=== PATIENT | female | born 1960 | race Caucasian/White ===

== ENCOUNTER 2016-05-21 08:27 | Inpatient (IN) | payer OTHER, MEDICARE ==
[2016-05-21] VITALS (24 sets, daily range): BP systolic 59–144; BP diastolic 37–105; PULSE 75–110; RESP 18–26; TEMP 97–98.8; O2SAT 92–100
[~2016-05-21] VITALS: Ht 165.1 cm; Wt 98.8 kg
[~2016-05-21 08:27] MED LIST: DULO20 PO; LISI40TA PO; LORA-474 PO; MOBI7.5T PO; MORP15TA3 PO; MORP20SO PO; PERC10TA27 PO; PROM25SU8 PO
[2016-05-21] MEDS ORDERED: SODIUM CHLOR 0.9% 1000 ML INJ 1,000 ML IV ONE ×3 (08:33→13:30)
[2016-05-21] MEDS ORDERED: SODIUM CHLOR 0.9% 1000 ML INJ 1,000 ML IV SCH ×3 (08:45→09:00)
[2016-05-21] MEDS ORDERED: SODIUM CHLORIDE 0.9% FLUSH 10 ML FLUSH IVF PRN (08:45)
--- NOTE | 2016-05-21 08:45 | PD ---
HPI Chief Complaint: Altered Mental Status Time Seen by Provider: 08:33 Travel History International Travel<30 days: No Contact w/Intl Traveler<30days: No History of Present Illness HPI 56 year-old woman is brought to the emergency department via EMS for altered mental status. EMS reports from that patient was recently restarted on oxycodone, Wellbutrin within the past several days. Patient has been getting more confused and lethargic since yesterday. EMS reports that on scene pill bottles were open and pills were scattered and many pills unaccounted for. They also relate the report the patient's mother more stress recently. Pills on scene include bupropion XL 150 mg, oxycodone 10/325 mg, alprazolam 1 mg. History Past Medical History Narrative Medical From medical records: Hypertension Menopausal: Yes Social History Alcohol Use: Yes (SOCIALLY) Tobacco Use: Yes (1/2PPD) Allergies-Medications (Allergen,Severity, Reaction): Coded Allergies: No Known Allergies (Unverified , 05/21/16) Reported Meds & Prescriptions Reported Meds & Active Scripts Active Phenergan (Promethazine HCl) 25 Mg Tab 25 Mg PO Q6H PRN FOR NAUSEA/VOMITING Reported Ativan (Lorazepam) 1 Mg Tab 1 Mg PO ONCE Morphine Sulfate Cr (Morphine Sulfate) 15 Mg Tab 15 Mg PO TID Morphine Sulfate 20 Mg/5 Ml Ameena 15 Mg PO Cymbalta (Duloxetine HCl) 20 Mg Cap 20 Mg PO DAILY Prinivil 40 mg (Lisinopril) 40 Mg Tab 1 Tab PO DAILY Mobic (Meloxicam) 7.5 Mg Tab 7.5 Mg PO HS Percocet 10/325 (Oxycodone/Acetaminophen) Oxycodone 10/325 Acetaminophen Tab 1 Tab PO BID Review of Systems ROS Limitations: Clinical Condition Physical Exam Narrative GENERAL: 56 year-old woman, depressed mental status, confused. SKIN: Decreased skin turgor. Appears dehydrated. HEAD: Atraumatic. Normocephalic. EYES: Pupils equal and round. No scleral icterus. No injection or drainage. ENT: No nasal bleeding or discharge. Dry mucous membranes. NECK: Trachea midline. No JVD. CARDIOVASCULAR: Regular rate and rhythm. No murmur appreciated. RESPIRATORY: No accessory muscle use. Clear to auscultation. Breath sounds equal bilaterally. GASTROINTESTINAL: Abdomen is flat and soft. She does grimace a little bit with deep palpation. MUSCULOSKELETAL: No obvious deformities. No edema. No obvious injuries. NEUROLOGICAL: Awake, eyes open but not really responsive. We will look at you if you scream loudly. Did answer her name once. Mostly just has incomprehensible moans with eyes were moving around the room. She is unusual muscle jerking and twitching periodically mostly in the upper extremities. She will move all 4 extremities but does seem to favor the upper ones. She doesn't move the lower ones as much. She doesn't appear to have any areas without sensation although she responds minimally at times even noxious stimuli. PSYCHIATRIC: Unable to assess. Data Data Last Documented VS Vital Signs Date Time Temp Pulse Resp B/P Pulse Ox O2 Delivery O2 Flow Rate FiO2 05/21/16 10:07 98 Nasal Cannula 2 05/21/16 10:07 102 Orders Electrocardiogram (05/21/16 08:33) Complete Blood Count With Diff (05/21/16 08:33) Comprehensive Metabolic Panel (05/21/16 08:33) Urinalysis - C+S If Indicated (05/21/16 08:33) Chest, Single Ap (05/21/16 08:33) Ct Brain W/O Iv Contrast(Rout) (05/21/16 08:33) Arterial Blood Gas (Abg) (05/21/16 08:33) Blood Glucose (05/21/16 08:33) Iv Access Insert/Monitor (05/21/16 08:33) Ecg Monitoring (05/21/16 08:33) Oximetry (05/21/16 08:33) Urinary Catheter Insert/Apply (05/21/16 08:33) Sodium Chloride 0.9% Flush (Ns Flush) (05/21/16 08:45) Sodium Chlor 0.9% 1000 Ml Inj (Ns 1000 M (05/21/16 08:33) Call Poison Control (05/21/16 08:33) Drug Screen, Random Urine (05/21/16 08:33) Alcohol (Ethanol) (05/21/16 08:33) Salicylates (Aspirin) (05/21/16 08:33) Tylenol (Acetaminophen) (05/21/16 08:33) Sodium Chlor 0.9% 1000 Ml Inj (Ns 1000 M (05/21/16 08:45) Creatine Kinase (Cpk) (05/21/16 08:33) Lactic Acid (05/21/16 08:50) Sodium Chlor 0.9% 1000 Ml Inj (Ns 1000 M (05/21/16 09:00) Sodium Chlor 0.9% 1000 Ml Inj (Ns 1000 M (05/21/16 09:00) Dextrose 5% In W[place]... W/Sodium Bicarbon (05/21/16 09:15) Beta Hydroxybutyrate (Acetone) (05/21/16 09:08) Osmolality,Serum (05/21/16 09:08) Blood Culture (05/21/16 09:08) Calcium Gluconate Inj (Calcium Gluconate (05/21/16 09:45) Albuterol Neb (Albuterol Neb) (05/21/16 09:45) Sodium Bicarbonate 8.4% Inj (Sodium Bica (05/21/16 09:45) Dextrose 50% In [place]ey[place] (Vial) Inj (D50w (Vi (05/21/16 09:45) Insulin Human Regular Inj (Novolin R Inj (05/21/16 09:45) Urine Culture (05/21/16 09:40) CKMB (05/21/16 09:00) CKMB% (05/21/16 09:00) Norepinephrine-Dextrose Drip (Levophed-D (05/21/16 10:30) Terbutaline Inj (Brethine Inj) (05/21/16 10:30) Comprehensive Metabolic Panel (05/21/16 11:00) Serum Total Iron (Fe) (05/21/16 10:31) Admit Order (Ed Use Only) (05/21/16 ) Labs Laboratory Tests Test 05/21/16 05/21/16 05/21/16 08:43 09:00 09:40 Blood Gas Puncture Site RT BRACHIAL Blood Gas Patient Temperature 98.6 Blood Gas HCO3 10 mmol/L Blood Gas Base Excess -18.1 mmol/L Blood Gas Oxygen Saturation 93 % Arterial Blood pH 7.04 Arterial Blood Partial 40 mmHG Pressure CO2 Arterial Blood Partial 106 mmHG Pressure O2 Arterial Blood Oxygen Content 15.7 Vol % Arterial Blood 1.3 % Carboxyhemoglobin Arterial Blood Methemoglobin 1.8 % Blood Gas Hemoglobin 11.9 G/DL Oxygen Delivery Device NASAL CANNULA Blood Gas Liter Flow 2 L/M Blood Gas Inspired Oxygen 28 % White Blood Count 10.5 TH/MM3 Red Blood Count 4.28 MIL/MM3 Hemoglobin 12.1 GM/DL Hematocrit 36.0 % Mean Corpuscular Volume 84.0 FL Mean Corpuscular Hemoglobin 28.3 PG Mean Corpuscular Hemoglobin 33.8 % Concent Red Cell Distribution Width 15.4 % Platelet Count 258 TH/MM3 Mean Platelet Volume 8.5 FL Neutrophils (%) (Auto) 89.8 % Lymphocytes (%) (Auto) 3.2 % Monocytes (%) (Auto) 3.5 % Eosinophils (%) (Auto) 0.0 % Basophils (%) (Auto) 3.5 % Neutrophils # (Auto) 9.4 TH/MM3 Lymphocytes # (Auto) 0.3 TH/MM3 Monocytes # (Auto) 0.4 TH/MM3 Eosinophils # (Auto) 0.0 TH/MM3 Basophils # (Auto) 0.4 TH/MM3 CBC Comment DIFF FINAL Differential Comment Sodium Level 135 MEQ/L Potassium Level 7.6 MEQ/L Chloride Level 94 MEQ/L Carbon Dioxide Level 13.7 MEQ/L Anion Gap 27 MEQ/L Blood Urea Nitrogen 184 MG/DL Creatinine 13.00 MG/DL Estimat Glomerular Filtration 3 ML/MIN Rate Random Glucose 111 MG/DL Serum Osmolality 353 MOSM/KG Lactic Acid Level 1.1 mmol/L Calcium Level 7.3 MG/DL Protein Corrected Calcium 7.9 MG/DL Total Bilirubin 0.9 MG/DL Aspartate Amino Transf 68 U/L (AST/SGOT) Alanine Aminotransferase 60 U/L (ALT/SGPT) Alkaline Phosphatase 124 U/L Total Creatine Kinase 1699 U/L Creatine Kinase MB 144.5 NG/ML Creatine Kinase MB % 8.5 % Total Protein 6.0 GM/DL Albumin 2.7 GM/DL Salicylates Level 3.9 MG/DL Acetaminophen Level 4.4 MCG/ML Ethyl Alcohol Level LESS THAN 3 MG/DL B-Hydroxybutyrate 1.06 MMOL/L Urine Collection Type CLEAN CATCH Urine Color YELLOW Urine Turbidity SLIGHT Urine pH 5.0 Urine Specific [place] 1.024 Urine Protein TRACE mg/dL Urine Glucose (UA) NEG mg/dL Urine Ketones TRACE mg/dL Urine Occult Blood SMALL Urine Nitrite NEG Urine Bilirubin NEG Urine Leukocyte Esterase NEG Urine RBC 15-19 /hpf Urine WBC 3-5 /hpf Urine Squamous Epithelial 0-5 /hpf Cells Urine Amorphous Sediment MOD Urine Bacteria MOD /hpf Microscopic Urinalysis Comment CULTURE INDICATED Urine Collection Time 09:40 Urine Opiates Screen POS Urine Barbiturates Screen NEG Urine Amphetamines Screen POS Urine Benzodiazepines Screen POS Urine Cocaine Screen POS Urine Cannabinoids Screen NEG MDM Medical Decision Making Medical Screen Exam Complete: Yes Emergency Medical Condition: Yes Interpretation(s) My review of EKG: Sinus rhythm at a rate of 80, occasional PACs, normal axis, inferolateral ST depressions could be ischemic, T waves are little bit peaked and anterior precordium, QRS duration is 100. CT head: No acute disease. Chest x-ray: No acute disease. LABS: ABG 7.04/40/106/10, base excess -18 CBC generally unremarkable. CMP with renal failure, creatinine 13, acidosis with a bicarbonate of 13.7, anion gap of 27, calcium is 7.3 Lactate 1.1 CPK Alcohol negative Salicylates pending Acetaminophen pending Beta hydroxybutyrate pending Differential Diagnosis Overdose, stroke, dehydration, infection/encephalitis, poisoning, other Narrative Course Medical decision making INITIAL: 56-year-old with altered mental status and suspected polydrug overdose. We'll discuss with poison control. We'll check CT head, labs, and reassess. Blood pressure is a low. She appears dehydrated. We will bolus 2 L IV fluid. Close monitoring, likely admission to the ICU. FINAL: Labs of marked abnormalities including renal failure, marked acidosis. Patient worsening mental status. Initial response to 4 L of IV fluid. Patient had marked dehydration. Patient was also found to be in hyperkalemia with her renal failure. Was treated with bicarbonate, insulin and D50, albuterol. Bicarbonate drip was also started. Given the marked metabolic derangement, potential need for dialysis, and worsening mental status, decision was made to intubate the patient. Following intubation a central line and arterial line were also place. Nor epi drip was started. Propofol was started. I spoke with Dr. Jasen ponce, with nephrology. I also spoke with Dr. Sexton, critical care medicine. Patient was transferred emergently to the ICU and [facility]. Critical Care Narrative Aggregate critical care time was 45 minutes. Time to perform other separately billable procedures was not included in the critical care time. My time did not include minutes spent treating any other patients simultaneously or on activities that did not directly contribute to the patient's treatment. The services I provided to this patient were to treat and/or prevent clinically significant deterioration that could result in: , renal failure, worsening shock, unrecognized toxidrome, increased morbidity. I provided critical care services requiring my management, as noted below: Chart data review, documentation time, medication orders and management, vital sign assessments/reviewing monitor data, ordering and reviewing lab tests, ordering and interpreting/reviewing x-rays and diagnostic studies, care of the patient and discussion of the patient with the admitting physicians. Procedures Procedure Narrative After the risks and benefits were discussed the following procedure was performed: INTUBATION: The patient was put in optimal position for the procedure. Rapid sequence intubation was initiated by me using 20 milligrams of etomidate IV and 80 milligrams of Rocuronium IV. The patient was intubated with a 8.0 cuffed endotracheal tube. Tube placement was confirmed by visualization of the tube and balloon passing through the cords, capnometry and subsequent chest x-ray. Breath sounds were equal and well aerated bilaterally postintubation. No breath sounds over stomach. Patient tolerated procedure well. CENTRAL VENOUS LINE: The site was prepped with Betadine and sterilely draped. It was infiltrated with 1% lidocaine plain. The deep vein was cannulated using normal Seldinger technique. A triple lumen central line was placed in the right IJ site and secured with simple interrupted suture. Ultrasound was utilized in real time. The site was sterilely dressed. The patient tolerated the procedure well. ARTERIAL LINE: Right wrist was prepped with chlorhexidine. Ultrasound was utilized in real time. 20-gauge Angiocath was placed without difficulty. Patient tolerated well. Good waveform. Diagnosis Primary Impression: Altered mental status Additional Impression: Renal failure Admitting Information Admitting Physician Requests: Admit Evan Aragon MD May 21, 2016 08:45
[2016-05-21 08:52] LABS: BLOOD GAS BASE EXCESS -18.1 mmol/L (-2-2); BLOOD GAS CARBOXYHEMOGLOBIN 1.3 % (0-4); BLOOD GAS HCO3 10 mmol/L (22-26); BLOOD GAS METHEMOGLOBIN 1.8 % (0-2); BLOOD GAS O2 HGB SATURATION 93 % (90-100); BLOOD GAS OXYGEN CONTENT 15.7 Vol % (12.0-20.0); BLOOD GAS PCO2 40 mmHG (38-42); BLOOD GAS PO2 106 mmHG (61-120); BLOOD GAS TOTAL HGB 11.9 G/DL (12.0-16.0); TEMP CORR TO 98.6
[2016-05-21 08:53] LABS: CRITICAL VALUE YES; DRAW SITE RT BRACHIAL; FIO2 28 %; LITER FLOW 2 L/M; NUMBER OF ARTERIAL PUNCTURES 2; OXYGEN DEVICE NASAL CANNULA; STAT YES; ULNAR PULSE PRESENT
[2016-05-21 09:07] LABS: AUTOMATED NEUTROPHIL # 9.4 TH/MM3 (1.8-7.7); BASOPHIL # 0.4 TH/MM3 (0-0.2); BASOPHIL % 3.5 % (0.0-2.0); LYMPH % 3.2 % (9.0-44.0); LYMPHOCYTE # 0.3 TH/MM3 (1.0-4.8); MEAN CORPUSCULAR HEMOGLOBIN 28.3 PG (27.0-34.0); MEAN CORPUSCULAR HGB CONC 33.8 % (32.0-36.0); MONO % 3.5 % (0.0-8.0); NEUT % 89.8 % (16.0-70.0); PLATELET COUNT 258 TH/MM3 (150-450); RED BLOOD COUNT 4.28 MIL/MM3 (4.00-5.30); RED CELL DISTRIBUTION WIDTH 15.4 % (11.6-17.2); WHITE BLOOD COUNT 10.5 TH/MM3 (4.0-11.0)
[2016-05-21 09:08] LABS: HEMO FLAGS DIFF FINAL
[2016-05-21] MEDS ORDERED: SODIUM BICARBONATE 8.4% INJ 100 MEQ in DEXTROSE 5% IN WATE 1000ML INJ 1,000 ML IV SCH ×2 (09:15)
[2016-05-21 09:18] LABS: ALT (GPT) 60 U/L (10-53); ANION GAP 27 MEQ/L (5-15); AST (GOT) 68 U/L (15-37); BICARBONATE 13.7 MEQ/L (21.0-32.0); CHLORIDE 94 MEQ/L (98-107); SODIUM (NA) 135 MEQ/L (136-145)
[2016-05-21 09:25] LABS: ALKALINE PHOSPHATASE 124 U/L (45-117); TOTAL BILIRUBIN ADULT 0.9 MG/DL (0.2-1.0)
--- NOTE | 2016-05-21 09:25 | RADHPO ---
EXAM DATE/TIME: 05/21/2016 09:02 [facility] COMPARISON: No previous studies available for comparison. INDICATIONS : Altered mental status. RADIATION DOSE: 54.25 CTDIvol (mGy) MEDICAL HISTORY : Hypertension. SURGICAL HISTORY : Cholecystectomy. Tubal ligation.Laminectomy. ENCOUNTER: Initial ACUITY: 1 day PAIN SCALE: 0/10 LOCATION: cranial TECHNIQUE: Multiple contiguous axial images were obtained of the head. Using automated exposure control and adj ustment of the mA and/or kV according to patient size, radiation dose was kept as low as reasonably a chievable to obtain optimal diagnostic quality images. FINDINGS: CEREBRUM: The ventricles are normal for age. No evidence of midline shift, mass lesion, hemorrhage or acute in farction. No extra-axial fluid collections are seen. POSTERIOR FOSSA: The cerebellum and brainstem are intact. The 4th ventricle is midline. The cerebellopontine angle i s unremarkable. EXTRACRANIAL: The visualized portion of the orbits is intact. SKULL: The calvaria is intact. No evidence of skull fracture. CONCLUSION: No acute disease. Torsten Verma MD on May 21, 2016 at 9:23 Board Certified Radiologist. This report was verified electronically.
[2016-05-21 09:26] LABS: CALCIUM-PROTEIN CORRECTED 7.9 MG/DL (8.5-10.1)
[2016-05-21 09:30] LABS: GLOMERULAR FILTRATION RATE 3 ML/MIN (>89); POTASSIUM 7.6 MEQ/L (3.5-5.1)
--- NOTE | 2016-05-21 09:38 | RADHPO ---
EXAM DATE/TIME: 05/21/2016 08:51 [facility] COMPARISON: No previous studies available for comparison. INDICATIONS : Short of breath. MEDICAL HISTORY : Syncope. SURGICAL HISTORY : None. ENCOUNTER: Initial ACUITY: 1 day PAIN SCORE: Non-responsive. LOCATION: Bilateral chest FINDINGS: A single view of the chest demonstrates the lungs to be symmetrically aerated without evidence of mas s, infiltrate or effusion. The cardiomediastinal contours are unremarkable. Osseous structures are intact. CONCLUSION: No acute disease. Evert Bledsoe MD on May 21, 2016 at 9:34 Board Certified Radiologist. This report was verified electronically.
[2016-05-21] MEDS ORDERED: INSULIN HUMAN REGULAR 1,000 UNITS/10 ML VIAL IV PUSH ONE (09:45)
[2016-05-21] MEDS ORDERED: SODIUM BICARBONATE 8.4% INJ 50 MEQ/50 ML SYR IV PUSH ONE ×2 (09:45→15:45)
[2016-05-21] MEDS ORDERED: DEXTROSE 50% IN WATER 50 ML VIAL(D50) IV PUSH ONE (09:45)
[2016-05-21] MEDS ORDERED: CALCIUM GLUCONATE INJ 2 GM in DEXTROSE 5% IN WATER 100ML INJ 100 ML IV ONE ×2 (09:45)
[2016-05-21] MEDS ORDERED: RESP: ALBUTEROL 2.5 MG/3 ML NEB (SCH) NEB ONE (09:45)
[2016-05-21 09:53] LABS: BLOOD, URINE SMALL (NEG); GLUCOSE,URINE NEG (NEG); KETONE, URINE TRACE mg/dL (NEG); NITRITE,URINE NEG (NEG)
[2016-05-21 09:58] LABS: METHOD OF COLLECTION CLEAN CATCH; RBC, URINE 15-19 /hpf (0-3); URINE COLOR YELLOW (YELLW/STRAW)
[2016-05-21 09:59] LABS: BACTERIA, URINE MOD /hpf; COMMENT (UR) CULTURE INDICATED; CULTURE IF INDICATED CULTURE INDICATED; SQUAMOUS EPITHELIAL CELL URINE 0-5 /hpf (0-5)
[2016-05-21 10:10] LABS: AMPHETAMINE, URINE POS (NEG); BARBITURATES, URINE NEG (NEG); COCAINE, URINE POS (NEG)
[2016-05-21 10:19] LABS: BLOOD UREA NITROGEN 184 MG/DL (7-18); CREATINE KINASE 1699 U/L (26-192)
[2016-05-21] MEDS ORDERED: TERBUTALINE INJ 1 MG/ML AMP SQ PRN (10:30)
[2016-05-21 10:43] LABS: ACETAMINOPHEN 4.4 MCG/ML (10.0-30.0)
[2016-05-21 10:52] LABS: CKMB 144.5 NG/ML (0.5-3.6)
[2016-05-21] MEDS ORDERED: SUCCINYLCHOLINE CHLORIDE 200 MG/10 ML VIAL ONE (10:58)
[2016-05-21] MEDS ORDERED: ROCURONIUM INJ 100 MG/10 ML VIAL IV ONE (11:00)
[2016-05-21] MEDS ORDERED: ETOMIDATE 20 MG/10 ML VIAL IVP ONE (11:00)
[2016-05-21] MEDS ORDERED: ROCURONIUM INJ 50 MG/5 ML VIAL ONE (11:00)
[2016-05-21 11:37] LABS: POTASSIUM 5.8 MEQ/L (3.5-5.1)
--- NOTE | 2016-05-21 11:41 | EKG ---
Date Performed: 05/21/2016 Time Performed: 09:20:20 PTAGE: 56 years EKG: Sinus rhythm with PAC(s). Possible septal infarct - age undetermined Inferior/lateral ST changes are nonspecific Abnormal ECG PREVIOUS TRACING : 04/12/2015 17.12 DOCTOR: Evan Pandya Interpretating Date/Time 05/21/2016 11:40:44
--- NOTE | 2016-05-21 11:42 | RADHPO ---
EXAM DATE/TIME: 05/21/2016 10:59 [facility] COMPARISON: CHEST SINGLE AP, May 21, 2016, 8:51. INDICATIONS : Post intubation and central line placement. MEDICAL HISTORY : None. SURGICAL HISTORY : None. ENCOUNTER: Subsequent ACUITY: 1 day PAIN SCORE: Non-responsive. LOCATION: Bilateral chest FINDINGS: A single view of the chest demonstrates a interval placement of a right IJ central venous catheter an d endotracheal tube. The latter is approximately 1.7 cm above the angel. Heart size is borderline. T here is some interstitial prominence suggesting vascular congestion or volume overload. Anterior fixa tion of lower cervical spine. Osseous structures are otherwise intact. CONCLUSION: 1. Interval placement of right IJ central venous catheter with the tip projecting over the central ve nous system. No pneumothorax. 2. Interval placement of an endotracheal tube with the tip approximately 1.7 cm above the angel. 3. Heart size is upper limits of normal to borderline enlarged with some interstitial prominence taylor acteristic of some degree of interstitial edema or volume overload. Ky German MD on May 21, 2016 at 11:38 Board Certified Radiologist. This report was verified electronically.
[2016-05-21 11:54] LABS: BICARBONATE 15.7 MEQ/L (21.0-32.0); CALCIUM-PROTEIN CORRECTED 7.5 MG/DL (8.5-10.1); TOTAL BILIRUBIN ADULT 0.8 MG/DL (0.2-1.0)
[2016-05-21] MEDS ORDERED: MISCELLANEOUS NURSING INFORMATION XX SCH (12:30)
[2016-05-21] MEDS ORDERED: CHLORHEXIDINE GLUCONATE 2 % 1 PACK (2 CLOTHS) TOP PRN (12:30)
--- NOTE | 2016-05-21 13:36 | HHI.HP ---
[facility] Service Critical Care Medicine Primary Care Physician Duong Barahona MD Admission Diagnosis REnal Failure, AMS Diagnosis: (1) Acute respiratory failure Diagnosis: Principal (2) Acute encephalopathy Diagnosis: Principal (3) Acute drug overdose Diagnosis: Principal (4) Acute renal failure Diagnosis: Principal (5) Hyperkalemia Diagnosis: Principal (6) Shock Diagnosis: Principal (7) Metabolic acidosis Diagnosis: Principal (8) Rhabdomyolysis Diagnosis: Principal (9) Elevated liver enzymes Diagnosis: Principal (10) Hypocalcemia Diagnosis: Principal (11) Dehydration Diagnosis: Principal Chief Complaint: Altered mental status, lethargy Travel History International Travel<30 Days: No Contact w/Intl Traveler <30 Da: No Traveled to Known Affected Are: No Sepsis Criteria SIRS Criteria (2 or more): Heart rate over 90, RR > 20 or PaCO2 < 32 Severe Sepsis (+one): Organ Dysfunction, Hypotension, Acute Oliguria/Renal Failure Septic Shock Criteria: Unresponsive to 30ml/kg fluid bolus Multiple Organ Dysfunction Syn: Evidence -2 organs failing Criteria Outcome: Meets multiple organ dys. criteria History of Present Illness Patient is a 56-year-old female with past medical history significant for hypertension and chronic pain who was brought to the [place] emergency department by EMS for altered mental status. Per EMS stated that she was recently started on oxycodone, Wellbutrin within the past 2 weeks. According to him patient was getting more confused and lethargic since yesterday. On EMS arrival and there were multiple open bottles on the scene including Wellbutrin oxycodone and alprazolam. Unable to determine what meds and how much she consumed. Patient was hypotensive and received total of 4 L normal saline boluses in [facility] ED. ER workup showed a CT of the head was negative but patient remained unresponsive with jerking movements of bilateral upper and lower extremities. Lab work showed acute renal failure with BUN 184 creatinine of 13, potassium was 7.6. Along with fluid boluses patient received bicarbonate, insulin and D50, albuterol for treatment of hyperkalemia and Bicarbonate drip was also started. Patient's pH was 7.04 which was combined metabolic and respiratory acidemia. Due to worsening mental status severe acidosis patient was endotracheally intubated and placed on mechanical ventilation, also a right IJ central line was placed. Nephrology had been consulted Patient was transferred to the [facility] hospital and I evaluated her in the ICU. On propofol patient continues to have intermittent jerking movements of the extremities. She remains on 6 mcg/m of Levophed. After treatment of hyperkalemia potassium has improved now 5.8. Creatinine has improved to 12 patient had a total output of 500 mL in urine. We will continue bicarbonate infusion. Nephrology consult is pending at this time. UDS positive for opiates , benzo, amphetamine and cocaine. Review of Systems ROS Limitations: Intubated, Altered Mental Status Past Family Social History Allergies: Coded Allergies: No Known Allergies (Unverified , 05/21/16) Past Medical History Hypertension Chronic pain Past Surgical History Unable to obtain Reported Medications Ativan (Lorazepam) 1 Mg Tab 1 Mg PO ONCE Morphine Sulfate Cr (Morphine Sulfate) 15 Mg Tab 15 Mg PO TID Morphine Sulfate 20 Mg/5 Ml Ameena 15 Mg PO Cymbalta (Duloxetine HCl) 20 Mg Cap 20 Mg PO DAILY Prinivil 40 mg (Lisinopril) 40 Mg Tab 1 Tab PO DAILY Mobic (Meloxicam) 7.5 Mg Tab 7.5 Mg PO HS Percocet 10/325 (Oxycodone/Acetaminophen) Oxycodone 10/325 Acetaminophen Tab 1 Tab PO BID Active Ordered Medications Reviewed Family History Unable to obtain Social History Positive for alcohol and smoking. UDS positive for cocaine, amphetamine, opiates and benzodiazepines Physical Exam Vital Signs Vital Signs Date Time Temp Pulse Resp B/P Pulse Ox O2 Delivery O2 Flow Rate FiO2 05/21/16 11:35 95 20 123/59 100 Ventilator 05/21/16 11:20 101 20 93/46 100 Ventilator 05/21/16 11:15 108 20 119/58 100 Ventilator 05/21/16 11:12 99 40 05/21/16 10:55 107 101/47 05/21/16 10:35 106 85/38 98 3 05/21/16 10:30 107 79/41 92 Nasal Cannula 3 05/21/16 10:25 106 59/37 100 3 05/21/16 10:15 105 82/50 99 Nasal Cannula 3 05/21/16 10:10 102 24 76/50 99 Nasal Cannula 3 05/21/16 10:07 98 Nasal Cannula 2 05/21/16 10:07 102 100 Nasal Cannula 3 05/21/16 09:40 86 26 92/64 98 3 05/21/16 09:20 83 24 138/105 98 Nasal Cannula 3 05/21/16 08:30 98.8 75 22 84/53 99 Nasal Cannula 3 Physical Exam GENERAL: 56 year-old woman, intubated sedated with propofol, intermittent jerking of limbs noted SKIN: Decreased skin turgor. Severe dehydration. HEAD: Atraumatic. Normocephalic. EYES: Pupils equal and round. No scleral icterus. No injection or drainage. ENT: No nasal bleeding or discharge. Dry mucous membranes. Orotracheally intubated NECK: Trachea midline. No JVD. CARDIOVASCULAR: Regular rate and rhythm. No murmur appreciated. On 5 mcg/min of Levophed RESPIRATORY: Clear to auscultation. Breath sounds equal bilaterally. GASTROINTESTINAL: Abdomen is flat and soft. No organomegaly MUSCULOSKELETAL: No obvious deformities. No edema. No obvious injuries. NEUROLOGICAL: Eyes are open blank stare. Periodic intermittent jerking movements of bilateral upper and lower extremities. No withdrawal to painful Laboratory Laboratory Tests Test 05/21/16 05/21/16 05/21/16 05/21/16 08:43 09:00 09:40 11:25 Blood Gas Puncture Site RT BRACHIAL Blood Gas Patient Temperature 98.6 Blood Gas HCO3 10 Blood Gas Base Excess -18.1 Blood Gas Oxygen Saturation 93 Arterial Blood pH 7.04 Arterial Blood Partial 40 Pressure CO2 Arterial Blood Partial 106 Pressure O2 Arterial Blood Oxygen Content 15.7 Arterial Blood 1.3 Carboxyhemoglobin Arterial Blood Methemoglobin 1.8 Blood Gas Hemoglobin 11.9 Oxygen Delivery Device NASAL CANNULA Blood Gas Liter Flow 2 Blood Gas Inspired Oxygen 28 White Blood Count 10.5 Red Blood Count 4.28 Hemoglobin 12.1 Hematocrit 36.0 Mean Corpuscular Volume 84.0 Mean Corpuscular Hemoglobin 28.3 Mean Corpuscular Hemoglobin 33.8 Concent Red Cell Distribution Width 15.4 Platelet Count 258 Mean Platelet Volume 8.5 Neutrophils (%) (Auto) 89.8 Lymphocytes (%) (Auto) 3.2 Monocytes (%) (Auto) 3.5 Eosinophils (%) (Auto) 0.0 Basophils (%) (Auto) 3.5 Neutrophils # (Auto) 9.4 Lymphocytes # (Auto) 0.3 Monocytes # (Auto) 0.4 Eosinophils # (Auto) 0.0 Basophils # (Auto) 0.4 CBC Comment DIFF FINAL Differential Comment Sodium Level 135 137 Potassium Level 7.6 5.8 Chloride Level 94 100 Carbon Dioxide Level 13.7 15.7 Anion Gap 27 21 Blood Urea Nitrogen 184 164 Creatinine 13.00 12.00 Estimat Glomerular Filtration 3 3 Rate Random Glucose 111 157 Serum Osmolality 353 Lactic Acid Level 1.1 Calcium Level 7.3 6.6 Protein Corrected Calcium 7.9 7.5 Total Bilirubin 0.9 0.8 Aspartate Amino Transf 68 74 (AST/SGOT) Alanine Aminotransferase 60 56 (ALT/SGPT) Alkaline Phosphatase 124 118 Total Creatine Kinase 1699 Creatine Kinase MB 144.5 Creatine Kinase MB % 8.5 Total Protein 6.0 5.3 Albumin 2.7 2.3 Salicylates Level 3.9 Acetaminophen Level 4.4 Ethyl Alcohol Level LESS THAN 3 B-Hydroxybutyrate 1.06 Urine Collection Type CLEAN CATCH Urine Color YELLOW Urine Turbidity SLIGHT Urine pH 5.0 Urine Specific Hughson 1.024 Urine Protein TRACE Urine Glucose (UA) NEG Urine Ketones TRACE Urine Occult Blood SMALL Urine Nitrite NEG Urine Bilirubin NEG Urine Leukocyte Esterase NEG Urine RBC 15-19 Urine WBC 3-5 Urine Squamous Epithelial 0-5 Cells Urine Amorphous Sediment MOD Urine Bacteria MOD Microscopic Urinalysis Comment CULTURE INDICATED Urine Collection Time 09:40 Urine Opiates Screen POS Urine Barbiturates Screen NEG Urine Amphetamines Screen POS Urine Benzodiazepines Screen POS Urine Cocaine Screen POS Urine Cannabinoids Screen NEG Iron Level 78 Date/Time Procedure Status Source Growth 05/21/16 09:46 Aerobic Blood Culture Received Blood Peripheral Pending 05/21/16 09:46 Anaerobic Blood Culture Received Blood Peripheral Pending 05/21/16 09:40 Urine Culture Received Urine Clean Catch Pending Result Diagram: 05/21/16 0900 05/21/[address] scan head negative for acute findings Chest x-ray mild interstitial edema Assessment and Plan Assessment and Plan NEURO: Acute encephalopathy Polydrug overdose Probable myoclonus Chronic pain -Urine drug screen positive for cocaine, amphetamine, benzodiazepines and opiates -Apparently patient was recently prescribed Wellbutrin and oxycodone -Sedation with propofol and Versed -EEG due to involuntary jerking of the limbs -Watch for alcohol and drug withdrawal RESP: Acute respiratory failure Severe metabolic and respiratory acidosis -Assist control mechanical ventilation. Ventilator bundle -DuoNeb every 6 hours and when necessary -Spontaneous breathing trials until mental status improves -Send sputum culture, empiric Zosyn CV: Shock -Most likely hypovolemic shock -Normal saline total 6L bolus followed by bicarb infusion and 150 ml per hour -Levophed to keep map above 65 -Cycle cardiac enzymes GI: Transaminitis -Elevated liver enzymes from shock liver -Keep nothing by mouth, IV Protonix /Endo: Acute kidney failure Severe dehydration Hyperkalemia Hypocalcemia -Monitor renal function closely. Robert catheter. -Acute renal failure workup per nephrology. Check renal ultrasound -Hypokalemia treated with D50 followed by insulin, calcium, bicarbonate and albuterol breathing treatments -Give Kayexalate 30 g 1 -Patient is making urine at this time, potassium has improved to 5.8 from 7.6. I do not think she needs dialysis at this time -D/W Dr. Prado ID: Probable sepsis -Empirically placed on Zosyn to cover for possible sepsis and aspiration -Single dose of vancomycin -Follow up on blood urine and sputum culture. HEME: -Monitor CBC, CMP, coags PROPH: -Bilateral lower extremity SCDs. Heparin 5000 U sq q12. IV Protonix for GI prophylaxis LINES: -Right IJ central line placed in the ER by Dr. greenberg. CC time 90 min Code Status Full Discussed Condition With Dr. Prado Problem Qualifiers (1) Acute respiratory failure: Qualified Code: J96.00 - Acute respiratory failure, unspecified whether with hypoxia or hypercapnia (2) Acute drug overdose: (3) Acute renal failure: Qualified Code: N17.9 - Acute renal failure, unspecified acute renal failure type (4) Rhabdomyolysis: Qualified Code: M62.82 - Non-traumatic rhabdomyolysis Winston Loyd MD May 21, 2016 13:36
[2016-05-21] MEDS: NOREPINEPHRINE-DEXTROSE DRIP 250 ML IV SCH ×2 (13:40→13:43)
[2016-05-21] MEDS: PROPOFOL 1000 MG/100 ML INJ 100 ML IV SCH ×3 (13:40→17:15)
[2016-05-21] MEDS ORDERED: MIDAZOLAM 100 MG/ML INJ 100 ML IV SCH (13:45)
[2016-05-21] MEDS: RESP: ALBUTEROL 2.5 MG/IPRATROPIUM 0.5 MG NEB (SCH) NEB ×2 (14:14→21:37)
[2016-05-21 14:30] LABS: BLOOD GAS BASE EXCESS -15.9 mmol/L (-2-2); BLOOD GAS CARBOXYHEMOGLOBIN 0.6 % (0-4); BLOOD GAS HCO3 11 mmol/L (22-26); BLOOD GAS METHEMOGLOBIN 1.8 % (0-2); BLOOD GAS O2 HGB SATURATION 96 % (90-100); BLOOD GAS OXYGEN CONTENT 16.8 Vol % (12.0-20.0); BLOOD GAS PCO2 30 mmHg (38-42); BLOOD GAS PO2 157 mmHg (61-120); BLOOD GAS TOTAL HGB 12.3 G/DL (12.0-16.0); TEMP CORR TO 98.6
[2016-05-21] MEDS ORDERED: CALCIUM CHLORIDE INJ 2 GM in DEXTROSE 5% IN WATER 100ML INJ 100 ML IV ONE ×2 (14:30)
[2016-05-21 14:31] LABS: CRITICAL VALUE YES; DRAW SITE ART LINE; FIO2 50 %; OXYGEN DEVICE VENTILATOR; STAT YES; ULNAR PULSE PRESENT; VENT SETTINGS 550/16/7PEEP
[2016-05-21] MEDS ORDERED: SODIUM POLYSTYRENE SULFONATE SUSP 15 GM/60 ML CUP PO ONE (15:00)
[2016-05-21] MEDS ORDERED: VANCOMYCIN INJ 1,000 MG in SODIUM CHLOR 0.9% 250 ML INJ 250 ML IV ONE (15:00)
[2016-05-21] MEDS ORDERED: TIZA4CAP3 PO (15:07)
[2016-05-21 15:37] LABS: CALCIUM-PROTEIN CORRECTED 7.7 MG/DL (8.5-10.1)
[2016-05-21 15:38] LABS: BICARBONATE 13.6 MEQ/L (21.0-32.0); TOTAL BILIRUBIN ADULT 0.9 MG/DL (0.2-1.0)
[2016-05-21] MEDS: PIPERACIL-TAZO 2.25 GM PREMIX 50 ML IV SCH (16:18)
[2016-05-21] MEDS: SODIUM BICARBONATE 8.4% INJ 150 MEQ in WATER STERILE FOR INJ 850 ML IV SCH (16:29)
--- NOTE | 2016-05-21 17:11 | RADRPT ---
EXAM DATE/TIME: 05/21/2016 15:32 [facility] COMPARISON: No previous studies available for comparison. INDICATIONS : Renal failure. MEDICAL HISTORY : Hypertension. . . SURGICAL HISTORY : Cholecystectomy. Tubal ligation. Laminectomy. ENCOUNTER: Subsequent ACUITY: 1 day PAIN SCORE: Nonresponsive. LOCATION: Bilateral flank MEASUREMENTS: RIGHT KIDNEY: 11.5 x 5.5 x 5.2 cm LEFT KIDNEY: 10.3 x 5.2 x 6.1 cm FINDINGS: RIGHT KIDNEY: Increased cortical echogenicity. Renal size is preserved. No hydronephrosis or nephrolithiasis LEFT KIDNEY: Increased cortical echogenicity. Renal size is preserved. No hydronephrosis or nephrolithiasis BLADDER: Decompressed with a Robert catheter. CONCLUSION: 1. Kidney sizes are preserved with increased cortical echogenicity characteristic of acute medical re nal disease. 2. Otherwise negative. No hydronephrosis or nephrolithiasis. Ky German MD on May 21, 2016 at 17:08 Board Certified Radiologist. This report was verified electronically.
[2016-05-21] MEDS: HEPARIN SODIUM - SQ 10,000 UNITS/ML VIAL SQ SCH (17:24)
[2016-05-21] MEDS: PANTOPRAZOLE SODIUM 40 MG VIAL IV SCH (17:24)
--- NOTE | 2016-05-21 18:32 | MG ---
cc: MIKAELA CHAUDHARI MD Lab No: Date: 05/21/2016 Age: Sex: F Race: EEG NUMBER [id number] DATE OF 1960 A 56-year-old female, intubated, on Diprivan, history of confusion, possible overdose. DESCRIPTION Generalized delta activity 1-3 Hz with superimposed theta activity, 20-50 microvolts occurring with occasional frontal sharp transients. Myogenic artifact occurring during body twitch, foot twitching with moderate resultant artifact occurring at that time. Single lead EKG showing sinus tachycardia. No significant driving with photic stimulation. INTERPRETATION Moderate encephalopathy. Frequent episodes of limb twitching, associated with myogenic potential. Tiny myogenic potentials cannot be excluded. Clinical correlation. Mikaela Chaudhari MD MG/KK /5:39 PM /6:21 PM MTDD
--- NOTE | 2016-05-21 19:21 | RADRPT ---
EXAM DATE/TIME: 05/21/2016 18:34 [facility] COMPARISON: No previous studies available for comparison. INDICATIONS : Abdomen distension. ORAL CONTRAST: No oral contrast ingested. RADIATION DOSE: 9.96 CTDIvol (mGy) MEDICAL HISTORY : Cardiovascular disease. Hypertension. SURGICAL HISTORY : Tubal ligation. Cholecystectomy.laminecktomy ENCOUNTER: Initial ACUITY: 1 day PAIN SCALE: Non-responsive LOCATION: Abdomen TECHNIQUE: Volumetric scanning of the abdomen and pelvis was performed. Using automated exposure control and ad justment of the mA and/or kV according to patient size, radiation dose was kept as low as reasonably achievable to obtain optimal diagnostic quality images. FINDINGS: CT Abdomen: The liver, spleen, pancreas, kidneys, adrenals are unremarkable. There is no evidence for any appreciable pathological adenopathy. There is airspace consolidation in both lung bases worse on the left. There is slight ascites throughout the abdomen and pelvis and there is thickening of multi ple loops of small bowel diffusely throughout the abdomen and pelvis. The ascending colonic wall is s lightly thickened as well. No definite focal bowel obstruction is identified, however some of the loo ps of small bowel are slightly dilated. There is haziness of the mesentery as well may be due to pass anika congestion, however it is nonspecific may be inflammatory. There are old healed rib fractures in the left chest. CT pelvis: There is no evidence for mass, abscess formation, or any significant adenopathy within the pelvis. There is moderate amount of stool throughout the colon. CONCLUSION: 1. There is slight ascites with haziness of the mesentery nonspecific may be passive congestion or in flammatory in nature with very abnormal looking loops of small bowel which demonstrate thickening of the bowel wall and the exact etiology is not certain. 2. Bibasilar consolidation worse on the left. Caren Andrade MD on May 21, 2016 at 19:14 Board Certified Radiologist. This report was verified electronically.
[2016-05-21] MEDS: CHLORHEXIDINE 0.12% (ORAL KIT) 15 ML CUP MT SCH ×2 (20:00)
--- NOTE | 2016-05-21 20:20 | MB ---
cc: DULCE MARIA PANIAGUA MD DATE OF CONSULTATION: 05/21/2016 REASON FOR CONSULTATION: Elevated BUN and creatinine, hyperkalemia. HISTORY OF PRESENT ILLNESS: This is a 56 year-old female with a past medical history of drug abuse, hypertension, chronic pain syndrome, came to [facility], [place] because of altered mental status. I was called from there and then the patient was moved here to [facility]. Most of the history was taken from the patient's chart since the is not available here. According to the chart, the patient was started on oxycodone, Wellbutrin in the last two weeks and she was getting more and more confused. He was not sure how many of these she has taken. In the ER the patient was found to be hypotensive. Her blood pressure recorded was 76/50, and there was one that was 59/37. The patient was given fluid resuscitation. She was also found to have very high BUN and creatinine along with hyperkalemia and metabolic acidosis. The patient's toxicology was positive for amphetamine, benzodiazepine, cocaine, acetaminophen level was 4.4, salicylates was 3.9. Urine opiate screen was positive. PAST MEDICAL HISTORY: 1. Hypertension. 2. Chronic pain syndrome. 3. History of drug abuse. PAST SURGICAL HISTORY: Not available. REVIEW OF SYSTEMS: Cannot be taken since the patient is intubated. SOCIAL HISTORY The patient is . She has a history of smoking and alcoholism. Also using drugs including cocaine and amphetamines. FAMILY HISTORY: Not available. ALLERGIES: NO KNOWN DRUG ALLERGIES. MEDICATIONS: Currently she is on: 1. IV fluids, sodium bicarb at 150 an hour. 2. Protonix 40 mg IV daily. 3. DuoNeb as needed. 4. Heparin 5000 subcu q. 12-hour. 5. Propofol. 6. Zosyn 2.25 grams IV q. 8-hour. 7. DuoNeb as needed. 8. Fentanyl as needed. PHYSICAL EXAMINATION: The patient is intubated and on sedation. She is moving her arms a little bit but not responding, only to verbal commands. Her last blood pressure is 136/66, temperature 98.8. HEENT: Pupils equal and reactive to light. Nonicteric sclera, conjunctiva pale. Neck: Supple. JVD is not elevated. Lungs: The patient has bilateral decreased air entry with occasional wheezing. Heart: S1-S2 regular. Abdomen is distended, soft lax, no tenderness. Bowel sounds positive. Extremities: She has mild edema. INVESTIGATIONS: WBC count is 10.5, hemoglobin 12.1, platelet count 258, neutrophils 89.8, sodium 135, potassium 5.0, chloride 97, bicarb 13.6, BUN 160, creatinine 9.7, calcium corrected is 7.7, AST is 79, ALT 61. Troponin-I 0.48, total protein is 5.8, albumin is 2.6. Urinalysis showing trace protein, toxicology screen was positive for opiate, amphetamines, benzodiazepines, cocaine, alcohol level was less than 3, acetaminophen was 4.4. Barbiturates was negative. Salicylates 3.9. Cultures all pending. IMAGING STUDIES: The patient had a chest x-ray done which shows heart size in the upper limits with some interstitial prominence. CT scan of the brain was done which shows no acute disease. Ultrasound of the kidneys was done which shows both kidneys are normal size. No hydronephrosis or nephrolithiasis. ASSESSMENT AND PLAN: 1. Acute kidney injury. 2. Hyperkalemia. 3. Metabolic acidosis. 4. Respiratory failure. 5. History of drug abuse. 6. Hypotension and shock status. 7. Rhabdomyolysis. 8. Rule-out sepsis. The patient has been passing more urine since she was given resuscitation of the fluid. The BUN and creatinine is slowly coming down and the potassium is now normalized although the acidosis is still there. Her lactic acid level was not very high. At present, there is no acute urgent need for dialysis. I agree with continuing the IV fluids with sodium bicarbonate. Her urine is showing minimal protein which goes with more tubular damage because of the hypotension and ATN. Thank you for the consultation. I will follow the patient while she is in the hospital. MD GIBRAN Simmons/JUDE /6:20 PM /7:56 PM
[2016-05-22] VITALS (19 sets, daily range): BP systolic 93–134; BP diastolic 52–74; PULSE 78–128; RESP 18; TEMP 97.3–98.9; O2SAT 94–98
[2016-05-22] MEDS: PROPOFOL 1000 MG/100 ML INJ 100 ML IV SCH ×5 (00:32→23:17)
[2016-05-22] MEDS: RESP: ALBUTEROL 2.5 MG/IPRATROPIUM 0.5 MG NEB (SCH) NEB ×4 (03:21→21:28)
[2016-05-22] MEDS: CHLORHEXIDINE GLUCONATE 2 % 1 PACK (2 CLOTHS) TOP SCH (04:00)
[2016-05-22] MEDS: NOREPINEPHRINE-DEXTROSE DRIP 250 ML IV SCH ×3 (04:30→16:16)
[2016-05-22] MEDS: PIPERACIL-TAZO 2.25 GM PREMIX 50 ML IV SCH ×2 (04:57→06:29)
[2016-05-22] MEDS: SODIUM BICARBONATE 8.4% INJ 150 MEQ in WATER STERILE FOR INJ 850 ML IV SCH ×2 (04:57→06:30)
[2016-05-22] MEDS: HEPARIN SODIUM - SQ 10,000 UNITS/ML VIAL SQ SCH ×2 (04:59→12:56)
[2016-05-22 07:51] LABS: EOSINOPHIL % 0.1 % (0.0-4.0); HEMATOCRIT 37.7 % (35.0-46.0); LYMPH % 7.8 % (9.0-44.0); LYMPHOCYTE # 0.6 TH/MM3 (1.0-4.8); MEAN CELL VOLUME 80.2 FL (80.0-100.0); MEAN CORPUSCULAR HGB CONC 34.9 % (32.0-36.0); MONO % 7.7 % (0.0-8.0); NEUT % 84.4 % (16.0-70.0); PLATELET COUNT 218 TH/MM3 (150-450); RED BLOOD COUNT 4.69 MIL/MM3 (4.00-5.30); RED CELL DISTRIBUTION WIDTH 15.6 % (11.6-17.2); WHITE BLOOD COUNT 7.1 TH/MM3 (4.0-11.0)
[2016-05-22 07:54] LABS: HEMO FLAGS AUTO DIFF
[2016-05-22] MEDS: CHLORHEXIDINE 0.12% (ORAL KIT) 15 ML CUP MT SCH ×3 (08:00→21:54)
--- NOTE | 2016-05-22 08:12 | HHI.CCPN ---
Subjective Remarks/Hospital Course Patient is a 56-year-old female with past medical history significant for hypertension and chronic pain who was brought to the [facility] emergency department by EMS for altered mental status. Per EMS stated that she was recently started on oxycodone, Wellbutrin within the past 2 weeks. According to him patient was getting more confused and lethargic since yesterday. On EMS arrival and there were multiple open bottles on the scene including Wellbutrin oxycodone and alprazolam. Unable to determine what meds and how much she consumed. Patient was hypotensive and received total of 4 L normal saline boluses in [facility]. ER workup showed a CT of the head was negative but patient remained unresponsive with jerking movements of bilateral upper and lower extremities. Lab work showed acute renal failure with BUN 184 creatinine of 13, potassium was 7.6. Along with fluid boluses patient received bicarbonate, insulin and D50, albuterol for treatment of hyperkalemia and Bicarbonate drip was also started. Patient's pH was 7.04 which was combined metabolic and respiratory acidemia. Due to worsening mental status severe acidosis patient was endotracheally intubated and placed on mechanical ventilation, also a right IJ central line was placed. Nephrology had been consulted. Patient was transferred to the main hospital and I evaluated her in the ICU. On propofol patient continues to have intermittent jerking movements of the extremities. She remains on 6 mcg/m of Levophed. After treatment of hyperkalemia potassium has improved now 5.8. Creatinine has improved to 12 patient had a total output of 500 mL in urine. We will continue bicarbonate infusion. Nephrology consult is pending at this time. UDS positive for opiates , benzo, amphetamine and cocaine. SUBJ 05/22/16: Patient remains intubated sedated with propofol. Remains on Levophed ex-mics per minute. Urine output close to 5 L since admission. Chemistry pending at this time. On sedation lightening intermittently follows commands on the lower extremities and tracks with eyes. Objective Vital Signs Date Time Temp Pulse Resp B/P Pulse Ox O2 Delivery O2 Flow Rate FiO2 05/22/16 06:00 109 05/22/16 04:00 97.6 18 103/67 97 05/22/16 04:00 50 05/21/16 11:35 Ventilator 05/21/16 10:35 3 Intake and Output 05/21/16 05/21/16 05/22/16 08:00 16:00 00:00 Intake Total 612 ml 1150 ml Output Total 1375 ml 1600 ml Balance -763 ml -450 ml Result Diagram: 05/22/16 0640 05/21/16 1435 Other Results Laboratory Tests Test 05/21/16 05/21/16 08:43 14:22 Blood Gas Puncture Site RT BRACHIAL ART LINE Blood Gas Patient Temperature 98.6 98.6 Blood Gas HCO3 10 mmol/L 11 mmol/L (22-26) (22-26) Blood Gas Base Excess -18.1 mmol/L -15.9 mmol/L (-2-2) (-2-2) Blood Gas Oxygen Saturation 93 % (90-100) 96 % (90-100) Arterial Blood pH 7.04 7.18 (7.380-7.420) (7.380-7.420) Arterial Blood Partial 40 mmHG (38-42) 30 mmHg (38-42) Pressure CO2 Arterial Blood Partial 106 mmHG 157 mmHg Pressure O2 (61-120) (61-120) Arterial Blood Oxygen Content 15.7 Vol % 16.8 Vol % (12.0-20.0) (12.0-20.0) Arterial Blood 1.3 % (0-4) 0.6 % (0-4) Carboxyhemoglobin Arterial Blood Methemoglobin 1.8 % (0-2) 1.8 % (0-2) Blood Gas Hemoglobin 11.9 G/DL 12.3 G/DL (12.0-16.0) (12.0-16.0) Oxygen Delivery Device NASAL CANNULA VENTILATOR Blood Gas Liter Flow 2 L/M Blood Gas Inspired Oxygen 28 % 50 % Blood Gas Ventilator Setting 550/16/7PEEP Imaging CT scan head negative for acute findings Chest x-ray mild interstitial edema Objective Remarks GENERAL: 56 year-old woman, intubated sedated with propofol SKIN: Decreased skin turgor HEAD: Atraumatic. Normocephalic. EYES: Pupils equal and round. No scleral icterus. No injection or drainage. ENT: No nasal bleeding or discharge. Dry mucous membranes. Orotracheally intubated NECK: Trachea midline. No JVD. CARDIOVASCULAR: Regular rate and rhythm. No murmur appreciated. On 6 mcg/min of Levophed RESPIRATORY: Clear to auscultation. Breath sounds equal bilaterally. GASTROINTESTINAL: Abdomen is flat and soft. No organomegaly MUSCULOSKELETAL: No obvious deformities. No edema. No obvious injuries. NEUROLOGICAL: Eyes are open, tracks. On sedation hold all his commands and lower extremities intermittently. Urinary Catheter: Yes Assessment to: Continue Vascular Central Line Catheter: Yes Assessment to: Continue A/P Assessment and Plan NEURO: Acute encephalopathy Polydrug overdose Possible myoclonus Chronic pain -Urine drug screen positive for cocaine, amphetamine, benzodiazepines and opiates -Patient was recently prescribed Wellbutrin and oxycodone -Hold propofol, start Precedex to facilitate ventilator weaning -EEG to moderate encephalopathy, seizures -Watch for alcohol and drug withdrawal RESP: Acute respiratory failure Severe metabolic and respiratory acidosis -Assist control mechanical ventilation. Ventilator bundle -DuoNeb every 6 hours and when necessary -Spontaneous breathing trials today -F/U sputum culture, empiric Zosyn CV: Shock -Most likely hypovolemic shock -Normal saline total 6L bolus followed by bicarb infusion 150 ml per hour -Levophed to keep map above 65, now on 6 mcg/min -Cycle cardiac enzymes GI: Transaminitis Small bowel thickening on CT -Elevated liver enzymes from shock liver -Keep nothing by mouth, IV Protonix -Gastroenterology consulted /Endo: Acute kidney failure Severe dehydration Hyperkalemia Hypocalcemia -Monitor renal function closely. Robert catheter. -Acute renal failure workup per nephrology. Renal ultrasound-acute medical renal disease -Hyperkalemia treated with D50 followed by insulin, calcium, bicarbonate and albuterol breathing treatments -Given Kayexalate 30 g 1 -Urine output is excellent most likely will not need dialysis -D/W Dr. Prado ID: Probable sepsis -Empirically placed on Zosyn to cover for possible sepsis and aspiration -Single dose of vancomycin -Follow up on blood urine and sputum culture. HEME: -Monitor CBC, CMP, coags PROPH: -Bilateral lower extremity SCDs. Heparin 5000 U sq q12. IV Protonix for GI prophylaxis LINES: -Right IJ central line placed in the ER by Dr. greenberg. CC time 35 min Winston Loyd MD May 22, 2016 08:12
[2016-05-22] MEDS ORDERED: ALBUMIN HUMAN 5% 12.5 GM/250 ML BOTTLE IV ONE (08:15)
[2016-05-22 08:16] LABS: ALT (GPT) 46 U/L (10-53); ANION GAP 17 MEQ/L (5-15); AST (GOT) 52 U/L (15-37); BICARBONATE 27.3 MEQ/L (21.0-32.0); BLOOD UREA NITROGEN 130 MG/DL (7-18); CHLORIDE 96 MEQ/L (98-107); GLOMERULAR FILTRATION RATE 10 ML/MIN (>89); POTASSIUM 3.5 MEQ/L (3.5-5.1); SODIUM (NA) 140 MEQ/L (136-145)
[2016-05-22] MEDS: PANTOPRAZOLE SODIUM 40 MG VIAL IV SCH (08:16)
[2016-05-22 08:18] LABS: ACETAMINOPHEN 3.5 MCG/ML (10.0-30.0); ALKALINE PHOSPHATASE 113 U/L (45-117); TOTAL BILIRUBIN ADULT 0.7 MG/DL (0.2-1.0)
[2016-05-22 08:31] LABS: BANDS 54 % (0-6); CORRECTED NUCLEATED RBC 1 /100 WBC (0-0); DOHLE BODIES PRESENT (NONE SEEN); POLYS (SEG NEUTROPHILS) 30 % (16-70); WBC DIFF SAMPLE 100
[2016-05-22 08:32] LABS: PLATELET ESTIMATE SMEAR NORMAL (NORMAL); PLATELET MORPHOLOGY NORMAL (NORMAL); SCAN/DIFF FINAL DIFF MANUAL
[2016-05-22] MEDS: DEXMEDETOMIDINE INJ 50 ML IV SCH ×2 (08:56→08:57)
--- NOTE | 2016-05-22 09:32 | RADRPT ---
EXAM DATE/TIME: 05/22/2016 08:17 [facility] COMPARISON: CHEST SINGLE AP, May 21, 2016, 10:59. INDICATIONS : Short of breath, respiratory disease MEDICAL HISTORY : renal failure, AMS SURGICAL HISTORY : None. ENCOUNTER: Subsequent ACUITY: 2 days PAIN SCORE: Non-responsive. LOCATION: Bilateral chest FINDINGS: A single view of the chest demonstrates the lungs to be symmetrically aerated with developing atelect atic changes predominantly in the left lower lobe. Lungs are otherwise clear. Endotracheal tube has b een backed out slightly and is now positioned at the clavicular heads. Nasogastric tube enters the st omach with the tip in the gastric lumen. Right IJ central venous catheter stable in position with the tip projecting over the central venous system. There is anterior fixation of the lower cervical spin e. Osseous structures are intact. CONCLUSION: 1. Developing atelectatic changes in the left base/lingula. Lungs are otherwise clear. 2. Repositioning of the endotracheal tube. The tip is now clavicular heads. 3. Interval placement of a nasogastric tube with the tip in the gastric lumen. Right IJ central venou s catheter is stable in position. Ky German MD on May 22, 2016 at 9:26 Board Certified Radiologist. This report was verified electronically.
[2016-05-22] MEDS ORDERED: VASOPRESSIN INJ 40 UNITS in DEXTROSE 5% IN WATER 100ML INJ 98 ML IV SCH ×2 (10:27)
[2016-05-22] MEDS ORDERED: SODIUM CHLOR 0.9% 1000 ML INJ 1,000 ML IV ONE ×2 (10:30)
[2016-05-22] MEDS: SODIUM CHLOR 0.9% 1000 ML INJ 1,000 ML IV SCH ×4 (11:19→21:54)
[2016-05-22 12:57] LABS: BICARBONATE 28.1 MEQ/L (21.0-32.0); CALCIUM-PROTEIN CORRECTED 8.1 MG/DL (8.5-10.1); MAGNESIUM 2.2 MG/DL (1.5-2.5); POTASSIUM 3.1 MEQ/L (3.5-5.1); TOTAL BILIRUBIN ADULT 0.7 MG/DL (0.2-1.0)
[2016-05-22 14:00] LABS: C. DIFF EPI 027 PRESUMPTIVE NEGATIVE (NEGATIVE)
[2016-05-22] MEDS ORDERED: POTASSIUM CHLORIDE 20 MEQ PWD PACKET PO ONE (14:15)
--- NOTE | 2016-05-22 14:27 | EKG ---
Date Performed: 05/21/2016 Time Performed: 16:06:56 PTAGE: 56 years EKG: Sinus tachycardia LOW QRS VOLTAGE IN PRECORDIAL LEADS ABNORMAL RHYTHM ECG Compared to the PREVIOUS TRACING sinus rate has increased, previously seen ST changes have resolved PREV IOUS TRACIN05/21/2016 09.20 DOCTOR: Garrett Zamora Interpretating Date/Time 05/22/2016 14:26:41
--- NOTE | 2016-05-22 15:31 | PD.CONS ---
HPI History of Present Illness This is a 56 year old female who was brought to the emergency room for altered mental status. According to the EMR, upon EMS arrival there were multiple open bottles on the scene including Wellbutrin, oxycodone, and Xanax. She was hypotensive and her condition decompensated and required intubation. She is currently sedated on the ventilator in the ICU being treated for acute encephalopathy, polydrug overdose, possible myoclonus, acute respiratory failure , severe metabolic and respiratory acidoses, shock (likely hypovolemic), transaminitis, small bowel wall thickening, acute kidney failure, severe dehydration, and probable sepsis. She was noted to have abdominal distention and therefore a CT scan was ordered. Abdomen/Pelvis CT without iv contrast ()-----> 1. There is slight ascites with haziness of the mesentery nonspecific may be passive congestion or inflammatory in nature with very abnormal looking loops of small bowel which demonstrate thickening of the bowel wall and the exact etiology is not certain. 2. Bibasilar consolidation worse on the left. The nurse reports that the patient has been having significant diarrhea. She has not had nausea/vomiting. GI has been consulted for further evaluation. (Katia Tay) PFSH Past Medical History HTN Chronic pain Past Surgical History Unable to obtain (Katia Tay) Coded Allergies: *MDRO Multi-Drug Resistant Organism (Verified Adverse Reaction, Unknown, ) MRSA PCR Screen POSITIVE - 05/21/2016 Medications Allergies Coded Allergies Type Severity Reaction Last Updated Verified *MDRO Multi-Drug Resistant Organism Adverse Reaction Unknown 05/22/16 Yes Active Scripts Medications Dose Route/Sig Days Date Category Dose Instructions Tizanidine (Tizanidine HCl) 4 Mg Cap 4 Mg PO BID PRN 05/21/16 Reported Promethazine Hcl (Promethazine HCl) 25 Mg Tab 25 Mg PO Q6H PRN 05/01/15 Rx FOR NAUSEA/VOMITING Ativan (Lorazepam) 1 Mg Tab 1 Mg PO ONCE 05/01/15 Reported Morphine Sulfate Cr (Morphine Sulfate) 15 Mg Tab 15 Mg PO TID 05/01/15 Reported Morphine Sulfate 20 Mg/5 Ml Ameena 15 Mg PO 05/01/15 Reported Cymbalta (Duloxetine HCl) 20 Mg Cap 20 Mg PO DAILY 05/01/15 Reported Prinivil 40 mg (Lisinopril) 40 Mg Tab 1 Tab PO DAILY 04/12/15 Reported Mobic (Meloxicam) 7.5 Mg Tab 7.5 Mg PO HS 04/12/15 Reported Percocet 10-325 mg (Oxycodone-Acetaminophen 10-325 mg) Oxycodone 10/325 Acetaminophen Tab 1 Tab PO BID 04/12/15 Reported Family History Unable to obtain Social History Unable to obtain. UDS positive for cocaine, amphetamine, opiates and benzodiazepines (Katia Tay) Review of Systems ROS Unable to obtain (Katia Tay) GI Exam Vitals I&O Vital Signs Date Time Temp Pulse Resp B/P Pulse Ox O2 Delivery O2 Flow Rate FiO2 05/22/16 12:00 98.4 92 18 113/60 96 109/64 05/22/16 12:00 50 05/22/16 12:00 92 05/22/16 10:00 95 05/22/16 09:53 95 40 05/22/16 08:12 40 05/22/16 08:12 94 40 05/22/16 08:00 98.9 128 18 93/52 97 96/59 05/22/16 08:00 128 05/22/16 08:00 50 05/22/16 06:00 109 05/22/16 04:00 110 05/22/16 04:00 97.6 110 18 103/67 97 05/22/16 04:00 50 05/22/16 03:20 97 50 05/22/16 02:00 109 05/22/16 01:03 97 50 05/22/16 00:00 113 05/22/16 00:00 97.3 111 18 98/61 97 Automatic Cuff 05/22/16 00:00 50 05/21/16 22:00 110 05/21/16 21:36 97 50 05/21/16 20:00 107 05/21/16 20:00 50 05/21/16 20:00 97.0 110 18 110/68 98 110/68 05/21/16 19:27 99 50 05/21/16 19:10 100 05/21/16 18:00 108 05/21/16 16:00 97.2 107 18 123/69 96 117/60 05/21/16 16:00 107 I/O 05/21/16 05/21/16 05/21/16 05/22/16 05/22/16 05/22/16 07:00 15:00 23:00 07:00 15:00 23:00 Intake Total 612 ml 1150 ml 1600 ml Output Total 1375 ml 1600 ml 1700 ml Balance -763 ml -450 ml -100 ml Intake IV Total 612 ml 1150 ml 1600 ml Output Urine Total 1375 ml 1600 ml 1700 ml # Bowel Movements 0 1 Imaging Last Impressions Chest X-Ray 05/22/16 0000 Signed Impressions: Service Date/Time: April 08:17 - CONCLUSION: 1. Developing atelectatic changes in the left base/lingula. Lungs are otherwise clear. 2. Repositioning of the endotracheal tube. The tip is now clavicular heads. 3. Interval placement of a nasogastric tube with the tip in the gastric lumen. Right IJ central venous catheter is stable in position. Ky German MD Head CT 05/21/16 0833 Signed Impressions: Service Date/Time: Saturday, May 21, 2016 09:02 - CONCLUSION: No acute disease. Torsten Verma MD Renal Ultrasound 05/21/16 0000 Signed Impressions: Service Date/Time: Saturday, May 21, 2016 15:32 - CONCLUSION: 1. Kidney sizes are preserved with increased cortical echogenicity characteristic of acute medical renal disease. 2. Otherwise negative. No hydronephrosis or nephrolithiasis. Ky German MD Abdomen/Pelvis CT 05/21/16 0000 Signed Impressions: Service Date/Time: Saturday, May 21, 2016 18:34 - CONCLUSION: 1. There is slight ascites with haziness of the mesentery nonspecific may be passive congestion or inflammatory in nature with very abnormal looking loops of small bowel which demonstrate thickening of the bowel wall and the exact etiology is not certain. 2. Bibasilar consolidation worse on the left. Caren Andrade MD Laboratory Test 05/22/16 05/22/16 06:40 11:25 White Blood Count 7.1 TH/MM3 Red Blood Count 4.69 MIL/MM3 Hemoglobin 13.1 GM/DL Hematocrit 37.7 % Mean Corpuscular Volume 80.2 FL Mean Corpuscular Hemoglobin 28.0 PG Mean Corpuscular Hemoglobin 34.9 % Concent Red Cell Distribution Width 15.6 % Platelet Count 218 TH/MM3 Mean Platelet Volume 8.7 FL Neutrophils (%) (Auto) 84.4 % Lymphocytes (%) (Auto) 7.8 % Monocytes (%) (Auto) 7.7 % Eosinophils (%) (Auto) 0.1 % Basophils (%) (Auto) 0.0 % Neutrophils # (Auto) 6.0 TH/MM3 Lymphocytes # (Auto) 0.6 TH/MM3 Monocytes # (Auto) 0.6 TH/MM3 Eosinophils # (Auto) 0.0 TH/MM3 Basophils # (Auto) 0.0 TH/MM3 CBC Comment AUTO DIFF Differential Total Cells 100 Counted Neutrophils % (Manual) 30 % Band Neutrophils % 54 % Lymphocytes % 9 % Monocytes % 7 % Neutrophils # (Manual) 6.0 TH/MM3 Nucleated Red Blood Cells 1 /100 WBC Differential Comment FINAL DIFF MANUAL Dohle Bodies PRESENT Platelet Estimate NORMAL Platelet Morphology Comment NORMAL Red Cell Morphology Comment NORMAL Sodium Level 140 MEQ/L 142 MEQ/L Potassium Level 3.5 MEQ/L 3.1 MEQ/L Chloride Level 96 MEQ/L 100 MEQ/L Carbon Dioxide Level 27.3 MEQ/L 28.1 MEQ/L Anion Gap 17 MEQ/L 14 MEQ/L Blood Urea Nitrogen 130 MG/DL 120 MG/DL Creatinine 4.38 MG/DL 3.33 MG/DL Estimat Glomerular Filtration 10 ML/MIN 14 ML/MIN Rate Random Glucose 142 MG/DL 142 MG/DL Calcium Level 8.0 MG/DL 6.8 MG/DL Total Bilirubin 0.7 MG/DL 0.7 MG/DL Aspartate Amino Transf 52 U/L 48 U/L (AST/SGOT) Alanine Aminotransferase 46 U/L 38 U/L (ALT/SGPT) Alkaline Phosphatase 113 U/L 89 U/L Total Protein 5.4 GM/DL 4.6 GM/DL Albumin 2.0 GM/DL 1.8 GM/DL Acetaminophen Level 3.5 MCG/ML Protein Corrected Calcium 8.1 MG/DL Magnesium Level 2.2 MG/DL Troponin I 0.51 NG/ML Date/Time Procedure Status Source Growth 05/21/16 14:13 Gram Stain - Final Resulted Sputum Endotracheal 05/21/16 14:13 Sputum Culture - Preliminary Resulted Gram Negative Bean S. Aureus Mrsa 05/21/16 09:46 Aerobic Blood Culture - Preliminary Resulted Blood Peripheral NO GROWTH IN 1 DAY 05/21/16 09:46 Anaerobic Blood Culture - Preliminary Resulted Blood Peripheral NO GROWTH IN 1 DAY 05/21/16 09:40 Urine Culture - Preliminary Resulted Urine Clean Catch NO GROWTH IN 24 HOURS. Physical Examination HEENT: Normocephalic; atraumatic; no jaundice. CHEST: CTA CARDIAC: RRR ABDOMEN: Abdomen distended, bowel sounds are hypoactive EXTREMITIES: No clubbing, cyanosis, or edema. SKIN: Normal; no rash; no jaundice. 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 (Katia Tay) Assessment and Plan Plan ASSESSMENT: - Enteritis. abdominal distention with abnormal imaging on CT. Abdomen/Pelvis CT without iv contrast (05/21/16)-----> 1. There is slight ascites with haziness of the mesentery nonspecific may be passive congestion or inflammatory in nature with very abnormal looking loops of small bowel which demonstrate thickening of the bowel wall and the exact etiology is not certain. 2. Bibasilar consolidation worse on the left. The nurse reports that the patient has been having significant diarrhea. CDiff pending. NGT clamped. Will place NGT to LIWS, get KUB, get stool studies. On Zosyn. - Transaminitis. Improving. Likely related to polypharmacy. CT as above. - Acute respiratory failure. Vent per CCM - Acute encephalopathy, polydrug overdose, possible myoclonus, asevere metabolic and respiratory acidoses, shock (likely hypovolemic), MAYRA and probable sepsis. Per [facility] PLAN: - NPO - Place NGT to LIWS - KUB today - Cont. Zosyn - Cont. PPI - Await CDIff - Send stool for giardia, o/p, c/s, wbc - If KUB does not show significant distention, then consider US to evaluate for ascites - Supportive care - Further recommendations to follow based on results of above - Pt seen and examined by Dr. Adams and myself and this note is written on her behalf (Katia Tay) Physician Comments seen, examined agree with above abdominal x -ray us abdomen (Khushboo Adams MD) Katia Tay May 22, 2016 15:31 Khushboo Adams MD May 22, 2016 17:33
[2016-05-22 15:50] LABS: C. DIFF TOXIN PCR POSITIVE (NEGATIVE)
[2016-05-22] MEDS ORDERED: DILTIAZEM HCL 25 MG/5 ML VIAL IV ONE (16:00)
[2016-05-22] MEDS: metroNIDAZOLE 500 MG INJ 100 ML IV SCH (16:17)
[2016-05-22] MEDS: VANCOMYCIN 500 MG VIAL (FOR ORAL USE ONLY) PO SCH ×2 (16:17→21:53)
[2016-05-22] MEDS: LINEZOLID 600 MG PREMIX 300 ML IV SCH (16:17)
[2016-05-22] MEDS ORDERED: METOPROLOL TARTRATE 5 MG/5 ML VIAL IV PUSH ONE (16:45)
[2016-05-22] MEDS ORDERED: DILTIAZEM INJ 125 MG in SODIUM CHLORIDE 0.9% INJ 100 ML IV SCH (16:45)
[2016-05-22] MEDS ORDERED: POTASSIUM CHLOR 40 MEQ PREMIX 100 ML IV ONE (17:00)
[2016-05-22] MEDS: HYDROCORTISONE SOD SUCCINATE 100 MG VIAL IV SCH (18:11)
--- NOTE | 2016-05-22 18:27 | RADRPT ---
EXAM DATE/TIME: 05/22/2016 17:36 [facility] COMPARISON: No previous studies available for comparison. INDICATIONS : Abdomen distension MEDICAL HISTORY : Cardiovascular disease. Hypertension SURGICAL HISTORY : Tubal ligation. Cholecystectomy. ENCOUNTER: Initial ACUITY: 2 days PAIN SCORE: Non-responsive. LOCATION: Abdomen FINDINGS: Supine view of the abdomen was performed. Edges colon and stomach. Gaseous distention of bowel, both small and large bowel. No free air. Cholecystectomy clips right upper quadrant. CONCLUSION: 1. NG coiled in stomach. Mild gaseous distention of bowel most characteristic of ileus. Davis Goldman MD on May 22, 2016 at 18:24 Board Certified Radiologist. This report was verified electronically.
--- NOTE | 2016-05-22 19:54 | HHI.NPPN ---
Subjective History of Present Illness 56 year-old female with a past medical history of drug abuse, hypertension, chronic pain syndrome, came to [facility], [place] because of altered mental status. I was called from there and then the patient was moved here to [facility]. Additional Remarks Patient remain on the vent. and sedated. Objective Data Data 05/21/16 05/22/16 19:00 07:00 Intake Total 612 ml 2750 ml Output Total 1375 ml 3300 ml Balance -763 ml -550 ml Intake IV Total 612 ml 2750 ml Output Urine Total 1375 ml 3300 ml # Bowel Movements 1 Vital Signs Date Time Temp Pulse Resp B/P Pulse Ox O2 Delivery O2 Flow Rate FiO2 05/22/16 18:00 80 05/22/16 16:01 97 40 05/22/16 16:00 98.6 128 18 119/61 97 106/55 05/22/16 16:00 50 05/22/16 16:00 128 05/22/16 14:00 90 05/22/16 12:00 98.4 92 18 113/60 96 109/64 05/22/16 12:00 50 05/22/16 12:00 92 05/22/16 10:00 95 05/22/16 09:53 95 40 05/22/16 08:12 40 05/22/16 08:12 94 40 05/22/16 08:00 98.9 128 18 93/52 97 96/59 05/22/16 08:00 128 05/22/16 08:00 50 05/22/16 06:00 109 05/22/16 04:00 110 05/22/16 04:00 97.6 110 18 103/67 97 05/22/16 04:00 50 05/22/16 03:20 97 50 05/22/16 02:00 109 05/22/16 01:03 97 50 05/22/16 00:00 113 05/22/16 00:00 97.3 111 18 98/61 97 Automatic Cuff 05/22/16 00:00 50 05/21/16 22:00 110 05/21/16 21:36 97 50 05/21/16 20:00 107 05/21/16 20:00 50 05/21/16 20:00 97.0 110 18 110/68 98 110/68 -: 05/22/16 0640 05/22/16 1125 Microbiology 05/22/16 , Received Pending 05/22/16 Cryptosporidium Exam, Received Pending 05/22/16 Stool Pus (SANDY), Received Pending 05/22/16 Giardia Antigen (SANDY), Received Pending Physical Exam General Appearance Remarks Intubated and sedated. Eyes Eye Exam: Pupils Equal Neck Neck Exam: Neck Supple Pulmonary Resp Exam: No Distress, Rhonchi, Decreased Bases, Diminished Breath Sounds Cardiology CV Exam: Regular, Normal Sinus Rhythm Gastrointestinal/Abdomen GI Exam: Soft, Non-Tender, Bowel Sounds Present Extremeties Extremities Exam: Trace Edema Neurologic Neuro Exam: Sedated Assessment/Plan Assessment Summary: MAYRA/Acute Renal Failure Electrolyte Assessment: Hyperkalemia, Hypocalcemia Problem List: (1) Rhabdomyolysis (2) Metabolic acidosis (3) Acute drug overdose (4) Hyperkalemia (5) Hypocalcemia (6) Dehydration (7) Acute respiratory failure (8) Acute renal failure Plan Patient has good urine out put. BUN and Creatinine continue to improve. K is now low. C.Difficile is positive. Started on PO Vanco,. along with Flagyl. Also on Linezolid. Follow cultures. Continue IVF, weaning as per CCM. Problem Qualifiers (1) Rhabdomyolysis: Qualified Code: M62.82 - Non-traumatic rhabdomyolysis (2) Acute drug overdose: (3) Acute respiratory failure: Qualified Code: J96.00 - Acute respiratory failure, unspecified whether with hypoxia or hypercapnia (4) Acute renal failure: Qualified Code: N17.9 - Acute renal failure, unspecified acute renal failure type Mal Prado MD May 22, 2016 19:54
--- NOTE | 2016-05-22 20:56 | MB ---
cc: ANTONY WALKER MD DATE OF CONSULTATION 05/22/[address] Loyd REASON FOR CONSULTATION Sepsis, MRSA pneumonia, C-difficile. HISTORY OF PRESENT ILLNESS This is a 56-year old white female who arrived at the emergency department with altered mental status. The patient was noted to be becoming more confused and lethargic. She was found to have taken multiple different medications and pill bottles were noted to be open at the scene when Emergency Medical Service arrived. She has positive toxicology screen for multiple substances including cocaine, benzodiazepine, amphetamines and barbiturates. The patient was intubated yesterday. She has been started on intravenous antibiotics and also on treatment for C-difficile since her C-difficile toxin came back positive. This consultation is requested for antibiotic management. Culture of the sputum was taken and it has growth of MRSA and gram-negative dorie. Blood cultures have no growth. Urine culture has no growth. Chest x-ray from 05/21 revealed no acute disease. CT scan of the abdomen and pelvis reported slight ascites with haziness of the mesentery and thickening of the bowel wall. Bibasilar consolidation was noted to be worse on the left. Repeated of chest x-ray today shows developing atelectatic changes in the left base. The patient is currently unresponsive on the ventilator. This consultation is requested for management of sepsis. PAST MEDICAL HISTORY 1. Hypertension, 2. Chronic pain. 3. Cholecystectomy 4. Laminectomy. ALLERGIES NO KNOWN DRUG ALLERGIES. MEDICATIONS 1. Vancomycin p.o. 2. Metronidazole IV 3. Linezolid IV. 4. Piperacillin/Tazobactam. 5. Vasopressin 6. DuoNeb. 7. Protonix. 8. Propofol. SOCIAL HISTORY Positive tobacco use. The patient smokes 1/2 pack of cigarettes a day. Social alcohol use. No illicit drugs. FAMILY HISTORY Unable to obtain REVIEW OF SYSTEMS Unable to obtain. PHYSICAL EXAMINATION GENERAL: This is a well-developed female who is in no acute distress. She is on the ventilator and sedated. VITAL SIGNS: Temperature of 98.6. Heart rate 75, BP 121/65, respirations per ventilator. HEENT: Unable to fully assess since the patient cannot cooperate. The oropharynx is intubated. NECK: Supple without swelling. LUNGS: Clear breath sounds HEART: Regular S1 and S2 without murmurs or rubs or gallops. ABDOMEN: Bowel sounds markedly distended, soft. No tenderness appreciated. RECTAL: Not performed. EXTREMITIES: No clubbing, cyanosis or edema. SKIN: No rash. NEUROLOGIC: Unable to assess. PSYCHIATRIC: Unable to assess. LABORATORY DATA WBC 7.1, platelet count 218, 84% neutrophils including 54% bands. Creatinine 3.33, BUN 120, sodium 142, estimated GFR 14, AST 48, ALT 38, alk phos 89. C-difficile toxin positive. IMPRESSION: 1. Sepsis. 2. Pneumonia MRSA. 3. C. difficile. 4. Acute kidney disease improved. 5. Drug intoxication/Encephalopathy. RECOMMENDATIONS 1. Continue linezolid 2. Discontinue piperacillin/Tazobactam 3. Continue metronidazole 4. Continue oral vancomycin 5. Monitor the kidney function 6. Monitor clinical response. Thank you for this consultation. The patient's progress will be monitored and further recommendations will be made on followup. Antony Walker MD FD/ /5:25 PM /8:26 PM MARÍA ELENA
[2016-05-22] MEDS ORDERED: PIPERACIL-TAZO 2.25 GM PREMIX 50 ML IV SCH (21:00)
[2016-05-23] VITALS (18 sets, daily range): BP systolic 76–166; BP diastolic 49–90; PULSE 71–111; RESP 16–24; TEMP 98.1–98.6; O2SAT 92–99
[2016-05-23] MEDS: HEPARIN SODIUM - SQ 10,000 UNITS/ML VIAL SQ SCH ×3 (01:06→20:40)
[2016-05-23] MEDS: HYDROCORTISONE SOD SUCCINATE 100 MG VIAL IV SCH ×3 (01:06→16:44)
[2016-05-23] MEDS: metroNIDAZOLE 500 MG INJ 100 ML IV SCH ×3 (01:06→16:44)
[2016-05-23] MEDS: SODIUM CHLOR 0.9% 1000 ML INJ 1,000 ML IV SCH ×4 (01:07→16:44)
[2016-05-23] MEDS: PROPOFOL 1000 MG/100 ML INJ 100 ML IV SCH ×2 (02:39→05:37)
[2016-05-23] MEDS: RESP: ALBUTEROL 2.5 MG/IPRATROPIUM 0.5 MG NEB (SCH) NEB ×4 (03:55→21:20)
[2016-05-23] MEDS: CHLORHEXIDINE GLUCONATE 2 % 1 PACK (2 CLOTHS) TOP SCH (04:00)
[2016-05-23] MEDS: LINEZOLID 600 MG PREMIX 300 ML IV SCH ×2 (05:37→16:44)
[2016-05-23 06:07] LABS: AUTOMATED NEUTROPHIL # 13.9 TH/MM3 (1.8-7.7); BASOPHIL % 0.1 % (0.0-2.0); HEMATOCRIT 31.4 % (35.0-46.0); LYMPH % 2.5 % (9.0-44.0); LYMPHOCYTE # 0.4 TH/MM3 (1.0-4.8); MEAN CELL VOLUME 80.8 FL (80.0-100.0); MEAN CORPUSCULAR HEMOGLOBIN 27.8 PG (27.0-34.0); MEAN CORPUSCULAR HGB CONC 34.4 % (32.0-36.0); MONO % 5.1 % (0.0-8.0); NEUT % 92.3 % (16.0-70.0); PLATELET COUNT 159 TH/MM3 (150-450); RED BLOOD COUNT 3.88 MIL/MM3 (4.00-5.30); RED CELL DISTRIBUTION WIDTH 15.3 % (11.6-17.2); WHITE BLOOD COUNT 15.1 TH/MM3 (4.0-11.0)
[2016-05-23 06:34] LABS: BICARBONATE 29.5 MEQ/L (21.0-32.0); CALCIUM-PROTEIN CORRECTED 8.5 MG/DL (8.5-10.1); MAGNESIUM 2.2 MG/DL (1.5-2.5); POTASSIUM 3.2 MEQ/L (3.5-5.1); TOTAL BILIRUBIN ADULT 0.5 MG/DL (0.2-1.0)
[2016-05-23 06:35] LABS: HEMO FLAGS AUTO DIFF
[2016-05-23] MEDS: PANTOPRAZOLE SODIUM 40 MG VIAL IV SCH (08:23)
[2016-05-23] MEDS: VANCOMYCIN 500 MG VIAL (FOR ORAL USE ONLY) PO SCH ×5 (08:23→20:40)
[2016-05-23] MEDS: DEXMEDETOMIDINE INJ 50 ML IV SCH ×2 (08:23→09:23)
[2016-05-23] MEDS: CHLORHEXIDINE 0.12% (ORAL KIT) 15 ML CUP MT SCH ×2 (08:24→20:00)
[2016-05-23 08:31] LABS: BANDS 45 % (0-6); METAMYELOCYTES 1 % (0-1); NEUTROPHIL # MANUAL DIFF 13.7 TH/MM3 (1.8-7.7); POLYS (SEG NEUTROPHILS) 45 % (16-70); WBC DIFF SAMPLE 100
[2016-05-23 08:32] LABS: DOHLE BODIES PRESENT (NONE SEEN); PLATELET ESTIMATE SMEAR NORMAL (NORMAL); PLATELET MORPHOLOGY NORMAL (NORMAL); SCAN/DIFF FINAL DIFF MANUAL
[2016-05-23] MEDS ORDERED: POTASSIUM PHOSPHATE MONOBASIC 500 MG TAB PO PRN (08:45)
[2016-05-23] MEDS ORDERED: POTASSIUM CHLOR 20 MEQ PREMIX 100 ML IV PRN ×2 (08:45)
[2016-05-23] MEDS ORDERED: MAGNESIUM SULFATE INJ 2 GM in SODIUM CHLORIDE 0.9% INJ 96 ML IV PRN (08:45)
[2016-05-23] MEDS ORDERED: POTASSIUM PHOSPHATE INJ 30 MMOL in SODIUM CHLOR 0.9% 250 ML INJ 250 ML IV PRN (08:45)
[2016-05-23] MEDS ORDERED: MAGNESIUM SULFATE INJ 4 GM in SODIUM CHLORIDE 0.9% INJ 92 ML IV PRN (08:45)
[2016-05-23] MEDS ORDERED: MAGNESIUM OXIDE 400 MG TAB PO PRN (08:45)
[2016-05-23] MEDS ORDERED: SODIUM PHOSPHATE INJ 30 MMOL in SODIUM CHLOR 0.9% 250 ML INJ 240 ML IV PRN (08:45)
[2016-05-23] MEDS ORDERED: POTASSIUM PHOSPHATE MONOBASIC 500 MG TAB PO/TUBE PRN (08:45)
[2016-05-23] MEDS ORDERED: POTASSIUM CHLOR 40 MEQ PREMIX 100 ML IV PRN (08:45)
[2016-05-23] MEDS: POTASSIUM CHLOR 40 MEQ PREMIX 100 ML IV PRN ×2 (09:22→09:23)
--- NOTE | 2016-05-23 09:52 | HHI.CCPN ---
Subjective Remarks/Hospital Course Patient is a 56-year-old female with past medical history significant for hypertension and chronic pain who was brought to the [place] emergency department by EMS for altered mental status. Per EMS stated that she was recently started on oxycodone, Wellbutrin within the past 2 weeks. According to him patient was getting more confused and lethargic since yesterday. On EMS arrival and there were multiple open bottles on the scene including Wellbutrin oxycodone and alprazolam. Unable to determine what meds and how much she consumed. Patient was hypotensive and received total of 4 L normal saline boluses in [place] ED. ER workup showed a CT of the head was negative but patient remained unresponsive with jerking movements of bilateral upper and lower extremities. Lab work showed acute renal failure with BUN 184 creatinine of 13, potassium was 7.6. Along with fluid boluses patient received bicarbonate, insulin and D50, albuterol for treatment of hyperkalemia and Bicarbonate drip was also started. Patient's pH was 7.04 which was combined metabolic and respiratory acidemia. Due to worsening mental status severe acidosis patient was endotracheally intubated and placed on mechanical ventilation, also a right IJ central line was placed. Nephrology had been consulted. Patient was transferred to the main hospital and I evaluated her in the ICU. On propofol patient continues to have intermittent jerking movements of the extremities. She remains on 6 mcg/m of Levophed. After treatment of hyperkalemia potassium has improved now 5.8. Creatinine has improved to 12 patient had a total output of 500 mL in urine. We will continue bicarbonate infusion. Nephrology consult is pending at this time. UDS positive for opiates , benzo, amphetamine and cocaine. SUBJ 05/22/16: Patient remains intubated sedated with propofol. Remains on Levophed ex-mics per minute. Urine output close to 5 L since admission. Chemistry pending at this time. On sedation lightening intermittently follows commands on the lower extremities and tracks with eyes. 05/23: Remains intubated on Precedex, appears . Currently on Levophed 3 mcg/min. Creat normalized. ID consult pending for MRSA GNR pneumonia and C Diff Objective Vital Signs Date Time Temp Pulse Resp B/P Pulse Ox O2 Delivery O2 Flow Rate FiO2 05/23/16 07:46 99 35 05/23/16 06:00 90 3/24/17 06:00 150/83 130/85 05/23/16 05:34 98.1 18 05/21/16 11:35 Ventilator 05/21/16 10:35 3 Intake and Output 05/22/16 05/22/16 05/23/16 08:00 16:00 00:00 Intake Total 1600 ml 3304 ml 3311 ml Output Total 1700 ml 1975 ml 2325 ml Balance -100 ml 1329 ml 986 ml Result Diagram: 05/23/16 0515 05/23/16 0515 Other Results Microbiology Date/Time Procedure Status Source Growth 05/21/16 09:40 Urine Culture - Final Complete Urine Clean Catch NO GROWTH IN [address] scan head negative for acute findings Chest x-ray mild interstitial edema Objective Remarks GENERAL: 56 year-old woman, intubated sedated with Precedex SKIN: Decreased skin turgor HEAD: Atraumatic. Normocephalic. EYES: Pupils equal and round. No scleral icterus. No injection or drainage. ENT: No nasal bleeding or discharge. Dry mucous membranes. Orotracheally intubated NECK: Trachea midline. No JVD. CARDIOVASCULAR: Regular rate and rhythm. No murmur appreciated. On 3 mcg/min of Levophed RESPIRATORY: Clear to auscultation. Breath sounds equal bilaterally. GASTROINTESTINAL: Abdomen is flat and soft. No organomegaly MUSCULOSKELETAL: No obvious deformities. No edema. No obvious injuries. NEUROLOGICAL: Eyes are open, tracks. On sedation hold follows commands intermittently in lower extremities. Spontaneously moves upper extremities Urinary Catheter: Yes Assessment to: Continue A/P Assessment and Plan NEURO: Acute encephalopathy Polydrug overdose Chronic pain -Urine drug screen positive for cocaine, amphetamine, benzodiazepines and opiates -Patient was recently prescribed Wellbutrin and oxycodone -Precedex to facilitate ventilator weaning -EEG to moderate encephalopathy, no seizures -Watch for alcohol and drug withdrawal RESP: Acute respiratory failure Severe metabolic and respiratory acidosis -Assist control mechanical ventilation. Ventilator bundle -DuoNeb every 6 hours and when necessary -Spontaneous breathing trials today for possible extubation -F/U sputum culture, empiric Zosyn, Zyvox. PO Vanc and IV Flagyl for C Dfii CV: Shock -Hypovolemic and septic shock, improving -Continue normal saline infusion -Levophed to keep map above 65, now on 3 mcg/min -Cycle cardiac enzymes GI: Transaminitis Small bowel thickening on CT C. difficile colitis -Elevated liver enzymes from shock liver -Swallow eval, IV Protonix -Gastroenterology following -Continue by mouth vancomycin and IV Flagyl /Endo: Acute kidney failure Severe dehydration Hyperkalemia Hypocalcemia -Monitor renal function closely. Robert catheter. -Acute renal failure workup per nephrology. Renal ultrasound-acute medical renal disease -Hyperkalemia treated with D50 followed by insulin, calcium, bicarbonate and albuterol breathing treatments -Given Kayexalate 30 g 1 -Urine output is excellent creatinine almost normalized -Nephrology Dr. Prado ID: Septic shock MRSA/GNR pneumonia C. difficile colitis -Continue Zyvox, Zosyn for pneumonia -Continue by mouth vancomycin and IV Flagyl for C. difficile colitis -Infectious disease consult pending HEME: -Monitor CBC, CMP, coags PROPH: -Bilateral lower extremity SCDs. Heparin 5000 U sq q8. IV Protonix for GI prophylaxis LINES: -Right IJ central line placed in the ER by Dr. greenberg. CC time 35 min Winston Loyd MD May 23, 2016 09:52
--- NOTE | 2016-05-23 11:19 | RADRPT ---
EXAM DATE/TIME: 05/23/2016 09:14 [place] COMPARISON: No previous studies available for comparison. INDICATIONS : Abdominal distention. MEDICAL HISTORY : Hypertension. SURGICAL HISTORY : Cholecystectomy. Tubal ligation. ENCOUNTER: Initial ACUITY: 1 day PAIN SCORE: Nonresponsive. LOCATION: [facility]. AREA EVALUATED: [facility]. FINDINGS: Imaging of the abdomen and pelvis was performed to evaluate for ascites for possible paracentesis. T race fluid is identified in the right lower quadrant. No additional fluid identified.CONCLUSION: Trace fluid in the right lower quadrant. This is insufficient volume for percutaneous drainage. Ky German MD on May 23, 2016 at 11:16 Board Certified Radiologist. This report was verified electronically.
--- NOTE | 2016-05-23 12:57 | HHI.NPPN ---
Subjective History of Present Illness 56 year-old female with a past medical history of drug abuse, hypertension, chronic pain syndrome, came to [facility], [place] because of altered mental status. I was called from there and then the patient was moved here to [facility]. Additional Remarks Patient is extubated, awake, confused, not in distress. Objective Data Data 05/22/16 05/23/16 19:00 07:00 Intake Total 3304 ml 5750 ml Output Total 2800 ml 2950 ml Balance 504 ml 2800 ml Intake IV Total 3054 ml 5750 ml Albumin 250 ml Output Urine Total 2200 ml 2950 ml Stool Total 600 ml Vital Signs Date Time Temp Pulse Resp B/P Pulse Ox O2 Delivery O2 Flow Rate FiO2 05/23/16 12:00 98.3 96 21 129/71 93 05/23/16 12:00 96 05/23/16 10:00 83 05/23/16 08:40 96 Nasal Cannula 4 36 05/23/16 08:40 93 Nasal Cannula 4.00 05/23/16 08:00 40 05/23/16 08:00 98.4 71 16 76/49 95 05/23/16 08:00 83 05/23/16 07:46 99 35 05/23/16 06:00 90 05/23/16 06:00 81 150/83 130/85 05/23/16 06:00 81 05/23/16 05:34 98.1 86 18 123/73 97 130/68 05/23/16 04:00 40 05/23/16 04:00 86 05/23/16 04:00 83 05/23/16 03:54 96 40 05/23/16 02:00 82 05/23/16 02:00 81 05/23/16 01:17 97 40 05/23/16 00:00 74 05/23/16 00:00 40 05/23/16 00:00 98.4 74 18 136/81 97 05/23/16 00:00 74 05/22/16 22:00 82 05/22/16 22:00 82 05/22/16 21:27 97 40 05/22/16 20:05 96 40 05/22/16 20:00 98.7 78 18 134/74 98 05/22/16 20:00 78 05/22/16 20:00 78 05/22/16 20:00 40 05/22/16 18:00 80 05/22/16 16:01 97 40 05/22/16 16:00 98.6 128 18 119/61 97 106/55 05/22/16 16:00 50 05/22/16 16:00 128 05/22/16 14:00 90 -: 05/23/16 0515 05/23/16 0515 Physical Exam General Appearance: No Acute Distress, Anxious Eyes Eye Exam: Pupils Equal Neck Neck Exam: Neck Supple Pulmonary Resp Exam: No Distress, Rhonchi, Decreased Bases, Diminished Breath Sounds Cardiology CV Exam: Regular, Normal Sinus Rhythm Gastrointestinal/Abdomen GI Exam: Soft, Non-Tender, Bowel Sounds Present Extremeties Extremities Exam: Trace Edema Neurologic Neuro Exam: Awake Assessment/Plan Assessment Summary: MAYRA/Acute Renal Failure Electrolyte Assessment: Hyperkalemia, Hypocalcemia Problem List: (1) Rhabdomyolysis (2) Metabolic acidosis (3) Acute drug overdose (4) Hyperkalemia (5) Hypocalcemia (6) Dehydration (7) Acute respiratory failure (8) Acute renal failure Plan Patient has good urine out put. BUN and Creatinine continue to improve. K is now low, replaced. C.Difficile is positive. Started on PO Vanco,. along with Flagyl. Also on Linezolid. Follow cultures. Continue IVF, follow BMP. I will sign off from Nephrology, call if needed. Problem Qualifiers (1) Rhabdomyolysis: Qualified Code: M62.82 - Non-traumatic rhabdomyolysis (2) Acute drug overdose: (3) Acute respiratory failure: Qualified Code: J96.00 - Acute respiratory failure, unspecified whether with hypoxia or hypercapnia (4) Acute renal failure: Qualified Code: N17.9 - Acute renal failure, unspecified acute renal failure type Mal Prado MD May 23, 2016 12:57
--- NOTE | 2016-05-23 15:25 | HHI.IDPN ---
Note Infectious Disease Note Patient is extubated. Alert. Confused. Repeating "yes" to all questions. Denies pains. Patient admitted with altered mental status. Seen for MRSA pneumonia/sepsis. PAST MEDICAL HISTORY 1. Hypertension, 2. Chronic pain. 3. Cholecystectomy 4. Laminectomy. ALLERGIES NO KNOWN DRUG ALLERGIES. MEDICATIONS 1. Vancomycin p.o. 2. Metronidazole IV 3. Linezolid IV. SOCIAL HISTORY Positive tobacco use. The patient smokes 1/2 pack of cigarettes a day. Social alcohol use. No illicit drugs. FAMILY HISTORY Unable to obtain REVIEW OF SYSTEMS Unable to obtain. OBJECTIVE: Vital Signs Date Time Temp Pulse Resp B/P Pulse Ox O2 Delivery O2 Flow Rate FiO2 05/23/16 12:00 98.3 96 21 129/71 93 05/23/16 12:00 96 05/23/16 10:00 83 05/23/16 08:40 96 Nasal Cannula 4 36 05/23/16 08:40 93 Nasal Cannula 4.00 05/23/16 08:00 40 05/23/16 08:00 98.4 71 16 76/49 95 05/23/16 08:00 83 05/23/16 07:46 99 35 05/23/16 06:00 90 05/23/16 06:00 81 150/83 130/85 05/23/16 06:00 81 05/23/16 05:34 98.1 86 18 123/73 97 130/68 05/23/16 04:00 40 05/23/16 04:00 86 05/23/16 04:00 83 05/23/16 03:54 96 40 05/23/16 02:00 82 05/23/16 02:00 81 05/23/16 01:17 97 40 05/23/16 00:00 74 05/23/16 00:00 40 05/23/16 00:00 98.4 74 18 136/81 97 05/23/16 00:00 74 05/22/16 22:00 82 05/22/16 22:00 82 05/22/16 21:27 97 40 05/22/16 20:05 96 40 05/22/16 20:00 98.7 78 18 134/74 98 05/22/16 20:00 78 05/22/16 20:00 78 05/22/16 20:00 40 05/22/16 18:00 80 05/22/16 16:01 97 40 05/22/16 16:00 98.6 128 18 119/61 97 106/55 05/22/16 16:00 50 05/22/16 16:00 128 05/22/16 05/22/16 05/23/16 15:00 23:00 07:00 Intake Total 3304 ml 3311 ml 2439 ml Output Total 1975 ml 2325 ml 1450 ml Balance 1329 ml 986 ml 989 ml Intake IV Total 3054 ml 3311 ml 2439 ml Albumin 250 ml Output Urine Total 1375 ml 2325 ml 1450 ml Stool Total 600 ml Laboratory Tests Test 05/22/16 05/23/16 06:40 05:15 White Blood Count 7.1 TH/MM3 15.1 TH/MM3 Red Blood Count 4.69 MIL/MM3 3.88 MIL/MM3 Hemoglobin 13.1 GM/DL 10.8 GM/DL Hematocrit 37.7 % 31.4 % Mean Corpuscular Volume 80.2 FL 80.8 FL Mean Corpuscular Hemoglobin 28.0 PG 27.8 PG Mean Corpuscular Hemoglobin 34.9 % 34.4 % Concent Red Cell Distribution Width 15.6 % 15.3 % Platelet Count 218 TH/MM3 159 TH/MM3 Mean Platelet Volume 8.7 FL 8.0 FL Neutrophils (%) (Auto) 84.4 % 92.3 % Lymphocytes (%) (Auto) 7.8 % 2.5 % Monocytes (%) (Auto) 7.7 % 5.1 % Eosinophils (%) (Auto) 0.1 % 0.0 % Basophils (%) (Auto) 0.0 % 0.1 % Neutrophils # (Auto) 6.0 TH/MM3 13.9 TH/MM3 Lymphocytes # (Auto) 0.6 TH/MM3 0.4 TH/MM3 Monocytes # (Auto) 0.6 TH/MM3 0.8 TH/MM3 Eosinophils # (Auto) 0.0 TH/MM3 0.0 TH/MM3 Basophils # (Auto) 0.0 TH/MM3 0.0 TH/MM3 CBC Comment AUTO DIFF AUTO DIFF Differential Total Cells 100 100 Counted Neutrophils % (Manual) 30 % 45 % Band Neutrophils % 54 % 45 % Lymphocytes % 9 % 2 % Monocytes % 7 % 7 % Neutrophils # (Manual) 6.0 TH/MM3 13.7 TH/MM3 Nucleated Red Blood Cells 1 /100 WBC Differential Comment FINAL DIFF FINAL DIFF MANUAL MANUAL Dohle Bodies PRESENT PRESENT Platelet Estimate NORMAL NORMAL Platelet Morphology Comment NORMAL NORMAL Red Cell Morphology Comment NORMAL NORMAL Metamyelocytes 1 % Laboratory Tests Test 05/22/16 05/22/16 05/23/16 06:40 11:25 05:15 Sodium Level 140 MEQ/L 142 MEQ/L 147 MEQ/L Potassium Level 3.5 MEQ/L 3.1 MEQ/L 3.2 MEQ/L Chloride Level 96 MEQ/L 100 MEQ/L 108 MEQ/L Carbon Dioxide Level 27.3 MEQ/L 28.1 MEQ/L 29.5 MEQ/L Anion Gap 17 MEQ/L 14 MEQ/L 10 MEQ/L Blood Urea Nitrogen 130 MG/DL 120 MG/DL 67 MG/DL Creatinine 4.38 MG/DL 3.33 MG/DL 1.05 MG/DL Estimat Glomerular Filtration 10 ML/MIN 14 ML/MIN 54 ML/MIN Rate Random Glucose 142 MG/DL 142 MG/DL 115 MG/DL Calcium Level 8.0 MG/DL 6.8 MG/DL 7.3 MG/DL Total Bilirubin 0.7 MG/DL 0.7 MG/DL 0.5 MG/DL Aspartate Amino Transf 52 U/L 48 U/L 34 U/L (AST/SGOT) Alanine Aminotransferase 46 U/L 38 U/L 32 U/L (ALT/SGPT) Alkaline Phosphatase 113 U/L 89 U/L 93 U/L Total Protein 5.4 GM/DL 4.6 GM/DL 4.9 GM/DL Albumin 2.0 GM/DL 1.8 GM/DL 1.8 GM/DL Protein Corrected Calcium 8.1 MG/DL 8.5 MG/DL Magnesium Level 2.2 MG/DL 2.2 MG/DL Troponin I 0.51 NG/ML Phosphorus Level 2.8 MG/DL Microbiology Date/Time Procedure Status Source Growth 05/21/16 09:40 Aerobic Blood Culture - Preliminary Resulted Blood Peripheral NO GROWTH IN 2 DAYS 05/21/16 09:40 Anaerobic Blood Culture - Preliminary Resulted Blood Peripheral NO GROWTH IN 2 DAYS 05/21/16 09:40 Urine Culture - Final Complete Urine Clean Catch NO GROWTH IN 48 HOURS. 05/21/16 09:46 Aerobic Blood Culture - Preliminary Resulted Blood Peripheral NO GROWTH IN 2 DAYS 05/21/16 09:46 Anaerobic Blood Culture - Preliminary Resulted Blood Peripheral NO GROWTH IN 2 DAYS 05/21/16 14:13 Gram Stain - Final Complete Sputum Endotracheal 05/21/16 14:13 Sputum Culture - Final Complete Enterobacter Gergoviae S. Aureus Mrsa 05/22/16 12:00 - Final Complete Stool Stool NO ENTERIC PATHOGENS DETECTED BY PCR... 05/22/16 12:00 Cryptosporidium Exam Resulted Stool Stool Pending 05/22/16 12:00 Stool Pus (SANDY) - Final Resulted Stool Stool RARE WBC 05/22/16 12:00 Giardia Antigen (SANDY) Resulted Stool Stool Pending PHYSICAL EXAMINATION GENERAL: No acute distress. She is on the ventilator and sedated. HEENT: EOMI, PERRLA. NECK: Supple without swelling. LUNGS: Clear breath sounds HEART: Regular S1 and S2 without murmurs or rubs or gallops. ABDOMEN: Bowel sounds markedly distended, soft. No tenderness. EXTREMITIES: No clubbing, cyanosis or edema. SKIN: No rash. NEUROLOGIC: Unable to assess. PSYCHIATRIC: Unable to assess. IMPRESSION: 1. Sepsis. 2. Pneumonia MRSA. 3. C. difficile. 4. Acute kidney disease improved. 5. Drug intoxication/Encephalopathy. Looks improved. RECOMMENDATIONS 1. Continue linezolid 2. Continue metronidazole 3. Continue oral vancomycin 4. Monitor the kidney function 5. Monitor clinical response. Antony Hamilton MD May 23, 2016 15:25
--- NOTE | 2016-05-23 15:27 | HHI.GIFU ---
Subjective Remarks Resting in bed. extubated earlier today. No n/v. Denies abdominal pain. OGT came out. She has abdominal distention, but denies pain. Flexiseal with liquid stool. CDiff came back positive and was started on flagyl, oral vanco. (Katia Tay) Objective Vitals I&O Vital Signs Date Time Temp Pulse Resp B/P Pulse Ox O2 Delivery O2 Flow Rate FiO2 05/23/16 12:00 98.3 96 21 129/71 93 05/23/16 12:00 96 05/23/16 10:00 83 05/23/16 08:40 96 Nasal Cannula 4 36 05/23/16 08:40 93 Nasal Cannula 4.00 05/23/16 08:00 40 05/23/16 08:00 98.4 71 16 76/49 95 05/23/16 08:00 83 05/23/16 07:46 99 35 05/23/16 06:00 90 05/23/16 06:00 81 150/83 130/85 05/23/16 06:00 81 05/23/16 05:34 98.1 86 18 123/73 97 130/68 05/23/16 04:00 40 05/23/16 04:00 86 05/23/16 04:00 83 05/23/16 03:54 96 40 05/23/16 02:00 82 05/23/16 02:00 81 05/23/16 01:17 97 40 05/23/16 00:00 74 05/23/16 00:00 40 05/23/16 00:00 98.4 74 18 136/81 97 05/23/16 00:00 74 05/22/16 22:00 82 05/22/16 22:00 82 05/22/16 21:27 97 40 05/22/16 20:05 96 40 05/22/16 20:00 98.7 78 18 134/74 98 05/22/16 20:00 78 05/22/16 20:00 78 05/22/16 20:00 40 05/22/16 18:00 80 05/22/16 16:01 97 40 05/22/16 16:00 98.6 128 18 119/61 97 106/55 05/22/16 16:00 50 05/22/16 16:00 128 I/O 05/22/16 05/22/16 05/22/16 05/23/16 05/23/16 05/23/16 07:00 15:00 23:00 07:00 15:00 23:00 Intake Total 1600 ml 3304 ml 3311 ml 2439 ml Output Total 1700 ml 1975 ml 2325 ml 1450 ml Balance -100 ml 1329 ml 986 ml 989 ml Intake IV Total 1600 ml 3054 ml 3311 ml 2439 ml Albumin 250 ml Output Urine Total 1700 ml 1375 ml 2325 ml 1450 ml Stool Total 600 ml # Bowel Movements 1 Laboratory Laboratory Tests Test 05/23/16 05:15 White Blood Count 15.1 Red Blood Count 3.88 Hemoglobin 10.8 Hematocrit 31.4 Mean Corpuscular Volume 80.8 Mean Corpuscular Hemoglobin 27.8 Mean Corpuscular Hemoglobin 34.4 Concent Red Cell Distribution Width 15.3 Platelet Count 159 Mean Platelet Volume 8.0 Neutrophils (%) (Auto) 92.3 Lymphocytes (%) (Auto) 2.5 Monocytes (%) (Auto) 5.1 Eosinophils (%) (Auto) 0.0 Basophils (%) (Auto) 0.1 Neutrophils # (Auto) 13.9 Lymphocytes # (Auto) 0.4 Monocytes # (Auto) 0.8 Eosinophils # (Auto) 0.0 Basophils # (Auto) 0.0 CBC Comment AUTO DIFF Differential Total Cells 100 Counted Neutrophils % (Manual) 45 Band Neutrophils % 45 Lymphocytes % 2 Monocytes % 7 Neutrophils # (Manual) 13.7 Metamyelocytes 1 Differential Comment FINAL DIFF MANUAL Dohle Bodies PRESENT Platelet Estimate NORMAL Platelet Morphology Comment NORMAL Red Cell Morphology Comment NORMAL Sodium Level 147 Potassium Level 3.2 Chloride Level 108 Carbon Dioxide Level 29.5 Anion Gap 10 Blood Urea Nitrogen 67 Creatinine 1.05 Estimat Glomerular Filtration 54 Rate Random Glucose 115 Calcium Level 7.3 Protein Corrected Calcium 8.5 Phosphorus Level 2.8 Magnesium Level 2.2 Total Bilirubin 0.5 Aspartate Amino Transf 34 (AST/SGOT) Alanine Aminotransferase 32 (ALT/SGPT) Alkaline Phosphatase 93 Total Protein 4.9 Albumin 1.8 Date/Time Procedure Status Source Growth 05/22/16 12:00 Cryptosporidium Exam Resulted Stool Stool Pending 05/22/16 12:00 Stool Pus (SANDY) - Final Resulted Stool Stool RARE WBC 05/22/16 12:00 Giardia Antigen (SANDY) Resulted Stool Stool Pending 05/22/16 12:00 - Final Complete Stool Stool NO ENTERIC PATHOGENS DETECTED BY PCR... 05/21/16 14:13 Gram Stain - Final Complete Sputum Endotracheal 05/21/16 14:13 Sputum Culture - Final Complete Enterobacter Gergoviae S. Aureus Mrsa 05/21/16 09:46 Aerobic Blood Culture - Preliminary Resulted Blood Peripheral NO GROWTH IN 2 DAYS 05/21/16 09:46 Anaerobic Blood Culture - Preliminary Resulted Blood Peripheral NO GROWTH IN 2 DAYS 05/21/16 09:40 Urine Culture - Final Complete Urine Clean Catch NO GROWTH IN 48 HOURS. Imaging Last Impressions Abdomen Ultrasound 05/23/16 0000 Signed Impressions: Service Date/Time: Monday, May 23, 2016 09:14 - CONCLUSION: Trace fluid in the right lower quadrant. This is insufficient volume for percutaneous drainage. Ky German MD Chest X-Ray 05/22/16 0000 Signed Impressions: Service Date/Time: April 08:17 - CONCLUSION: 1. Developing atelectatic changes in the left base/lingula. Lungs are otherwise clear. 2. Repositioning of the endotracheal tube. The tip is now clavicular heads. 3. Interval placement of a nasogastric tube with the tip in the gastric lumen. Right IJ central venous catheter is stable in position. Ky German MD Abdomen X-Ray 05/22/16 0000 Signed Impressions: Service Date/Time: April 17:36 - CONCLUSION: 1. NG coiled in stomach. Mild gaseous distention of bowel most characteristic of ileus. Davis Goldman MD Head CT 05/21/16 0833 Signed Impressions: Service Date/Time: Saturday, May 21, 2016 09:02 - CONCLUSION: No acute disease. Torsten Verma MD Renal Ultrasound 05/21/16 0000 Signed Impressions: Service Date/Time: Saturday, May 21, 2016 15:32 - CONCLUSION: 1. Kidney sizes are preserved with increased cortical echogenicity characteristic of acute medical renal disease. 2. Otherwise negative. No hydronephrosis or nephrolithiasis. Ky German MD Abdomen/Pelvis CT 05/21/16 0000 Signed Impressions: Service Date/Time: Saturday, May 21, 2016 18:34 - CONCLUSION: 1. There is slight ascites with haziness of the mesentery nonspecific may be passive congestion or inflammatory in nature with very abnormal looking loops of small bowel which demonstrate thickening of the bowel wall and the exact etiology is not certain. 2. Bibasilar consolidation worse on the left. Caren Andrade MD Physical Exam HEENT: Normocephalic; atraumatic; no jaundice CHEST: Extubated, on ventimask. CARDIAC: RRR ABDOMEN: Distended, nontender; no hepatosplenomegaly; bowel sounds are present in all four quadrants. Flexiseal with liquid brown stool EXTREMITIES: No clubbing, cyanosis, or edema. SKIN: Normal; no rash; no jaundice. 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 Answers questions, but not appropriately ( Katia Tay) Assessment and Plan Plan ASSESSMENT: - CDiff Colitis, 027 (-). Flagyl, Oral Vanco. - Enteritis. abdominal distention with abnormal imaging on CT. Abdomen/Pelvis CT without iv contrast (05/21/16)-----> 1. There is slight ascites with haziness of the mesentery nonspecific may be passive congestion or inflammatory in nature with very abnormal looking loops of small bowel which demonstrate thickening of the bowel wall and the exact etiology is not certain. 2. Bibasilar consolidation worse on the left. The nurse reports that the patient has been having significant diarrhea. CDiff (+), 027 negative. KUB (05/22/16)--> NG coiled in stomach, mild gaseous distention of bowel, characteristic of ileus. Abdominal US (05/23/16)---> Trace fluid in the rlq, this is insufficient for percutaneous drainage. NGT came out with extubation, was only having 100cc per shift. No n/v since that time. - Transaminitis. Improving. Likely related to polypharmacy. CT as above. - Acute respiratory failure. S/P Extubated. - Acute encephalopathy, polydrug overdose, possible myoclonus, asevere metabolic and respiratory acidoses, shock (likely hypovolemic), MAYRA and probable sepsis. Per [facility] PLAN: - Clear liquids - Cont. Flagyl - Cont. Oral Vanco - Cont. PPI - Monitor stool output - Supportive care - Further recommendations to follow based on results of above - Pt seen and examined by Dr. Adams and myself and this note is written on her behalf (Katia Tay) Physician Comments seen, examined agree with above (Khushboo Adams MD) Katia Tay May 23, 2016 15:27 Khushboo Adams MD May 23, 2016 16:45
[2016-05-23] MEDS: LABETALOL HCL 100 MG/20 ML VIAL IV PUSH PRN (18:13)
[2016-05-24] VITALS (13 sets, daily range): BP systolic 128–160; BP diastolic 73–92; PULSE 67–101; RESP 21–25; TEMP 98.2–98.9; O2SAT 93–97
[2016-05-24] MEDS ORDERED: ONDANSETRON HCL 4 MG/2 ML VIAL ONE (00:06)
[2016-05-24] MEDS: metroNIDAZOLE 500 MG INJ 100 ML IV SCH ×3 (00:10→17:56)
[2016-05-24] MEDS: HYDROCORTISONE SOD SUCCINATE 100 MG VIAL IV SCH (00:10)
[2016-05-24] MEDS: LORazepam 2 MG/ML VIAL IV PUSH PRN ×4 (01:03→19:52)
[2016-05-24] MEDS: RESP: ALBUTEROL 2.5 MG/IPRATROPIUM 0.5 MG NEB (SCH) NEB ×4 (03:42→22:00)
[2016-05-24] MEDS: DEXMEDETOMIDINE INJ 50 ML IV SCH (03:50)
[2016-05-24 04:42] LABS: BASOPHIL % 0.1 % (0.0-2.0); HEMATOCRIT 33.2 % (35.0-46.0); LYMPH % 2.6 % (9.0-44.0); LYMPHOCYTE # 0.6 TH/MM3 (1.0-4.8); MEAN CELL VOLUME 83.4 FL (80.0-100.0); MEAN CORPUSCULAR HEMOGLOBIN 27.2 PG (27.0-34.0); MEAN CORPUSCULAR HGB CONC 32.6 % (32.0-36.0); MONO % 3.6 % (0.0-8.0); NEUT % 93.7 % (16.0-70.0); PLATELET COUNT 133 TH/MM3 (150-450); RED BLOOD COUNT 3.99 MIL/MM3 (4.00-5.30); RED CELL DISTRIBUTION WIDTH 15.7 % (11.6-17.2); WHITE BLOOD COUNT 22.4 TH/MM3 (4.0-11.0)
[2016-05-24 04:45] LABS: HEMO FLAGS AUTO DIFF
[2016-05-24] MEDS: HEPARIN SODIUM - SQ 10,000 UNITS/ML VIAL SQ SCH ×3 (05:14→19:53)
[2016-05-24] MEDS: LINEZOLID 600 MG PREMIX 300 ML IV SCH ×2 (05:14→17:56)
[2016-05-24 05:17] LABS: ALKALINE PHOSPHATASE 109 U/L (45-117); ALT (GPT) 35 U/L (10-53); ANION GAP 8 MEQ/L (5-15); AST (GOT) 38 U/L (15-37); BICARBONATE 29.1 MEQ/L (21.0-32.0); BLOOD UREA NITROGEN 48 MG/DL (7-18); CHLORIDE 116 MEQ/L (98-107); GLOMERULAR FILTRATION RATE 74 ML/MIN (>89); MAGNESIUM 2.4 MG/DL (1.5-2.5); SODIUM (NA) 153 MEQ/L (136-145); TOTAL BILIRUBIN ADULT 0.6 MG/DL (0.2-1.0)
[2016-05-24] MEDS: CHLORHEXIDINE GLUCONATE 2 % 1 PACK (2 CLOTHS) TOP SCH (05:20)
[2016-05-24 06:03] LABS: BANDS 6 % (0-6); METAMYELOCYTES 1 % (0-1); PLATELET ESTIMATE SMEAR LOW (NORMAL); PLATELET MORPHOLOGY NORMAL (NORMAL); POLYS (SEG NEUTROPHILS) 91 % (16-70); WBC DIFF SAMPLE 100
[2016-05-24 06:04] LABS: SCAN/DIFF FINAL DIFF MANUAL
[2016-05-24] MEDS: VANCOMYCIN 500 MG VIAL (FOR ORAL USE ONLY) PO SCH ×4 (09:08→19:52)
[2016-05-24] MEDS: PANTOPRAZOLE SODIUM 40 MG VIAL IV SCH (09:08)
--- NOTE | 2016-05-24 09:11 | HHI.CCPN ---
Subjective Remarks/Hospital Course Patient is a 56-year-old female with past medical history significant for hypertension and chronic pain who was brought to the [facility] emergency department by EMS for altered mental status. Per EMS stated that she was recently started on oxycodone, Wellbutrin within the past 2 weeks. According to him patient was getting more confused and lethargic since yesterday. On EMS arrival and there were multiple open bottles on the scene including Wellbutrin oxycodone and alprazolam. Unable to determine what meds and how much she consumed. Patient was hypotensive and received total of 4 L normal saline boluses in [facility] ED. ER workup showed a CT of the head was negative but patient remained unresponsive with jerking movements of bilateral upper and lower extremities. Lab work showed acute renal failure with BUN 184 creatinine of 13, potassium was 7.6. Along with fluid boluses patient received bicarbonate, insulin and D50, albuterol for treatment of hyperkalemia and Bicarbonate drip was also started. Patient's pH was 7.04 which was combined metabolic and respiratory acidemia. Due to worsening mental status severe acidosis patient was endotracheally intubated and placed on mechanical ventilation, also a right IJ central line was placed. Nephrology had been consulted. Patient was transferred to the main hospital and I evaluated her in the ICU. On propofol patient continues to have intermittent jerking movements of the extremities. She remains on 6 mcg/m of Levophed. After treatment of hyperkalemia potassium has improved now 5.8. Creatinine has improved to 12 patient had a total output of 500 mL in urine. We will continue bicarbonate infusion. Nephrology consult is pending at this time. UDS positive for opiates , benzo, amphetamine and cocaine. SUBJ 05/22/16: Patient remains intubated sedated with propofol. Remains on Levophed ex-mics per minute. Urine output close to 5 L since admission. Chemistry pending at this time. On sedation lightening intermittently follows commands on the lower extremities and tracks with eyes. 05/23: Remains intubated on Precedex, appears . Currently on Levophed 3 mcg/min. Creat normalized. ID consult pending for MRSA GNR pneumonia and C Diff 05/24: Agitation overnight requiring Precedex. Off all pressors. On exam. Patient is some what delirious, follows some commands. Objective Vital Signs Date Time Temp Pulse Resp B/P Pulse Ox O2 Delivery O2 Flow Rate FiO2 05/24/16 06:00 76 05/24/16 05:14 96 Nasal Cannula 3.00 05/24/16 04:00 98.5 23 153/92 05/23/16 08:40 36 Intake and Output 05/23/16 05/23/16 05/24/16 08:00 16:00 00:00 Intake Total 2439 ml 1300 ml 1246 ml Output Total 1450 ml 1000 ml 525 ml Balance 989 ml 300 ml 721 ml Result Diagram: 05/24/16 0400 05/24/16 0400 Other Results Microbiology Date/Time Procedure Status Source Growth 05/21/16 09:40 Urine Culture - Final Complete Urine Clean Catch NO GROWTH IN 48 HOURS. 05/21/16 14:13 Gram Stain - Final Complete Sputum Endotracheal 05/21/16 14:13 Sputum Culture - Final Complete Enterobacter Gergoviae S. Aureus Mrsa 05/22/16 12:00 - Final Complete Stool Stool NO ENTERIC PATHOGENS DETECTED BY PCR... Imaging CT scan head negative for acute findings Chest x-ray mild interstitial edema Objective Remarks GENERAL: 56 year-old woman on NC sedated with Precedex SKIN: Decreased skin turgor HEAD: Atraumatic. Normocephalic. EYES: Pupils equal and round. No scleral icterus. No injection or drainage. ENT: No nasal bleeding or discharge. Dry mucous membranes. NECK: Trachea midline. No JVD. CARDIOVASCULAR: Regular rate and rhythm. No murmur appreciated. RESPIRATORY: Clear to auscultation. Breath sounds equal bilaterally. GASTROINTESTINAL: Abdomen is flat and soft. No organomegaly MUSCULOSKELETAL: No obvious deformities. No edema. No obvious injuries. NEUROLOGICAL: Eyes are open, tracking, following simple commands. Spontaneously moves all extremities Urinary Catheter: Yes Assessment to: Continue Vascular Central Line Catheter: Yes Assessment to: Continue A/P Assessment and Plan NEURO: Acute encephalopathy Polydrug overdose Chronic pain -Urine drug screen positive for cocaine, amphetamine, benzodiazepines and opiates -Patient was recently prescribed Wellbutrin and oxycodone -DC Precedex. Use when necessary Ativan and Haldol and fentanyl for agitation -EEG to moderate encephalopathy, no seizures -Watch for alcohol and drug withdrawal -Agitation today seems to be encephalopathy from metabolic causes and withdrawal RESP: Acute respiratory failure Severe metabolic and respiratory acidosis -Extubated 05/23/16, good oxygen saturation protecting airway even though delirious -DuoNeb every 6 hours and when necessary -Spontaneous breathing trials today for possible extubation -F/U sputum culture, empiric Zosyn, Zyvox. PO Vanc and IV Flagyl for C Dfii CV: Shock -Hypovolemic and septic shock, resolved -Continue normal saline infusion -Off Levophed. DC stress dose steroids -Cycle cardiac enzymes GI: Transaminitis Small bowel thickening on CT/Enteritis C. difficile colitis -Elevated liver enzymes from shock liver -NGT to IWS, IV Protonix -Gastroenterology following -Continue by mouth vancomycin and IV Flagyl /Endo: Acute kidney failure Severe dehydration Hyperkalemia Hypocalcemia -Monitor renal function closely. Robert catheter. Renal function steadily improving -Renal ultrasound-acute medical renal disease -Hyperkalemia treated with D50 followed by insulin, calcium, bicarbonate and albuterol breathing treatments -Given Kayexalate 30 g 1 -Urine output is excellent creatinine almost normalized -Nephrology Dr. Prado ID: Septic shock MRSA/Enterobacter pneumonia C. difficile colitis -Continue Zyvox, Levaquin for pneumonia -Continue by mouth vancomycin and IV Flagyl for C. difficile colitis -Infectious disease following HEME: -Monitor CBC, CMP, coags PROPH: -Bilateral lower extremity SCDs. Heparin 5000 U sq q8. IV Protonix for GI prophylaxis LINES: -Right IJ central line placed in the ER by Dr. greenberg. CC time 32 min Winston Loyd MD May 24, 2016 09:11
--- NOTE | 2016-05-24 11:16 | EKG ---
Date Performed: 05/22/2016 Time Performed: 16:41:10 PTAGE: 56 years EKG: Atrial flutter with uncontrolled ventricular response. Inferior/lateral ST-T changes may be due to myocardial ischemia Abnormal ECG PREVIOUS TRACING : 05/21/2016 16.06 DOCTOR: Brandee Marroquin Interpretating Date/Time 05/24/2016 11:12:44
[2016-05-24] MEDS: LEVOFLOXACIN 500 MG PREMIX INJ 100 ML IV SCH (11:39)
[2016-05-24] MEDS: HALOPERIDOL LACTATE 5 MG/ML AMP IV PRN ×3 (12:07→23:54)
--- NOTE | 2016-05-24 14:34 | HHI.GIFU ---
Subjective Remarks Patient remains confused, in restraints, NGT to LIWS with brown Gastric out put. Flexiseal out ([facility]) Objective Vitals I&O Vital Signs Date Time Temp Pulse Resp B/P Pulse Ox O2 Delivery O2 Flow Rate FiO2 05/24/16 12:00 80 05/24/16 10:55 96 Nasal Cannula 3.00 05/24/16 10:00 74 05/24/16 08:00 95 Nasal Cannula 3.00 05/24/16 08:00 84 05/24/16 06:00 76 05/24/16 05:14 96 Nasal Cannula 3.00 05/24/16 04:00 98.5 101 23 153/92 93 05/24/16 04:00 101 05/24/16 03:45 23 05/24/16 03:00 81 Nasal Cannula 6.00 05/24/16 02:00 93 05/24/16 00:00 93 05/24/16 00:00 98.9 89 23 160/91 95 05/23/16 22:00 94 05/23/16 20:00 95 Nasal Cannula 4.00 05/23/16 20:00 98.6 89 24 162/90 95 05/23/16 20:00 89 05/23/16 19:34 95 Nasal Cannula 4.00 05/23/16 18:00 107 05/23/16 16:00 111 05/23/16 16:00 98.5 111 23 166/86 92 Arterial Line I/O 05/23/16 05/23/16 05/23/16 05/24/16 05/24/16 05/24/16 07:00 15:00 23:00 07:00 15:00 23:00 Intake Total 2439 ml 1300 ml 1246 ml 636 ml Output Total 1450 ml 1000 ml 525 ml 1000 ml Balance 989 ml 300 ml 721 ml -364 ml Intake IV Total 2439 ml 1300 ml 1246 ml 636 ml Output Urine Total 1450 ml 900 ml 525 ml 450 ml Stool Total 100 ml 200 ml Gastric Drainage Total 350 ml Laboratory Laboratory Tests Test 05/23/16 05/24/16 05/24/16 18:10 04:00 13:12 Potassium Level 3.8 4.0 White Blood Count 22.4 Red Blood Count 3.99 Hemoglobin 10.8 Hematocrit 33.2 Mean Corpuscular Volume 83.4 Mean Corpuscular Hemoglobin 27.2 Mean Corpuscular Hemoglobin 32.6 Concent Red Cell Distribution Width 15.7 Platelet Count 133 Mean Platelet Volume 8.3 Neutrophils (%) (Auto) 93.7 Lymphocytes (%) (Auto) 2.6 Monocytes (%) (Auto) 3.6 Eosinophils (%) (Auto) 0.0 Basophils (%) (Auto) 0.1 Neutrophils # (Auto) 21.0 Lymphocytes # (Auto) 0.6 Monocytes # (Auto) 0.8 Eosinophils # (Auto) 0.0 Basophils # (Auto) 0.0 CBC Comment AUTO DIFF Differential Total Cells 100 Counted Neutrophils % (Manual) 91 Band Neutrophils % 6 Monocytes % 2 Neutrophils # (Manual) 22.0 Metamyelocytes 1 Differential Comment FINAL DIFF MANUAL Platelet Estimate LOW Platelet Morphology Comment NORMAL Red Cell Morphology Comment NORMAL Sodium Level 153 Chloride Level 116 Carbon Dioxide Level 29.1 Anion Gap 8 Blood Urea Nitrogen 48 Creatinine 0.80 Estimat Glomerular Filtration 74 Rate Random Glucose 118 Calcium Level 8.1 Magnesium Level 2.4 Total Bilirubin 0.6 Aspartate Amino Transf 38 (AST/SGOT) Alanine Aminotransferase 35 (ALT/SGPT) Alkaline Phosphatase 109 Total Protein 5.3 Albumin 2.0 Ammonia 28 Date/Time Procedure Status Source Growth 05/22/16 12:00 Cryptosporidium Exam Resulted Stool Stool Pending 05/22/16 12:00 Stool Pus (SANDY) - Final Resulted Stool Stool RARE WBC 05/22/16 12:00 Giardia Antigen (SANDY) Resulted Stool Stool Pending 05/22/16 12:00 - Final Complete Stool Stool NO ENTERIC PATHOGENS DETECTED BY PCR... 05/21/16 14:13 Gram Stain - Final Complete Sputum Endotracheal 05/21/16 14:13 Sputum Culture - Final Complete Enterobacter Gergoviae S. Aureus Mrsa 05/21/16 09:46 Aerobic Blood Culture - Preliminary Resulted Blood Peripheral NO GROWTH IN 3 DAYS 05/21/16 09:46 Anaerobic Blood Culture - Preliminary Resulted Blood Peripheral NO GROWTH IN 3 DAYS 05/21/16 09:40 Urine Culture - Final Complete Urine Clean Catch NO GROWTH IN 48 HOURS. Imaging Last Impressions Abdomen Ultrasound 05/23/16 0000 Signed Impressions: Service Date/Time: Monday, May 23, 2016 09:14 - CONCLUSION: Trace fluid in the right lower quadrant. This is insufficient volume for percutaneous drainage. Ky German MD Chest X-Ray 05/22/16 0000 Signed Impressions: Service Date/Time: April 08:17 - CONCLUSION: 1. Developing atelectatic changes in the left base/lingula. Lungs are otherwise clear. 2. Repositioning of the endotracheal tube. The tip is now clavicular heads. 3. Interval placement of a nasogastric tube with the tip in the gastric lumen. Right IJ central venous catheter is stable in position. Ky German MD Abdomen X-Ray 05/22/16 0000 Signed Impressions: Service Date/Time: April 17:36 - CONCLUSION: 1. NG coiled in stomach. Mild gaseous distention of bowel most characteristic of ileus. Davis Goldman MD Head CT 05/21/16 0833 Signed Impressions: Service Date/Time: Saturday, May 21, 2016 09:02 - CONCLUSION: No acute disease. Torsten Verma MD Renal Ultrasound 05/21/16 0000 Signed Impressions: Service Date/Time: Saturday, May 21, 2016 15:32 - CONCLUSION: 1. Kidney sizes are preserved with increased cortical echogenicity characteristic of acute medical renal disease. 2. Otherwise negative. No hydronephrosis or nephrolithiasis. Ky German MD Abdomen/Pelvis CT 05/21/16 0000 Signed Impressions: Service Date/Time: Saturday, May 21, 2016 18:34 - CONCLUSION: 1. There is slight ascites with haziness of the mesentery nonspecific may be passive congestion or inflammatory in nature with very abnormal looking loops of small bowel which demonstrate thickening of the bowel wall and the exact etiology is not certain. 2. Bibasilar consolidation worse on the left. Caren Andrade MD Physical Exam HEENT: Normocephalic; atraumatic; no jaundice CARDIAC: RRR ABDOMEN: nondistended, nontender; no hepatosplenomegaly; bowel sounds are present in all four quadrants. NGT tube EXTREMITIES: No clubbing, cyanosis, or edema. SKIN: Normal; no rash; no jaundice. 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 Answers questions, but not appropriately ( Loy Key) Assessment and Plan Plan ASSESSMENT: - CDiff Colitis, 027 (-). Flagyl, Oral Vanco. - Enteritis. abdominal distention with abnormal imaging on CT. Abdomen/Pelvis CT without iv contrast (05/21/16)-----> 1. There is slight ascites with haziness of the mesentery nonspecific may be passive congestion or inflammatory in nature with very abnormal looking loops of small bowel which demonstrate thickening of the bowel wall and the exact etiology is not certain. 2. Bibasilar consolidation worse on the left. The nurse reports that the patient has been having significant diarrhea. CDiff (+), 027 negative. KUB (05/22/16)--> NG coiled in stomach, mild gaseous distention of bowel, characteristic of ileus. Abdominal US (05/23/16)---> Trace fluid in the rlq, this is insufficient for percutaneous drainage. NGT to LIWS - Transaminitis. Improving. Likely related to polypharmacy. CT as above. - Acute respiratory failure. S/P Extubated. - Acute encephalopathy, polydrug overdose, possible myoclonus, asevere metabolic and respiratory acidoses, shock (likely hypovolemic), MAYRA and probable sepsis. Per [facility] PLAN: - NGT to LIWS, - KUB in am if okay, will start TF - Cont. Flagyl - Cont. Oral Vanco - Cont. PPI - Monitor stool output - Supportive care - Further recommendations to follow based on results of above - Pt seen and examined by Dr. Adams and myself and this note is written on her behalf (Loy Key) Physician Comments seen, examined agree with above discussed nwith family egd/colonoscopy before discharge (Khushboo Adams MD) Loy Key May 24, 2016 14:34 Khushboo Adams MD May 24, 2016 15:50
[2016-05-24] MEDS: CHLORHEXIDINE 0.12% (ORAL KIT) 15 ML CUP MT SCH (19:50)
[2016-05-25] VITALS (14 sets, daily range): BP systolic 139–175; BP diastolic 70–95; PULSE 71–99; RESP 18–22; TEMP 98.3–99; O2SAT 92–98
[2016-05-25] MEDS: LABETALOL HCL 100 MG/20 ML VIAL IV PUSH PRN ×2 (00:07→12:06)
[2016-05-25] MEDS: metroNIDAZOLE 500 MG INJ 100 ML IV SCH ×3 (02:00→16:28)
[2016-05-25] MEDS: CHLORHEXIDINE GLUCONATE 2 % 1 PACK (2 CLOTHS) TOP SCH (04:00)
--- NOTE | 2016-05-25 04:29 | RADRPT ---
EXAM DATE/TIME: 05/25/2016 03:28 [facility] COMPARISON: CHEST SINGLE AP, May 22, 2016, 8:17. INDICATIONS : Shortness of breath, possible pulmonary disease. MEDICAL HISTORY : Hypertension. SURGICAL HISTORY : Cholecystectomy. Tubal ligation. ENCOUNTER: Subsequent ACUITY: 3 days PAIN SCORE: Non-responsive. LOCATION: Bilateral chest FINDINGS: A single portable frontal view the chest shows a new right midlung infiltrate. This obscures the righ t hilum. Left basilar atelectasis is similar to the prior study. No effusions. Heart is normal in siz e. Right-sided central line and nasogastric tube noted. Endotracheal tube has been removed. CONCLUSION: New right midlung infiltrate with unchanged left basilar atelectasis. Elgin Diaz Jr., MD on May 25, 2016 at 4:27 Board Certified Radiologist. This report was verified electronically.
--- NOTE | 2016-05-25 04:31 | RADRPT ---
EXAM DATE/TIME: 05/25/2016 03:34 [facility] COMPARISON: ABDOMEN KUB ONLY, May 22, 2016, 17:36. INDICATIONS : Abdominal distention. MEDICAL HISTORY : Hypertension. SURGICAL HISTORY : Cholecystectomy. Tubal ligation. ENCOUNTER: Subsequent ACUITY: 4 - 6 days PAIN SCORE: Non-responsive. LOCATION: Bilateral abdomen FINDINGS: A single supine portable frontal view of the abdomen omits the left aspects of the abdomen. Dilated l oops of gas-filled small and large bowel also are to the prior study. Nasogastric tube with the stoma ch decompressed. No organomegaly observed. CONCLUSION: Unchanged gaseous distention of the small and large bowel. Elgin Diaz Jr., MD on May 25, 2016 at 4:28 Board Certified Radiologist. This report was verified electronically.
[2016-05-25] MEDS: RESP: ALBUTEROL 2.5 MG/IPRATROPIUM 0.5 MG NEB (SCH) NEB ×4 (04:43→20:58)
[2016-05-25] MEDS: HEPARIN SODIUM - SQ 10,000 UNITS/ML VIAL SQ SCH ×3 (05:13→22:07)
[2016-05-25] MEDS: LINEZOLID 600 MG PREMIX 300 ML IV SCH ×2 (05:13→16:27)
[2016-05-25 07:18] LABS: ANION GAP 7 MEQ/L (5-15); AST (GOT) 30 U/L (15-37); BICARBONATE 30.4 MEQ/L (21.0-32.0); BLOOD UREA NITROGEN 39 MG/DL (7-18); CHLORIDE 117 MEQ/L (98-107); GLOMERULAR FILTRATION RATE 82 ML/MIN (>89); MAGNESIUM 2.3 MG/DL (1.5-2.5); SODIUM (NA) 154 MEQ/L (136-145)
[2016-05-25 07:21] LABS: ALKALINE PHOSPHATASE 103 U/L (45-117); ALT (GPT) 27 U/L (10-53); TOTAL BILIRUBIN ADULT 0.5 MG/DL (0.2-1.0)
[2016-05-25 07:33] LABS: AUTOMATED NEUTROPHIL # 20.8 TH/MM3 (1.8-7.7); HEMATOCRIT 30.8 % (35.0-46.0); LYMPH % 4.1 % (9.0-44.0); LYMPHOCYTE # 0.9 TH/MM3 (1.0-4.8); MEAN CELL VOLUME 84.5 FL (80.0-100.0); MEAN CORPUSCULAR HEMOGLOBIN 27.1 PG (27.0-34.0); MONO % 2.9 % (0.0-8.0); PLATELET COUNT 109 TH/MM3 (150-450); RED BLOOD COUNT 3.64 MIL/MM3 (4.00-5.30); RED CELL DISTRIBUTION WIDTH 15.2 % (11.6-17.2); WHITE BLOOD COUNT 22.4 TH/MM3 (4.0-11.0)
[2016-05-25 08:28] LABS: HEMO FLAGS AUTO DIFF
[2016-05-25] MEDS: LORazepam 2 MG/ML VIAL IV PUSH PRN ×2 (09:21→16:28)
[2016-05-25] MEDS: LEVOFLOXACIN 500 MG PREMIX INJ 100 ML IV SCH (09:21)
[2016-05-25] MEDS: VANCOMYCIN 500 MG VIAL (FOR ORAL USE ONLY) PO SCH ×4 (09:22→22:07)
[2016-05-25] MEDS: PANTOPRAZOLE SODIUM 40 MG VIAL IV SCH (09:22)
[2016-05-25] MEDS: CHLORHEXIDINE 0.12% (ORAL KIT) 15 ML CUP MT SCH ×2 (09:23→22:06)
--- NOTE | 2016-05-25 10:08 | HHI.CCPN ---
Subjective Remarks/Hospital Course Patient is a 56-year-old female with past medical history significant for hypertension and chronic pain who was brought to the [place] emergency department by EMS for altered mental status. Per EMS stated that she was recently started on oxycodone, Wellbutrin within the past 2 weeks. According to him patient was getting more confused and lethargic since yesterday. On EMS arrival and there were multiple open bottles on the scene including Wellbutrin oxycodone and alprazolam. Unable to determine what meds and how much she consumed. Patient was hypotensive and received total of 4 L normal saline boluses in [place] ED. ER workup showed a CT of the head was negative but patient remained unresponsive with jerking movements of bilateral upper and lower extremities. Lab work showed acute renal failure with BUN 184 creatinine of 13, potassium was 7.6. Along with fluid boluses patient received bicarbonate, insulin and D50, albuterol for treatment of hyperkalemia and Bicarbonate drip was also started. Patient's pH was 7.04 which was combined metabolic and respiratory acidemia. Due to worsening mental status severe acidosis patient was endotracheally intubated and placed on mechanical ventilation, also a right IJ central line was placed. Nephrology had been consulted. Patient was transferred to the main hospital and I evaluated her in the ICU. On propofol patient continues to have intermittent jerking movements of the extremities. She remains on 6 mcg/m of Levophed. After treatment of hyperkalemia potassium has improved now 5.8. Creatinine has improved to 12 patient had a total output of 500 mL in urine. We will continue bicarbonate infusion. Nephrology consult is pending at this time. UDS positive for opiates , benzo, amphetamine and cocaine. SUBJ 05/22/16: Patient remains intubated sedated with propofol. Remains on Levophed ex-mics per minute. Urine output close to 5 L since admission. Chemistry pending at this time. On sedation lightening intermittently follows commands on the lower extremities and tracks with eyes. 05/23: Remains intubated on Precedex, appears . Currently on Levophed 3 mcg/min. Creat normalized. ID consult pending for MRSA GNR pneumonia and C Diff 05/24: Agitation overnight requiring Precedex. Off all pressors. On exam. Patient is some what delirious, follows some commands. 05/25: Remains in restraints due to intermittent agitation but off Precedex. Orientation is slightly improved knows her name and knows that she is in the hospital. Sodium remains high at 154, ephedra restarted. KUB shows ileus placed on Reglan IV. NGT to LIWS Objective Vital Signs Date Time Temp Pulse Resp B/P Pulse Ox O2 Delivery O2 Flow Rate FiO2 05/25/16 07:56 93 Nasal Cannula 4.00 05/25/16 04:00 74 05/25/16 04:00 98.5 22 161/89 05/23/16 08:40 36 Intake and Output 05/24/16 05/24/16 05/25/16 08:00 16:00 00:00 Intake Total 636 ml 1121 ml 845 ml Output Total 1000 ml 900 ml 950 ml Balance -364 ml 221 ml -105 ml Result Diagram: 05/25/16 0543 05/25/16 0543 Other Results Microbiology Date/Time Procedure Status Source Growth 05/22/16 12:00 - Final Complete Stool Stool NO ENTERIC PATHOGENS DETECTED BY PCR... Imaging CT scan head negative for acute findings Chest x-ray mild interstitial edema Objective Remarks GENERAL: 56 year-old woman on NC, bilateral upper extremity and restraints to prevent NG tube displacement SKIN: Decreased skin turgor HEAD: Atraumatic. Normocephalic. EYES: Pupils equal and round. No scleral icterus. No injection or drainage. ENT: No nasal bleeding or discharge. Dry mucous membranes. NG tube in place with brownish output NECK: Trachea midline. No JVD. CARDIOVASCULAR: Regular rate and rhythm. No murmur appreciated. RESPIRATORY: Clear to auscultation. Breath sounds equal bilaterally. GASTROINTESTINAL: Abdomen is flat and soft. No organomegaly MUSCULOSKELETAL: No obvious deformities. No edema. No obvious injuries. NEUROLOGICAL: Eyes are open, tracking, following simple commands. States her name and that she is in a hospital. Urinary Catheter: Yes Assessment to: Continue A/P Assessment and Plan NEURO: Acute encephalopathy Polydrug overdose Chronic pain -Urine drug screen positive for cocaine, amphetamine, benzodiazepines and opiates -Patient was recently prescribed Wellbutrin and oxycodone -Use when necessary Ativan and Haldol and fentanyl for agitation, overall delirium slowly improving -EEG to moderate encephalopathy, no seizures -Watch for alcohol and drug withdrawal RESP: Acute respiratory failure Severe metabolic and respiratory acidosis -Extubated 05/23/16, good oxygen saturation protecting airway even though delirious -DuoNeb every 6 hours and when necessary -On Levaquin and Zyvox. PO Vanc and IV Flagyl for C Dfii CV: -Hypovolemic and septic shock, resolved -Start D5W at 125 mL per hour to correct hyponatremia -Off Levophed. DCd stress dose steroids 05/24 GI: Transaminitis Small bowel thickening on CT/Enteritis C. difficile colitis Ileus -Elevated liver enzymes from shock liver -NGT to LIWS, IV Protonix -Gastroenterology following. Start tube feeds when o with GI -Start Reglan 10 mg IV every 8 hours. Continue Protonix for GI prophylaxis -Continue by mouth vancomycin and IV Flagyl /Endo: Acute kidney failure Severe dehydration Hyperkalemia Hypocalcemia -Monitor renal function closely. Robert catheter. Renal function steadily improving -Renal ultrasound-acute medical renal disease -Hyperkalemia treated with D50 followed by insulin, calcium, bicarbonate and albuterol breathing treatments -Given Kayexalate 30 g 1 -Urine output is excellent creatinine almost normalized -Nephrology Dr. Prado ID: Septic shock MRSA/Enterobacter pneumonia C. difficile colitis -Continue Zyvox, Levaquin for pneumonia -Continue by mouth vancomycin and IV Flagyl for C. difficile colitis -Infectious disease following HEME: -Monitor CBC, CMP, coags PROPH: -Bilateral lower extremity SCDs. Heparin 5000 U sq q8. IV Protonix for GI prophylaxis LINES: -Right IJ central line placed in the ER by Dr. greenberg. CC time 34 min Winston Loyd MD May 25, 2016 10:07
--- NOTE | 2016-05-25 10:53 | RADRPT ---
EXAM DATE/TIME: 05/25/2016 10:20 [facility] COMPARISON: CHEST SINGLE AP, May 25, 2016, 3:28. INDICATIONS : Respiratory disease. MEDICAL HISTORY : Hypertension. SURGICAL HISTORY : Cholecystectomy. Tubal ligation. ENCOUNTER: Initial ACUITY: 1 day PAIN SCORE: Non-responsive. LOCATION: Bilateral chest FINDINGS: Portable AP upright view of the chest demonstrates stable appearance of a right-sided central line wi th the tip overlying the region of the distal SVC. Orogastric tube is seen with the tip extending keyon n the imaged portion of the film. Heart size is normal. There is worsening bibasilar airspace opacities and blunting of left costophren ic angle consistent with atelectasis and likely small pleural effusion. Osseous structures are grossly unremarkable. Anterior cervical fusion hardware noted. CONCLUSION: Worsening bibasilar airspace disease and likely small left-sided pleural effusion. Colleen Olvera MD on May 25, 2016 at 10:50 Board Certified Radiologist. This report was verified electronically.
[2016-05-25 10:55] LABS: AUTOMATED NEUTROPHIL # 21.6 TH/MM3 (1.8-7.7); BASOPHIL % 0.1 % (0.0-2.0); LYMPH % 4.7 % (9.0-44.0); LYMPHOCYTE # 1.1 TH/MM3 (1.0-4.8); MEAN CELL VOLUME 83.5 FL (80.0-100.0); MEAN CORPUSCULAR HEMOGLOBIN 27.5 PG (27.0-34.0); MEAN CORPUSCULAR HGB CONC 32.9 % (32.0-36.0); MONO % 3.4 % (0.0-8.0); NEUT % 91.8 % (16.0-70.0); PLATELET COUNT 114 TH/MM3 (150-450); RED BLOOD COUNT 3.83 MIL/MM3 (4.00-5.30); RED CELL DISTRIBUTION WIDTH 15.3 % (11.6-17.2); WHITE BLOOD COUNT 23.5 TH/MM3 (4.0-11.0)
[2016-05-25 10:56] LABS: HEMO FLAGS AUTO DIFF
[2016-05-25 11:15] LABS: ALT (GPT) 30 U/L (10-53); ANION GAP 5 MEQ/L (5-15); AST (GOT) 30 U/L (15-37); BICARBONATE 30.1 MEQ/L (21.0-32.0); BLOOD UREA NITROGEN 36 MG/DL (7-18); CHLORIDE 119 MEQ/L (98-107); GLOMERULAR FILTRATION RATE 83 ML/MIN (>89); MAGNESIUM 2.2 MG/DL (1.5-2.5); POTASSIUM 4.1 MEQ/L (3.5-5.1); SODIUM (NA) 154 MEQ/L (136-145)
[2016-05-25 11:18] LABS: ALKALINE PHOSPHATASE 99 U/L (45-117); TOTAL BILIRUBIN ADULT 0.6 MG/DL (0.2-1.0)
--- NOTE | 2016-05-25 11:25 | HHI.GIFU ---
Subjective Remarks Pt with about 700cc of output from NGT in 24 hours and about 400cc since 0600 this morning Small smear of stool this morning. Pt is in restraints due to intermittent agitation. Objective Vitals I&O Vital Signs Date Time Temp Pulse Resp B/P Pulse Ox O2 Delivery O2 Flow Rate FiO2 05/25/16 10:00 74 05/25/16 08:00 94 Nasal Cannula 3.00 05/25/16 08:00 80 05/25/16 07:56 93 Nasal Cannula 4.00 05/25/16 04:45 97 Nasal Cannula 5.00 05/25/16 04:00 74 05/25/16 04:00 98.5 74 22 161/89 97 05/25/16 02:00 76 05/25/16 00:00 98.6 99 22 167/70 98 05/25/16 00:00 79 05/24/16 22:00 84 05/24/16 20:00 98.2 81 21 154/86 94 05/24/16 20:00 95 Nasal Cannula 3.00 05/24/16 20:00 84 05/24/16 18:00 74 05/24/16 16:00 77 05/24/16 16:00 98.5 72 23 128/73 94 05/24/16 14:00 75 05/24/16 12:00 98.6 67 24 135/80 96 05/24/16 12:00 80 I/O 05/24/16 05/24/16 05/24/16 05/25/16 05/25/16 05/25/16 07:00 15:00 23:00 07:00 15:00 23:00 Intake Total 636 ml 1121 ml 845 ml Output Total 1000 ml 600 ml 1250 ml Balance -364 ml 521 ml -405 ml Intake IV Total 636 ml 1121 ml 785 ml Other 60 ml Output Urine Total 450 ml 600 ml 800 ml Stool Total 200 ml Gastric Drainage Total 350 ml 450 ml # Bowel Movements 2 Laboratory Laboratory Tests Test 05/24/16 05/25/16 05/25/16 13:12 05:43 10:40 Ammonia 28 White Blood Count 22.4 23.5 Red Blood Count 3.64 3.83 Hemoglobin 9.9 10.5 Hematocrit 30.8 32.0 Mean Corpuscular Volume 84.5 83.5 Mean Corpuscular Hemoglobin 27.1 27.5 Mean Corpuscular Hemoglobin 32.0 32.9 Concent Red Cell Distribution Width 15.2 15.3 Platelet Count 109 114 Mean Platelet Volume 7.9 7.5 Neutrophils (%) (Auto) 93.0 91.8 Lymphocytes (%) (Auto) 4.1 4.7 Monocytes (%) (Auto) 2.9 3.4 Eosinophils (%) (Auto) 0.0 0.0 Basophils (%) (Auto) 0.0 0.1 Neutrophils # (Auto) 20.8 21.6 Lymphocytes # (Auto) 0.9 1.1 Monocytes # (Auto) 0.6 0.8 Eosinophils # (Auto) 0.0 0.0 Basophils # (Auto) 0.0 0.0 CBC Comment AUTO DIFF AUTO DIFF Sodium Level 154 154 Potassium Level 4.0 4.1 Chloride Level 117 119 Carbon Dioxide Level 30.4 30.1 Anion Gap 7 5 Blood Urea Nitrogen 39 36 Creatinine 0.73 0.72 Estimat Glomerular Filtration 82 83 Rate Random Glucose 120 99 Calcium Level 7.8 7.9 Magnesium Level 2.3 2.2 Total Bilirubin 0.5 Aspartate Amino Transf 30 30 (AST/SGOT) Alanine Aminotransferase 27 30 (ALT/SGPT) Alkaline Phosphatase 103 Total Protein 4.5 Albumin 1.8 2.0 Date/Time Procedure Status Source Growth 05/22/16 12:00 Cryptosporidium Exam Resulted Stool Stool Pending 05/22/16 12:00 Stool Pus (SANDY) - Final Resulted Stool Stool RARE WBC 05/22/16 12:00 Giardia Antigen (SANDY) Resulted Stool Stool Pending 05/22/16 12:00 - Final Complete Stool Stool NO ENTERIC PATHOGENS DETECTED BY PCR... 05/21/16 14:13 Gram Stain - Final Complete Sputum Endotracheal 05/21/16 14:13 Sputum Culture - Final Complete Enterobacter Gergoviae S. Aureus Mrsa 05/21/16 09:46 Aerobic Blood Culture - Preliminary Resulted Blood Peripheral NO GROWTH IN 4 DAYS 05/21/16 09:46 Anaerobic Blood Culture - Preliminary Resulted Blood Peripheral NO GROWTH IN 4 DAYS 05/21/16 09:40 Urine Culture - Final Complete Urine Clean Catch NO GROWTH IN 48 HOURS. Imaging Last Impressions Chest X-Ray 05/25/16 0600 Signed Impressions: Service Date/Time: Wednesday, May 25, 2016 03:28 - CONCLUSION: New right midlung infiltrate with unchanged left basilar atelectasis. Elgin Diaz Jr., MD Abdomen X-Ray 05/25/16 0000 Signed Impressions: Service Date/Time: Wednesday, May 25, 2016 03:34 - CONCLUSION: Unchanged gaseous distention of the small and large bowel. Elgin Diaz Jr., MD Abdomen Ultrasound 05/23/16 0000 Signed Impressions: Service Date/Time: Monday, May 23, 2016 09:14 - CONCLUSION: Trace fluid in the right lower quadrant. This is insufficient volume for percutaneous drainage. Ky German MD Head CT 05/21/16 0833 Signed Impressions: Service Date/Time: Saturday, May 21, 2016 09:02 - CONCLUSION: No acute disease. Torsten Verma MD Renal Ultrasound 05/21/16 0000 Signed Impressions: Service Date/Time: Saturday, May 21, 2016 15:32 - CONCLUSION: 1. Kidney sizes are preserved with increased cortical echogenicity characteristic of acute medical renal disease. 2. Otherwise negative. No hydronephrosis or nephrolithiasis. Ky German MD Abdomen/Pelvis CT 05/21/16 0000 Signed Impressions: Service Date/Time: Saturday, May 21, 2016 18:34 - CONCLUSION: 1. There is slight ascites with haziness of the mesentery nonspecific may be passive congestion or inflammatory in nature with very abnormal looking loops of small bowel which demonstrate thickening of the bowel wall and the exact etiology is not certain. 2. Bibasilar consolidation worse on the left. Caren Andrade MD Physical Exam HEENT: NGT tube in place. CARDIAC: Regular CHEST: CTA ABDOMEN: Semi-firm, distended, mild diffusely tender. Minimal BS. EXTREMITIES: No clubbing, cyanosis, or edema. 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 Alert and oriented to self and knows she in a hospital. Assessment and Plan Plan ASSESSMENT: - CDiff Colitis, 027 (-). Flagyl, Oral Vanco. - Enteritis. abdominal distention with abnormal imaging on CT. Abdomen/Pelvis CT without iv contrast (05/21/16)-----> 1. There is slight ascites with haziness of the mesentery nonspecific may be passive congestion or inflammatory in nature with very abnormal looking loops of small bowel which demonstrate thickening of the bowel wall and the exact etiology is not certain. 2. Bibasilar consolidation worse on the left. The nurse reports that the patient has been having significant diarrhea. CDiff (+), 027 negative. KUB (05/22/16)--> NG coiled in stomach, mild gaseous distention of bowel, characteristic of ileus. Abdominal US (05/23/16)---> Trace fluid in the rlq, this is insufficient for percutaneous drainage. - Ileus. NGT to LIWS, still with about 700cc of outpt in 24 hours and currently with 400cc since 0600 this morning. KUB (05/25) --> Unchanged gaseous distention of the small and large bowel. - Transaminitis. Improving. Likely related to polypharmacy. CT as above. - Acute respiratory failure. S/P Extubated. - Acute encephalopathy, polydrug overdose, possible myoclonus, severe metabolic and respiratory acidoses, shock (likely hypovolemic), MAYRA and probable sepsis. Per CCM PLAN: - NGT to LIWS and monitor output. KUB relatively unchanged. - Reglan 10 mg Q8H started today - Cont. Flagyl - Cont. Oral Vanco - Cont. PPI - Monitor stool output - Supportive care - Further recommendations as the case develops - Pt seen and examined by Dr. Adams and myself and this note is written on her behalf Nita Stubbs May 25, 2016 11:25
[2016-05-25] MEDS: METOCLOPRAMIDE HCL 10 MG/2 ML VIAL IV SCH ×3 (12:05→22:08)
[2016-05-25 12:19] LABS: BANDS 9 % (0-6); MYELOCYTES 2 % (0-0); NEUTROPHIL # MANUAL DIFF 21.3 TH/MM3 (1.8-7.7); PLATELET ESTIMATE SMEAR LOW (NORMAL); PLATELET MORPHOLOGY NORMAL (NORMAL); POLYS (SEG NEUTROPHILS) 84 % (16-70); SCAN/DIFF FINAL DIFF MANUAL; WBC DIFF SAMPLE 100
[2016-05-25] MEDS: ONDANSETRON HCL 4 MG/2 ML VIAL IV PUSH PRN ×2 (13:16→23:36)
[2016-05-25 13:49] LABS: BANDS 9 % (0-6); NEUTROPHIL # MANUAL DIFF 22.3 TH/MM3 (1.8-7.7); POLYS (SEG NEUTROPHILS) 86 % (16-70); WBC DIFF SAMPLE 100
[2016-05-25 13:50] LABS: PLATELET ESTIMATE SMEAR LOW (NORMAL); PLATELET MORPHOLOGY NORMAL (NORMAL); SCAN/DIFF FINAL DIFF MANUAL
[2016-05-25] MEDS: POTASSIUM CHLORIDE INJ 40 MEQ in DEXTROSE 5% IN WATE 1000ML INJ 1,000 ML IV SCH ×4 (14:58→22:31)
[2016-05-26] VITALS (15 sets, daily range): BP systolic 140–157; BP diastolic 78–99; PULSE 82–115; RESP 20–33; TEMP 98.3–99.3; O2SAT 96–98
[2016-05-26] MEDS: LORazepam 2 MG/ML VIAL IV PUSH PRN ×7 (01:40→22:28)
[2016-05-26] MEDS: metroNIDAZOLE 500 MG INJ 100 ML IV SCH ×3 (01:40→18:27)
[2016-05-26] MEDS: CHLORHEXIDINE GLUCONATE 2 % 1 PACK (2 CLOTHS) TOP SCH (04:00)
[2016-05-26] MEDS: RESP: ALBUTEROL 2.5 MG/IPRATROPIUM 0.5 MG NEB (SCH) NEB ×2 (04:09→10:16)
[2016-05-26] MEDS: METOCLOPRAMIDE HCL 10 MG/2 ML VIAL IV SCH ×3 (05:54→19:59)
[2016-05-26] MEDS: LINEZOLID 600 MG PREMIX 300 ML IV SCH ×2 (05:54→16:33)
[2016-05-26] MEDS: HEPARIN SODIUM - SQ 10,000 UNITS/ML VIAL SQ SCH ×3 (05:54→19:58)
[2016-05-26] MEDS: PANTOPRAZOLE SODIUM 40 MG VIAL IV SCH (07:57)
[2016-05-26] MEDS: CHLORHEXIDINE 0.12% (ORAL KIT) 15 ML CUP MT SCH ×2 (07:57→19:59)
[2016-05-26] MEDS: VANCOMYCIN 500 MG VIAL (FOR ORAL USE ONLY) PO SCH ×4 (07:57→19:59)
[2016-05-26 09:16] LABS: AUTOMATED NEUTROPHIL # 17.6 TH/MM3 (1.8-7.7); BASOPHIL % 0.1 % (0.0-2.0); EOSINOPHIL % 0.1 % (0.0-4.0); HEMATOCRIT 33.8 % (35.0-46.0); LYMPH % 6.8 % (9.0-44.0); LYMPHOCYTE # 1.4 TH/MM3 (1.0-4.8); MEAN CELL VOLUME 83.8 FL (80.0-100.0); MEAN CORPUSCULAR HGB CONC 32.2 % (32.0-36.0); MONO % 4.9 % (0.0-8.0); NEUT % 88.1 % (16.0-70.0); PLATELET COUNT 103 TH/MM3 (150-450); RED BLOOD COUNT 4.03 MIL/MM3 (4.00-5.30); RED CELL DISTRIBUTION WIDTH 15.4 % (11.6-17.2)
[2016-05-26 09:19] LABS: HEMO FLAGS AUTO DIFF
[2016-05-26 09:36] LABS: ANION GAP 6 MEQ/L (5-15); AST (GOT) 31 U/L (15-37); BICARBONATE 28.4 MEQ/L (21.0-32.0); BLOOD UREA NITROGEN 32 MG/DL (7-18); CHLORIDE 116 MEQ/L (98-107); GLOMERULAR FILTRATION RATE 77 ML/MIN (>89); MAGNESIUM 1.9 MG/DL (1.5-2.5); POTASSIUM 4.2 MEQ/L (3.5-5.1); SODIUM (NA) 150 MEQ/L (136-145)
[2016-05-26 09:40] LABS: ALKALINE PHOSPHATASE 97 U/L (45-117); ALT (GPT) 26 U/L (10-53); TOTAL BILIRUBIN ADULT 0.8 MG/DL (0.2-1.0)
--- NOTE | 2016-05-26 09:40 | RADRPT ---
EXAM DATE/TIME: 05/26/2016 08:42 [facility] COMPARISON: CHEST SINGLE AP, May 25, 2016, 10:20. INDICATIONS : Respiratory disease. MEDICAL HISTORY : Hypertension. Smoker. SURGICAL HISTORY : Cholecystectomy. Tubal ligation. ENCOUNTER: Subsequent ACUITY: 4 - 6 days PAIN SCORE: 0/10 LOCATION: Bilateral chest FINDINGS: Nasogastric tube and central venous catheter in good position. There is minimal increase in bibasal parenchymal changes. Trace fluid is probably evident on the left. There is no overt congestive fail ure. There is no pneumothorax. CONCLUSION: Minimal increase by base are present changes. Duke Neves MD FACR on May 26, 2016 at 9:37 Board Certified Radiologist. This report was verified electronically.
--- NOTE | 2016-05-26 09:41 | RADRPT ---
EXAM DATE/TIME: 05/26/2016 08:34 [facility] COMPARISON: ABDOMEN KUB ONLY, May 25, 2016, 3:34. INDICATIONS : Evaluate for ileus. MEDICAL HISTORY : Hypertension. Smoker. SURGICAL HISTORY : Cholecystectomy. Tubal ligation. ENCOUNTER: Subsequent ACUITY: 4 - 6 days PAIN SCORE: 3/10 LOCATION: entire abdomen. FINDINGS: Nasogastric tube remains across the GE junction. Moderate gaseous distention of large and small chris l persist unchanged in appearance. This continues to be suggestive of an ileus. CONCLUSION: Nasogastric tube in good position. No significant interval change. Duke Neves MD FACR on May 26, 2016 at 9:38 Board Certified Radiologist. This report was verified electronically.
[2016-05-26 09:52] LABS: BANDS 2 % (0-6); METAMYELOCYTES 2 % (0-1); NEUTROPHIL # MANUAL DIFF 17.8 TH/MM3 (1.8-7.7); POLYS (SEG NEUTROPHILS) 85 % (16-70); WBC DIFF SAMPLE 100
[2016-05-26 09:53] LABS: PLATELET ESTIMATE SMEAR LOW (NORMAL); PLATELET MORPHOLOGY NORMAL (NORMAL); SCAN/DIFF FINAL DIFF MANUAL
[2016-05-26] MEDS: LEVOFLOXACIN 500 MG PREMIX INJ 100 ML IV SCH (09:57)
--- NOTE | 2016-05-26 11:11 | PD.TRANSFR ---
Transfer Summary Admission Date May 21, 2016 at 10:37 Admitting Diagnosis REnal Failure, AMS Diagnoses: (1) Acute respiratory failure Diagnosis: Principal (2) Acute encephalopathy Diagnosis: Principal (3) Acute drug overdose Diagnosis: Principal (4) Acute renal failure Diagnosis: Principal (5) Hyperkalemia Diagnosis: Principal (6) Shock Diagnosis: Principal (7) Metabolic acidosis Diagnosis: Principal (8) Rhabdomyolysis Diagnosis: Principal (9) Elevated liver enzymes Diagnosis: Principal (10) Hypocalcemia Diagnosis: Principal (11) Dehydration Diagnosis: Principal (12) MRSA, Enterobacter pneumonia Diagnosis: Principal (13) C. difficile colitis Diagnosis: Principal (14) Ileus Diagnosis: Principal (15) Enteritis Diagnosis: Principal Transfer Summary/Subjective Patient is a 56-year-old female with past medical history significant for hypertension and chronic pain who was brought to the [place] emergency department by EMS for altered mental status. Per EMS stated that she was recently started on oxycodone, Wellbutrin within the past 2 weeks. According to him patient was getting more confused and lethargic since yesterday. On EMS arrival and there were multiple open bottles on the scene including Wellbutrin oxycodone and alprazolam. Unable to determine what meds and how much she consumed. Patient was hypotensive and received total of 4 L normal saline boluses in [place] [facility]. ER workup showed a CT of the head was negative but patient remained unresponsive with jerking movements of bilateral upper and lower extremities. Lab work showed acute renal failure with BUN 184 creatinine of 13, potassium was 7.6. Along with fluid boluses patient received bicarbonate, insulin and D50, albuterol for treatment of hyperkalemia and Bicarbonate drip was also started. Patient's pH was 7.04 which was combined metabolic and respiratory acidemia. Due to worsening mental status severe acidosis patient was endotracheally intubated and placed on mechanical ventilation, also a right IJ central line was placed. Nephrology had been consulted. Patient was transferred to the [facility] and I evaluated her in the ICU. On propofol patient continues to have intermittent jerking movements of the extremities. She remains on 6 mcg/m of Levophed. After treatment of hyperkalemia potassium has improved now 5.8. Creatinine has improved to 12 patient had a total output of 500 mL in urine. We will continue bicarbonate infusion. Nephrology consult is pending at this time. UDS positive for opiates , benzo, amphetamine and cocaine. SUBJ 05/22/16: Patient remains intubated sedated with propofol, on Levophed. Urine output close to 5 L since admission. On sedation lightening intermittently follows commands on the lower extremities and tracks with eyes. 05/23: Remains intubated on Precedex. Currently on Levophed 3 mcg/min. Creat normalized. ID consult pending for MRSA GNR pneumonia and C Diff 05/24: Agitation overnight requiring Precedex. Off all pressors. Patient is some what delirious, follows some commands. 05/25: Remains in restraints due to intermittent agitation but off Precedex. Orientation is slightly improved knows her name and knows that she is in the hospital. Sodium remains high at 154, ephedra restarted. KUB shows ileus placed on Reglan IV. NGT to LIWS 05/26: Overall improving mentation. Patient knows that she is in [facility] and also name. KUB shows ileus patient continues to have bowel movements. Less distended on clinical exam. Objective Vital Signs Date Time Temp Pulse Resp B/P Pulse Ox O2 Delivery O2 Flow Rate FiO2 05/26/16 10:16 96 Nasal Cannula 2.00 05/26/16 08:00 98 05/26/16 08:00 99.2 20 157/99 05/23/16 08:40 36 Intake and Output 05/25/16 05/25/16 05/26/16 08:00 16:00 00:00 Intake Total 581 ml 829 ml Output Total 700 ml 1000 ml Balance -119 ml -171 ml Result Diagram: 05/26/16 0856 05/26/[address] scan head negative for acute findings Chest x-ray mild interstitial edema Objective Remarks GENERAL: 56 year-old woman on NC, mild agitation SKIN: Decreased skin turgor HEAD: Atraumatic. Normocephalic. EYES: Pupils equal and round. No scleral icterus. No injection or drainage. ENT: No nasal bleeding or discharge. Dry mucous membranes. NG tube in place with brownish output NECK: Trachea midline. No JVD. CARDIOVASCULAR: Regular rate and rhythm. No murmur appreciated. RESPIRATORY: Clear to auscultation. Breath sounds equal bilaterally. GASTROINTESTINAL: Abdomen is distended and soft. No organomegaly MUSCULOSKELETAL: No obvious deformities. No edema. No obvious injuries. NEUROLOGICAL: Eyes are open, tracking, following simple commands. States her name and that she is in [facility]. Urinary Catheter: Yes Assessment to: Continue Vascular Central Line Catheter: Yes Assessment to: Continue A/P Assessment and Plan NEURO: Acute encephalopathy Polydrug overdose Chronic pain -Urine drug screen positive for cocaine, amphetamine, benzodiazepines and opiates -Patient was recently prescribed Wellbutrin and oxycodone -Use when necessary Ativan and Haldol for agitation, overall delirium slowly improving -EEG to moderate encephalopathy, no seizures -Watch for alcohol and drug withdrawal RESP: Acute respiratory failure Severe metabolic and respiratory acidosis -Extubated 05/23/16, good oxygen saturation protecting airway -DuoNeb when necessary -On Levaquin and Zyvox for pneumonia. PO Vanc and IV Flagyl for C Diff CV: Hypovolemic and septic shock, resolved -D5W at 125 mL per hour to correct hyponatremia-reduce to 75 ml per hour -Off Levophed. DCd stress dose steroids 05/24 GI: Transaminitis Small bowel thickening on CT/Enteritis C. difficile colitis Ileus -NGT to LIWS, IV Protonix. NPO until cleared by GI -Reglan 10 mg IV every 8 hours. Continue Protonix for GI prophylaxis -Continue by mouth vancomycin and IV Flagyl for C Diff -Elevated liver enzymes from shock liver /Endo: Acute kidney failure-resolved Severe dehydration Hyperkalemia Hypocalcemia Hypernatremia -Monitor renal function closely. Robert catheter. Renal function steadily improving -Renal ultrasound-acute medical renal disease -Hyperkalemia treated with D50 followed by insulin, calcium, bicarbonate and albuterol breathing treatments. Given Kayexalate 30 g 1 -Urine output is excellent creatinine almost normalized -Nephrology Dr. Prado -Decrease D5 W to 75 ml per hour ID: Septic shock-resolved MRSA/Enterobacter pneumonia C. difficile colitis -Continue Zyvox, Levaquin for pneumonia -Continue by mouth vancomycin and IV Flagyl for C. difficile colitis -Infectious disease following HEME: -Monitor CBC, CMP, coags PROPH: -Bilateral lower extremity SCDs. Heparin 5000 U sq q8. IV Protonix for GI prophylaxis LINES: -Right IJ central line placed in the ER by Dr. greenberg. Level 3 Hospitalist consulted to assume care in am 05/27/16 Winston Loyd MD May 26, 2016 11:11
--- NOTE | 2016-05-26 14:37 | HHI.IDPN ---
Note Infectious Disease Note Patient is extubated. More coherent. Alert. Denies pains. Has NG in place. Ileus noted. Patient admitted with altered mental status. Seen for MRSA pneumonia/sepsis. PAST MEDICAL HISTORY 1. Hypertension, 2. Chronic pain. 3. Cholecystectomy 4. Laminectomy. ALLERGIES NO KNOWN DRUG ALLERGIES. MEDICATIONS 1. Vancomycin p.o. 2. Metronidazole IV 3. Linezolid IV. 4. Levaquin IV. SOCIAL HISTORY Positive tobacco use. The patient smokes 1/2 pack of cigarettes a day. Social alcohol use. No illicit drugs. FAMILY HISTORY Unable to obtain REVIEW OF SYSTEMS Unable to obtain. OBJECTIVE: Vital Signs Date Time Temp Pulse Resp B/P Pulse Ox O2 Delivery O2 Flow Rate FiO2 05/26/16 12:00 99.0 100 22 140/82 05/26/16 12:00 100 05/26/16 10:16 96 Nasal Cannula 2.00 05/26/16 10:00 90 05/26/16 08:00 98 05/26/16 08:00 99.2 98 20 157/99 05/26/16 07:00 95 Nasal Cannula 3.00 05/26/16 06:00 96 05/26/16 04:10 98 Nasal Cannula 2.00 05/26/16 04:00 98.3 95 22 153/92 97 05/26/16 04:00 95 05/26/16 02:00 82 05/26/16 00:00 99.0 83 20 155/95 96 05/26/16 00:00 83 05/25/16 22:00 77 05/25/16 20:58 98 Nasal Cannula 3.00 05/25/16 20:00 85 05/25/16 20:00 99.0 85 22 139/88 95 05/25/16 19:00 98 Nasal Cannula 3.00 05/25/16 18:00 80 05/25/16 16:00 75 05/25/16 16:00 98.8 79 20 170/93 92 05/25/16 05/25/16 05/26/16 15:00 23:00 07:00 Intake Total 581 ml 829 ml 1014 ml Output Total 700 ml 1000 ml 750 ml Balance -119 ml -171 ml 264 ml Intake IV Total 581 ml 829 ml 1014 ml Output Urine Total 700 ml 400 ml 750 ml Gastric Drainage Total 600 ml # Bowel Movements 7 4 Laboratory Tests Test 05/25/16 05/25/16 05/26/16 05:43 10:40 08:56 White Blood Count 22.4 TH/MM3 23.5 TH/MM3 20.0 TH/MM3 Red Blood Count 3.64 MIL/MM3 3.83 MIL/MM3 4.03 MIL/MM3 Hemoglobin 9.9 GM/DL 10.5 GM/DL 10.9 GM/DL Hematocrit 30.8 % 32.0 % 33.8 % Mean Corpuscular Volume 84.5 FL 83.5 FL 83.8 FL Mean Corpuscular Hemoglobin 27.1 PG 27.5 PG 27.0 PG Mean Corpuscular Hemoglobin 32.0 % 32.9 % 32.2 % Concent Red Cell Distribution Width 15.2 % 15.3 % 15.4 % Platelet Count 109 TH/MM3 114 TH/MM3 103 TH/MM3 Mean Platelet Volume 7.9 FL 7.5 FL 7.8 FL Neutrophils (%) (Auto) 93.0 % 91.8 % 88.1 % Lymphocytes (%) (Auto) 4.1 % 4.7 % 6.8 % Monocytes (%) (Auto) 2.9 % 3.4 % 4.9 % Eosinophils (%) (Auto) 0.0 % 0.0 % 0.1 % Basophils (%) (Auto) 0.0 % 0.1 % 0.1 % Neutrophils # (Auto) 20.8 TH/MM3 21.6 TH/MM3 17.6 TH/MM3 Lymphocytes # (Auto) 0.9 TH/MM3 1.1 TH/MM3 1.4 TH/MM3 Monocytes # (Auto) 0.6 TH/MM3 0.8 TH/MM3 1.0 TH/MM3 Eosinophils # (Auto) 0.0 TH/MM3 0.0 TH/MM3 0.0 TH/MM3 Basophils # (Auto) 0.0 TH/MM3 0.0 TH/MM3 0.0 TH/MM3 CBC Comment AUTO DIFF AUTO DIFF AUTO DIFF Differential Total Cells 100 100 100 Counted Neutrophils % (Manual) 84 % 86 % 85 % Band Neutrophils % 9 % 9 % 2 % Lymphocytes % 1 % 4 % 8 % Monocytes % 4 % 1 % 3 % Neutrophils # (Manual) 21.3 TH/MM3 22.3 TH/MM3 17.8 TH/MM3 Myelocytes 2 % Differential Comment FINAL DIFF FINAL DIFF FINAL DIFF MANUAL MANUAL MANUAL Platelet Estimate LOW LOW LOW Platelet Morphology Comment NORMAL NORMAL NORMAL Red Cell Morphology Comment NORMAL Metamyelocytes 2 % Toxic Granulation Laboratory Tests Test 05/25/16 05/25/16 05/26/16 05:43 10:40 08:56 Sodium Level 154 MEQ/L 154 MEQ/L 150 MEQ/L Potassium Level 4.0 MEQ/L 4.1 MEQ/L 4.2 MEQ/L Chloride Level 117 MEQ/L 119 MEQ/L 116 MEQ/L Carbon Dioxide Level 30.4 MEQ/L 30.1 MEQ/L 28.4 MEQ/L Anion Gap 7 MEQ/L 5 MEQ/L 6 MEQ/L Blood Urea Nitrogen 39 MG/DL 36 MG/DL 32 MG/DL Creatinine 0.73 MG/DL 0.72 MG/DL 0.77 MG/DL Estimat Glomerular Filtration 82 ML/MIN 83 ML/MIN 77 ML/MIN Rate Random Glucose 120 MG/DL 99 MG/DL 129 MG/DL Calcium Level 7.8 MG/DL 7.9 MG/DL 7.7 MG/DL Magnesium Level 2.3 MG/DL 2.2 MG/DL 1.9 MG/DL Total Bilirubin 0.5 MG/DL 0.6 MG/DL 0.8 MG/DL Aspartate Amino Transf 30 U/L 30 U/L 31 U/L (AST/SGOT) Alanine Aminotransferase 27 U/L 30 U/L 26 U/L (ALT/SGPT) Alkaline Phosphatase 103 U/L 99 U/L 97 U/L Total Protein 4.5 GM/DL 4.7 GM/DL 4.7 GM/DL Albumin 1.8 GM/DL 2.0 GM/DL 2.0 GM/DL Microbiology Date/Time Procedure Status Source Growth 05/21/16 09:40 Aerobic Blood Culture - Preliminary Resulted Blood Peripheral NO GROWTH IN 2 DAYS 05/21/16 09:40 Anaerobic Blood Culture - Preliminary Resulted Blood Peripheral NO GROWTH IN 2 DAYS 05/21/16 09:40 Urine Culture - Final Complete Urine Clean Catch NO GROWTH IN 48 HOURS. 05/21/16 09:46 Aerobic Blood Culture - Preliminary Resulted Blood Peripheral NO GROWTH IN 2 DAYS 05/21/16 09:46 Anaerobic Blood Culture - Preliminary Resulted Blood Peripheral NO GROWTH IN 2 DAYS 05/21/16 14:13 Gram Stain - Final Complete Sputum Endotracheal 05/21/16 14:13 Sputum Culture - Final Complete Enterobacter Gergoviae S. Aureus Mrsa 05/22/16 12:00 - Final Complete Stool Stool NO ENTERIC PATHOGENS DETECTED BY PCR... 05/22/16 12:00 Cryptosporidium Exam Resulted Stool Stool Pending 05/22/16 12:00 Stool Pus (SANDY) - Final Resulted Stool Stool RARE WBC 05/22/16 12:00 Giardia Antigen (SANDY) Resulted Stool Stool Pending PHYSICAL EXAMINATION GENERAL: No acute distress. HEENT: EOMI, PERRLA. NECK: Supple without swelling. LUNGS: Clear decreased breath sounds HEART: Regular S1 and S2 without murmurs or rubs or gallops. ABDOMEN: Bowel sounds present. Distended, soft. No tenderness. EXTREMITIES: No clubbing, cyanosis or edema. SKIN: No rash. NEUROLOGIC: non focal. PSYCHIATRIC: Calm and cooperative. IMPRESSION: 1. Sepsis. 2. Pneumonia MRSA. 3. C. difficile. 4. Acute kidney disease improved. 5. Drug intoxication/Encephalopathy. RECOMMENDATIONS 1. Continue linezolid. Monitor platelet count. 2. Continue metronidazole IV 3. Continue oral vancomycin 4. Stop Levaquin in light of c. difficile. 5. Monitor clinical response. Antony Hamilton MD May 26, 2016 14:37
[2016-05-26] MEDS: POTASSIUM CHLORIDE INJ 40 MEQ in DEXTROSE 5% IN WATE 1000ML INJ 1,000 ML IV SCH ×2 (14:38)
--- NOTE | 2016-05-26 14:44 | HHI.GIFU ---
Subjective Remarks Resting in bed. No n/v. States she had one formed bowel movement today. Wants to eat. No bleeding. (Katia Tay) Objective Vitals I&O Vital Signs Date Time Temp Pulse Resp B/P Pulse Ox O2 Delivery O2 Flow Rate FiO2 05/26/16 12:00 99.0 100 22 140/82 05/26/16 12:00 100 05/26/16 10:16 96 Nasal Cannula 2.00 05/26/16 10:00 90 05/26/16 08:00 98 05/26/16 08:00 99.2 98 20 157/99 05/26/16 07:00 95 Nasal Cannula 3.00 05/26/16 06:00 96 05/26/16 04:10 98 Nasal Cannula 2.00 05/26/16 04:00 98.3 95 22 153/92 97 05/26/16 04:00 95 05/26/16 02:00 82 05/26/16 00:00 99.0 83 20 155/95 96 05/26/16 00:00 83 05/25/16 22:00 77 05/25/16 20:58 98 Nasal Cannula 3.00 05/25/16 20:00 85 05/25/16 20:00 99.0 85 22 139/88 95 05/25/16 19:00 98 Nasal Cannula 3.00 05/25/16 18:00 80 05/25/16 16:00 75 05/25/16 16:00 98.8 79 20 170/93 92 I/O 05/25/16 05/25/16 05/25/16 05/26/16 05/26/16 05/26/16 07:00 15:00 23:00 07:00 15:00 23:00 Intake Total 581 ml 829 ml 1014 ml Output Total 700 ml 1000 ml 750 ml Balance -119 ml -171 ml 264 ml Intake IV Total 581 ml 829 ml 1014 ml Output Urine Total 700 ml 400 ml 750 ml Gastric Drainage Total 600 ml # Bowel Movements 7 4 Laboratory Laboratory Tests Test 05/26/16 08:56 White Blood Count 20.0 Red Blood Count 4.03 Hemoglobin 10.9 Hematocrit 33.8 Mean Corpuscular Volume 83.8 Mean Corpuscular Hemoglobin 27.0 Mean Corpuscular Hemoglobin 32.2 Concent Red Cell Distribution Width 15.4 Platelet Count 103 Mean Platelet Volume 7.8 Neutrophils (%) (Auto) 88.1 Lymphocytes (%) (Auto) 6.8 Monocytes (%) (Auto) 4.9 Eosinophils (%) (Auto) 0.1 Basophils (%) (Auto) 0.1 Neutrophils # (Auto) 17.6 Lymphocytes # (Auto) 1.4 Monocytes # (Auto) 1.0 Eosinophils # (Auto) 0.0 Basophils # (Auto) 0.0 CBC Comment AUTO DIFF Differential Total Cells 100 Counted Neutrophils % (Manual) 85 Band Neutrophils % 2 Lymphocytes % 8 Monocytes % 3 Neutrophils # (Manual) 17.8 Metamyelocytes 2 Differential Comment FINAL DIFF MANUAL Toxic Granulation Platelet Estimate LOW Platelet Morphology Comment NORMAL Sodium Level 150 Potassium Level 4.2 Chloride Level 116 Carbon Dioxide Level 28.4 Anion Gap 6 Blood Urea Nitrogen 32 Creatinine 0.77 Estimat Glomerular Filtration 77 Rate Random Glucose 129 Calcium Level 7.7 Magnesium Level 1.9 Total Bilirubin 0.8 Aspartate Amino Transf 31 (AST/SGOT) Alanine Aminotransferase 26 (ALT/SGPT) Alkaline Phosphatase 97 Total Protein 4.7 Albumin 2.0 Date/Time Procedure Status Source Growth 05/22/16 12:00 Cryptosporidium Exam - Final Complete Stool Stool NEGATIVE - NO CRYPTOSPORIDIUM ANTIGEN... 05/22/16 12:00 Stool Pus (SANDY) - Final Complete Stool Stool RARE WBC 05/22/16 12:00 Giardia Antigen (SANDY) - Final Complete Stool Stool NEGATIVE - NO GIARDIA ANTIGEN DETECTE... 05/22/16 12:00 - Final Complete Stool Stool NO ENTERIC PATHOGENS DETECTED BY PCR... Imaging Last Impressions Chest X-Ray 05/26/16 0000 Signed Impressions: Service Date/Time: Thursday, May 26, 2016 08:42 - CONCLUSION: Minimal increase by base are present changes. Duke Neves MD FACR Abdomen X-Ray 05/26/16 0000 Signed Impressions: Service Date/Time: Thursday, May 26, 2016 08:34 - CONCLUSION: Nasogastric tube in good position. No significant interval change. Duke Neves MD FACR Abdomen Ultrasound 05/23/16 0000 Signed Impressions: Service Date/Time: Monday, May 23, 2016 09:14 - CONCLUSION: Trace fluid in the right lower quadrant. This is insufficient volume for percutaneous drainage. Ky German MD Head CT 05/21/16 0833 Signed Impressions: Service Date/Time: Saturday, May 21, 2016 09:02 - CONCLUSION: No acute disease. Torsten Verma MD Renal Ultrasound 05/21/16 0000 Signed Impressions: Service Date/Time: Saturday, May 21, 2016 15:32 - CONCLUSION: 1. Kidney sizes are preserved with increased cortical echogenicity characteristic of acute medical renal disease. 2. Otherwise negative. No hydronephrosis or nephrolithiasis. Ky German MD Abdomen/Pelvis CT 05/21/16 0000 Signed Impressions: Service Date/Time: Saturday, May 21, 2016 18:34 - CONCLUSION: 1. There is slight ascites with haziness of the mesentery nonspecific may be passive congestion or inflammatory in nature with very abnormal looking loops of small bowel which demonstrate thickening of the bowel wall and the exact etiology is not certain. 2. Bibasilar consolidation worse on the left. Caren Andrade MD Physical Exam HEENT: NGT tube in place. CARDIAC: Regular CHEST: CTA ABDOMEN: Semi-firm, distended, nontender. Minimal BS. EXTREMITIES: No clubbing, cyanosis, or edema. 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 Alert and oriented to self and knows she in a hospital. ( Katia Tay) Assessment and Plan Plan ASSESSMENT: - CDiff Colitis, 027 (-). According to EE, she had 7 BMs yesterday and 4 bms today. Pt reports one today. She is on Flagyl, Oral Vanco, although she is also on Levaquin/Zyvox. WBC 20.0. - Enteritis. abdominal distention with abnormal imaging on CT. Abdomen/Pelvis CT without iv contrast (05/21/16)-----> 1. There is slight ascites with haziness of the mesentery nonspecific may be passive congestion or inflammatory in nature with very abnormal looking loops of small bowel which demonstrate thickening of the bowel wall and the exact etiology is not certain. 2. Bibasilar consolidation worse on the left. The nurse reports that the patient has been having significant diarrhea. CDiff (+), 027 negative. KUB (05/22/16)--> NG coiled in stomach, mild gaseous distention of bowel, characteristic of ileus. Abdominal US (05/23/16)---> Trace fluid in the rlq, this is insufficient for percutaneous drainage. Rpt. KUB (05/26/16) with Nasogastric tube in good position. No significant interval change. Pt still has distention. Wanting to eat, very minimal drainage from NGT. Will clamp and start clear liquids and see how she does with this. - Ileus. NGT to LIWS, KUB (05/26) --> with Nasogastric tube in good position. No significant interval change. Pt still has distention. Wanting to eat, very minimal drainage from NGT. Will clamp and start clear liquids and see how she does with this. Reglan. - Transaminitis. Improving. Likely related to polypharmacy. CT as above. - Acute respiratory failure. S/P Extubated. - Acute encephalopathy, polydrug overdose, possible myoclonus, severe metabolic and respiratory acidoses, shock (likely hypovolemic), MAYRA and probable sepsis. Per CCM PLAN: - Clamp NGT - Clear liquids - If n/v, make NPO again and place NGT to LIWS - Reglan 10 mg IV Q8H - Cont. Flagyl- will need to continue 10 days AFTER other abx stopped - Cont. Oral Vanco- will need to continue 10 days AFTER other abx stopped - Cont. PPI - Monitor stool output - Supportive care - Further recommendations as the case develops - Pt seen and examined by Dr. Rosario and myself and this note is written on hisr behalf (Katia Tay) Physician Comments Patient seen and examined Agree with above Continue with current supportive care Monitor labs (Kar Rosario MD) Katia Tay May 26, 2016 14:44 Kar Rosario MD May 26, 2016 22:23
[2016-05-27] VITALS (14 sets, daily range): BP systolic 125–154; BP diastolic 7–102; PULSE 110–132; RESP 28–35; TEMP 98.1–98.9; O2SAT 94–96
[2016-05-27] MEDS: HALOPERIDOL LACTATE 5 MG/ML AMP IV PRN ×2 (02:01→20:12)
[2016-05-27] MEDS: metroNIDAZOLE 500 MG INJ 100 ML IV SCH ×3 (02:02→16:30)
[2016-05-27] MEDS: POTASSIUM CHLORIDE INJ 40 MEQ in DEXTROSE 5% IN WATE 1000ML INJ 1,000 ML IV SCH ×2 (02:03)
[2016-05-27] MEDS: CHLORHEXIDINE GLUCONATE 2 % 1 PACK (2 CLOTHS) TOP SCH (04:00)
--- NOTE | 2016-05-27 04:57 | RADRPT ---
EXAM DATE/TIME: 05/27/2016 03:03 [facility] COMPARISON: CHEST SINGLE AP, May 26, 2016, 8:42. INDICATIONS : Short of breath. MEDICAL HISTORY : Hypertension. SURGICAL HISTORY : Cholecystectomy. Tubal ligation. ENCOUNTER: Subsequent ACUITY: 4 - 6 days PAIN SCORE: Non-responsive. LOCATION: Bilateral chest FINDINGS: Right central line in superior vena cava. NG enters stomach. Bilateral mostly basilar airspace diseas e with small effusions. No pneumothorax. CONCLUSION: 1. Bilateral mostly basilar airspace disease and small effusions. Findings similar to May 26. Nasog astric tube and right central line present. Davis Goldman MD on May 27, 2016 at 4:55 Board Certified Radiologist. This report was verified electronically.
--- NOTE | 2016-05-27 05:24 | RADRPT ---
EXAM DATE/TIME: 05/27/2016 03:03 [facility] COMPARISON: ABDOMEN KUB ONLY, May 26, 2016, 8:34. INDICATIONS : Evaluate for ileus. MEDICAL HISTORY : Hypertension. SURGICAL HISTORY : Cholecystectomy. Tubal ligation. ENCOUNTER: Subsequent ACUITY: 4 - 6 days PAIN SCORE: Non-responsive. LOCATION: all quadrants. FINDINGS: NG tube is in the distal stomach. This gaseous distention of bowel similar to May 26. No free air. No acute bony abnormalities. CONCLUSION: 1. NG tube in stomach. Ileus pattern similar to May 26. Davis Goldman MD on May 27, 2016 at 5:22 Board Certified Radiologist. This report was verified electronically.
[2016-05-27] MEDS: LINEZOLID 600 MG PREMIX 300 ML IV SCH ×2 (06:11→16:30)
[2016-05-27] MEDS: HEPARIN SODIUM - SQ 10,000 UNITS/ML VIAL SQ SCH ×3 (06:12→20:11)
[2016-05-27] MEDS: LORazepam 2 MG/ML VIAL IV PUSH PRN ×3 (06:12→14:47)
[2016-05-27] MEDS: METOCLOPRAMIDE HCL 10 MG/2 ML VIAL IV SCH ×3 (06:12→20:12)
[2016-05-27 06:58] LABS: BASOPHIL % 0.2 % (0.0-2.0); EOSINOPHIL % 0.1 % (0.0-4.0); HEMATOCRIT 35.1 % (35.0-46.0); LYMPH % 10.2 % (9.0-44.0); MEAN CELL VOLUME 84.1 FL (80.0-100.0); MEAN CORPUSCULAR HEMOGLOBIN 26.7 PG (27.0-34.0); MEAN CORPUSCULAR HGB CONC 31.8 % (32.0-36.0); MONO % 4.3 % (0.0-8.0); NEUT % 85.2 % (16.0-70.0); PLATELET COUNT 97 TH/MM3 (150-450); RED BLOOD COUNT 4.17 MIL/MM3 (4.00-5.30); RED CELL DISTRIBUTION WIDTH 14.9 % (11.6-17.2); WHITE BLOOD COUNT 19.9 TH/MM3 (4.0-11.0)
[2016-05-27 07:00] LABS: HEMO FLAGS AUTO DIFF
[2016-05-27 07:05] LABS: ALKALINE PHOSPHATASE 88 U/L (45-117); ALT (GPT) 31 U/L (10-53); ANION GAP 8 MEQ/L (5-15); AST (GOT) 43 U/L (15-37); BICARBONATE 26.5 MEQ/L (21.0-32.0); BLOOD UREA NITROGEN 25 MG/DL (7-18); CHLORIDE 111 MEQ/L (98-107); GLOMERULAR FILTRATION RATE 82 ML/MIN (>89); MAGNESIUM 1.7 MG/DL (1.5-2.5); POTASSIUM 4.3 MEQ/L (3.5-5.1); SODIUM (NA) 145 MEQ/L (136-145); TOTAL BILIRUBIN ADULT 0.8 MG/DL (0.2-1.0)
[2016-05-27] MEDS: CHLORHEXIDINE 0.12% (ORAL KIT) 15 ML CUP MT SCH ×2 (08:00→20:00)
[2016-05-27] MEDS: VANCOMYCIN 500 MG VIAL (FOR ORAL USE ONLY) PO SCH ×4 (08:08→20:12)
[2016-05-27] MEDS: PANTOPRAZOLE SODIUM 40 MG VIAL IV SCH (08:09)
--- NOTE | 2016-05-27 08:25 | HHI.PR ---
Subjective Remarks ill-looking with NG tube in place. afebrile. has moderate abdominal pain. Objective Vitals Vital Signs Date Time Temp Pulse Resp B/P Pulse Ox O2 Delivery O2 Flow Rate FiO2 05/27/16 06:00 122 05/27/16 04:00 98.3 127 28 136/92 94 05/27/16 04:00 132 05/27/16 02:00 125 05/27/16 00:00 98.9 124 28 154/102 95 05/27/16 00:00 124 05/26/16 22:00 115 05/26/16 20:00 98.5 108 33 153/98 96 05/26/16 20:00 108 05/26/16 19:23 98 Nasal Cannula 2.00 05/26/16 19:00 96 Nasal Cannula 3.00 05/26/16 18:00 114 05/26/16 18:00 99 05/26/16 16:00 99.3 110 152/78 05/26/16 16:00 110 05/26/16 14:00 104 05/26/16 12:00 99.0 100 22 140/82 05/26/16 12:00 100 05/26/16 10:16 96 Nasal Cannula 2.00 05/26/16 10:00 90 I/O 05/26/16 05/26/16 05/26/16 05/27/16 05/27/16 05/27/16 07:00 15:00 23:00 07:00 15:00 23:00 Intake Total 1014 ml 933 ml 1629 ml 1295 ml Output Total 750 ml 725 ml 600 ml 600 ml Balance 264 ml 208 ml 1029 ml 695 ml Intake Oral 100 ml 1065 ml 700 ml IV Total 1014 ml 783 ml 564 ml 595 ml Other 50 ml Output Urine Total 750 ml 725 ml 600 ml 600 ml # Bowel Movements 4 4 6 2 Result Diagram: 05/27/1661005/27/16610 Imaging Last Impressions Chest X-Ray 05/27/16599 Signed Impressions: Service Date/Time: Friday, May 27, 2016 03:03 - CONCLUSION: 1. Bilateral mostly basilar airspace disease and small effusions. Findings similar to May 26. Nasogastric tube and right central line present. Davis Goldman MD Abdomen X-Ray 3/28/17 0600 Signed Impressions: Service Date/Time: Friday, May 27, 2016 03:03 - CONCLUSION: 1. NG tube in stomach. Ileus pattern similar to May 26. Davis Goldman MD Abdomen Ultrasound 05/23/16 0000 Signed Impressions: Service Date/Time: Monday, May 23, 2016 09:14 - CONCLUSION: Trace fluid in the right lower quadrant. This is insufficient volume for percutaneous drainage. Ky German MD Head CT 05/21/16 0833 Signed Impressions: Service Date/Time: Saturday, May 21, 2016 09:02 - CONCLUSION: No acute disease. Torsten Verma MD Renal Ultrasound 05/21/16 0000 Signed Impressions: Service Date/Time: Saturday, May 21, 2016 15:32 - CONCLUSION: 1. Kidney sizes are preserved with increased cortical echogenicity characteristic of acute medical renal disease. 2. Otherwise negative. No hydronephrosis or nephrolithiasis. Ky German MD Abdomen/Pelvis CT 05/21/16 0000 Signed Impressions: Service Date/Time: Saturday, May 21, 2016 18:34 - CONCLUSION: 1. There is slight ascites with haziness of the mesentery nonspecific may be passive congestion or inflammatory in nature with very abnormal looking loops of small bowel which demonstrate thickening of the bowel wall and the exact etiology is not certain. 2. Bibasilar consolidation worse on the left. Caren Andrade MD Objective Remarks GENERAL:ill-looking with NG tube in place CARDIOVASCULAR: Regular rate and irregular rhythm without murmurs, gallops, or rubs. RESPIRATORY: mild bilateral wheezing. GASTROINTESTINAL: Abdomen soft, non-tender, distended. Normal, active bowel sounds MUSCULOSKELETAL: Extremities without clubbing, cyanosis, or edema. NEURO: Alert & Oriented x4 to person, place, time, situation. Moves all ext x4 Procedures endotracheal intubation central line placement Medications and IVs Current Medications Sodium Chloride 2 ml 2 ml UNSCH PRN IVF FLUSH AFTER USING IV ACCESS; Start at 08:45 Sodium Chloride 1,000 ml @ 1,000 mls/hr Q1H ONCE IV Last administered on t 09:41; Start 05/21/16 at 08:33; Stop 05/21/16 at 09:32; Status DC Sodium Chloride 1,000 ml @ 999 mls/hr Q1H1M IV ; Start 05/21/16 at 08:45; Stop 05/21/16 at 09:45; Status DC Sodium Chloride 1,000 ml @ 999 mls/hr Q1H1M IV ; Start 05/21/16 at 09:00; Stop 05/21/16 at 10:00; Status DC Sodium Chloride 1,000 ml @ 999 mls/hr Q1H1M IV Last administered on 05/21/16 10:25; Start 05/21/16 at 09:00; Stop 05/21/16 at 10:00; Status DC Sodium Bicarbonate 100 meq/Dextrose 1,100 ml @ 200 mls/hr Q5H30M IV Last administered on 05/21/16 09:41; Start 05/21/16 at 09:15; Stop 05/21/16 at 13:39 ; Status DC Calcium Gluconate/ Dextrose (Calcium Gluconate Inj/D5W 100 ml Inj) 120 ml @ 120 mls/hr ONCE ONCE IV Last administered on 05/21/16 10:23; Start 05/21/16 at 09:45; Stop 05/21/16 at 10:44; Status DC Albuterol Sulfate (Albuterol Neb) 7.5 mg ONCE ONCE NEB Last administered on 09:47; Start 05/21/16 at 09:45; Stop 05/21/16 at 09:46; Status DC Sodium Bicarbonate (Sodium Bicarbonate 8.4% Inj) 50 meq ONCE ONCE IV PUSH Last administered on 05/21/16 09:45; Start 05/21/16 at 09:45; Stop 05/21/16 at 09:46; Status DC Dextrose (D50w (Vial) Inj) 50 ml ONCE ONCE IV PUSH Last administered on 09:46; Start 05/21/16 at 09:45; Stop 05/21/16 at 09:46; Status DC Insulin Human Regular 10 units 10 units ONCE ONCE IV PUSH Last administered on 05/21/16 09:46; Start 05/21/16 at 09:45; Stop 05/21/16 at 09:46; Status DC Norepinephrine Bitartrate (Levophed-Dextrose Drip) 250 ml @ 0 mls/hr TITRATE IV Last administered on 05/22/16 16:16; Start 05/21/16 at 10:30; Stop 05/23/16 at 08:32; Status DC Terbutaline Sulfate (Brethine Inj) 1 mg UNSCH PRN SQ For Extravasation; Start 05/21/16 at 10:30 Etomidate (Amidate Inj) 20 mg ONCE ONCE IVP ; Start 05/21/16 at 11:00; Stop at 11:01; Status DC Rocuronium Crewe (Zemuron Inj) 100 mg BOLUS ONCE IV ; Start 05/21/16 at 11:00 ; Stop 05/21/16 at 11:01; Status DC Succinylcholine Chloride (Quelicin Inj) 200 mg STK-MED ONCE .ROUTE ; Start 05/21 at 10:58; Stop 05/21/16 at 10:59; Status DC Rocuronium Crewe 50 mg 50 mg STK-MED ONCE .ROUTE ; Start 05/21/16 at 11:00; Stop 05/21/16 at 11:01; Status DC Propofol (Diprivan 1000 Mg/100ml Inj) 100 ml @ 0 mls/hr TITRATE IV Last administered on 05/23/16 05:37; Start 05/21/16 at 11:15; Stop 05/23/16 at 08:33 ; Status DC Acetaminophen (Tylenol) 650 mg Q6H PRN PO PAIN 1-10 AND/OR FEVER >101F; Start 05/21/16 at 12:30 Fentanyl Citrate (fentaNYL INJ) 50 mcg Q1H PRN IV SEE LABEL COMMENTS Last administered on 05/25/16 13:14; Start 05/21/16 at 12:30 Albuterol/ Ipratropium (Duoneb Neb) 1 ampule Q6HR NEB NEB Last administered on 05/26/16 10:16; Start 05/21/16 at 16:00; Stop 05/26/16 at 11:15; Status DC Albuterol/ Ipratropium (Duoneb Neb) 1 ampule Q4HR NEB PRN INH SHORTNESS OF BREATH; Start 05/21/16 at 12:30 Chlorhexidine Gluconate (Peridex 0.12% Liq) 15 ml BID@08,20 MT ; Start 05/21/16 at 20:00; Stop 05/22/16 at 14:09; Status DC Pantoprazole Sodium (Protonix Inj) 40 mg DAILY IV Last administered on 08:09; Start 05/21/16 at 13:00 Heparin Sodium (Porcine) (Heparin Inj) 5,000 units Q12H SQ Last administered on 05/23/16 01:06; Start 05/21/16 at 13:00; Stop 05/23/16 at 08:33; Status DC Miscellaneous Information 1 [id number] Last administered on 05/22/16 07:28; Start 05/21/16 at 12:30 Chlorhexidine Gluconate (Chlorhexidine 2% Cloth) Taper DAILY@04 TOP Last administered on 05/27/16 04:00; Start 05/22/16 at 04:00; Stop 05/18/17 at 03:59 Chlorhexidine Gluconate 3 pack 3 pack UNSCH PRN TOP HYGIENIC CARE; Start at 12:30 Sodium Chloride 1,000 ml @ 999 mls/hr BOLUS ONCE IV Last administered on 05/21 17:16; Start 05/21/16 at 13:30; Stop 05/21/16 at 14:30; Status DC Sodium Chloride 1,000 ml @ 999 mls/hr BOLUS ONCE IV Last administered on 05/21 13:30; Start 05/21/16 at 13:30; Stop 05/21/16 at 14:30; Status DC Sodium Bicarbonate/ Sterile Water (Sodium Bicarbonate 8.4% Inj/Sterile Water For Inj) 1,000 ml @ 150 mls/hr Q6H40M IV Last administered on 05/22/16 06:30 ; Start 05/21/16 at 15:00; Stop 05/22/16 at 10:30; Status DC Chlorhexidine Gluconate 15 ml 15 ml BID@08,20 MT Last administered on 08:00; Start 05/21/16 at 20:00 Midazolam HCl (Versed Inj) 100 ml @ 0 mls/hr TITRATE IV ; Start 05/21/16 at 13: 45; Stop 05/23/16 at 08:33; Status DC Sodium Polystyrene Sulfonate 30 gm 30 gm ONCE ONCE PO Last administered on 16:17; Start 05/21/16 at 15:00; Stop 05/21/16 at 15:01; Status DC Calcium Chloride 2 gm/Dextrose 120 ml @ 120 mls/hr ONCE ONCE IV Last administered on 05/21/16 16:28; Start 05/21/16 at 14:30; Stop 05/21/16 at 15:29 ; Status DC Piperacillin Sod/ Tazobactam Sod 50 ml @ 100 mls/hr Q8H IV Last administered on 05/22/16 06:29; Start 05/21/16 at 15:00; Stop 05/22/16 at 16:01; Status DC Vancomycin HCl/ Sodium Chloride (Vancomycin Inj/ NS 250 ml Inj) 250 ml @ 250 mls/hr ONCE ONCE IV Last administered on 05/21/16 16:18; Start 05/21/16 at 15 :00; Stop 05/21/16 at 15:59; Status DC Sodium Bicarbonate 100 meq 100 meq ONCE ONCE IV PUSH Last administered on 05/21 16:19; Start 05/21/16 at 15:45; Stop 05/21/16 at 15:48; Status DC Dexmedetomidine HCl (Precedex Inj) 50 ml @ 0 mls/hr TITRATE IV Last administered on 05/24/16 03:50; Start 05/22/16 at 08:15; Stop 05/24/16 at 08:59 ; Status DC Albumin Human 12.5 gm 12.5 gm NOW ONCE IV Last administered on 05/22/16 08:16 ; Start 05/22/16 at 08:15; Stop 05/22/16 at 08:16; Status DC Vasopressin 40 units/Dextrose 100 ml @ 0 mls/hr Q0M IV Last administered on 11:18; Start 05/22/16 at 10:27; Stop 05/24/16 at 08:59; Status DC Sodium Chloride 1,000 ml @ 999 mls/hr BOLUS ONCE IV Last administered on 05/22 11:19; Start 05/22/16 at 10:30; Stop 05/22/16 at 11:30; Status DC Sodium Chloride 1,000 ml @ 999 mls/hr BOLUS ONCE IV Last administered on 05/22 11:19; Start 05/22/16 at 10:30; Stop 05/22/16 at 11:30; Status DC Sodium Chloride (NS 1000 ml Inj) 1,000 ml @ 75 mls/hr [id number] IV Last administered on 05/23/16 16:44; Start 05/22/16 at 10:30; Stop 05/24/16 at 09:01 ; Status DC Potassium Chloride 40 meq 40 meq NOW ONCE PO Last administered on 05/22/16 14 :15; Start 05/22/16 at 14:15; Stop 05/22/16 at 14:16; Status DC Piperacillin Sod/ Tazobactam Sod 50 ml @ 100 mls/hr Q6H IV ; Start 05/22/16 at 21:00; Stop 05/22/16 at 21:00; Status DC Linezolid (Zyvox 600 Mg Premix) 300 ml @ 300 mls/hr Q12H IV Last administered on 05/27/16 06:11; Start 05/22/16 at 17:00 Diltiazem HCl (Cardizem Inj) 20 mg ONCE ONCE IV Last administered on 16:17; Start 05/22/16 at 16:00; Stop 05/22/16 at 16:03; Status DC Vancomycin HCl 250 mg 250 mg QID PO Last administered on 05/27/16 08:08; Start 05/22/16 at 18:00 Metronidazole (Flagyl 500 Mg Inj) 100 ml @ 100 mls/hr Q8H IV Last administered on 05/27/16 02:02; Start 05/22/16 at 18:00 Hydrocortisone Sodium Succinate (SoluCORTEF INJ) 100 mg Q8H IV Last administered on 05/24/16 00:10; Start 05/22/16 at 17:00; Stop 05/24/16 at 09:05 ; Status DC Metoprolol Tartrate 2.5 mg 2.5 mg ONCE ONCE IV PUSH Last administered on 16:45; Start 05/22/16 at 16:45; Stop 05/22/16 at 16:46; Status DC Diltiazem HCl 125 mg/Sodium Chloride 125 ml @ 0 mls/hr TITRATE IV ; Start at 16:45; Stop 05/22/16 at 18:02; Status DC Potassium Chloride (KCl 40 Meq Premix Inj) 100 ml @ 25 mls/hr BOLUS ONCE IV Last administered on 05/22/16 18:11; Start 05/22/16 at 17:00; Stop 05/22/16 at 20:59; Status DC Heparin Sodium (Porcine) 5000 units 5,000 units Q8H SQ Last administered on 06:12; Start 05/23/16 at 13:00 Potassium Chloride 100 ml @ 50 mls/hr Q2H PRN IV For Potassium 2.8 - 3.2 mEq/ L Last administered on 05/23/16 09:23; Start 05/23/16 at 08:45 Potassium Chloride 100 ml @ 50 mls/hr Q2H PRN IV For Potassium 2.8 - 3.2 mEq/L ; Start 05/23/16 at 08:45 Potassium Chloride 100 ml @ 25 mls/hr UNSCH PRN IV For Potassium 3.3 - 3.5 mEq /L; Start 05/23/16 at 08:45 Potassium Chloride 100 ml @ 50 mls/hr Q2H PRN IV For Potassium 3.3 - 3.5 mEq/L ; Start 05/23/16 at 08:45 Magnesium Sulfate/ Sodium Chloride (Magnesium Sulfate Inj/NS Inj) 100 ml @ 50 mls/hr UNSCH PRN IV For Magnesium 0.9 - 1.1 mg/dL; Start 05/23/16 at 08:45 Magnesium Oxide 800 mg 800 mg UNSCH PRN PO For Magnesium 1.2 - 1.6 mg/dL; Start 05/23/16 at 08:45 Magnesium Sulfate/ Sodium Chloride (Magnesium Sulfate Inj/NS Inj) 100 ml @ 50 mls/hr UNSCH PRN IV For Magnesium 1.2 - 1.6 mg/dL; Start 05/23/16 at 08:45 Potassium Phosphate 2000 mg 2,000 mg Q4H PRN PO For Phosphorus < 2.5 mg/dL; Start 05/23/16 at 08:45 Sodium Phosphate/ Sodium Chloride (Sodium Phosphate Inj/NS 250 ml Inj) 250 ml @ 42 mls/hr UNSCH PRN IV For Phosphorus < 2.5 mg/dL; Start 05/23/16 at 08:45 Potassium Phosphate 2000 mg 2,000 mg UNSCH PRN PO/TUBE SEE LABEL COMMENTS; Start 05/23/16 at 08:45 Potassium Phosphate/Sodium Chloride (Potassium Phosphate Inj/NS 250 ml Inj) 260 ml @ 42 mls/hr UNSCH PRN IV SEE LABEL COMMENTS; Start 05/23/16 at 08:45 Haloperidol Lactate (Haldol Inj) 4 mg Q6H PRN IV agitation Last administered on 05/24/16 23:54; Start 05/23/16 at 08:45; Stop 05/26/16 at 11:15; Status DC Labetalol HCl (Trandate Inj) 20 mg Q4H PRN IV PUSH SYS BP GREATER THAN 170 MMHG Last administered on 05/25/16 12:06; Start 05/23/16 at 17:30 Lorazepam (Ativan Inj) 1 mg Q4H PRN IV PUSH anxiety, agitation Last administered on 05/24/16 03:50; Start 05/23/16 at 17:30; Stop 05/24/16 at 09:05 ; Status DC Ondansetron HCl (Zofran Inj) 4 mg STK-MED ONCE .ROUTE Last administered on 05/24 00:10; Start 05/24/16 at 00:06; Stop 05/24/16 at 00:07; Status DC Ondansetron HCl (Zofran Inj) 4 mg Q4H PRN IV PUSH NAUSEA OR VOMITING Last administered on 05/25/16 23:36; Start 05/24/16 at 00:30 Lorazepam 1 mg 1 mg Q2H PRN IV PUSH anxiety, agitation Last administered on 08:59; Start 05/24/16 at 09:30; Stop 05/26/16 at 11:15; Status DC Levofloxacin/ Dextrose (Levaquin 500 Mg Premix Inj) 100 ml @ 100 mls/hr Q24H IV Last administered on 05/26/16 09:57; Start 05/24/16 at 10:00; Stop at 14:37; Status DC Metoclopramide HCl 10 mg 10 mg Q8HR IV Last administered on 05/27/16 06:12; Start 05/25/16 at 10:00 Potassium Chloride/Dextrose (KCl Inj/D5W 1000 ml Inj) 1,020 ml @ 75 mls/hr [id number] IV Last administered on 05/27/16 02:03; Start 05/25/16 at 11:00 Haloperidol Lactate (Haldol Inj) 2 mg Q6H PRN IV agitation Last administered on 05/27/16 02:01; Start 05/26/16 at 14:45 Lorazepam (Ativan Inj) 0.5 mg Q2H PRN IV PUSH anxiety, agitation Last administered on 05/27/16 08:08; Start 05/26/16 at 11:30 A/P Assessment and Plan A/P Acute encephalopathy Polydrug overdose Chronic pain -Urine drug screen positive for cocaine, amphetamine, benzodiazepines and opiates -Patient was recently prescribed Wellbutrin and oxycodone -Use when necessary Ativan and Haldol and fentanyl for agitation, overall delirium slowly improving -EEG to moderate encephalopathy, no seizures -Watch for alcohol and drug withdrawal Acute respiratory failure Severe metabolic and respiratory acidosis -Extubated 05/23/16, good oxygen saturation protecting airway even though delirious -DuoNeb every 6 hours and when necessary -On Levaquin and Zyvox. PO Vanc and IV Flagyl for C Dfii -Hypovolemic and septic shock, resolved -continue D5W for now -Off Levophed. DCd stress dose steroids 05/24 Transaminitis Small bowel thickening on CT/Enteritis C. difficile colitis Ileus -Elevated liver enzymes from shock liver -NGT to LIWS, IV Protonix -Gastroenterology following. -Started Reglan 10 mg IV every 8 hours. Continue Protonix for GI prophylaxis -Continue by mouth vancomycin and IV Flagyl Acute kidney failure-resolved Severe dehydration Hyperkalemia-resolved -Monitor renal function closely. Robert catheter. -Renal ultrasound-acute medical renal disease -Nephrology signed off. Septic shock MRSA/Enterobacter pneumonia C. difficile colitis -Continue Zyvox for pneumonia -Continue by mouth vancomycin and IV Flagyl for C. difficile colitis -Infectious disease following PROPH: -Bilateral lower extremity SCDs. Heparin 5000 U sq q8. IV Protonix for GI prophylaxis will keep in ICU for now for close monitoring. Karan Santillan MD May 27, 2016 08:25
[2016-05-27 08:51] LABS: BANDS 10 % (0-6); NEUTROPHIL # MANUAL DIFF 17.3 TH/MM3 (1.8-7.7); PLATELET ESTIMATE SMEAR LOW (NORMAL); PLATELET MORPHOLOGY NORMAL (NORMAL); POLYS (SEG NEUTROPHILS) 77 % (16-70); SCAN/DIFF FINAL DIFF MANUAL; WBC DIFF SAMPLE 100
--- NOTE | 2016-05-27 10:22 | HHI.GIFU ---
Subjective Remarks Pt resting in bed in no distress. No n/v. Still with significant distention, although maybe slightly improved today and with no significant tenderness. Multiple liquid stools. Flexiseal placed by nursing staff. (Katia Tay) Objective Vitals I&O Vital Signs Date Time Temp Pulse Resp B/P Pulse Ox O2 Delivery O2 Flow Rate FiO2 05/27/16 08:00 98.6 122 28 149/96 94 05/27/16 08:00 122 05/27/16 08:00 96 Nasal Cannula 3.00 05/27/16 06:00 122 05/27/16 04:00 98.3 127 28 136/92 94 05/27/16 04:00 132 05/27/16 02:00 125 05/27/16 00:00 98.9 124 28 154/102 95 05/27/16 00:00 124 05/26/16 22:00 115 05/26/16 20:00 98.5 108 33 153/98 96 05/26/16 20:00 108 05/26/16 19:23 98 Nasal Cannula 2.00 05/26/16 19:00 96 Nasal Cannula 3.00 05/26/16 18:00 114 05/26/16 18:00 99 05/26/16 16:00 99.3 110 152/78 05/26/16 16:00 110 05/26/16 14:00 104 05/26/16 12:00 99.0 100 22 140/82 05/26/16 12:00 100 05/26/16 10:16 96 Nasal Cannula 2.00 I/O 05/26/16 05/26/16 05/26/16 05/27/16 05/27/16 05/27/16 07:00 15:00 23:00 07:00 15:00 23:00 Intake Total 1014 ml 933 ml 1629 ml 1295 ml Output Total 750 ml 725 ml 600 ml 600 ml Balance 264 ml 208 ml 1029 ml 695 ml Intake Oral 100 ml 1065 ml 700 ml IV Total 1014 ml 783 ml 564 ml 595 ml Other 50 ml Output Urine Total 750 ml 725 ml 600 ml 600 ml # Bowel Movements 4 4 6 2 Laboratory Laboratory Tests Test 05/27/16 06:11 White Blood Count 19.9 Red Blood Count 4.17 Hemoglobin 11.1 Hematocrit 35.1 Mean Corpuscular Volume 84.1 Mean Corpuscular Hemoglobin 26.7 Mean Corpuscular Hemoglobin 31.8 Concent Red Cell Distribution Width 14.9 Platelet Count 97 Mean Platelet Volume 8.4 Neutrophils (%) (Auto) 85.2 Lymphocytes (%) (Auto) 10.2 Monocytes (%) (Auto) 4.3 Eosinophils (%) (Auto) 0.1 Basophils (%) (Auto) 0.2 Neutrophils # (Auto) 17.0 Lymphocytes # (Auto) 2.0 Monocytes # (Auto) 0.9 Eosinophils # (Auto) 0.0 Basophils # (Auto) 0.0 CBC Comment AUTO DIFF Differential Total Cells 100 Counted Neutrophils % (Manual) 77 Band Neutrophils % 10 Lymphocytes % 6 Monocytes % 7 Neutrophils # (Manual) 17.3 Differential Comment FINAL DIFF MANUAL Platelet Estimate LOW Platelet Morphology Comment NORMAL Sodium Level 145 Potassium Level 4.3 Chloride Level 111 Carbon Dioxide Level 26.5 Anion Gap 8 Blood Urea Nitrogen 25 Creatinine 0.73 Estimat Glomerular Filtration 82 Rate Random Glucose 116 Calcium Level 7.5 Magnesium Level 1.7 Total Bilirubin 0.8 Aspartate Amino Transf 43 (AST/SGOT) Alanine Aminotransferase 31 (ALT/SGPT) Alkaline Phosphatase 88 Total Protein 4.6 Albumin 2.1 Date/Time Procedure Status Source Growth 05/22/16 12:00 Cryptosporidium Exam - Final Complete Stool Stool NEGATIVE - NO CRYPTOSPORIDIUM ANTIGEN... 05/22/16 12:00 Stool Pus (SANDY) - Final Complete Stool Stool RARE WBC 05/22/16 12:00 Giardia Antigen (SANDY) - Final Complete Stool Stool NEGATIVE - NO GIARDIA ANTIGEN DETECTE... 05/22/16 12:00 - Final Complete Stool Stool NO ENTERIC PATHOGENS DETECTED BY PCR... Imaging Last Impressions Chest X-Ray 05/27/16 0600 Signed Impressions: Service Date/Time: Friday, May 27, 2016 03:03 - CONCLUSION: 1. Bilateral mostly basilar airspace disease and small effusions. Findings similar to May 26. Nasogastric tube and right central line present. Davis Goldman MD Abdomen X-Ray 05/27/16 0600 Signed Impressions: Service Date/Time: Friday, May 27, 2016 03:03 - CONCLUSION: 1. NG tube in stomach. Ileus pattern similar to May 26. Davis Goldman MD Abdomen Ultrasound 05/23/16 0000 Signed Impressions: Service Date/Time: Monday, May 23, 2016 09:14 - CONCLUSION: Trace fluid in the right lower quadrant. This is insufficient volume for percutaneous drainage. Ky German MD Head CT 05/21/16 0833 Signed Impressions: Service Date/Time: Saturday, May 21, 2016 09:02 - CONCLUSION: No acute disease. Torsten Verma MD Renal Ultrasound 05/21/16 0000 Signed Impressions: Service Date/Time: Saturday, May 21, 2016 15:32 - CONCLUSION: 1. Kidney sizes are preserved with increased cortical echogenicity characteristic of acute medical renal disease. 2. Otherwise negative. No hydronephrosis or nephrolithiasis. Ky German MD Abdomen/Pelvis CT 05/21/16 0000 Signed Impressions: Service Date/Time: Saturday, May 21, 2016 18:34 - CONCLUSION: 1. There is slight ascites with haziness of the mesentery nonspecific may be passive congestion or inflammatory in nature with very abnormal looking loops of small bowel which demonstrate thickening of the bowel wall and the exact etiology is not certain. 2. Bibasilar consolidation worse on the left. Caren Andrade MD Physical Exam HEENT: NGT tube in place. CARDIAC: Regular CHEST: CTA ABDOMEN: Semi-firm, distended, nontender. Minimal BS. EXTREMITIES: No clubbing, cyanosis, or edema. BEREAVEMENT COUNSELOR: In restraints. Alert and oriented to self and knows she in a hospital. ( TayKatia Adamsissa [facility]) Assessment and Plan Plan ASSESSMENT: - CDiff Colitis, 027 (-). According to EMR, she is still having multiple BMs (12 ). Although she is on Reglan for ileus and still on Zyvox for PNA. Receiving Flagyl, Oral Vanco for CDiff. ID following. WBC still 19.9. KUB with persistent ileus. Clinically, no significant tenderness on exam. No n/v. - Enteritis. abdominal distention with abnormal imaging on CT. Abdomen/Pelvis CT without iv contrast (05/21/16)-----> 1. There is slight ascites with haziness of the mesentery nonspecific may be passive congestion or inflammatory in nature with very abnormal looking loops of small bowel which demonstrate thickening of the bowel wall and the exact etiology is not certain. 2. Bibasilar consolidation worse on the left. The nurse reports that the patient has been having significant diarrhea. CDiff (+), 027 negative. KUB (05/22/16)--> NG coiled in stomach, mild gaseous distention of bowel, characteristic of ileus. Abdominal US (05/23/16)---> Trace fluid in the rlq, this is insufficient for percutaneous drainage. Rpt. KUB (05/26/16) with Nasogastric tube in good position. No significant interval change. Pt still with significant distention, although not really tender on exam. NGT clamped. NO n/v with this. Still with persistent ileus. Will cont. Reglan for now. - Ileus. NGT to LIWS, KUB (05/26) --> 1. NG tube in stomach. Ileus pattern similar to May 26. Reglan. - Transaminitis. Improving. Likely related to polypharmacy. CT as above. - Acute respiratory failure. S/P Extubated. - Acute encephalopathy, polydrug overdose, possible myoclonus, severe metabolic and respiratory acidoses, shock (likely hypovolemic), MAYRA and probable sepsis. Per [facility] PLAN: - Keep NGT, but can remain clamped for now. - Cont. Clear liquids- make npo if worsening distention, n/v. - Will cont. Reglan for now - Cont. Flagyl- will need to continue 10 days AFTER other abx stopped (On zyvox for pna) - Cont. Oral Vanco- will need to continue 10 days AFTER other abx stopped (On zyvox for pna) - Cont. PPI - Monitor stool output - KUB in am - ID following - Supportive care - Further recommendations as the case develops - Pt seen and examined by Dr. Rosario and myself and this note is written on hisr behalf (Katia Tay) Physician Comments Patient seen and examined Agree with above Continue with current supportive care Monitor labs Patient's abdomen is less distended at this point as compared to yesterday and if this trend continues tomorrow and is confirmed by the x-ray I would cut down on prokinetic drugs (Kar Rosario MD) Katia Tay May 27, 2016 10:22 Kar Rosario MD May 27, 2016 21:46
[2016-05-27] MEDS: RESP: ALBUTEROL 2.5 MG/IPRATROPIUM 0.5 MG NEB (PRN) INH ×2 (16:17→20:43)
[2016-05-28] VITALS (14 sets, daily range): BP systolic 103–141; BP diastolic 68–95; PULSE 95–120; RESP 20–26; TEMP 98.1–98.9; O2SAT 95–100
[2016-05-28] MEDS: METOCLOPRAMIDE HCL 10 MG/2 ML VIAL IV SCH ×3 (03:19→20:58)
[2016-05-28] MEDS: HALOPERIDOL LACTATE 5 MG/ML AMP IV PRN ×3 (03:19→20:57)
[2016-05-28] MEDS: HEPARIN SODIUM - SQ 10,000 UNITS/ML VIAL SQ SCH ×3 (03:19→20:57)
[2016-05-28] MEDS: metroNIDAZOLE 500 MG INJ 100 ML IV SCH ×3 (03:19→18:30)
[2016-05-28] MEDS: CHLORHEXIDINE GLUCONATE 2 % 1 PACK (2 CLOTHS) TOP SCH (03:20)
[2016-05-28] MEDS: LINEZOLID 600 MG PREMIX 300 ML IV SCH ×2 (03:20→16:01)
[2016-05-28 06:02] LABS: BICARBONATE 25.6 MEQ/L (21.0-32.0); POTASSIUM 3.9 MEQ/L (3.5-5.1)
[2016-05-28 06:26] LABS: AUTOMATED NEUTROPHIL # 15.5 TH/MM3 (1.8-7.7); BASOPHIL % 0.1 % (0.0-2.0); EOSINOPHIL # 0.1 TH/MM3 (0-0.4); EOSINOPHIL % 0.4 % (0.0-4.0); LYMPH % 10.9 % (9.0-44.0); MEAN CELL VOLUME 83.7 FL (80.0-100.0); MEAN CORPUSCULAR HEMOGLOBIN 28.4 PG (27.0-34.0); MEAN CORPUSCULAR HGB CONC 33.9 % (32.0-36.0); MONO % 3.3 % (0.0-8.0); NEUT % 85.3 % (16.0-70.0); PLATELET COUNT 105 TH/MM3 (150-450); RED BLOOD COUNT 3.58 MIL/MM3 (4.00-5.30); RED CELL DISTRIBUTION WIDTH 14.8 % (11.6-17.2); WHITE BLOOD COUNT 18.1 TH/MM3 (4.0-11.0)
[2016-05-28 06:33] LABS: HEMO FLAGS AUTO DIFF
--- NOTE | 2016-05-28 06:34 | RADRPT ---
EXAM DATE/TIME: 05/28/2016 04:52 [place] COMPARISON: ABDOMEN KUB ONLY, May 27, 2016, 3:03. INDICATIONS : Ileus. MEDICAL HISTORY : Hypertension. SURGICAL HISTORY : Cholecystectomy. Tubal ligation ENCOUNTER: Subsequent ACUITY: 1 week PAIN SCORE: Non-responsive. LOCATION: Bilateral Abdomen FINDINGS: NG tip is in distal stomach. Again seen is gaseous distention of bowel similar to May 27. No free a ir. CONCLUSION: 1. Gaseous distention of bowel similar to May 27. Davis Goldman MD on May 28, 2016 at 6:32 Board Certified Radiologist. This report was verified electronically.
[2016-05-28] MEDS: RESP: ALBUTEROL 2.5 MG/IPRATROPIUM 0.5 MG NEB (PRN) INH (07:28)
[2016-05-28] MEDS: CHLORHEXIDINE 0.12% (ORAL KIT) 15 ML CUP MT SCH ×2 (08:00→20:00)
--- NOTE | 2016-05-28 08:07 | HHI.PR ---
Subjective Remarks looks more comfortable today. is more alert today. still with some abdominal pain but with no nausea or vomiting. no fever. d/w the RN. Objective Vitals Vital Signs Date Time Temp Pulse Resp B/P Pulse Ox O2 Delivery O2 Flow Rate FiO2 05/28/16 07:29 96 Nasal Cannula 2.00 05/28/16 06:00 98 05/28/16 04:00 97 05/28/16 04:00 98.1 99 24 119/77 99 05/28/16 02:00 95 05/28/16 00:00 112 05/28/16 00:00 98.2 105 25 112/68 97 05/27/16 22:00 117 05/27/16 20:42 96 Nasal Cannula 2.00 05/27/16 20:00 98.1 117 35 125/78 95 05/27/16 20:00 112 05/27/16 19:00 94 Nasal Cannula 3.00 05/27/16 18:00 125 05/27/16 16:00 98.8 110 28 148/77 95 05/27/16 16:00 125 05/27/16 14:00 125 05/27/16 12:31 96 Nasal Cannula 3.00 05/27/16 12:00 98.8 116 28 142/7 94 05/27/16 12:00 122 05/27/16 10:00 122 I/O 05/27/16 05/27/16 05/27/16 05/28/16 05/28/16 05/28/16 07:00 15:00 23:00 07:00 15:00 23:00 Intake Total 1295 ml 884 ml 826 ml Output Total 600 ml 950 ml 600 ml 850 ml Balance 695 ml -950 ml 284 ml -24 ml Intake Oral 700 ml 200 ml 350 ml IV Total 595 ml 584 ml 476 ml Other 100 ml Output Urine Total 600 ml 850 ml 500 ml 850 ml Stool Total 100 ml 100 ml # Bowel Movements 2 1 1 Result Diagram: 05/28/1651405/28/16514 Imaging Last Impressions Abdomen X-Ray 05/28/16599 Signed Impressions: Service Date/Time: Saturday, May 28, 2016 04:52 - CONCLUSION: 1. Gaseous distention of bowel similar to May 27. Davis Goldman MD Chest X-Ray 3/28/17 0600 Signed Impressions: Service Date/Time: Friday, May 27, 2016 03:03 - CONCLUSION: 1. Bilateral mostly basilar airspace disease and small effusions. Findings similar to May 26. Nasogastric tube and right central line present. Davis Goldman MD Abdomen Ultrasound 05/23/16 0000 Signed Impressions: Service Date/Time: Monday, May 23, 2016 09:14 - CONCLUSION: Trace fluid in the right lower quadrant. This is insufficient volume for percutaneous drainage. Ky German MD Head CT 05/21/16 0833 Signed Impressions: Service Date/Time: Saturday, May 21, 2016 09:02 - CONCLUSION: No acute disease. Torsten Verma MD Renal Ultrasound 05/21/16 0000 Signed Impressions: Service Date/Time: Saturday, May 21, 2016 15:32 - CONCLUSION: 1. Kidney sizes are preserved with increased cortical echogenicity characteristic of acute medical renal disease. 2. Otherwise negative. No hydronephrosis or nephrolithiasis. Ky German MD Abdomen/Pelvis CT 05/21/16 0000 Signed Impressions: Service Date/Time: Saturday, May 21, 2016 18:34 - CONCLUSION: 1. There is slight ascites with haziness of the mesentery nonspecific may be passive congestion or inflammatory in nature with very abnormal looking loops of small bowel which demonstrate thickening of the bowel wall and the exact etiology is not certain. 2. Bibasilar consolidation worse on the left. Caren Andrade MD Objective Remarks GENERAL:in no acute distress- with NG tube in place CARDIOVASCULAR: Regular rate and irregular rhythm without murmurs, gallops, or rubs. RESPIRATORY: mild bilateral wheezing. GASTROINTESTINAL: Abdomen soft, non-tender, less distended. Normal, active bowel sounds MUSCULOSKELETAL: Extremities without clubbing, cyanosis, or edema. NEURO: Alert & Oriented x4 to person, place, time, situation. Moves all ext x4 Procedures endotracheal intubation central line placement Medications and IVs Current Medications Sodium Chloride 2 ml 2 ml UNSCH PRN IVF FLUSH AFTER USING IV ACCESS; Start at 08:45 Sodium Chloride 1,000 ml @ 1,000 mls/hr Q1H ONCE IV Last administered on t 09:41; Start 05/21/16 at 08:33; Stop 05/21/16 at 09:32; Status DC Sodium Chloride 1,000 ml @ 999 mls/hr Q1H1M IV ; Start 05/21/16 at 08:45; Stop 05/21/16 at 09:45; Status DC Sodium Chloride 1,000 ml @ 999 mls/hr Q1H1M IV ; Start 05/21/16 at 09:00; Stop 05/21/16 at 10:00; Status DC Sodium Chloride 1,000 ml @ 999 mls/hr Q1H1M IV Last administered on 05/21/16 10:25; Start 05/21/16 at 09:00; Stop 05/21/16 at 10:00; Status DC Sodium Bicarbonate 100 meq/Dextrose 1,100 ml @ 200 mls/hr Q5H30M IV Last administered on 05/21/16 09:41; Start 05/21/16 at 09:15; Stop 05/21/16 at 13:39 ; Status DC Calcium Gluconate/ Dextrose (Calcium Gluconate Inj/D5W 100 ml Inj) 120 ml @ 120 mls/hr ONCE ONCE IV Last administered on 05/21/16 10:23; Start 05/21/16 at 09:45; Stop 05/21/16 at 10:44; Status DC Albuterol Sulfate (Albuterol Neb) 7.5 mg ONCE ONCE NEB Last administered on 09:47; Start 05/21/16 at 09:45; Stop 05/21/16 at 09:46; Status DC Sodium Bicarbonate (Sodium Bicarbonate 8.4% Inj) 50 meq ONCE ONCE IV PUSH Last administered on 05/21/16 09:45; Start 05/21/16 at 09:45; Stop 05/21/16 at 09:46; Status DC Dextrose (D50w (Vial) Inj) 50 ml ONCE ONCE IV PUSH Last administered on 09:46; Start 05/21/16 at 09:45; Stop 05/21/16 at 09:46; Status DC Insulin Human Regular 10 units 10 units ONCE ONCE IV PUSH Last administered on 05/21/16 09:46; Start 05/21/16 at 09:45; Stop 05/21/16 at 09:46; Status DC Norepinephrine Bitartrate (Levophed-Dextrose Drip) 250 ml @ 0 mls/hr TITRATE IV Last administered on 05/22/16 16:16; Start 05/21/16 at 10:30; Stop 05/23/16 at 08:32; Status DC Terbutaline Sulfate (Brethine Inj) 1 mg UNSCH PRN SQ For Extravasation; Start 05/21/16 at 10:30 Etomidate (Amidate Inj) 20 mg ONCE ONCE IVP ; Start 05/21/16 at 11:00; Stop at 11:01; Status DC Rocuronium [place] (Zemuron Inj) 100 mg BOLUS ONCE IV ; Start 05/21/16 at 11:00 ; Stop 05/21/16 at 11:01; Status DC Succinylcholine Chloride (Quelicin Inj) 200 mg STK-MED ONCE .ROUTE ; Start 05/21 at 10:58; Stop 05/21/16 at 10:59; Status DC Rocuronium [place] 50 mg 50 mg STK-MED ONCE .ROUTE ; Start 05/21/16 at 11:00; Stop 05/21/16 at 11:01; Status DC Propofol (Diprivan 1000 Mg/100ml Inj) 100 ml @ 0 mls/hr TITRATE IV Last administered on 05/23/16 05:37; Start 05/21/16 at 11:15; Stop 05/23/16 at 08:33 ; Status DC Acetaminophen (Tylenol) 650 mg Q6H PRN PO PAIN 1-10 AND/OR FEVER >101F; Start 05/21/16 at 12:30 Fentanyl Citrate (fentaNYL INJ) 50 mcg Q1H PRN IV SEE LABEL COMMENTS Last administered on 05/25/16 13:14; Start 05/21/16 at 12:30 Albuterol/ Ipratropium (Duoneb Neb) 1 ampule Q6HR NEB NEB Last administered on 05/26/16 10:16; Start 05/21/16 at 16:00; Stop 05/26/16 at 11:15; Status DC Albuterol/ Ipratropium (Duoneb Neb) 1 ampule Q4HR NEB PRN INH SHORTNESS OF BREATH Last administered on 05/28/16 07:28; Start 05/21/16 at 12:30 Chlorhexidine Gluconate (Peridex 0.12% Liq) 15 ml BID@08,20 MT ; Start 05/21/16 at 20:00; Stop 05/22/16 at 14:09; Status DC Pantoprazole Sodium (Protonix Inj) 40 mg DAILY IV Last administered on 08:09; Start 05/21/16 at 13:00 Heparin Sodium (Porcine) (Heparin Inj) 5,000 units Q12H SQ Last administered on 05/23/16 01:06; Start 05/21/16 at 13:00; Stop 05/23/16 at 08:33; Status DC Miscellaneous Information 1 [id number] Last administered on 05/22/16 07:28; Start 05/21/16 at 12:30 Chlorhexidine Gluconate (Chlorhexidine 2% Cloth) Taper DAILY@04 TOP Last administered on 05/27/16 04:00; Start 05/22/16 at 04:00; Stop 05/18/17 at 03:59 Chlorhexidine Gluconate 3 pack 3 pack UNSCH PRN TOP HYGIENIC CARE; Start at 12:30 Sodium Chloride 1,000 ml @ 999 mls/hr BOLUS ONCE IV Last administered on 05/21 17:16; Start 05/21/16 at 13:30; Stop 05/21/16 at 14:30; Status DC Sodium Chloride 1,000 ml @ 999 mls/hr BOLUS ONCE IV Last administered on 05/21 13:30; Start 05/21/16 at 13:30; Stop 05/21/16 at 14:30; Status DC Sodium Bicarbonate/ Sterile Water (Sodium Bicarbonate 8.4% Inj/Sterile Water For Inj) 1,000 ml @ 150 mls/hr Q6H40M IV Last administered on 05/22/16 06:30 ; Start 05/21/16 at 15:00; Stop 05/22/16 at 10:30; Status DC Chlorhexidine Gluconate 15 ml 15 ml BID@08,20 MT Last administered on 08:00; Start 05/21/16 at 20:00 Midazolam HCl (Versed Inj) 100 ml @ 0 mls/hr TITRATE IV ; Start 05/21/16 at 13: 45; Stop 05/23/16 at 08:33; Status DC Sodium Polystyrene Sulfonate 30 gm 30 gm ONCE ONCE PO Last administered on 16:17; Start 05/21/16 at 15:00; Stop 05/21/16 at 15:01; Status DC Calcium Chloride 2 gm/Dextrose 120 ml @ 120 mls/hr ONCE ONCE IV Last administered on 05/21/16 16:28; Start 05/21/16 at 14:30; Stop 05/21/16 at 15:29 ; Status DC Piperacillin Sod/ Tazobactam Sod 50 ml @ 100 mls/hr Q8H IV Last administered on 05/22/16 06:29; Start 05/21/16 at 15:00; Stop 05/22/16 at 16:01; Status DC Vancomycin HCl/ Sodium Chloride (Vancomycin Inj/ NS 250 ml Inj) 250 ml @ 250 mls/hr ONCE ONCE IV Last administered on 05/21/16 16:18; Start 05/21/16 at 15 :00; Stop 05/21/16 at 15:59; Status DC Sodium Bicarbonate 100 meq 100 meq ONCE ONCE IV PUSH Last administered on 05/21 16:19; Start 05/21/16 at 15:45; Stop 05/21/16 at 15:48; Status DC Dexmedetomidine HCl (Precedex Inj) 50 ml @ 0 mls/hr TITRATE IV Last administered on 05/24/16 03:50; Start 05/22/16 at 08:15; Stop 05/24/16 at 08:59 ; Status DC Albumin Human 12.5 gm 12.5 gm NOW ONCE IV Last administered on 05/22/16 08:16 ; Start 05/22/16 at 08:15; Stop 05/22/16 at 08:16; Status DC Vasopressin 40 units/Dextrose 100 ml @ 0 mls/hr Q0M IV Last administered on 11:18; Start 05/22/16 at 10:27; Stop 05/24/16 at 08:59; Status DC Sodium Chloride 1,000 ml @ 999 mls/hr BOLUS ONCE IV Last administered on 05/22 11:19; Start 05/22/16 at 10:30; Stop 05/22/16 at 11:30; Status DC Sodium Chloride 1,000 ml @ 999 mls/hr BOLUS ONCE IV Last administered on 05/22 11:19; Start 05/22/16 at 10:30; Stop 05/22/16 at 11:30; Status DC Sodium Chloride (NS 1000 ml Inj) 1,000 ml @ 75 mls/hr [id number] IV Last administered on 05/23/16 16:44; Start 05/22/16 at 10:30; Stop 05/24/16 at 09:01 ; Status DC Potassium Chloride 40 meq 40 meq NOW ONCE PO Last administered on 05/22/16 14 :15; Start 05/22/16 at 14:15; Stop 05/22/16 at 14:16; Status DC Piperacillin Sod/ Tazobactam Sod 50 ml @ 100 mls/hr Q6H IV ; Start 05/22/16 at 21:00; Stop 05/22/16 at 21:00; Status DC Linezolid (Zyvox 600 Mg Premix) 300 ml @ 300 mls/hr Q12H IV Last administered on 05/28/16 03:20; Start 05/22/16 at 17:00 Diltiazem HCl (Cardizem Inj) 20 mg ONCE ONCE IV Last administered on 16:17; Start 05/22/16 at 16:00; Stop 05/22/16 at 16:03; Status DC Vancomycin HCl 250 mg 250 mg QID PO Last administered on 05/27/16 20:12; Start 05/22/16 at 18:00 Metronidazole (Flagyl 500 Mg Inj) 100 ml @ 100 mls/hr Q8H IV Last administered on 05/28/16 03:19; Start 05/22/16 at 18:00 Hydrocortisone Sodium Succinate (SoluCORTEF INJ) 100 mg Q8H IV Last administered on 05/24/16 00:10; Start 05/22/16 at 17:00; Stop 05/24/16 at 09:05 ; Status DC Metoprolol Tartrate 2.5 mg 2.5 mg ONCE ONCE IV PUSH Last administered on 16:45; Start 05/22/16 at 16:45; Stop 05/22/16 at 16:46; Status DC Diltiazem HCl 125 mg/Sodium Chloride 125 ml @ 0 mls/hr TITRATE IV ; Start at 16:45; Stop 05/22/16 at 18:02; Status DC Potassium Chloride (KCl 40 Meq Premix Inj) 100 ml @ 25 mls/hr BOLUS ONCE IV Last administered on 05/22/16 18:11; Start 05/22/16 at 17:00; Stop 05/22/16 at 20:59; Status DC Heparin Sodium (Porcine) 5000 units 5,000 units Q8H SQ Last administered on 03:19; Start 05/23/16 at 13:00 Potassium Chloride 100 ml @ 50 mls/hr Q2H PRN IV For Potassium 2.8 - 3.2 mEq/ L Last administered on 05/23/16 09:23; Start 05/23/16 at 08:45 Potassium Chloride 100 ml @ 50 mls/hr Q2H PRN IV For Potassium 2.8 - 3.2 mEq/L ; Start 05/23/16 at 08:45 Potassium Chloride 100 ml @ 25 mls/hr UNSCH PRN IV For Potassium 3.3 - 3.5 mEq /L; Start 05/23/16 at 08:45 Potassium Chloride 100 ml @ 50 mls/hr Q2H PRN IV For Potassium 3.3 - 3.5 mEq/L ; Start 05/23/16 at 08:45 Magnesium Sulfate/ Sodium Chloride (Magnesium Sulfate Inj/NS Inj) 100 ml @ 50 mls/hr UNSCH PRN IV For Magnesium 0.9 - 1.1 mg/dL; Start 05/23/16 at 08:45 Magnesium Oxide 800 mg 800 mg UNSCH PRN PO For Magnesium 1.2 - 1.6 mg/dL; Start 05/23/16 at 08:45 Magnesium Sulfate/ Sodium Chloride (Magnesium Sulfate Inj/NS Inj) 100 ml @ 50 mls/hr UNSCH PRN IV For Magnesium 1.2 - 1.6 mg/dL; Start 05/23/16 at 08:45 Potassium Phosphate 2000 mg 2,000 mg Q4H PRN PO For Phosphorus < 2.5 mg/dL; Start 05/23/16 at 08:45 Sodium Phosphate/ Sodium Chloride (Sodium Phosphate Inj/NS 250 ml Inj) 250 ml @ 42 mls/hr UNSCH PRN IV For Phosphorus < 2.5 mg/dL; Start 05/23/16 at 08:45 Potassium Phosphate 2000 mg 2,000 mg UNSCH PRN PO/TUBE SEE LABEL COMMENTS; Start 05/23/16 at 08:45 Potassium Phosphate/Sodium Chloride (Potassium Phosphate Inj/NS 250 ml Inj) 260 ml @ 42 mls/hr UNSCH PRN IV SEE LABEL COMMENTS; Start 05/23/16 at 08:45 Haloperidol Lactate (Haldol Inj) 4 mg Q6H PRN IV agitation Last administered on 05/24/16 23:54; Start 05/23/16 at 08:45; Stop 05/26/16 at 11:15; Status DC Labetalol HCl (Trandate Inj) 20 mg Q4H PRN IV PUSH SYS BP GREATER THAN 170 MMHG Last administered on 05/25/16 12:06; Start 05/23/16 at 17:30 Lorazepam (Ativan Inj) 1 mg Q4H PRN IV PUSH anxiety, agitation Last administered on 05/24/16 03:50; Start 05/23/16 at 17:30; Stop 05/24/16 at 09:05 ; Status DC Ondansetron HCl (Zofran Inj) 4 mg STK-MED ONCE .ROUTE Last administered on 05/24 00:10; Start 05/24/16 at 00:06; Stop 05/24/16 at 00:07; Status DC Ondansetron HCl (Zofran Inj) 4 mg Q4H PRN IV PUSH NAUSEA OR VOMITING Last administered on 05/25/16 23:36; Start 05/24/16 at 00:30 Lorazepam 1 mg 1 mg Q2H PRN IV PUSH anxiety, agitation Last administered on 08:59; Start 05/24/16 at 09:30; Stop 05/26/16 at 11:15; Status DC Levofloxacin/ Dextrose (Levaquin 500 Mg Premix Inj) 100 ml @ 100 mls/hr Q24H IV Last administered on 05/26/16 09:57; Start 05/24/16 at 10:00; Stop at 14:37; Status DC Metoclopramide HCl 10 mg 10 mg Q8HR IV Last administered on 05/28/16 03:19; Start 05/25/16 at 10:00 Potassium Chloride/Dextrose (KCl Inj/D5W 1000 ml Inj) 1,020 ml @ 75 mls/hr [id number] IV Last administered on 05/27/16 02:03; Start 05/25/16 at 11:00 Haloperidol Lactate (Haldol Inj) 2 mg Q6H PRN IV agitation Last administered on 05/28/16 03:19; Start 05/26/16 at 14:45 Lorazepam (Ativan Inj) 0.5 mg Q2H PRN IV PUSH anxiety, agitation Last administered on 05/27/16 14:47; Start 05/26/16 at 11:30 A/P Assessment and Plan A/P Acute encephalopathy-improving Polydrug overdose Chronic pain -Urine drug screen positive for cocaine, amphetamine, benzodiazepines and opiates -Patient was recently prescribed Wellbutrin and oxycodone -Use when necessary Ativan and Haldol and fentanyl for agitation, overall delirium slowly improving -EEG to moderate encephalopathy, no seizures -Watch for alcohol and drug withdrawal -will consult psych Acute respiratory failure Severe metabolic and respiratory acidosis -Extubated 05/23/16, good oxygen saturation . -DuoNeb every 6 hours and when necessary -OnZyvox. PO Vanc and IV Flagyl for C Dfii -Hypovolemic and septic shock, resolved -continue D5W for now -Off Levophed. DCd stress dose steroids 05/24 Transaminitis Small bowel thickening on CT/Enteritis C. difficile colitis Ileus -Elevated liver enzymes from shock liver -NGT clamped -Gastroenterology following. -Started Reglan 10 mg IV every 8 hours. Continue Protonix for GI prophylaxis -Continue by mouth vancomycin and IV Flagyl Acute kidney failure-resolved Severe dehydration-improved Hyperkalemia-resolved -Monitor renal function closely. Robert catheter. -Renal ultrasound-acute medical renal disease -Nephrology signed off. Septic shock-resolved MRSA/Enterobacter pneumonia C. difficile colitis -Continue Zyvox for pneumonia -Continue by mouth vancomycin and IV Flagyl for C. difficile colitis -Infectious disease following PROPH: -Bilateral lower extremity SCDs. Heparin 5000 U sq q8. IV Protonix for GI prophylaxis will dc central line. continue to keep in ICU for now for close monitoring. Karan Santillan MD May 28, 2016 08:07
[2016-05-28 08:49] LABS: BANDS 3 % (0-6); NEUTROPHIL # MANUAL DIFF 16.3 TH/MM3 (1.8-7.7); POLYS (SEG NEUTROPHILS) 87 % (16-70); WBC DIFF SAMPLE 100
[2016-05-28 08:50] LABS: PLATELET ESTIMATE SMEAR LOW (NORMAL); PLATELET MORPHOLOGY NORMAL (NORMAL); SCAN/DIFF FINAL DIFF MANUAL
[2016-05-28] MEDS: VANCOMYCIN 500 MG VIAL (FOR ORAL USE ONLY) PO SCH ×4 (09:01→20:57)
[2016-05-28] MEDS: PANTOPRAZOLE SODIUM 40 MG VIAL IV SCH (09:01)
[2016-05-28] MEDS ORDERED: NYSTATIN 100,000 UNIT/GM CREAM 15 GM TOPICAL SCH (10:00)
--- NOTE | 2016-05-28 11:19 | HHI.GIFU ---
Subjective Remarks Up in chair. Tolerating clears. No nausea. Abdomen still distended, but improved. + BM. No abdominal tenderness. (Katia Tay) Objective Vitals I&O Vital Signs Date Time Temp Pulse Resp B/P Pulse Ox O2 Delivery O2 Flow Rate FiO2 05/28/16 07:29 96 Nasal Cannula 2.00 05/28/16 06:00 98 05/28/16 04:00 97 05/28/16 04:00 98.1 99 24 119/77 99 05/28/16 02:00 95 05/28/16 00:00 112 05/28/16 00:00 98.2 105 25 112/68 97 05/27/16 22:00 117 05/27/16 20:42 96 Nasal Cannula 2.00 05/27/16 20:00 98.1 117 35 125/78 95 05/27/16 20:00 112 05/27/16 19:00 94 Nasal Cannula 3.00 05/27/16 18:00 125 05/27/16 16:00 98.8 110 28 148/77 95 05/27/16 16:00 125 05/27/16 14:00 125 05/27/16 12:31 96 Nasal Cannula 3.00 05/27/16 12:00 98.8 116 28 142/7 94 05/27/16 12:00 122 I/O 05/27/16 05/27/16 05/27/16 05/28/16 05/28/16 05/28/16 07:00 15:00 23:00 07:00 15:00 23:00 Intake Total 1295 ml 884 ml 826 ml Output Total 600 ml 950 ml 600 ml 850 ml Balance 695 ml -950 ml 284 ml -24 ml Intake Oral 700 ml 200 ml 350 ml IV Total 595 ml 584 ml 476 ml Other 100 ml Output Urine Total 600 ml 850 ml 500 ml 850 ml Stool Total 100 ml 100 ml # Bowel Movements 2 1 1 Laboratory Laboratory Tests Test 05/28/16 05:15 White Blood Count 18.1 Red Blood Count 3.58 Hemoglobin 10.2 Hematocrit 30.0 Mean Corpuscular Volume 83.7 Mean Corpuscular Hemoglobin 28.4 Mean Corpuscular Hemoglobin 33.9 Concent Red Cell Distribution Width 14.8 Platelet Count 105 Mean Platelet Volume 8.6 Neutrophils (%) (Auto) 85.3 Lymphocytes (%) (Auto) 10.9 Monocytes (%) (Auto) 3.3 Eosinophils (%) (Auto) 0.4 Basophils (%) (Auto) 0.1 Neutrophils # (Auto) 15.5 Lymphocytes # (Auto) 2.0 Monocytes # (Auto) 0.6 Eosinophils # (Auto) 0.1 Basophils # (Auto) 0.0 CBC Comment AUTO DIFF Differential Total Cells 100 Counted Neutrophils % (Manual) 87 Band Neutrophils % 3 Lymphocytes % 7 Monocytes % 3 Neutrophils # (Manual) 16.3 Differential Comment FINAL DIFF MANUAL Platelet Estimate LOW Platelet Morphology Comment NORMAL Sodium Level 142 Potassium Level 3.9 Chloride Level 110 Carbon Dioxide Level 25.6 Anion Gap 6 Blood Urea Nitrogen 16 Creatinine 0.51 Estimat Glomerular Filtration 124 Rate Random Glucose 89 Calcium Level 7.4 Protein Corrected Calcium 9.0 Total Protein 4.4 Imaging Last Impressions Abdomen X-Ray 05/28/16 0600 Signed Impressions: Service Date/Time: Saturday, May 28, 2016 04:52 - CONCLUSION: 1. Gaseous distention of bowel similar to May 27. Davis Goldman MD Chest X-Ray 05/27/16 0600 Signed Impressions: Service Date/Time: Friday, May 27, 2016 03:03 - CONCLUSION: 1. Bilateral mostly basilar airspace disease and small effusions. Findings similar to May 26. Nasogastric tube and right central line present. Davis Goldman MD Abdomen Ultrasound 05/23/16 0000 Signed Impressions: Service Date/Time: Monday, May 23, 2016 09:14 - CONCLUSION: Trace fluid in the right lower quadrant. This is insufficient volume for percutaneous drainage. Ky German MD Head CT 05/21/16 0833 Signed Impressions: Service Date/Time: Saturday, May 21, 2016 09:02 - CONCLUSION: No acute disease. Torsten Verma MD Renal Ultrasound 05/21/16 0000 Signed Impressions: Service Date/Time: Saturday, May 21, 2016 15:32 - CONCLUSION: 1. Kidney sizes are preserved with increased cortical echogenicity characteristic of acute medical renal disease. 2. Otherwise negative. No hydronephrosis or nephrolithiasis. Ky German MD Abdomen/Pelvis CT 05/21/16 0000 Signed Impressions: Service Date/Time: Saturday, May 21, 2016 18:34 - CONCLUSION: 1. There is slight ascites with haziness of the mesentery nonspecific may be passive congestion or inflammatory in nature with very abnormal looking loops of small bowel which demonstrate thickening of the bowel wall and the exact etiology is not certain. 2. Bibasilar consolidation worse on the left. Caren Andrade MD Physical Exam HEENT: NGT tube in place. CARDIAC: Regular CHEST: CTA ABDOMEN: Distended, but softer, Bowel sounds present. Flexiseal with liquid stool EXTREMITIES: No clubbing, cyanosis, or edema. 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 Alert and oriented to self and placed (Katia Tay [employer]') Assessment and Plan Plan ASSESSMENT: - CDiff Colitis, 027 (-). WBC 18.1. 200cc of stoolsince flexiseal placed. Of note, she is on Reglan for ileus and Zyvox for PNA. Receiving Flagyl, Oral Vanco for CDiff. ID following. KUB with persistent ileus. Clinically, no significant tenderness on exam. No n/v. Tolerating diet. - Enteritis. abdominal distention with abnormal imaging on CT. Abdomen/Pelvis CT without iv contrast (05/21/16)-----> 1. There is slight ascites with haziness of the mesentery nonspecific may be passive congestion or inflammatory in nature with very abnormal looking loops of small bowel which demonstrate thickening of the bowel wall and the exact etiology is not certain. 2. Bibasilar consolidation worse on the left. The nurse reports that the patient has been having significant diarrhea. CDiff (+), 027 negative. KUB (05/22/16)--> NG coiled in stomach, mild gaseous distention of bowel, characteristic of ileus. Abdominal US (05/23/16)---> Trace fluid in the rlq, this is insufficient for percutaneous drainage. Rpt. KUB (05/28/16) 1. Gaseous distention of bowel similar to May 27. - Ileus. NGT to LIWS, KUB (05/26) --> 1. NG tube in stomach. Ileus pattern similar to May 26. Abdomen is still distended, but improved. No n/v. No abdominal pain. Tolerating clears. Will remove NGT and advance diet to full liquids. - Transaminitis. Improving. Likely related to polypharmacy. CT as above. - Acute respiratory failure. S/P Extubated. - Acute encephalopathy, polydrug overdose, possible myoclonus, severe metabolic and respiratory acidoses, shock (likely hypovolemic), MAYRA and probable sepsis. Per [facility] PLAN: - D/C NGT - Full liquids - Decrease Reglan to 5mg IV daily - Cont. Flagyl- will need to continue 10 days AFTER other abx stopped (On zyvox for pna) - Cont. Oral Vanco- will need to continue 10 days AFTER other abx stopped (On zyvox for pna) - Cont. PPI - Monitor stool output - ID following - Supportive care - Further recommendations as the case develops - Pt seen and examined by Dr. Rosario and myself and this note is written on hisr behalf (Katia Tay) Physician Comments Patient seen and examined Agree with above Continue with current supportive care Monitor labs (Kar Rosario MD) Katia Tay May 28, 2016 11:19 Kar Rosario MD May 28, 2016 20:11
[2016-05-28] MEDS ORDERED: NYSTATIN 100,000 U/GM PWD 15 GM BTL TOPICAL PRN (14:00)
--- NOTE | 2016-05-28 14:22 | PD.CONS ---
Provisional Diagnosis Admission Date May 21, 2016 at 10:37 [place] I. Substance induced mood disorder, polysubstance dependence, adjustment disorder with depressed mood [place] II. Deferred [place] III. Hypertension and chronic lower back pain [place] IV. History of polysubstance dependence [place] V. 55 History of Present Illness Service Psychiatry Consult Requested By Primary Care Physician Duong Barahona MD HPI The patient is a 56-year-old woman, domiciled with her in [place], unemployed, on SSI, with psychiatric history of depression, no previous psychiatric hospitalizations, no previous suicidal attempts, she is in Wellbutrin 75 mg twice a day, prescribed by PCP, history of cocaine and opiates use disorder, past medical history significant for hypertension and chronic pain who was brought to the [place] emergency department by EMS for altered mental status. Per EMS stated that she was recently started on oxycodone , Wellbutrin within the past 2 weeks. According to him patient was getting more confused and lethargic in the last days. On EMS arrival and there were multiple open bottles on the scene including Wellbutrin oxycodone and alprazolam. Unable to determine what meds and how much she consumed. Patient was hypotensive and on ER workup showed a CT of the head was negative but patient remained unresponsive with jerking movements of bilateral upper and lower extremities. Lab work initially showed acute renal failure with BUN 184 creatinine of 13, potassium was 7.6. Patient was transferred to the main hospital and I evaluated her in the ICU, intubated for respiratory failure. Toxicology was positive for opiates, benzo, amphetamine and cocaine. She was admitted with Acute encephalopathy, Severe metabolic and respiratory acidosis, Hypovolemic and septic shock, Transaminitis, C. difficile colitis and Acute kidney failure. Patient is now stable, extubated. Consulted to psychiatry to assess potential suicidal/intentional overdose. On psychiatric evaluation today patient is calm, cooperative and pleasant. Patient states that she is happy that she has been giving another opportunity to live. Patient says that she has been thinking and reflecting about the things that she needs to change for her future. Her plan is to enjoy her life, to enjoy her , her kids, and the most important for her her grandkids. Patient says that since her mother about 3 years ago and she inherited good money, instead doing the things "I have been misusing the money and abusing drugs". She says that in the last months, due to her continues cocaine and opiate abuse, she has been feeling empty and sad, also anxious. She shared feeling with her PCP, was is starting Wellbutrin and alprazolam. She says that she has been responding well to the psychotropics. Patient explains that her recent overdose was not intentional, but completely accidental. However, she understands and admits that she has been abusing drugs and she has been planning with her to place herself in a rehabilitation program. At this moment the patient reports good mood, she denies anhedonia, she denies hopelessness, she denies helplessness, she denies problems sleeping, she denies poor appetite, she denies suicidal or homicidal ideation. Patient is future oriented, with good plans, with identified protective factors. Patient is extremely motivated, in contemplation state of her drug addiction and ready to take action. Patient denies visual and auditory hallucinations, she denies current and past manic symptoms, she denies paranoia, she denies delusion. Patient is fully oriented 3, no gross cognitive impairment observed.. Patient denies the use of alcohol, daily use of cocaine, she admits abusing her prescribed opiates. She denies the use of amphetamine, she was confronted about her toxicology positive for this drug, but she says that she doesn't use this. Review of Systems Constitutional: DENIES: Diaphoretic episodes, Fatigue, Fever, Weight gain, Weight loss, Chills, Dizziness, Change in appetite, Night Sweats Endocrine: DENIES: Abnorml menstrual pattern, Heat/cold intolerance, Polydipsia , Polyuria, Polyphagia Eyes: DENIES: Blurred vision, Diplopia, Eye inflammation, Eye pain, Vision loss , Photosensitivity, Double Vision Ears, nose, mouth, throat: DENIES: Tinnitus, Hearing loss, Vertigo, Nasal discharge, Oral lesions, Throat pain, Hoarseness, Ear Pain, Running Nose, Epistaxis, Sinus Pain, Toothache, Odynophagia Respiratory: DENIES: Apneas, Cough, Snoring, Wheezing, Hemoptysis, Sputum production, Shortness of breath Gastrointestinal: DENIES: Abdominal pain, Black stools, Bloody stools, Constipation, Diarrhea, Nausea, Vomiting, Difficulty Swallowing, Anorexia Integumentary: DENIES: Abnormal pigmentation, Pruritus, Rash, Nail changes, Breast masses, Breast skin changes, Nipple discharge Hematologic/lymphatic: DENIES: Bruising, Lymphadenopathy Immunologic/allergic: DENIES: Eczema, Urticaria Neurologic: DENIES: Abnormal gait, Headache, Localized weakness, Paresthesias, Seizures, Speech Problems, Tremor, Poor Balance Psychiatric: DENIES: Anxiety, Confusion, Mood changes, Depression, Hallucinations, Agitation, Suicidal Ideation, Homicidal Ideation, Delusions Past Family Social History Coded Allergies: *MDRO Multi-Drug Resistant Organism (Verified Adverse Reaction, Unknown, ) MRSA PCR Screen POSITIVE - 05/21/2016 MRSA (sputum)-05/21/16 Active Scripts Promethazine Hcl 25 Mg Tab25 Mg PO Q6H PRN (nausea) #30 TAB FOR NAUSEA/VOMITING Prov:Abilio Aaron MD 05/01/15 Reported Medications Tizanidine 4 Mg Cap4 Mg PO BID PRN (Muscle Spasm) Ref 0 05/21/16 Lorazepam (Ativan)1 Mg Tab1 Mg PO ONCE #1 TAB 05/01/15 Morphine Sulfate (Morphine Sulfate Cr)15 Mg Tab15 Mg PO TID 05/01/15 Morphine Sulfate (Morphine Sulfate)20 Mg/5 Ml Sol15 Mg PO 05/01/15 Duloxetine Hcl (Cymbalta)20 Mg Cap20 Mg PO DAILY 05/01/15 Lisinopril 40 mg (Prinivil 40 mg)40 Mg Tab1 Tab PO DAILY 04/12/15 Meloxicam (Mobic)7.5 Mg Tab7.5 Mg PO HS 04/12/15 Oxycodone-Acetaminophen 10-325 mg (Percocet 10-325 mg)Oxycodone 10/325 Acetaminophen Tab1 Tab PO BID 04/12/15 Current Medications Medications (Trade) Dose Ordered Sig/Brooke Route Start Time Stop Time Status Last Admin (NS Flush) 2 ml UNSCH PRN IVF 05/21/16 08:45 (Brethine Inj) 1 mg UNSCH PRN SQ 05/21/16 10:30 (Tylenol) 650 mg Q6H PRN PO 05/21/16 12:30 (fentaNYL INJ) 50 mcg Q1H PRN IV 05/21/16 12:30 05/25/16 13:14 (Protonix Inj) 40 mg DAILY IV 05/21/16 13:00 05/28/16 09:01 Miscellaneous Information 1 [id number] XX 05/21/16 12:30 05/22/16 07:28 (Chlorhexidine 2% Cloth) Taper DAILY@04 TOP 05/22/16 04:00 05/18/17 03:59 05/27/16 04:00 (Chlorhexidine 2% Cloth) 3 pack UNSCH PRN TOP 05/21/16 12:30 Chlorhexidine Gluconate 15 ml 15 ml BID@08,20 MT 05/21/16 20:00 05/27/16 08:00 (Zyvox 600 Mg Premix) 300 ml @ 300 mls/hr Q12H IV 05/22/16 17:00 05/28/16 03:20 Vancomycin HCl 250 mg 250 mg QID PO 05/22/16 18:00 05/28/16 12:50 (Flagyl 500 Mg Inj) 100 ml @ 100 mls/hr Q8H IV 05/22/16 18:00 05/28/16 09:01 Heparin Sodium (Porcine) 5000 units 5,000 units Q8H SQ 05/23/16 13:00 05/28/16 12:50 Potassium Chloride 100 ml @ 50 mls/hr Q2H PRN IV 05/23/16 08:45 05/23/16 09:23 Potassium Chloride 100 ml @ 50 mls/hr Q2H PRN IV 05/23/16 08:45 Potassium Chloride 100 ml @ 25 mls/hr UNSCH PRN IV 05/23/16 08:45 Potassium Chloride 100 ml @ 50 mls/hr Q2H PRN IV 05/23/16 08:45 (Magnesium Sulfate Inj/NS Inj) 100 ml @ 50 mls/hr UNSCH PRN IV 05/23/16 08:45 Magnesium Oxide 800 mg 800 mg UNSCH PRN PO 05/23/16 08:45 (Magnesium Sulfate Inj/NS Inj) 100 ml @ 50 mls/hr UNSCH PRN IV 05/23/16 08:45 Potassium Phosphate 2000 mg 2,000 mg Q4H PRN PO 05/23/16 08:45 (Sodium Phosphate Inj/NS 250 ml Inj) 250 ml @ 42 mls/hr UNSCH PRN IV 05/23/16 08:45 Potassium Phosphate 2000 mg 2,000 mg UNSCH PRN PO/TUBE 05/23/16 08:45 (Potassium Phosphate Inj/NS 250 ml Inj) 260 ml @ 42 mls/hr UNSCH PRN IV 05/23/16 08:45 (Trandate Inj) 20 mg Q4H PRN IV PUSH 05/23/16 17:30 05/25/16 12:06 Ondansetron HCl 4 mg 4 mg Q4H PRN IV PUSH 05/24/16 00:30 05/25/16 23:36 (KCl Inj/D5W 1000 ml Inj) 1,020 ml @ 75 mls/hr [id number] IV 05/25/16 11:00 05/27/16 02:03 (Haldol Inj) 2 mg Q6H PRN IV 05/26/16 14:45 05/28/16 03:19 (Ativan Inj) 0.5 mg Q2H PRN IV PUSH 05/26/16 11:30 05/27/16 14:47 (Reglan Inj) 5 mg Q8HR IV 05/28/16 14:00 05/28/16 12:50 (Mycostatin Powder) 1 applic BID PRN TOPICAL 05/28/16 14:00 Family History Patient was raised by adoptive parents Social History Patient was born and raised in [place], she was raised by adoptive parents , she knows live in [place] with her , she is unemployed, she has disability, her highest level of education is 2 college years. Physical Exam On physical exam the patient does not present tremors, no acute dystonia, no parkinsonism, no stiffness or rigidity, no mydriasis or miosis. Vital Signs Vital Signs Date Time Temp Pulse Resp B/P Pulse Ox O2 Delivery O2 Flow Rate FiO2 05/28/16 07:29 96 Nasal Cannula 2.00 05/28/16 06:00 98 05/28/16 04:00 98.1 24 119/77 I/O 05/27/16 05/27/16 05/28/16 08:00 16:00 00:00 Intake Total 1295 ml 884 ml Output Total 600 ml 950 ml 600 ml Balance 695 ml -950 ml 284 ml Lab Results WBCs 18.1, HBG 10.2, HCT 30, NA 142, K3.9, creatinine 0.51, BUN 16, C. difficile Toxicology positive for amphetamines, benzodiazepines, opiates, cocaine Mental Status Examination Appearance woman, age appearing, overweight, good hygiene, [facility], calm , cooperative and pleasant Speech: Unremarkable Orientation: x3 Memory: Unremarkable Thought Process: Logical Thought Content: Unremarkable Hallucination Type: None Suicidal Ideation: No Previous Suicide Attempts: No Homicidal Ideation: No Previous Homicide Attempts: No Judgement: WNL Affect: Good Affect if Inappropriate: Flat Mood: Appropriate Motor Activity: Normal gait Assessment & Plan Problem List: (1) Polysubstance dependence Assessment & Plan: On psychiatric evaluation today the patient is calm, cooperative, pleasant, no evidence of objective or subjective symptomatology of depression, anxiety, cassandra or perceptual disturbances. Patient denies suicidal or homicidal ideation, she denies visual and auditory hallucinations. Patient is fully oriented denies history, with no impairment in attention, without fluctuation of consciousness, no gross cognitive impairment observed. Patient is logical, coherent and relevant. Recent overdose with multiple drugs seems to be more accidental than intentional, the product of poor judgment and escalating abuse and tolerance. Patient is positive for amphetamines, but she is in Wellbutrin for depression, and Wellbutrin is known to give false positives for amphetamines in drug screening. Patient seems to be in a pre- contemplation stage of her addiction and she is highly motivated to go to rehabilitation program. Can continue Wellbutrin 75 mg twice a day. intake worker intervention for rehabilitation programs in the community. Extensive support, motivation, psycho education provided. She does not meet criteria for psychiatric admission at this moment. She can continue her psychiatric care as an outpatient with PCP. Consult appreciated. ICD Code: F19.20 Assessment & Plan Estimated LOS: days aDyron Van MD May 28, 2016 14:22
--- NOTE | 2016-05-28 15:03 | HHI.IDPN ---
Note Infectious Disease Note Patient is very alert. Says she feels better. Denies abdominal pain. Afebrile. Loose stools via rectal bag. No cough or SOB. Patient admitted with altered mental status. Seen for MRSA pneumonia/sepsis. PAST MEDICAL HISTORY 1. Hypertension, 2. Chronic pain. 3. Cholecystectomy 4. Laminectomy. ALLERGIES NO KNOWN DRUG ALLERGIES. MEDICATIONS 1. Vancomycin p.o. 2. Metronidazole IV 3. Linezolid IV. SOCIAL HISTORY Positive tobacco use. The patient smokes 1/2 pack of cigarettes a day. Social alcohol use. No illicit drugs. Current Medications Medications (Trade) Dose Ordered Sig/Brooke Route PRN Reason Start Time Stop Time Status Last Admin Dose Admin Sodium Chloride (NS Flush) 2 ml UNSCH PRN IVF FLUSH AFTER USING IV ACCESS 05/21/16 08:45 Terbutaline Sulfate (Brethine Inj) 1 mg UNSCH PRN SQ For Extravasation 05/21/16 10:30 Acetaminophen (Tylenol) 650 mg Q6H PRN PO PAIN 1-10 AND/OR FEVER >101F 05/21/16 12:30 Fentanyl Citrate (fentaNYL INJ) 50 mcg Q1H PRN IV SEE LABEL COMMENTS 05/21/16 12:30 05/25/16 13:14 Pantoprazole Sodium (Protonix Inj) 40 mg DAILY IV 05/21/16 13:00 05/28/16 09:01 Miscellaneous Information 1 [id number] XX 05/21/16 12:30 05/22/16 07:28 Chlorhexidine Gluconate (Chlorhexidine 2% Cloth) Taper DAILY@04 TOP 05/22/16 04:00 05/18/17 03:59 05/27/16 04:00 Chlorhexidine Gluconate (Chlorhexidine 2% Cloth) 3 pack UNSCH PRN [facility] 05/21/16 12:30 Chlorhexidine Gluconate 15 ml 15 ml BID@08,20 MT 05/21/16 20:00 05/27/16 08:00 Linezolid (Zyvox 600 Mg Premix) 300 ml @ 300 mls/hr Q12H IV 05/22/16 17:00 05/28/16 03:20 Vancomycin HCl 250 mg 250 mg QID PO 05/22/16 18:00 05/28/16 12:50 Metronidazole (Flagyl 500 Mg Inj) 100 ml @ 100 mls/hr Q8H IV 05/22/16 18:00 05/28/16 09:01 Heparin Sodium (Porcine) 5000 units 5,000 units Q8H SQ 05/23/16 13:00 05/28/16 12:50 Potassium Chloride 100 ml @ 50 mls/hr Q2H PRN IV For Potassium 2.8 - 3.2 mEq/L 05/23/16 08:45 05/23/16 09:23 Potassium Chloride 100 ml @ 50 mls/hr Q2H PRN IV For Potassium 2.8 - 3.2 mEq/L 05/23/16 08:45 Potassium Chloride 100 ml @ 25 mls/hr UNSCH PRN IV For Potassium 3.3 - 3.5 mEq/L 05/23/16 08:45 Potassium Chloride 100 ml @ 50 mls/hr Q2H PRN IV For Potassium 3.3 - 3.5 mEq/L 05/23/16 08:45 Magnesium Sulfate/ Sodium Chloride (Magnesium Sulfate Inj/NS Inj) 100 ml @ 50 mls/hr UNSCH PRN IV For Magnesium 0.9 - 1.1 mg/dL 05/23/16 08:45 Magnesium Oxide 800 mg 800 mg UNSCH PRN PO For Magnesium 1.2 - 1.6 mg/dL 05/23/16 08:45 Magnesium Sulfate/ Sodium Chloride (Magnesium Sulfate Inj/NS Inj) 100 ml @ 50 mls/hr UNSCH PRN IV For Magnesium 1.2 - 1.6 mg/dL 05/23/16 08:45 Potassium Phosphate 2000 mg 2,000 mg Q4H PRN PO For Phosphorus < 2.5 mg/dL 05/23/16 08:45 Sodium Phosphate/ Sodium Chloride (Sodium Phosphate Inj/NS 250 ml Inj) 250 ml @ 42 mls/hr UNSCH PRN IV For Phosphorus < 2.5 mg/dL 05/23/16 08:45 Potassium Phosphate 2000 mg 2,000 mg UNSCH PRN PO/TUBE SEE LABEL COMMENTS 05/23/16 08:45 Potassium Phosphate/Sodium Chloride (Potassium Phosphate Inj/NS 250 ml Inj) 260 ml @ 42 mls/hr UNSCH PRN IV SEE LABEL COMMENTS 05/23/16 08:45 Labetalol HCl (Trandate Inj) 20 mg Q4H PRN IV PUSH SYS BP GREATER THAN 170 MMHG 05/23/16 17:30 05/25/16 12:06 Ondansetron HCl 4 mg 4 mg Q4H PRN IV PUSH NAUSEA OR VOMITING 05/24/16 00:30 05/25/16 23:36 Potassium Chloride/Dextrose (KCl Inj/D5W 1000 ml Inj) 1,020 ml @ 75 mls/hr [id number] IV 05/25/16 11:00 05/27/16 02:03 Haloperidol Lactate (Haldol Inj) 2 mg Q6H PRN IV agitation 05/26/16 14:45 05/28/16 03:19 Lorazepam (Ativan Inj) 0.5 mg Q2H PRN IV PUSH anxiety, agitation 05/26/16 11:30 05/27/16 14:47 Metoclopramide HCl (Reglan Inj) 5 mg Q8HR IV 05/28/16 14:00 05/28/16 12:50 Nystatin (Mycostatin Powder) 1 applic BID PRN TOPICAL RASH ON GROIN AREA 05/28/16 14:00 Bupropion HCl (Wellbutrin) 75 mg Q12HR PO 05/28/16 15:00 OBJECTIVE: Vital Signs Date Time Temp Pulse Resp B/P Pulse Ox O2 Delivery O2 Flow Rate FiO2 05/28/16 07:29 96 Nasal Cannula 2.00 05/28/16 07:00 98 Nasal Cannula 3.00 05/28/16 06:00 98 05/28/16 04:00 97 05/28/16 04:00 98.1 99 24 119/77 99 05/28/16 02:00 95 05/28/16 00:00 112 05/28/16 00:00 98.2 105 25 112/68 97 05/27/16 22:00 117 05/27/16 20:42 96 Nasal Cannula 2.00 05/27/16 20:00 98.1 117 35 125/78 95 05/27/16 20:00 112 05/27/16 19:00 94 Nasal Cannula 3.00 05/27/16 18:00 125 05/27/16 16:00 98.8 110 28 148/77 95 05/27/16 16:00 125 05/27/16 05/27/16 05/28/16 15:00 23:00 07:00 Intake Total 884 ml 826 ml Output Total 950 ml 600 ml 850 ml Balance -950 ml 284 ml -24 ml Intake Oral 200 ml 350 ml IV Total 584 ml 476 ml Other 100 ml Output Urine Total 850 ml 500 ml 850 ml Stool Total 100 ml 100 ml # Bowel Movements 1 1 Laboratory Tests Test 05/27/16 05/28/16 06:11 05:15 White Blood Count 19.9 TH/MM3 18.1 TH/MM3 Red Blood Count 4.17 MIL/MM3 3.58 MIL/MM3 Hemoglobin 11.1 GM/DL 10.2 GM/DL Hematocrit 35.1 % 30.0 % Mean Corpuscular Volume 84.1 FL 83.7 FL Mean Corpuscular Hemoglobin 26.7 PG 28.4 PG Mean Corpuscular Hemoglobin 31.8 % 33.9 % Concent Red Cell Distribution Width 14.9 % 14.8 % Platelet Count 97 TH/MM3 105 TH/MM3 Mean Platelet Volume 8.4 FL 8.6 FL Neutrophils (%) (Auto) 85.2 % 85.3 % Lymphocytes (%) (Auto) 10.2 % 10.9 % Monocytes (%) (Auto) 4.3 % 3.3 % Eosinophils (%) (Auto) 0.1 % 0.4 % Basophils (%) (Auto) 0.2 % 0.1 % Neutrophils # (Auto) 17.0 TH/MM3 15.5 TH/MM3 Lymphocytes # (Auto) 2.0 TH/MM3 2.0 TH/MM3 Monocytes # (Auto) 0.9 TH/MM3 0.6 TH/MM3 Eosinophils # (Auto) 0.0 TH/MM3 0.1 TH/MM3 Basophils # (Auto) 0.0 TH/MM3 0.0 TH/MM3 CBC Comment AUTO DIFF AUTO DIFF Differential Total Cells 100 100 Counted Neutrophils % (Manual) 77 % 87 % Band Neutrophils % 10 % 3 % Lymphocytes % 6 % 7 % Monocytes % 7 % 3 % Neutrophils # (Manual) 17.3 TH/MM3 16.3 TH/MM3 Differential Comment FINAL DIFF FINAL DIFF MANUAL MANUAL Platelet Estimate LOW LOW Platelet Morphology Comment NORMAL NORMAL Laboratory Tests Test 05/27/16 05/28/16 06:11 05:15 Sodium Level 145 MEQ/L 142 MEQ/L Potassium Level 4.3 MEQ/L 3.9 MEQ/L Chloride Level 111 MEQ/L 110 MEQ/L Carbon Dioxide Level 26.5 MEQ/L 25.6 MEQ/L Anion Gap 8 MEQ/L 6 MEQ/L Blood Urea Nitrogen 25 MG/DL 16 MG/DL Creatinine 0.73 MG/DL 0.51 MG/DL Estimat Glomerular Filtration 82 ML/MIN 124 ML/MIN Rate Random Glucose 116 MG/DL 89 MG/DL Calcium Level 7.5 MG/DL 7.4 MG/DL Magnesium Level 1.7 MG/DL Total Bilirubin 0.8 MG/DL Aspartate Amino Transf 43 U/L (AST/SGOT) Alanine Aminotransferase 31 U/L (ALT/SGPT) Alkaline Phosphatase 88 U/L Total Protein 4.6 GM/DL 4.4 GM/DL Albumin 2.1 GM/DL Protein Corrected Calcium 9.0 MG/DL Microbiology Date/Time Procedure Status Source Growth 05/21/16 09:40 Aerobic Blood Culture - Preliminary Resulted Blood Peripheral NO GROWTH IN 2 DAYS 05/21/16 09:40 Anaerobic Blood Culture - Preliminary Resulted Blood Peripheral NO GROWTH IN 2 DAYS 05/21/16 09:40 Urine Culture - Final Complete Urine Clean Catch NO GROWTH IN 48 HOURS. 05/21/16 09:46 Aerobic Blood Culture - Preliminary Resulted Blood Peripheral NO GROWTH IN 2 DAYS 05/21/16 09:46 Anaerobic Blood Culture - Preliminary Resulted Blood Peripheral NO GROWTH IN 2 DAYS 05/21/16 14:13 Gram Stain - Final Complete Sputum Endotracheal 05/21/16 14:13 Sputum Culture - Final Complete Enterobacter Gergoviae S. Aureus Mrsa 05/22/16 12:00 - Final Complete Stool Stool NO ENTERIC PATHOGENS DETECTED BY PCR... 05/22/16 12:00 Cryptosporidium Exam Resulted Stool Stool Pending 05/22/16 12:00 Stool Pus (SANDY) - Final Resulted Stool Stool RARE WBC 05/22/16 12:00 Giardia Antigen (SANDY) Resulted Stool Stool Pending PHYSICAL EXAMINATION GENERAL: No acute distress. Alert and oriented. HEENT: EOMI, PERRLA. NECK: Supple without swelling. LUNGS: Clear breath sounds. HEART: Regular S1 and S2 without murmurs or rubs or gallops. ABDOMEN: Bowel sounds markedly distended, soft. No tenderness. EXTREMITIES: No clubbing, cyanosis or edema. SKIN: No rash. NEUROLOGIC: Non focal. PSYCHIATRIC: calm and cooperative. IMPRESSION: 1. Sepsis. 2. Pneumonia MRSA. 3. C. difficile. 4. Acute kidney disease improved. 5. Drug intoxication/Encephalopathy. RECOMMENDATIONS 1. Continue linezolid 2. Continue metronidazole 3. Continue oral vancomycin 4. Repeat CXR in am. Antony Hamilton MD May 28, 2016 15:03
[2016-05-28] MEDS: POTASSIUM CHLORIDE INJ 40 MEQ in DEXTROSE 5% IN WATE 1000ML INJ 1,000 ML IV SCH ×2 (16:00)
[2016-05-28] MEDS: buPROPion HCL 75 MG TAB PO SCH ×2 (16:01→20:57)
[2016-05-29] VITALS (16 sets, daily range): BP systolic 110–143; BP diastolic 56–84; PULSE 97–125; RESP 18–33; TEMP 98.1–98.8; O2SAT 93–98
[2016-05-29] MEDS: RESP: ALBUTEROL 2.5 MG/IPRATROPIUM 0.5 MG NEB (PRN) INH ×3 (00:15→23:03)
--- NOTE | 2016-05-29 02:26 | RADRPT ---
EXAM DATE/TIME: 05/29/2016 01:19 [place] COMPARISON: CHEST SINGLE AP, May 27, 2016, 3:03. INDICATIONS : Shortness of breath, possible pulmonary disease. MEDICAL HISTORY : Hypertension. SURGICAL HISTORY : Cholecystectomy. Tubal ligation. ENCOUNTER: Subsequent ACUITY: 1 week PAIN SCORE: 0/10 LOCATION: Bilateral chest FINDINGS: Bilateral effusions and basilar airspace disease similar to May 27. Previous nasogastric tube has b een removed. Right central line has also been removed. CONCLUSION: 1. Bilateral effusions and basilar airspace disease similar to May 27. Davis Goldman MD on May 29, 2016 at 2:22 Board Certified Radiologist. This report was verified electronically.
[2016-05-29] MEDS: METOCLOPRAMIDE HCL 10 MG/2 ML VIAL IV SCH ×3 (03:13→20:15)
[2016-05-29] MEDS: HEPARIN SODIUM - SQ 10,000 UNITS/ML VIAL SQ SCH ×3 (03:13→20:15)
[2016-05-29] MEDS: metroNIDAZOLE 500 MG INJ 100 ML IV SCH ×3 (03:14→17:23)
[2016-05-29] MEDS: CHLORHEXIDINE GLUCONATE 2 % 1 PACK (2 CLOTHS) TOP SCH (03:14)
[2016-05-29] MEDS: LORazepam 2 MG/ML VIAL IV PUSH PRN ×5 (03:14→23:29)
[2016-05-29] MEDS: LINEZOLID 600 MG PREMIX 300 ML IV SCH ×2 (03:14→17:22)
[2016-05-29 05:17] LABS: AUTOMATED NEUTROPHIL # 13.7 TH/MM3 (1.8-7.7); BASOPHIL % 0.1 % (0.0-2.0); EOSINOPHIL # 0.1 TH/MM3 (0-0.4); EOSINOPHIL % 0.3 % (0.0-4.0); HEMATOCRIT 27.7 % (35.0-46.0); LYMPHOCYTE # 1.6 TH/MM3 (1.0-4.8); MEAN CELL VOLUME 85.8 FL (80.0-100.0); MEAN CORPUSCULAR HEMOGLOBIN 27.7 PG (27.0-34.0); MEAN CORPUSCULAR HGB CONC 32.3 % (32.0-36.0); MONO % 3.2 % (0.0-8.0); NEUT % 86.4 % (16.0-70.0); PLATELET COUNT 130 TH/MM3 (150-450); RED BLOOD COUNT 3.23 MIL/MM3 (4.00-5.30); RED CELL DISTRIBUTION WIDTH 14.6 % (11.6-17.2); WHITE BLOOD COUNT 15.8 TH/MM3 (4.0-11.0)
[2016-05-29 05:33] LABS: HEMO FLAGS AUTO DIFF
[2016-05-29 05:38] LABS: BICARBONATE 24.8 MEQ/L (21.0-32.0); POTASSIUM 3.4 MEQ/L (3.5-5.1)
[2016-05-29 05:57] LABS: CALCIUM-PROTEIN CORRECTED 8.8 MG/DL (8.5-10.1)
[2016-05-29 07:46] LABS: BANDS 1 % (0-6); METAMYELOCYTES 1 % (0-1); NEUTROPHIL # MANUAL DIFF 13.7 TH/MM3 (1.8-7.7); POLYS (SEG NEUTROPHILS) 85 % (16-70); WBC DIFF SAMPLE 100
[2016-05-29 07:47] LABS: PLATELET ESTIMATE SMEAR LOW (NORMAL); PLATELET MORPHOLOGY NORMAL (NORMAL); SCAN/DIFF FINAL DIFF MANUAL
[2016-05-29 07:48] LABS: TOXIC GRANULATION 1+ (NORMAL)
--- NOTE | 2016-05-29 08:12 | HHI.PR ---
Subjective Remarks looks better today. diarrhea has much improved. no fever. d/w the RN and no acute issues over night. Objective Vitals Vital Signs Date Time Temp Pulse Resp B/P Pulse Ox O2 Delivery O2 Flow Rate FiO2 05/29/16 06:00 97 05/29/16 04:00 98.5 106 22 110/56 95 05/29/16 04:00 110 05/29/16 02:00 101 05/29/16 00:00 98.3 117 33 132/84 95 05/29/16 00:00 104 05/28/16 22:00 120 05/28/16 21:03 96 Nasal Cannula 2.00 05/28/16 20:00 117 05/28/16 20:00 98.3 117 26 103/95 95 05/28/16 19:00 95 Nasal Cannula 3.00 05/28/16 18:00 118 05/28/16 16:00 98.9 118 20 141/84 95 05/28/16 16:00 102 05/28/16 14:00 111 05/28/16 12:00 113 05/28/16 12:00 98.7 113 20 137/92 100 05/28/16 10:00 102 I/O 05/28/16 05/28/16 05/28/16 05/29/16 05/29/16 05/29/16 07:00 15:00 23:00 07:00 15:00 23:00 Intake Total 826 ml 1070 ml 392 ml 903 ml Output Total 850 ml 1700 ml 900 ml 1700 ml Balance -24 ml -630 ml -508 ml -797 ml Intake Oral 350 ml 620 ml 125 ml 350 ml IV Total 476 ml 450 ml 267 ml 553 ml Output Urine Total 850 ml 1100 ml 500 ml 1200 ml Stool Total 600 ml 400 ml 500 ml # Bowel Movements 1 1 Result Diagram: 05/29/1642705/29/16427 Imaging Last Impressions Chest X-Ray 05/29/16599 Signed Impressions: Service Date/Time: April 01:19 - CONCLUSION: 1. Bilateral effusions and basilar airspace disease similar to May 27. Davis Goldman MD Abdomen X-Ray 05/28/16599 Signed Impressions: Service Date/Time: Saturday, May 28, 2016 04:52 - CONCLUSION: 1. Gaseous distention of bowel similar to May 27. Davis Goldman MD Abdomen Ultrasound 05/23/16 0000 Signed Impressions: Service Date/Time: Monday, May 23, 2016 09:14 - CONCLUSION: Trace fluid in the right lower quadrant. This is insufficient volume for percutaneous drainage. Ky German MD Head CT 05/21/16 0833 Signed Impressions: Service Date/Time: Saturday, May 21, 2016 09:02 - CONCLUSION: No acute disease. Torsten Verma MD Renal Ultrasound 05/21/16 0000 Signed Impressions: Service Date/Time: Saturday, May 21, 2016 15:32 - CONCLUSION: 1. Kidney sizes are preserved with increased cortical echogenicity characteristic of acute medical renal disease. 2. Otherwise negative. No hydronephrosis or nephrolithiasis. Ky German MD Abdomen/Pelvis CT 05/21/16 0000 Signed Impressions: Service Date/Time: Saturday, May 21, 2016 18:34 - CONCLUSION: 1. There is slight ascites with haziness of the mesentery nonspecific may be passive congestion or inflammatory in nature with very abnormal looking loops of small bowel which demonstrate thickening of the bowel wall and the exact etiology is not certain. 2. Bibasilar consolidation worse on the left. Caren Andrade MD Objective Remarks GENERAL:in no acute distress- with NG tube in place CARDIOVASCULAR: Regular rate and irregular rhythm without murmurs, gallops, or rubs. RESPIRATORY: mild bilateral wheezing. GASTROINTESTINAL: Abdomen soft, non-tender, less distended. Normal, active bowel sounds MUSCULOSKELETAL: Extremities without clubbing, cyanosis, or edema. NEURO: Alert & Oriented x4 to person, place, time, situation. Moves all ext x4 Procedures endotracheal intubation central line placement Medications and IVs Current Medications Sodium Chloride 2 ml 2 ml UNSCH PRN IVF FLUSH AFTER USING IV ACCESS; Start at 08:45 Sodium Chloride 1,000 ml @ 1,000 mls/hr Q1H ONCE IV Last administered on t 09:41; Start 05/21/16 at 08:33; Stop 05/21/16 at 09:32; Status DC Sodium Chloride 1,000 ml @ 999 mls/hr Q1H1M IV ; Start 05/21/16 at 08:45; Stop 05/21/16 at 09:45; Status DC Sodium Chloride 1,000 ml @ 999 mls/hr Q1H1M IV ; Start 05/21/16 at 09:00; Stop 05/21/16 at 10:00; Status DC Sodium Chloride 1,000 ml @ 999 mls/hr Q1H1M IV Last administered on 05/21/16 10:25; Start 05/21/16 at 09:00; Stop 05/21/16 at 10:00; Status DC Sodium Bicarbonate 100 meq/Dextrose 1,100 ml @ 200 mls/hr Q5H30M IV Last administered on 05/21/16 09:41; Start 05/21/16 at 09:15; Stop 05/21/16 at 13:39 ; Status DC Calcium Gluconate/ Dextrose (Calcium Gluconate Inj/D5W 100 ml Inj) 120 ml @ 120 mls/hr ONCE ONCE IV Last administered on 05/21/16 10:23; Start 05/21/16 at 09:45; Stop 05/21/16 at 10:44; Status DC Albuterol Sulfate (Albuterol Neb) 7.5 mg ONCE ONCE NEB Last administered on 09:47; Start 05/21/16 at 09:45; Stop 05/21/16 at 09:46; Status DC Sodium Bicarbonate (Sodium Bicarbonate 8.4% Inj) 50 meq ONCE ONCE IV PUSH Last administered on 05/21/16 09:45; Start 05/21/16 at 09:45; Stop 05/21/16 at 09:46; Status DC Dextrose (D50w (Vial) Inj) 50 ml ONCE ONCE IV PUSH Last administered on 09:46; Start 05/21/16 at 09:45; Stop 05/21/16 at 09:46; Status DC Insulin Human Regular 10 units 10 units ONCE ONCE IV PUSH Last administered on 05/21/16 09:46; Start 05/21/16 at 09:45; Stop 05/21/16 at 09:46; Status DC Norepinephrine Bitartrate (Levophed-Dextrose Drip) 250 ml @ 0 mls/hr TITRATE IV Last administered on 05/22/16 16:16; Start 05/21/16 at 10:30; Stop 05/23/16 at 08:32; Status DC Terbutaline Sulfate (Brethine Inj) 1 mg UNSCH PRN SQ For Extravasation; Start 05/21/16 at 10:30 Etomidate (Amidate Inj) 20 mg ONCE ONCE IVP ; Start 05/21/16 at 11:00; Stop at 11:01; Status DC Rocuronium [place] (Zemuron Inj) 100 mg BOLUS ONCE IV ; Start 05/21/16 at 11:00 ; Stop 05/21/16 at 11:01; Status DC Succinylcholine Chloride (Quelicin Inj) 200 mg STK-MED ONCE .ROUTE ; Start 05/21 at 10:58; Stop 05/21/16 at 10:59; Status DC Rocuronium [place] 50 mg 50 mg STK-MED ONCE .ROUTE ; Start 05/21/16 at 11:00; Stop 05/21/16 at 11:01; Status DC Propofol (Diprivan 1000 Mg/100ml Inj) 100 ml @ 0 mls/hr TITRATE IV Last administered on 05/23/16 05:37; Start 05/21/16 at 11:15; Stop 05/23/16 at 08:33 ; Status DC Acetaminophen (Tylenol) 650 mg Q6H PRN PO PAIN 1-10 AND/OR FEVER >101F; Start 05/21/16 at 12:30 Fentanyl Citrate (fentaNYL INJ) 50 mcg Q1H PRN IV SEE LABEL COMMENTS Last administered on 05/25/16 13:14; Start 05/21/16 at 12:30 Albuterol/ Ipratropium (Duoneb Neb) 1 ampule Q6HR NEB NEB Last administered on 05/26/16 10:16; Start 05/21/16 at 16:00; Stop 05/26/16 at 11:15; Status DC Albuterol/ Ipratropium (Duoneb Neb) 1 ampule Q4HR NEB PRN INH SHORTNESS OF BREATH Last administered on 05/29/16 00:15; Start 05/21/16 at 12:30 Chlorhexidine Gluconate (Peridex 0.12% Liq) 15 ml BID@08,20 MT ; Start 05/21/16 at 20:00; Stop 05/22/16 at 14:09; Status DC Pantoprazole Sodium (Protonix Inj) 40 mg DAILY IV Last administered on 09:01; Start 05/21/16 at 13:00 Heparin Sodium (Porcine) (Heparin Inj) 5,000 units Q12H SQ Last administered on 05/23/16 01:06; Start 05/21/16 at 13:00; Stop 05/23/16 at 08:33; Status DC Miscellaneous Information 1 [id number] Last administered on 05/22/16 07:28; Start 05/21/16 at 12:30 Chlorhexidine Gluconate (Chlorhexidine 2% Cloth) Taper DAILY@04 TOP Last administered on 05/27/16 04:00; Start 05/22/16 at 04:00; Stop 05/18/17 at 03:59 Chlorhexidine Gluconate 3 pack 3 pack UNSCH PRN TOP HYGIENIC CARE; Start at 12:30 Sodium Chloride 1,000 ml @ 999 mls/hr BOLUS ONCE IV Last administered on 05/21 17:16; Start 05/21/16 at 13:30; Stop 05/21/16 at 14:30; Status DC Sodium Chloride 1,000 ml @ 999 mls/hr BOLUS ONCE IV Last administered on 05/21 13:30; Start 05/21/16 at 13:30; Stop 05/21/16 at 14:30; Status DC Sodium Bicarbonate/ Sterile Water (Sodium Bicarbonate 8.4% Inj/Sterile Water For Inj) 1,000 ml @ 150 mls/hr Q6H40M IV Last administered on 05/22/16 06:30 ; Start 05/21/16 at 15:00; Stop 05/22/16 at 10:30; Status DC Chlorhexidine Gluconate 15 ml 15 ml BID@08,20 MT Last administered on 08:00; Start 05/21/16 at 20:00 Midazolam HCl (Versed Inj) 100 ml @ 0 mls/hr TITRATE IV ; Start 05/21/16 at 13: 45; Stop 05/23/16 at 08:33; Status DC Sodium Polystyrene Sulfonate 30 gm 30 gm ONCE ONCE PO Last administered on 16:17; Start 05/21/16 at 15:00; Stop 05/21/16 at 15:01; Status DC Calcium Chloride 2 gm/Dextrose 120 ml @ 120 mls/hr ONCE ONCE IV Last administered on 05/21/16 16:28; Start 05/21/16 at 14:30; Stop 05/21/16 at 15:29 ; Status DC Piperacillin Sod/ Tazobactam Sod 50 ml @ 100 mls/hr Q8H IV Last administered on 05/22/16 06:29; Start 05/21/16 at 15:00; Stop 05/22/16 at 16:01; Status DC Vancomycin HCl/ Sodium Chloride (Vancomycin Inj/ NS 250 ml Inj) 250 ml @ 250 mls/hr ONCE ONCE IV Last administered on 05/21/16 16:18; Start 05/21/16 at 15 :00; Stop 05/21/16 at 15:59; Status DC Sodium Bicarbonate 100 meq 100 meq ONCE ONCE IV PUSH Last administered on 05/21 16:19; Start 05/21/16 at 15:45; Stop 05/21/16 at 15:48; Status DC Dexmedetomidine HCl (Precedex Inj) 50 ml @ 0 mls/hr TITRATE IV Last administered on 05/24/16 03:50; Start 05/22/16 at 08:15; Stop 05/24/16 at 08:59 ; Status DC Albumin Human 12.5 gm 12.5 gm NOW ONCE IV Last administered on 05/22/16 08:16 ; Start 05/22/16 at 08:15; Stop 05/22/16 at 08:16; Status DC Vasopressin 40 units/Dextrose 100 ml @ 0 mls/hr Q0M IV Last administered on 11:18; Start 05/22/16 at 10:27; Stop 05/24/16 at 08:59; Status DC Sodium Chloride 1,000 ml @ 999 mls/hr BOLUS ONCE IV Last administered on 05/22 11:19; Start 05/22/16 at 10:30; Stop 05/22/16 at 11:30; Status DC Sodium Chloride 1,000 ml @ 999 mls/hr BOLUS ONCE IV Last administered on 05/22 11:19; Start 05/22/16 at 10:30; Stop 05/22/16 at 11:30; Status DC Sodium Chloride (NS 1000 ml Inj) 1,000 ml @ 75 mls/hr [id number] IV Last administered on 05/23/16 16:44; Start 05/22/16 at 10:30; Stop 05/24/16 at 09:01 ; Status DC Potassium Chloride 40 meq 40 meq NOW ONCE PO Last administered on 05/22/16 14 :15; Start 05/22/16 at 14:15; Stop 05/22/16 at 14:16; Status DC Piperacillin Sod/ Tazobactam Sod 50 ml @ 100 mls/hr Q6H IV ; Start 05/22/16 at 21:00; Stop 05/22/16 at 21:00; Status DC Linezolid (Zyvox 600 Mg Premix) 300 ml @ 300 mls/hr Q12H IV Last administered on 05/29/16 03:14; Start 05/22/16 at 17:00 Diltiazem HCl (Cardizem Inj) 20 mg ONCE ONCE IV Last administered on 16:17; Start 05/22/16 at 16:00; Stop 05/22/16 at 16:03; Status DC Vancomycin HCl 250 mg 250 mg QID PO Last administered on 05/28/16 20:57; Start 05/22/16 at 18:00 Metronidazole (Flagyl 500 Mg Inj) 100 ml @ 100 mls/hr Q8H IV Last administered on 05/29/16 03:14; Start 05/22/16 at 18:00 Hydrocortisone Sodium Succinate (SoluCORTEF INJ) 100 mg Q8H IV Last administered on 05/24/16 00:10; Start 05/22/16 at 17:00; Stop 05/24/16 at 09:05 ; Status DC Metoprolol Tartrate 2.5 mg 2.5 mg ONCE ONCE IV PUSH Last administered on 16:45; Start 05/22/16 at 16:45; Stop 05/22/16 at 16:46; Status DC Diltiazem HCl 125 mg/Sodium Chloride 125 ml @ 0 mls/hr TITRATE IV ; Start at 16:45; Stop 05/22/16 at 18:02; Status DC Potassium Chloride (KCl 40 Meq Premix Inj) 100 ml @ 25 mls/hr BOLUS ONCE IV Last administered on 3/23/17at 18:11; Start 05/22/16 at 17:00; Stop 05/22/16 at 20:59; Status DC Heparin Sodium (Porcine) 5000 units 5,000 units Q8H SQ Last administered on 03:13; Start 05/23/16 at 13:00 Potassium Chloride 100 ml @ 50 mls/hr Q2H PRN IV For Potassium 2.8 - 3.2 mEq/ L Last administered on 05/23/16 09:23; Start 05/23/16 at 08:45 Potassium Chloride 100 ml @ 50 mls/hr Q2H PRN IV For Potassium 2.8 - 3.2 mEq/L ; Start 05/23/16 at 08:45 Potassium Chloride 100 ml @ 25 mls/hr UNSCH PRN IV For Potassium 3.3 - 3.5 mEq /L; Start 05/23/16 at 08:45 Potassium Chloride 100 ml @ 50 mls/hr Q2H PRN IV For Potassium 3.3 - 3.5 mEq/L ; Start 05/23/16 at 08:45 Magnesium Sulfate/ Sodium Chloride (Magnesium Sulfate Inj/NS Inj) 100 ml @ 50 mls/hr UNSCH PRN IV For Magnesium 0.9 - 1.1 mg/dL; Start 05/23/16 at 08:45 Magnesium Oxide 800 mg 800 mg UNSCH PRN PO For Magnesium 1.2 - 1.6 mg/dL; Start 05/23/16 at 08:45 Magnesium Sulfate/ Sodium Chloride (Magnesium Sulfate Inj/NS Inj) 100 ml @ 50 mls/hr UNSCH PRN IV For Magnesium 1.2 - 1.6 mg/dL; Start 05/23/16 at 08:45 Potassium Phosphate 2000 mg 2,000 mg Q4H PRN PO For Phosphorus < 2.5 mg/dL; Start 05/23/16 at 08:45 Sodium Phosphate/ Sodium Chloride (Sodium Phosphate Inj/NS 250 ml Inj) 250 ml @ 42 mls/hr UNSCH PRN IV For Phosphorus < 2.5 mg/dL; Start 05/23/16 at 08:45 Potassium Phosphate 2000 mg 2,000 mg UNSCH PRN PO/TUBE SEE LABEL COMMENTS; Start 05/23/16 at 08:45 Potassium Phosphate/Sodium Chloride (Potassium Phosphate Inj/NS 250 ml Inj) 260 ml @ 42 mls/hr UNSCH PRN IV SEE LABEL COMMENTS; Start 05/23/16 at 08:45 Haloperidol Lactate (Haldol Inj) 4 mg Q6H PRN IV agitation Last administered on 05/24/16 23:54; Start 05/23/16 at 08:45; Stop 05/26/16 at 11:15; Status DC Labetalol HCl (Trandate Inj) 20 mg Q4H PRN IV PUSH SYS BP GREATER THAN 170 MMHG Last administered on 05/25/16 12:06; Start 05/23/16 at 17:30 Lorazepam (Ativan Inj) 1 mg Q4H PRN IV PUSH anxiety, agitation Last administered on 05/24/16 03:50; Start 05/23/16 at 17:30; Stop 05/24/16 at 09:05 ; Status DC Ondansetron HCl (Zofran Inj) 4 mg STK-MED ONCE .ROUTE Last administered on 05/24 00:10; Start 05/24/16 at 00:06; Stop 05/24/16 at 00:07; Status DC Ondansetron HCl (Zofran Inj) 4 mg Q4H PRN IV PUSH NAUSEA OR VOMITING Last administered on 05/25/16 23:36; Start 05/24/16 at 00:30 Lorazepam 1 mg 1 mg Q2H PRN IV PUSH anxiety, agitation Last administered on 08:59; Start 05/24/16 at 09:30; Stop 05/26/16 at 11:15; Status DC Levofloxacin/ Dextrose (Levaquin 500 Mg Premix Inj) 100 ml @ 100 mls/hr Q24H IV Last administered on 05/26/16 09:57; Start 05/24/16 at 10:00; Stop at 14:37; Status DC Metoclopramide HCl 10 mg 10 mg Q8HR IV Last administered on 05/28/16 03:19; Start 05/25/16 at 10:00; Stop 05/28/16 at 11:20; Status DC Potassium Chloride/Dextrose (KCl Inj/D5W 1000 ml Inj) 1,020 ml @ 75 mls/hr [id number] IV Last administered on 05/28/16 16:00; Start 05/25/16 at 11:00 Haloperidol Lactate (Haldol Inj) 2 mg Q6H PRN IV agitation Last administered on 05/28/16 20:57; Start 05/26/16 at 14:45 Lorazepam (Ativan Inj) 0.5 mg Q2H PRN IV PUSH anxiety, agitation Last administered on 05/29/16 03:14; Start 05/26/16 at 11:30 Nystatin (Mycostatin Cream) 1 applic Q12HR TOPICAL ; Start 05/28/16 at 10:00; Stop 05/28/16 at 13:48; Status DC Metoclopramide HCl (Reglan Inj) 5 mg Q8HR IV Last administered on 05/29/16 03: 13; Start 05/28/16 at 14:00 Nystatin (Mycostatin Powder) 1 applic BID PRN TOPICAL RASH ON GROIN AREA; Start 05/28/16 at 14:00 Bupropion HCl (Wellbutrin) 75 mg Q12HR PO Last administered on 05/28/16 20:57 ; Start 05/28/16 at 15:00 A/P Assessment and Plan A/P Acute encephalopathy-improving Polydrug overdose Chronic pain -Urine drug screen positive for cocaine, amphetamine, benzodiazepines and opiates -Patient was recently prescribed Wellbutrin and oxycodone -Use when necessary Ativan and Haldol and fentanyl for agitation, overall delirium slowly improving -EEG to moderate encephalopathy, no seizures -Watch for alcohol and drug withdrawal -psych consult appreciated; f/u as outpatient. Acute respiratory failure-resolved Severe metabolic and respiratory acidosis -Extubated 05/23/16, good oxygen saturation . -DuoNeb every 6 hours and when necessary -On Zyvox. PO Vanc and IV Flagyl for C Diff -Hypovolemic and septic shock, resolved -continue D5W for now Transaminitis-improved Small bowel thickening on CT/Enteritis C. difficile colitis-improving Ileus-improving. -Elevated liver enzymes from shock liver -NGT discontinued. -Gastroenterology following. -continue Reglan and Protonix -Continue by mouth vancomycin and IV Flagyl Acute kidney failure-resolved Severe dehydration-improved Hyperkalemia-resolved -hypokalemia -Monitor renal function closely. Robert catheter. -Renal ultrasound-acute medical renal disease -electrolyte replacement as needed. -Nephrology signed off. Septic shock-resolved MRSA/Enterobacter pneumonia C. difficile colitis-improving. -Continue Zyvox for pneumonia -Continue by mouth vancomycin and IV Flagyl for C. difficile colitis -Infectious disease following PROPH: -Bilateral lower extremity SCDs. Heparin 5000 U sq q8. IV Protonix for GI prophylaxis transfer to telemetry. continue PT. Discharge Planning case management for dc planning- possible rehab. expected to be discharged within the next 2-3 days if continues to improve and cleared by ID. Karan Santillan MD May 29, 2016 08:12
[2016-05-29] MEDS: VANCOMYCIN 500 MG VIAL (FOR ORAL USE ONLY) PO SCH ×4 (08:59→20:15)
[2016-05-29] MEDS: CHLORHEXIDINE 0.12% (ORAL KIT) 15 ML CUP MT SCH ×2 (08:59→20:00)
[2016-05-29] MEDS: buPROPion HCL 75 MG TAB PO SCH ×2 (08:59→20:14)
[2016-05-29] MEDS: PANTOPRAZOLE SODIUM 40 MG VIAL IV SCH (10:50)
[2016-05-29] MEDS: POTASSIUM CHLOR 20 MEQ PREMIX 100 ML IV SCH ×2 (13:11→14:36)
[2016-05-29] MEDS: POTASSIUM CHLORIDE INJ 40 MEQ in DEXTROSE 5% IN WATE 1000ML INJ 1,000 ML IV SCH ×4 (14:38→21:42)
[2016-05-29] MEDS: HALOPERIDOL LACTATE 5 MG/ML AMP IV PRN (15:10)
--- NOTE | 2016-05-29 15:20 | HHI.GIFU ---
Subjective Remarks Resting in bed. Feeling better. No n/v. No abdominal pain. Still with diarrhea. Would like diet advanced. (Katia Tay) Objective Vitals I&O Vital Signs Date Time Temp Pulse Resp B/P Pulse Ox O2 Delivery O2 Flow Rate FiO2 05/29/16 14:15 122 05/29/16 12:18 98.6 114 28 131/80 95 05/29/16 12:16 118 05/29/16 10:00 125 05/29/16 08:37 95 Nasal Cannula 2.00 05/29/16 08:15 100 05/29/16 08:00 98.6 100 23 127/72 97 05/29/16 07:00 97 Nasal Cannula 3.00 05/29/16 06:00 97 05/29/16 04:00 98.5 106 22 110/56 95 05/29/16 04:00 110 05/29/16 02:00 101 05/29/16 00:00 98.3 117 33 132/84 95 05/29/16 00:00 104 05/28/16 22:00 120 05/28/16 21:03 96 Nasal Cannula 2.00 05/28/16 20:00 117 05/28/16 20:00 98.3 117 26 103/95 95 05/28/16 19:00 95 Nasal Cannula 3.00 05/28/16 18:00 118 05/28/16 16:00 98.9 118 20 141/84 95 05/28/16 16:00 102 I/O 05/28/16 05/28/16 05/28/16 05/29/16 05/29/16 05/29/16 07:00 15:00 23:00 07:00 15:00 23:00 Intake Total 826 ml 1070 ml 392 ml 903 ml 1327 ml Output Total 850 ml 1700 ml 900 ml 1700 ml 1400 ml Balance -24 ml -630 ml -508 ml -797 ml -73 ml Intake Oral 350 ml 620 ml 125 ml 350 ml 720 ml IV Total 476 ml 450 ml 267 ml 553 ml 607 ml Output Urine Total 850 ml 1100 ml 500 ml 1200 ml 1000 ml Stool Total 600 ml 400 ml 500 ml 400 ml # Bowel Movements 1 1 Laboratory Laboratory Tests Test 05/29/16 04:28 White Blood Count 15.8 Red Blood Count 3.23 Hemoglobin 9.0 Hematocrit 27.7 Mean Corpuscular Volume 85.8 Mean Corpuscular Hemoglobin 27.7 Mean Corpuscular Hemoglobin 32.3 Concent Red Cell Distribution Width 14.6 Platelet Count 130 Mean Platelet Volume 8.9 Neutrophils (%) (Auto) 86.4 Lymphocytes (%) (Auto) 10.0 Monocytes (%) (Auto) 3.2 Eosinophils (%) (Auto) 0.3 Basophils (%) (Auto) 0.1 Neutrophils # (Auto) 13.7 Lymphocytes # (Auto) 1.6 Monocytes # (Auto) 0.5 Eosinophils # (Auto) 0.1 Basophils # (Auto) 0.0 CBC Comment AUTO DIFF Differential Total Cells 100 Counted Neutrophils % (Manual) 85 Band Neutrophils % 1 Lymphocytes % 13 Neutrophils # (Manual) 13.7 Metamyelocytes 1 Differential Comment FINAL DIFF MANUAL Toxic Granulation 1+ Platelet Estimate LOW Platelet Morphology Comment NORMAL Sodium Level 143 Potassium Level 3.4 Chloride Level 111 Carbon Dioxide Level 24.8 Anion Gap 7 Blood Urea Nitrogen 10 Creatinine 0.48 Estimat Glomerular Filtration 133 Rate Random Glucose 93 Calcium Level 7.3 Protein Corrected Calcium 8.8 Total Protein 4.4 Imaging Last Impressions Chest X-Ray 05/29/16 0600 Signed Impressions: Service Date/Time: April 01:19 - CONCLUSION: 1. Bilateral effusions and basilar airspace disease similar to May 27. Davis Goldman MD Abdomen X-Ray 05/28/16 0600 Signed Impressions: Service Date/Time: Saturday, May 28, 2016 04:52 - CONCLUSION: 1. Gaseous distention of bowel similar to May 27. Davis Goldman MD Abdomen Ultrasound 05/23/16 0000 Signed Impressions: Service Date/Time: Monday, May 23, 2016 09:14 - CONCLUSION: Trace fluid in the right lower quadrant. This is insufficient volume for percutaneous drainage. Ky German MD Head CT 05/21/16 0833 Signed Impressions: Service Date/Time: Saturday, May 21, 2016 09:02 - CONCLUSION: No acute disease. Torsten Verma MD Renal Ultrasound 05/21/16 0000 Signed Impressions: Service Date/Time: Saturday, May 21, 2016 15:32 - CONCLUSION: 1. Kidney sizes are preserved with increased cortical echogenicity characteristic of acute medical renal disease. 2. Otherwise negative. No hydronephrosis or nephrolithiasis. Ky German MD Abdomen/Pelvis CT 05/21/16 0000 Signed Impressions: Service Date/Time: Saturday, May 21, 2016 18:34 - CONCLUSION: 1. There is slight ascites with haziness of the mesentery nonspecific may be passive congestion or inflammatory in nature with very abnormal looking loops of small bowel which demonstrate thickening of the bowel wall and the exact etiology is not certain. 2. Bibasilar consolidation worse on the left. Caren Andrade MD Physical Exam HEENT: Normocephalic CARDIAC: Regular CHEST: CTA ABDOMEN: Less distended, soft, nontender, bowel sounds present. Flexiseal with liquid stool EXTREMITIES: No clubbing, cyanosis, or edema. 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 Alert and oriented to self and placed (Katia Tay) Assessment and Plan Plan ASSESSMENT: - CDiff Colitis, 027 (-). Receiving Flagyl, Oral Vanco for CDiff. ID following. KUB with persistent ileus. Clinically, no significant tenderness on exam. No n/v. Tolerating diet. - Enteritis. abdominal distention with abnormal imaging on CT. Abdomen/Pelvis CT without iv contrast (05/21/16)-----> 1. There is slight ascites with haziness of the mesentery nonspecific may be passive congestion or inflammatory in nature with very abnormal looking loops of small bowel which demonstrate thickening of the bowel wall and the exact etiology is not certain. 2. Bibasilar consolidation worse on the left. The nurse reports that the patient has been having significant diarrhea. CDiff (+), 027 negative. KUB (05/22/16)--> NG coiled in stomach, mild gaseous distention of bowel, characteristic of ileus. Abdominal US (05/23/16)---> Trace fluid in the rlq, this is insufficient for percutaneous drainage. Rpt. KUB (05/28/16) 1. Gaseous distention of bowel similar to May 27. Clinically much improved, no n/v, less distended, softer, tolerating diet. - Ileus. NGT to LICHRISTIAN, KUB (05/26) --> 1. NG tube in stomach. Ileus pattern similar to May 26. Clinically much improved, no n/v, less distended, softer, tolerating diet. Clinically much improved, no n/v, less distended, softer, tolerating diet. - Transaminitis. Improving. Likely related to polypharmacy. CT as above. - Acute respiratory failure. S/P Extubated. - Acute encephalopathy, polydrug overdose, possible myoclonus, severe metabolic and respiratory acidoses, shock (likely hypovolemic), MAYRA and probable sepsis. Per CCM PLAN: - Soft diet - Decrease Reglan to 5mg IV daily - Cont. Flagyl- will need to continue 10 days AFTER other abx stopped (On zyvox for pna) - Cont. Oral Vanco- will need to continue 10 days AFTER other abx stopped (On zyvox for pna) - Cont. PPI - Monitor stool output - ID following - Supportive care - Further recommendations as the case develops - Pt seen and examined by Dr. Rosario and myself and this note is written on hisr behalf (Katia Tay) Physician Comments Patient seen and examined Agree with above Continue with current supportive care Monitor labs (Kar Rosario MD) Katia Tay May 29, 2016 15:20 Kar Rosario MD May 29, 2016 17:28
[2016-05-30] VITALS (7 sets, daily range): BP systolic 117–141; BP diastolic 71–86; PULSE 101–123; RESP 18–30; TEMP 96.9–100.2; O2SAT 95–99
[2016-05-30] MEDS: metroNIDAZOLE 500 MG INJ 100 ML IV SCH ×2 (00:56→09:30)
[2016-05-30] MEDS: LORazepam 2 MG/ML VIAL IV PUSH PRN ×5 (02:33→23:37)
[2016-05-30] MEDS: CHLORHEXIDINE GLUCONATE 2 % 1 PACK (2 CLOTHS) TOP SCH ×2 (04:00→19:50)
[2016-05-30] MEDS: HEPARIN SODIUM - SQ 10,000 UNITS/ML VIAL SQ SCH ×3 (04:39→19:54)
[2016-05-30] MEDS: LINEZOLID 600 MG PREMIX 300 ML IV SCH ×2 (04:39→15:48)
[2016-05-30] MEDS: METOCLOPRAMIDE HCL 10 MG/2 ML VIAL IV SCH ×3 (04:40→19:49)
[2016-05-30] MEDS: buPROPion HCL 75 MG TAB PO SCH ×2 (07:52→19:49)
[2016-05-30] MEDS: CHLORHEXIDINE 0.12% (ORAL KIT) 15 ML CUP MT SCH ×2 (07:53→19:53)
[2016-05-30] MEDS: PANTOPRAZOLE SODIUM 40 MG VIAL IV SCH (07:53)
[2016-05-30] MEDS: VANCOMYCIN 500 MG VIAL (FOR ORAL USE ONLY) PO SCH ×4 (07:53→19:49)
--- NOTE | 2016-05-30 09:48 | HHI.GIFU ---
Subjective Remarks Resting in bed. Would like the rectal tube removed and to get oob to chair. No n/v. Tolerating diet. No pain. (Katia Tay) Objective Vitals I&O Vital Signs Date Time Temp Pulse Resp B/P Pulse Ox O2 Delivery O2 Flow Rate FiO2 05/30/16 08:00 98.5 101 26 126/76 99 05/30/16 03:56 98.6 113 18 117/77 95 05/30/16 00:19 106 05/29/16 23:43 98.8 112 20 124/72 98 05/29/16 23:07 98 Nasal Cannula 4.00 05/29/16 20:16 98.4 115 18 143/76 93 05/29/16 18:17 122 05/29/16 16:24 98.1 103 24 111/66 05/29/16 16:24 103 05/29/16 14:15 122 05/29/16 12:18 98.6 114 28 131/80 95 05/29/16 12:16 118 05/29/16 10:00 125 I/O 05/29/16 05/29/16 05/29/16 05/30/16 05/30/16 05/30/16 07:00 15:00 23:00 07:00 15:00 23:00 Intake Total 903 ml 1327 ml 120 ml 850 ml Output Total 1700 ml 1400 ml 1500 ml 2000 ml Balance -797 ml -73 ml -1380 ml -1150 ml Intake Oral 350 ml 720 ml 120 ml 360 ml IV Total 553 ml 607 ml 490 ml Output Urine Total 1200 ml 1000 ml 1500 ml 2000 ml Stool Total 500 ml 400 ml # Bowel Movements 1 Imaging Last Impressions Chest X-Ray 05/29/16 06 Signed Impressions: Service Date/Time: April 01:19 - CONCLUSION: 1. Bilateral effusions and basilar airspace disease similar to May 27. Davis Goldman MD Abdomen X-Ray 05/28/16 06 Signed Impressions: Service Date/Time: Saturday, May 28, 2016 04:52 - CONCLUSION: 1. Gaseous distention of bowel similar to May 27. Davis Goldman MD Abdomen Ultrasound 05/23/16 0000 Signed Impressions: Service Date/Time: Monday, May 23, 2016 09:14 - CONCLUSION: Trace fluid in the right lower quadrant. This is insufficient volume for percutaneous drainage. Ky German MD Head CT 05/21/16 0833 Signed Impressions: Service Date/Time: Saturday, May 21, 2016 09:02 - CONCLUSION: No acute disease. Torsten Verma MD Renal Ultrasound 05/21/16 0000 Signed Impressions: Service Date/Time: Saturday, May 21, 2016 15:32 - CONCLUSION: 1. Kidney sizes are preserved with increased cortical echogenicity characteristic of acute medical renal disease. 2. Otherwise negative. No hydronephrosis or nephrolithiasis. Ky German MD Abdomen/Pelvis CT 05/21/16 0000 Signed Impressions: Service Date/Time: Saturday, May 21, 2016 18:34 - CONCLUSION: 1. There is slight ascites with haziness of the mesentery nonspecific may be passive congestion or inflammatory in nature with very abnormal looking loops of small bowel which demonstrate thickening of the bowel wall and the exact etiology is not certain. 2. Bibasilar consolidation worse on the left. Caren Andrade MD Physical Exam HEENT: Normocephalic CARDIAC: Regular CHEST: CTA ABDOMEN: Soft, distended nontender, bowel sounds present. Flexiseal with liquid stool EXTREMITIES: No clubbing, cyanosis, or edema. 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 Alert and oriented x3 (Katia Tay) Assessment and Plan Plan ASSESSMENT: - CDiff Colitis, 027 (-). Receiving Flagyl, Oral Vanco for CDiff. ID following. KUB with persistent ileus. Clinically, no significant tenderness on exam. No n/v. Tolerating diet. Will d/c flexiseal - Enteritis. abdominal distention with abnormal imaging on CT. Abdomen/Pelvis CT without iv contrast (05/21/16)-----> 1. There is slight ascites with haziness of the mesentery nonspecific may be passive congestion or inflammatory in nature with very abnormal looking loops of small bowel which demonstrate thickening of the bowel wall and the exact etiology is not certain. 2. Bibasilar consolidation worse on the left. The nurse reports that the patient has been having significant diarrhea. CDiff (+), 027 negative. KUB (05/22/16)--> NG coiled in stomach, mild gaseous distention of bowel, characteristic of ileus. Abdominal US (05/23/16)---> Trace fluid in the rlq, this is insufficient for percutaneous drainage. Rpt. KUB (05/28/16) 1. Gaseous distention of bowel similar to May 27. Clinically much improved, no n/v, tolerating diet. - Ileus. NGT to LIWS, KUB (05/26) --> 1. NG tube in stomach. Ileus pattern similar to May 26. Clinically much improved, no n/v, less distended, softer, tolerating diet. Clinically much improved, still distended, but no n/v/pain. - Transaminitis. Improving. Likely related to polypharmacy. CT as above. - Acute respiratory failure. S/P Extubated. - Acute encephalopathy, polydrug overdose, possible myoclonus, severe metabolic and respiratory acidoses, shock (likely hypovolemic), MARYA and probable sepsis. Per CCM PLAN: - Soft diet - Reglan to 5mg IV daily - Cont. PPI - Cont. Flagyl/Oral Vanco per ID recommendations - D/C Flexiseal - Monitor stool output - ID following - OOB to chair. - Supportive care - Further recommendations as the case develops - Pt seen and examined by Dr. Rosario and myself and this note is written on hisr behalf (Katia Tay) Physician Comments Patient seen and examined Agree with above Continue with current supportive care Monitor labs Not much to add from a GI perspective we will sign off (Kar Rosario MD) Katia Tay May 30, 2016 09:48 Kar Rosario MD May 30, 2016 19:19
[2016-05-30] MEDS: POTASSIUM CHLORIDE INJ 40 MEQ in DEXTROSE 5% IN WATE 1000ML INJ 1,000 ML IV SCH ×4 (10:52→23:40)
--- NOTE | 2016-05-30 11:05 | HHI.PR ---
Subjective Remarks sitting on the chair with no acute distress. looks and feels much better today. tolerating the diet. diarrhea has improved. no fever. Objective Vitals Vital Signs Date Time Temp Pulse Resp B/P Pulse Ox O2 Delivery O2 Flow Rate FiO2 05/30/16 08:00 98.5 101 26 126/76 99 05/30/16 03:56 98.6 113 18 117/77 95 05/30/16 00:19 106 05/29/16 23:43 98.8 112 20 124/72 98 05/29/16 23:07 98 Nasal Cannula 4.00 05/29/16 20:16 98.4 115 18 143/76 93 05/29/16 18:17 122 05/29/16 16:24 98.1 103 24 111/66 05/29/16 16:24 103 05/29/16 14:15 122 05/29/16 12:18 98.6 114 28 131/80 95 05/29/16 12:16 118 I/O 05/29/16 05/29/16 05/29/16 05/30/16 05/30/16 05/30/16 07:00 15:00 23:00 07:00 15:00 23:00 Intake Total 903 ml 1327 ml 120 ml 850 ml Output Total 1700 ml 1400 ml 1500 ml 2000 ml Balance -797 ml -73 ml -1380 ml -1150 ml Intake Oral 350 ml 720 ml 120 ml 360 ml IV Total 553 ml 607 ml 490 ml Output Urine Total 1200 ml 1000 ml 1500 ml 2000 ml Stool Total 500 ml 400 ml # Bowel Movements 1 Result Diagram: 05/29/168 05/29/168 Imaging Last Impressions Chest X-Ray 05/29/16599 Signed Impressions: Service Date/Time: April 01:19 - CONCLUSION: 1. Bilateral effusions and basilar airspace disease similar to May 27. Davis Goldman MD Abdomen X-Ray 05/28/16 06 Signed Impressions: Service Date/Time: Saturday, May 28, 2016 04:52 - CONCLUSION: 1. Gaseous distention of bowel similar to May 27. Davis Goldman MD Abdomen Ultrasound 05/23/16 0000 Signed Impressions: Service Date/Time: Monday, May 23, 2016 09:14 - CONCLUSION: Trace fluid in the right lower quadrant. This is insufficient volume for percutaneous drainage. Ky German MD Head CT 05/21/16 0833 Signed Impressions: Service Date/Time: Saturday, May 21, 2016 09:02 - CONCLUSION: No acute disease. Torsten Verma MD Renal Ultrasound 05/21/16 0000 Signed Impressions: Service Date/Time: Saturday, May 21, 2016 15:32 - CONCLUSION: 1. Kidney sizes are preserved with increased cortical echogenicity characteristic of acute medical renal disease. 2. Otherwise negative. No hydronephrosis or nephrolithiasis. Ky German MD Abdomen/Pelvis CT 05/21/16 0000 Signed Impressions: Service Date/Time: Saturday, May 21, 2016 18:34 - CONCLUSION: 1. There is slight ascites with haziness of the mesentery nonspecific may be passive congestion or inflammatory in nature with very abnormal looking loops of small bowel which demonstrate thickening of the bowel wall and the exact etiology is not certain. 2. Bibasilar consolidation worse on the left. Caren Andrade MD Objective Remarks GENERAL:in no acute distress- with NG tube in place CARDIOVASCULAR: Regular rate and irregular rhythm without murmurs, gallops, or rubs. RESPIRATORY: mild bilateral wheezing. GASTROINTESTINAL: Abdomen soft, non-tender, less distended. Normal, active bowel sounds MUSCULOSKELETAL: Extremities without clubbing, cyanosis, or edema. NEURO: Alert & Oriented x4 to person, place, time, situation. Moves all ext x4 Procedures endotracheal intubation central line placement Medications and IVs Current Medications Sodium Chloride 2 ml 2 ml UNSCH PRN IVF FLUSH AFTER USING IV ACCESS Last administered on 05/29/16 20:16; Start 05/21/16 at 08:45 Sodium Chloride 1,000 ml @ 1,000 mls/hr Q1H ONCE IV Last administered on 09:41; Start 05/21/16 at 08:33; Stop 05/21/16 at 09:32; Status DC Sodium Chloride 1,000 ml @ 999 mls/hr Q1H1M IV ; Start 05/21/16 at 08:45; Stop 05/21/16 at 09:45; Status DC Sodium Chloride 1,000 ml @ 999 mls/hr Q1H1M IV ; Start 05/21/16 at 09:00; Stop 05/21/16 at 10:00; Status DC Sodium Chloride 1,000 ml @ 999 mls/hr Q1H1M IV Last administered on 05/21/16 10:25; Start 05/21/16 at 09:00; Stop 05/21/16 at 10:00; Status DC Sodium Bicarbonate 100 meq/Dextrose 1,100 ml @ 200 mls/hr Q5H30M IV Last administered on 05/21/16 09:41; Start 05/21/16 at 09:15; Stop 05/21/16 at 13:39 ; Status DC Calcium Gluconate/ Dextrose (Calcium Gluconate Inj/D5W 100 ml Inj) 120 ml @ 120 mls/hr ONCE ONCE IV Last administered on 05/21/16 10:23; Start 05/21/16 at 09:45; Stop 05/21/16 at 10:44; Status DC Albuterol Sulfate (Albuterol Neb) 7.5 mg ONCE ONCE NEB Last administered on 09:47; Start 05/21/16 at 09:45; Stop 05/21/16 at 09:46; Status DC Sodium Bicarbonate (Sodium Bicarbonate 8.4% Inj) 50 meq ONCE ONCE IV PUSH Last administered on 05/21/16 09:45; Start 05/21/16 at 09:45; Stop 05/21/16 at 09:46; Status DC Dextrose (D50w (Vial) Inj) 50 ml ONCE ONCE IV PUSH Last administered on 09:46; Start 05/21/16 at 09:45; Stop 05/21/16 at 09:46; Status DC Insulin Human Regular 10 units 10 units ONCE ONCE IV PUSH Last administered on 05/21/16 09:46; Start 05/21/16 at 09:45; Stop 05/21/16 at 09:46; Status DC Norepinephrine Bitartrate (Levophed-Dextrose Drip) 250 ml @ 0 mls/hr TITRATE IV Last administered on 05/22/16 16:16; Start 05/21/16 at 10:30; Stop 05/23/16 at 08:32; Status DC Terbutaline Sulfate (Brethine Inj) 1 mg UNSCH PRN SQ For Extravasation; Start 05/21/16 at 10:30 Etomidate (Amidate Inj) 20 mg ONCE ONCE IVP ; Start 05/21/16 at 11:00; Stop at 11:01; Status DC Rocuronium Dumas (Zemuron Inj) 100 mg BOLUS ONCE IV ; Start 05/21/16 at 11:00 ; Stop 05/21/16 at 11:01; Status DC Succinylcholine Chloride (Quelicin Inj) 200 mg STK-MED ONCE .ROUTE ; Start 05/21 at 10:58; Stop 05/21/16 at 10:59; Status DC Rocuronium Dumas 50 mg 50 mg STK-MED ONCE .ROUTE ; Start 05/21/16 at 11:00; Stop 05/21/16 at 11:01; Status DC Propofol (Diprivan 1000 Mg/100ml Inj) 100 ml @ 0 mls/hr TITRATE IV Last administered on 05/23/16 05:37; Start 05/21/16 at 11:15; Stop 05/23/16 at 08:33 ; Status DC Acetaminophen (Tylenol) 650 mg Q6H PRN PO PAIN 1-10 AND/OR FEVER >101F; Start 05/21/16 at 12:30 Fentanyl Citrate (fentaNYL INJ) 50 mcg Q1H PRN IV SEE LABEL COMMENTS Last administered on 05/25/16 13:14; Start 05/21/16 at 12:30 Albuterol/ Ipratropium (Duoneb Neb) 1 ampule Q6HR NEB NEB Last administered on 05/26/16 10:16; Start 05/21/16 at 16:00; Stop 05/26/16 at 11:15; Status DC Albuterol/ Ipratropium (Duoneb Neb) 1 ampule Q4HR NEB PRN INH SHORTNESS OF BREATH Last administered on 05/29/16 23:03; Start 05/21/16 at 12:30 Chlorhexidine Gluconate (Peridex 0.12% Liq) 15 ml BID@08,20 MT ; Start 05/21/16 at 20:00; Stop 05/22/16 at 14:09; Status DC Pantoprazole Sodium (Protonix Inj) 40 mg DAILY IV Last administered on 07:53; Start 05/21/16 at 13:00 Heparin Sodium (Porcine) (Heparin Inj) 5,000 units Q12H SQ Last administered on 05/23/16 01:06; Start 05/21/16 at 13:00; Stop 05/23/16 at 08:33; Status DC Miscellaneous Information 1 [id number] Last administered on 05/22/16 07:28; Start 05/21/16 at 12:30 Chlorhexidine Gluconate (Chlorhexidine 2% Cloth) Taper DAILY@04 TOP Last administered on 05/27/16 04:00; Start 05/22/16 at 04:00; Stop 05/18/17 at 03:59 Chlorhexidine Gluconate 3 pack 3 pack UNSCH PRN TOP HYGIENIC CARE; Start at 12:30 Sodium Chloride 1,000 ml @ 999 mls/hr BOLUS ONCE IV Last administered on 05/21 17:16; Start 05/21/16 at 13:30; Stop 05/21/16 at 14:30; Status DC Sodium Chloride 1,000 ml @ 999 mls/hr BOLUS ONCE IV Last administered on 05/21 13:30; Start 05/21/16 at 13:30; Stop 05/21/16 at 14:30; Status DC Sodium Bicarbonate/ Sterile Water (Sodium Bicarbonate 8.4% Inj/Sterile Water For Inj) 1,000 ml @ 150 mls/hr Q6H40M IV Last administered on 05/22/16 06:30 ; Start 05/21/16 at 15:00; Stop 05/22/16 at 10:30; Status DC Chlorhexidine Gluconate 15 ml 15 ml BID@08,20 MT Last administered on 08:59; Start 05/21/16 at 20:00 Midazolam HCl (Versed Inj) 100 ml @ 0 mls/hr TITRATE IV ; Start 05/21/16 at 13: 45; Stop 05/23/16 at 08:33; Status DC Sodium Polystyrene Sulfonate 30 gm 30 gm ONCE ONCE PO Last administered on 16:17; Start 05/21/16 at 15:00; Stop 05/21/16 at 15:01; Status DC Calcium Chloride 2 gm/Dextrose 120 ml @ 120 mls/hr ONCE ONCE IV Last administered on 05/21/16 16:28; Start 05/21/16 at 14:30; Stop 05/21/16 at 15:29 ; Status DC Piperacillin Sod/ Tazobactam Sod 50 ml @ 100 mls/hr Q8H IV Last administered on 05/22/16 06:29; Start 05/21/16 at 15:00; Stop 05/22/16 at 16:01; Status DC Vancomycin HCl/ Sodium Chloride (Vancomycin Inj/ NS 250 ml Inj) 250 ml @ 250 mls/hr ONCE ONCE IV Last administered on 05/21/16 16:18; Start 05/21/16 at 15 :00; Stop 05/21/16 at 15:59; Status DC Sodium Bicarbonate 100 meq 100 meq ONCE ONCE IV PUSH Last administered on 05/21 16:19; Start 05/21/16 at 15:45; Stop 05/21/16 at 15:48; Status DC Dexmedetomidine HCl (Precedex Inj) 50 ml @ 0 mls/hr TITRATE IV Last administered on 05/24/16 03:50; Start 05/22/16 at 08:15; Stop 05/24/16 at 08:59 ; Status DC Albumin Human 12.5 gm 12.5 gm NOW ONCE IV Last administered on 05/22/16 08:16 ; Start 05/22/16 at 08:15; Stop 05/22/16 at 08:16; Status DC Vasopressin 40 units/Dextrose 100 ml @ 0 mls/hr Q0M IV Last administered on 11:18; Start 05/22/16 at 10:27; Stop 05/24/16 at 08:59; Status DC Sodium Chloride 1,000 ml @ 999 mls/hr BOLUS ONCE IV Last administered on 05/22 11:19; Start 05/22/16 at 10:30; Stop 05/22/16 at 11:30; Status DC Sodium Chloride 1,000 ml @ 999 mls/hr BOLUS ONCE IV Last administered on 05/22 11:19; Start 05/22/16 at 10:30; Stop 05/22/16 at 11:30; Status DC Sodium Chloride (NS 1000 ml Inj) 1,000 ml @ 75 mls/hr [id number] IV Last administered on 05/23/16 16:44; Start 05/22/16 at 10:30; Stop 05/24/16 at 09:01 ; Status DC Potassium Chloride 40 meq 40 meq NOW ONCE PO Last administered on 05/22/16 14 :15; Start 05/22/16 at 14:15; Stop 05/22/16 at 14:16; Status DC Piperacillin Sod/ Tazobactam Sod 50 ml @ 100 mls/hr Q6H IV ; Start 05/22/16 at 21:00; Stop 05/22/16 at 21:00; Status DC Linezolid (Zyvox 600 Mg Premix) 300 ml @ 300 mls/hr Q12H IV Last administered on 05/30/16 04:39; Start 05/22/16 at 17:00 Diltiazem HCl (Cardizem Inj) 20 mg ONCE ONCE IV Last administered on 16:17; Start 05/22/16 at 16:00; Stop 05/22/16 at 16:03; Status DC Vancomycin HCl 250 mg 250 mg QID PO Last administered on 05/30/16 07:53; Start 05/22/16 at 18:00 Metronidazole (Flagyl 500 Mg Inj) 100 ml @ 100 mls/hr Q8H IV Last administered on 05/30/16 09:30; Start 05/22/16 at 18:00 Hydrocortisone Sodium Succinate (SoluCORTEF INJ) 100 mg Q8H IV Last administered on 05/24/16 00:10; Start 05/22/16 at 17:00; Stop 05/24/16 at 09:05 ; Status DC Metoprolol Tartrate 2.5 mg 2.5 mg ONCE ONCE IV PUSH Last administered on 16:45; Start 05/22/16 at 16:45; Stop 05/22/16 at 16:46; Status DC Diltiazem HCl 125 mg/Sodium Chloride 125 ml @ 0 mls/hr TITRATE IV ; Start at 16:45; Stop 05/22/16 at 18:02; Status DC Potassium Chloride (KCl 40 Meq Premix Inj) 100 ml @ 25 mls/hr BOLUS ONCE IV Last administered on 05/22/16 18:11; Start 05/22/16 at 17:00; Stop 05/22/16 at 20:59; Status DC Heparin Sodium (Porcine) 5000 units 5,000 units Q8H SQ Last administered on t 04:39; Start 05/23/16 at 13:00 Potassium Chloride 100 ml @ 50 mls/hr Q2H PRN IV For Potassium 2.8 - 3.2 mEq/ L Last administered on 05/23/16t 09:23; Start 05/23/16 at 08:45; Stop 05/29/16 at 08:14; Status DC Potassium Chloride 100 ml @ 50 mls/hr Q2H PRN IV For Potassium 2.8 - 3.2 mEq/L ; Start 05/23/16 at 08:45; Stop 05/29/16 at 08:14; Status DC Potassium Chloride 100 ml @ 25 mls/hr UNSCH PRN IV For Potassium 3.3 - 3.5 mEq /L; Start 05/23/16 at 08:45; Stop 05/29/16 at 08:14; Status DC Potassium Chloride 100 ml @ 50 mls/hr Q2H PRN IV For Potassium 3.3 - 3.5 mEq/L ; Start 05/23/16 at 08:45; Stop 05/29/16 at 08:14; Status DC Magnesium Sulfate/ Sodium Chloride (Magnesium Sulfate Inj/NS Inj) 100 ml @ 50 mls/hr UNSCH PRN IV For Magnesium 0.9 - 1.1 mg/dL; Start 05/23/16 at 08:45; Stop 05/29/16 at 08:14; Status DC Magnesium Oxide 800 mg 800 mg UNSCH PRN PO For Magnesium 1.2 - 1.6 mg/dL; Start 05/23/16 at 08:45; Stop 05/29/16 at 08:14; Status DC Magnesium Sulfate/ Sodium Chloride (Magnesium Sulfate Inj/NS Inj) 100 ml @ 50 mls/hr UNSCH PRN IV For Magnesium 1.2 - 1.6 mg/dL; Start 05/23/16 at 08:45; Stop 05/29/16 at 08:14; Status DC Potassium Phosphate 2000 mg 2,000 mg Q4H PRN PO For Phosphorus < 2.5 mg/dL; Start 05/23/16 at 08:45; Stop 05/29/16 at 08:14; Status DC Sodium Phosphate/ Sodium Chloride (Sodium Phosphate Inj/NS 250 ml Inj) 250 ml @ 42 mls/hr UNSCH PRN IV For Phosphorus < 2.5 mg/dL; Start 05/23/16 at 08:45; Stop 05/29/16 at 08:14; Status DC Potassium Phosphate 2000 mg 2,000 mg UNSCH PRN PO/TUBE SEE LABEL COMMENTS; Start 05/23/16 at 08:45; Stop 05/29/16 at 08:14; Status DC Potassium Phosphate/Sodium Chloride (Potassium Phosphate Inj/NS 250 ml Inj) 260 ml @ 42 mls/hr UNSCH PRN IV SEE LABEL COMMENTS; Start 05/23/16 at 08:45; Stop 05/29/16 at 08:14; Status DC Haloperidol Lactate (Haldol Inj) 4 mg Q6H PRN IV agitation Last administered on 05/24/16 23:54; Start 05/23/16 at 08:45; Stop 05/26/16 at 11:15; Status DC Labetalol HCl (Trandate Inj) 20 mg Q4H PRN IV PUSH SYS BP GREATER THAN 170 MMHG Last administered on 05/25/16 12:06; Start 05/23/16 at 17:30 Lorazepam (Ativan Inj) 1 mg Q4H PRN IV PUSH anxiety, agitation Last administered on 05/24/16 03:50; Start 05/23/16 at 17:30; Stop 05/24/16 at 09:05 ; Status DC Ondansetron HCl (Zofran Inj) 4 mg STK-MED ONCE .ROUTE Last administered on 05/24 00:10; Start 05/24/16 at 00:06; Stop 05/24/16 at 00:07; Status DC Ondansetron HCl (Zofran Inj) 4 mg Q4H PRN IV PUSH NAUSEA OR VOMITING Last administered on 05/25/16 23:36; Start 05/24/16 at 00:30 Lorazepam 1 mg 1 mg Q2H PRN IV PUSH anxiety, agitation Last administered on 08:59; Start 05/24/16 at 09:30; Stop 05/26/16 at 11:15; Status DC Levofloxacin/ Dextrose (Levaquin 500 Mg Premix Inj) 100 ml @ 100 mls/hr Q24H IV Last administered on 05/26/16 09:57; Start 05/24/16 at 10:00; Stop at 14:37; Status DC Metoclopramide HCl 10 mg 10 mg Q8HR IV Last administered on 05/28/16 03:19; Start 05/25/16 at 10:00; Stop 05/28/16 at 11:20; Status DC Potassium Chloride/Dextrose (KCl Inj/D5W 1000 ml Inj) 1,020 ml @ 75 mls/hr [id number] IV Last administered on 05/29/16 21:42; Start 05/25/16 at 11:00 Haloperidol Lactate (Haldol Inj) 2 mg Q6H PRN IV agitation Last administered on 05/29/16 15:10; Start 05/26/16 at 14:45 Lorazepam (Ativan Inj) 0.5 mg Q2H PRN IV PUSH anxiety, agitation Last administered on 05/30/16 02:33; Start 05/26/16 at 11:30 Nystatin (Mycostatin Cream) 1 applic Q12HR TOPICAL ; Start 05/28/16 at 10:00; Stop 05/28/16 at 13:48; Status DC Metoclopramide HCl (Reglan Inj) 5 mg Q8HR IV Last administered on 05/30/16 04: 40; Start 05/28/16 at 14:00 Nystatin (Mycostatin Powder) 1 applic BID PRN TOPICAL RASH ON GROIN AREA Last administered on 05/29/16 09:00; Start 05/28/16 at 14:00 Bupropion HCl 75 mg 75 mg Q12HR PO Last administered on 05/30/16 07:52; Start 05/28/16 at 15:00 Potassium Chloride (KCl 20 Meq Premix Inj) 100 ml @ 50 mls/hr Q2H IV Last administered on 05/29/16 14:36; Start 05/29/16 at 13:00; Stop 05/29/16 at 16:59 ; Status DC A/P Assessment and Plan A/P Acute encephalopathy-improving Polydrug overdose Chronic pain -Urine drug screen positive for cocaine, amphetamine, benzodiazepines and opiates -Patient was recently prescribed Wellbutrin and oxycodone -Use when necessary Ativan and Haldol and fentanyl for agitation, overall delirium slowly improving -EEG to moderate encephalopathy, no seizures -Watch for alcohol and drug withdrawal -psych consult appreciated; f/u as outpatient. Acute respiratory failure-resolved Severe metabolic and respiratory acidosis -Extubated 05/23/16, good oxygen saturation . -DuoNeb every 6 hours and when necessary -On Zyvox. PO Vanc and IV Flagyl for C Diff -Hypovolemic and septic shock, resolved -continue D5W for now Transaminitis-improved Small bowel thickening on CT/Enteritis C. difficile colitis-improving Ileus-improving. -Elevated liver enzymes from shock liver -NGT discontinued. -Gastroenterology following. -continue Reglan and Protonix -Continue by mouth vancomycin and IV Flagyl Acute kidney failure-resolved Severe dehydration-improved Hyperkalemia-resolved -hypokalemia -Monitor renal function closely. Robert catheter. -Renal ultrasound-acute medical renal disease -electrolyte replacement as needed. -Nephrology signed off. Septic shock-resolved MRSA/Enterobacter pneumonia C. difficile colitis-improving. -Continue Zyvox for pneumonia -Continue by mouth vancomycin and IV Flagyl for C. difficile colitis -Infectious disease following PROPH: -Bilateral lower extremity SCDs. Heparin 5000 U sq q8. IV Protonix for GI prophylaxis continue PT. Discharge Planning discharge planning within the next 24-48 hrs if stable and cleared by ID and GI. d/w the case management. Karan Santillan MD May 30, 2016 11:05
--- NOTE | 2016-05-30 11:08 | HHI.FF ---
Face to Face Verification Diagnosis: (1) C. difficile colitis (2) MRSA, Enterobacter pneumonia Physical Therapy Order: Evaluate and Treat Home Health Nursing Order: Medical education Signs/symptoms of disease process Medication education-adverse effect Nursing assessment with vital signs I have seen patient Tootie Iverson on 05/30/16. My clinical findings support the need for the requested home health care services because: Patient has SOB I certify that my clinical findings support that this patient is homebound because: Unsteady gait/balance Karan Santillan MD May 30, 2016 11:08
--- NOTE | 2016-05-30 15:21 | HHI.IDPN ---
Note Infectious Disease Note Patient is very alert. Says she feels better. Denies abdominal pain. Unsteady on her feet. Afebrile. Rectal bag just removed and patient had one loose stool. No cough or SOB. Still on nasal O2. Patient admitted with altered mental status. Seen for MRSA pneumonia/sepsis. PAST MEDICAL HISTORY 1. Hypertension, 2. Chronic pain. 3. Cholecystectomy 4. Laminectomy. ALLERGIES NO KNOWN DRUG ALLERGIES. MEDICATIONS 1. Vancomycin p.o. 2. Metronidazole IV 3. Linezolid IV. SOCIAL HISTORY Positive tobacco use. The patient smokes 1/2 pack of cigarettes a day. Social alcohol use. No illicit drugs. OBJECTIVE: Vital Signs Date Time Temp Pulse Resp B/P Pulse Ox O2 Delivery O2 Flow Rate FiO2 05/28/16 07:29 96 Nasal Cannula 2.00 05/28/16 07:00 98 Nasal Cannula 3.00 05/28/16 06:00 98 05/28/16 04:00 97 05/28/16 04:00 98.1 99 24 119/77 99 05/28/16 02:00 95 05/28/16 00:00 112 05/28/16 00:00 98.2 105 25 112/68 97 05/27/16 22:00 117 05/27/16 20:42 96 Nasal Cannula 2.00 05/27/16 20:00 98.1 117 35 125/78 95 05/27/16 20:00 112 05/27/16 19:00 94 Nasal Cannula 3.00 05/27/16 18:00 125 05/27/16 16:00 98.8 110 28 148/77 95 05/27/16 16:00 125 05/27/16 05/27/16 05/28/16 15:00 23:00 07:00 Intake Total 884 ml 826 ml Output Total 950 ml 600 ml 850 ml Balance -950 ml 284 ml -24 ml Intake Oral 200 ml 350 ml IV Total 584 ml 476 ml Other 100 ml Output Urine Total 850 ml 500 ml 850 ml Stool Total 100 ml 100 ml # Bowel Movements 1 1 Laboratory Tests Test 05/27/16 05/28/16 06:11 05:15 White Blood Count 19.9 TH/MM3 18.1 TH/MM3 Red Blood Count 4.17 MIL/MM3 3.58 MIL/MM3 Hemoglobin 11.1 GM/DL 10.2 GM/DL Hematocrit 35.1 % 30.0 % Mean Corpuscular Volume 84.1 FL 83.7 FL Mean Corpuscular Hemoglobin 26.7 PG 28.4 PG Mean Corpuscular Hemoglobin 31.8 % 33.9 % Concent Red Cell Distribution Width 14.9 % 14.8 % Platelet Count 97 TH/MM3 105 TH/MM3 Mean Platelet Volume 8.4 FL 8.6 FL Neutrophils (%) (Auto) 85.2 % 85.3 % Lymphocytes (%) (Auto) 10.2 % 10.9 % Monocytes (%) (Auto) 4.3 % 3.3 % Eosinophils (%) (Auto) 0.1 % 0.4 % Basophils (%) (Auto) 0.2 % 0.1 % Neutrophils # (Auto) 17.0 TH/MM3 15.5 TH/MM3 Lymphocytes # (Auto) 2.0 TH/MM3 2.0 TH/MM3 Monocytes # (Auto) 0.9 TH/MM3 0.6 TH/MM3 Eosinophils # (Auto) 0.0 TH/MM3 0.1 TH/MM3 Basophils # (Auto) 0.0 TH/MM3 0.0 TH/MM3 CBC Comment AUTO DIFF AUTO DIFF Differential Total Cells 100 100 Counted Neutrophils % (Manual) 77 % 87 % Band Neutrophils % 10 % 3 % Lymphocytes % 6 % 7 % Monocytes % 7 % 3 % Neutrophils # (Manual) 17.3 TH/MM3 16.3 TH/MM3 Differential Comment FINAL DIFF FINAL DIFF MANUAL MANUAL Platelet Estimate LOW LOW Platelet Morphology Comment NORMAL NORMAL Laboratory Tests Test 05/27/16 05/28/16 06:11 05:15 Sodium Level 145 MEQ/L 142 MEQ/L Potassium Level 4.3 MEQ/L 3.9 MEQ/L Chloride Level 111 MEQ/L 110 MEQ/L Carbon Dioxide Level 26.5 MEQ/L 25.6 MEQ/L Anion Gap 8 MEQ/L 6 MEQ/L Blood Urea Nitrogen 25 MG/DL 16 MG/DL Creatinine 0.73 MG/DL 0.51 MG/DL Estimat Glomerular Filtration 82 ML/MIN 124 ML/MIN Rate Random Glucose 116 MG/DL 89 MG/DL Calcium Level 7.5 MG/DL 7.4 MG/DL Magnesium Level 1.7 MG/DL Total Bilirubin 0.8 MG/DL Aspartate Amino Transf 43 U/L (AST/SGOT) Alanine Aminotransferase 31 U/L (ALT/SGPT) Alkaline Phosphatase 88 U/L Total Protein 4.6 GM/DL 4.4 GM/DL Albumin 2.1 GM/DL Protein Corrected Calcium 9.0 MG/DL Microbiology Date/Time Procedure Status Source Growth 05/21/16 09:40 Aerobic Blood Culture - Preliminary Resulted Blood Peripheral NO GROWTH IN 2 DAYS 05/21/16 09:40 Anaerobic Blood Culture - Preliminary Resulted Blood Peripheral NO GROWTH IN 2 DAYS 05/21/16 09:40 Urine Culture - Final Complete Urine Clean Catch NO GROWTH IN 48 HOURS. 05/21/16 09:46 Aerobic Blood Culture - Preliminary Resulted Blood Peripheral NO GROWTH IN 2 DAYS 05/21/16 09:46 Anaerobic Blood Culture - Preliminary Resulted Blood Peripheral NO GROWTH IN 2 DAYS 05/21/16 14:13 Gram Stain - Final Complete Sputum Endotracheal 05/21/16 14:13 Sputum Culture - Final Complete Enterobacter Gergoviae S. Aureus Mrsa 05/22/16 12:00 - Final Complete Stool Stool NO ENTERIC PATHOGENS DETECTED BY PCR... 05/22/16 12:00 Cryptosporidium Exam Resulted Stool Stool Pending 05/22/16 12:00 Stool Pus (SANDY) - Final Resulted Stool Stool RARE WBC 05/22/16 12:00 Giardia Antigen (SANDY) Resulted Stool Stool Pending IMAGING: Chest X-Ray 05/29/16 0600 Signed Impressions: Service Date/Time: April 01:19 - CONCLUSION: 1. Bilateral effusions and basilar airspace disease similar to May 27. Davis Goldman MD Abdomen X-Ray 05/28/16 0600 Signed Impressions: Service Date/Time: Saturday, May 28, 2016 04:52 - CONCLUSION: 1. Gaseous distention of bowel similar to May 27. Davis oGldman MD Abdomen Ultrasound 05/23/16 0000 Signed Impressions: Service Date/Time: Monday, May 23, 2016 09:14 - CONCLUSION: Trace fluid in the right lower quadrant. This is insufficient volume for percutaneous drainage. Ky German MD Head CT 05/21/16 0833 Signed Impressions: Service Date/Time: Saturday, May 21, 2016 09:02 - CONCLUSION: No acute disease. Torsten Verma MD Renal Ultrasound 05/21/16 0000 Signed Impressions: Service Date/Time: Saturday, May 21, 2016 15:32 - CONCLUSION: 1. Kidney sizes are preserved with increased cortical echogenicity characteristic of acute medical renal disease. 2. Otherwise negative. No hydronephrosis or nephrolithiasis. Ky German MD Abdomen/Pelvis CT 05/21/16 0000 Signed Impressions: Service Date/Time: Saturday, May 21, 2016 18:34 - CONCLUSION: 1. There is slight ascites with haziness of the mesentery nonspecific may be passive congestion or inflammatory in nature with very abnormal looking loops of small bowel which demonstrate thickening of the bowel wall and the exact etiology is not certain. 2. Bibasilar consolidation worse on the left. Caren Andrade MD PHYSICAL EXAMINATION GENERAL: No acute distress. Alert and oriented. HEENT: EOMI, PERRLA. NECK: Supple without swelling. LUNGS: Decreased breath sounds. HEART: Regular S1 and S2 without murmurs or rubs or gallops. ABDOMEN: Bowel sounds diminished, soft. No tenderness. EXTREMITIES: No clubbing, cyanosis or edema. SKIN: No rash. NEUROLOGIC: Non focal. PSYCHIATRIC: calm and cooperative. IMPRESSION: 1. Sepsis. 2. Pneumonia MRSA. 3. C. difficile. Still having loose stools. 4. Acute kidney disease improved. 5. Drug intoxication/Encephalopathy. RECOMMENDATIONS 1. Continue linezolid until 06/02/16. 2. Stop metronidazole 3. Continue oral vancomycin x 6 more days if diarrhea subsides. I will be off until 06/10/16 Call ID MD if further input is needed. Antony Hamilton MD May 30, 2016 15:21
[2016-05-30] MEDS: RESP: ALBUTEROL 2.5 MG/IPRATROPIUM 0.5 MG NEB (PRN) INH (22:21)
[2016-05-30] MEDS: HALOPERIDOL LACTATE 5 MG/ML AMP IV PRN (23:40)
[2016-05-31] VITALS (8 sets, daily range): BP systolic 120–137; BP diastolic 70–86; PULSE 106–124; RESP 16–20; TEMP 97.3–100.3; O2SAT 93–95
[2016-05-31] MEDS: LORazepam 2 MG/ML VIAL IV PUSH PRN ×5 (02:48→23:00)
[2016-05-31] MEDS: METOCLOPRAMIDE HCL 10 MG/2 ML VIAL IV SCH ×3 (05:05→19:22)
[2016-05-31] MEDS: HEPARIN SODIUM - SQ 10,000 UNITS/ML VIAL SQ SCH ×3 (05:05→19:24)
[2016-05-31] MEDS: LINEZOLID 600 MG PREMIX 300 ML IV SCH ×2 (05:05→16:57)
[2016-05-31 05:59] LABS: AUTOMATED NEUTROPHIL # 12.4 TH/MM3 (1.8-7.7); BASOPHIL % 0.2 % (0.0-2.0); EOSINOPHIL # 0.1 TH/MM3 (0-0.4); EOSINOPHIL % 0.4 % (0.0-4.0); HEMATOCRIT 26.5 % (35.0-46.0); LYMPH % 7.5 % (9.0-44.0); LYMPHOCYTE # 1.1 TH/MM3 (1.0-4.8); MEAN CELL VOLUME 84.5 FL (80.0-100.0); MEAN CORPUSCULAR HEMOGLOBIN 28.4 PG (27.0-34.0); MEAN CORPUSCULAR HGB CONC 33.6 % (32.0-36.0); MONO % 4.3 % (0.0-8.0); NEUT % 87.6 % (16.0-70.0); PLATELET COUNT 258 TH/MM3 (150-450); RED BLOOD COUNT 3.14 MIL/MM3 (4.00-5.30); RED CELL DISTRIBUTION WIDTH 14.5 % (11.6-17.2); WHITE BLOOD COUNT 14.1 TH/MM3 (4.0-11.0)
[2016-05-31 06:20] LABS: BICARBONATE 22.9 MEQ/L (21.0-32.0); POTASSIUM 3.8 MEQ/L (3.5-5.1)
[2016-05-31 06:25] LABS: HEMO FLAGS AUTO DIFF
[2016-05-31] MEDS: CHLORHEXIDINE 0.12% (ORAL KIT) 15 ML CUP MT SCH ×2 (08:00→19:22)
[2016-05-31] MEDS: ONDANSETRON HCL 4 MG/2 ML VIAL IV PUSH PRN (08:11)
[2016-05-31] MEDS: VANCOMYCIN 500 MG VIAL (FOR ORAL USE ONLY) PO SCH ×4 (08:13→19:31)
[2016-05-31] MEDS: buPROPion HCL 75 MG TAB PO SCH ×2 (08:13→19:22)
[2016-05-31] MEDS: PANTOPRAZOLE SODIUM 40 MG VIAL IV SCH (08:14)
[2016-05-31 09:28] LABS: BANDS 5 % (0-6); NEUTROPHIL # MANUAL DIFF 12.4 TH/MM3 (1.8-7.7); POLYS (SEG NEUTROPHILS) 83 % (16-70); WBC DIFF SAMPLE 100
[2016-05-31 09:29] LABS: PLATELET ESTIMATE SMEAR NORMAL (NORMAL); PLATELET MORPHOLOGY NORMAL (NORMAL); POLYCHROMASIA 2.2 % (0.0-1.9); SCAN/DIFF FINAL DIFF MANUAL
--- NOTE | 2016-05-31 10:56 | HHI.PR ---
Subjective Remarks in no acute distress. still with diarrhea but stool is more formed. no nausea or vomiting. no fever. Objective Vitals Vital Signs Date Time Temp Pulse Resp B/P Pulse Ox O2 Delivery O2 Flow Rate FiO2 05/31/16 08:00 97.9 120 16 126/85 93 05/31/16 04:00 97.5 117 20 136/86 94 05/31/16 00:00 98.2 123 20 137/83 95 05/30/16 21:00 Nasal Cannula 2.00 05/30/16 20:31 114 05/30/16 20:00 99.3 123 20 141/86 95 05/30/16 16:00 100.2 119 30 133/84 96 05/30/16 12:00 96.9 117 28 121/71 96 I/O 05/30/16 05/30/16 05/30/16 05/31/16 05/31/16 05/31/16 07:00 15:00 23:00 07:00 15:00 23:00 Intake Total 850 ml 1195 ml 1078 ml 940 ml Output Total 2000 ml 1200 ml 950 ml 3450 ml Balance -1150 ml -5 ml 128 ml -2510 ml Intake Oral 360 ml 380 ml 480 ml 240 ml IV Total 490 ml 815 ml 598 ml 700 ml Output Urine Total 2000 ml 1200 ml 950 ml 3450 ml # Bowel Movements 1 1 6 Result Diagram: 05/31/16 0525 05/31/16 0525 Imaging Last Impressions Chest X-Ray 05/29/16 0600 Signed Impressions: Service Date/Time: April 01:19 - CONCLUSION: 1. Bilateral effusions and basilar airspace disease similar to May 27. Davis Goldman MD Abdomen X-Ray 05/28/16 0600 Signed Impressions: Service Date/Time: Saturday, May 28, 2016 04:52 - CONCLUSION: 1. Gaseous distention of bowel similar to May 27. Davis Goldman MD Abdomen Ultrasound 05/23/16 0000 Signed Impressions: Service Date/Time: Monday, May 23, 2016 09:14 - CONCLUSION: Trace fluid in the right lower quadrant. This is insufficient volume for percutaneous drainage. yK German MD Head CT 05/21/16 0833 Signed Impressions: Service Date/Time: Saturday, May 21, 2016 09:02 - CONCLUSION: No acute disease. Torsten Verma MD Renal Ultrasound 05/21/16 0000 Signed Impressions: Service Date/Time: Saturday, May 21, 2016 15:32 - CONCLUSION: 1. Kidney sizes are preserved with increased cortical echogenicity characteristic of acute medical renal disease. 2. Otherwise negative. No hydronephrosis or nephrolithiasis. Ky German MD Abdomen/Pelvis CT 05/21/16 0000 Signed Impressions: Service Date/Time: Saturday, May 21, 2016 18:34 - CONCLUSION: 1. There is slight ascites with haziness of the mesentery nonspecific may be passive congestion or inflammatory in nature with very abnormal looking loops of small bowel which demonstrate thickening of the bowel wall and the exact etiology is not certain. 2. Bibasilar consolidation worse on the left. Caren Andrade MD Objective Remarks GENERAL:in no acute distress- with NG tube in place CARDIOVASCULAR: Regular rate and irregular rhythm without murmurs, gallops, or rubs. RESPIRATORY: mild bilateral wheezing. GASTROINTESTINAL: Abdomen soft, non-tender, less distended. Normal, active bowel sounds MUSCULOSKELETAL: Extremities without clubbing, cyanosis, or edema. NEURO: Alert & Oriented x4 to person, place, time, situation. Moves all ext x4 Procedures endotracheal intubation central line placement Medications and IVs Current Medications Sodium Chloride 2 ml 2 ml UNSCH PRN IVF FLUSH AFTER USING IV ACCESS Last administered on 05/29/16 20:16; Start 05/21/16 at 08:45 Sodium Chloride 1,000 ml @ 1,000 mls/hr Q1H ONCE IV Last administered on 09:41; Start 05/21/16 at 08:33; Stop 05/21/16 at 09:32; Status DC Sodium Chloride 1,000 ml @ 999 mls/hr Q1H1M IV ; Start 05/21/16 at 08:45; Stop 05/21/16 at 09:45; Status DC Sodium Chloride 1,000 ml @ 999 mls/hr Q1H1M IV ; Start 05/21/16 at 09:00; Stop 05/21/16 at 10:00; Status DC Sodium Chloride 1,000 ml @ 999 mls/hr Q1H1M IV Last administered on 05/21/16 10:25; Start 05/21/16 at 09:00; Stop 05/21/16 at 10:00; Status DC Sodium Bicarbonate 100 meq/Dextrose 1,100 ml @ 200 mls/hr Q5H30M IV Last administered on 05/21/16 09:41; Start 05/21/16 at 09:15; Stop 05/21/16 at 13:39 ; Status DC Calcium Gluconate/ Dextrose (Calcium Gluconate Inj/D5W 100 ml Inj) 120 ml @ 120 mls/hr ONCE ONCE IV Last administered on 05/21/16 10:23; Start 05/21/16 at 09:45; Stop 05/21/16 at 10:44; Status DC Albuterol Sulfate (Albuterol Neb) 7.5 mg ONCE ONCE NEB Last administered on 09:47; Start 05/21/16 at 09:45; Stop 05/21/16 at 09:46; Status DC Sodium Bicarbonate (Sodium Bicarbonate 8.4% Inj) 50 meq ONCE ONCE IV PUSH Last administered on 05/21/16 09:45; Start 05/21/16 at 09:45; Stop 05/21/16 at 09:46; Status DC Dextrose (D50w (Vial) Inj) 50 ml ONCE ONCE IV PUSH Last administered on 09:46; Start 05/21/16 at 09:45; Stop 05/21/16 at 09:46; Status DC Insulin Human Regular 10 units 10 units ONCE ONCE IV PUSH Last administered on 05/21/16 09:46; Start 05/21/16 at 09:45; Stop 05/21/16 at 09:46; Status DC Norepinephrine Bitartrate (Levophed-Dextrose Drip) 250 ml @ 0 mls/hr TITRATE IV Last administered on 05/22/16 16:16; Start 05/21/16 at 10:30; Stop 05/23/16 at 08:32; Status DC Terbutaline Sulfate (Brethine Inj) 1 mg UNSCH PRN SQ For Extravasation; Start 05/21/16 at 10:30 Etomidate (Amidate Inj) 20 mg ONCE ONCE IVP ; Start 05/21/16 at 11:00; Stop at 11:01; Status DC Rocuronium [place] (Zemuron Inj) 100 mg BOLUS ONCE IV ; Start 05/21/16 at 11:00 ; Stop 05/21/16 at 11:01; Status DC Succinylcholine Chloride (Quelicin Inj) 200 mg STK-MED ONCE .ROUTE ; Start 05/21 at 10:58; Stop 05/21/16 at 10:59; Status DC Rocuronium [place] 50 mg 50 mg STK-MED ONCE .ROUTE ; Start 05/21/16 at 11:00; Stop 05/21/16 at 11:01; Status DC Propofol (Diprivan 1000 Mg/100ml Inj) 100 ml @ 0 mls/hr TITRATE IV Last administered on 05/23/16 05:37; Start 05/21/16 at 11:15; Stop 05/23/16 at 08:33 ; Status DC Acetaminophen (Tylenol) 650 mg Q6H PRN PO PAIN 1-10 AND/OR FEVER >101F; Start 05/21/16 at 12:30 Fentanyl Citrate (fentaNYL INJ) 50 mcg Q1H PRN IV SEE LABEL COMMENTS Last administered on 05/25/16 13:14; Start 05/21/16 at 12:30 Albuterol/ Ipratropium (Duoneb Neb) 1 ampule Q6HR NEB NEB Last administered on 05/26/16 10:16; Start 05/21/16 at 16:00; Stop 05/26/16 at 11:15; Status DC Albuterol/ Ipratropium (Duoneb Neb) 1 ampule Q4HR NEB PRN INH SHORTNESS OF BREATH Last administered on 05/30/16 22:21; Start 05/21/16 at 12:30 Chlorhexidine Gluconate (Peridex 0.12% Liq) 15 ml BID@08,20 MT ; Start 05/21/16 at 20:00; Stop 05/22/16 at 14:09; Status DC Pantoprazole Sodium (Protonix Inj) 40 mg DAILY IV Last administered on 08:14; Start 05/21/16 at 13:00 Heparin Sodium (Porcine) (Heparin Inj) 5,000 units Q12H SQ Last administered on 05/23/16 01:06; Start 05/21/16 at 13:00; Stop 05/23/16 at 08:33; Status DC Miscellaneous Information 1 [id number] Last administered on 05/22/16 07:28; Start 05/21/16 at 12:30 Chlorhexidine Gluconate (Chlorhexidine 2% Cloth) Taper DAILY@04 TOP Last administered on 05/27/16 04:00; Start 05/22/16 at 04:00; Stop 05/18/17 at 03:59 Chlorhexidine Gluconate 3 pack 3 pack UNSCH PRN TOP HYGIENIC CARE; Start at 12:30 Sodium Chloride 1,000 ml @ 999 mls/hr BOLUS ONCE IV Last administered on 05/21 17:16; Start 05/21/16 at 13:30; Stop 05/21/16 at 14:30; Status DC Sodium Chloride 1,000 ml @ 999 mls/hr BOLUS ONCE IV Last administered on 05/21 13:30; Start 05/21/16 at 13:30; Stop 05/21/16 at 14:30; Status DC Sodium Bicarbonate/ Sterile Water (Sodium Bicarbonate 8.4% Inj/Sterile Water For Inj) 1,000 ml @ 150 mls/hr Q6H40M IV Last administered on 05/22/16 06:30 ; Start 05/21/16 at 15:00; Stop 05/22/16 at 10:30; Status DC Chlorhexidine Gluconate 15 ml 15 ml BID@08,20 MT Last administered on 08:59; Start 05/21/16 at 20:00 Midazolam HCl (Versed Inj) 100 ml @ 0 mls/hr TITRATE IV ; Start 05/21/16 at 13: 45; Stop 05/23/16 at 08:33; Status DC Sodium Polystyrene Sulfonate 30 gm 30 gm ONCE ONCE PO Last administered on 16:17; Start 05/21/16 at 15:00; Stop 05/21/16 at 15:01; Status DC Calcium Chloride 2 gm/Dextrose 120 ml @ 120 mls/hr ONCE ONCE IV Last administered on 05/21/16 16:28; Start 05/21/16 at 14:30; Stop 05/21/16 at 15:29 ; Status DC Piperacillin Sod/ Tazobactam Sod 50 ml @ 100 mls/hr Q8H IV Last administered on 05/22/16 06:29; Start 05/21/16 at 15:00; Stop 05/22/16 at 16:01; Status DC Vancomycin HCl/ Sodium Chloride (Vancomycin Inj/ NS 250 ml Inj) 250 ml @ 250 mls/hr ONCE ONCE IV Last administered on 05/21/16 16:18; Start 05/21/16 at 15 :00; Stop 05/21/16 at 15:59; Status DC Sodium Bicarbonate 100 meq 100 meq ONCE ONCE IV PUSH Last administered on 05/21 16:19; Start 05/21/16 at 15:45; Stop 05/21/16 at 15:48; Status DC Dexmedetomidine HCl (Precedex Inj) 50 ml @ 0 mls/hr TITRATE IV Last administered on 05/24/16 03:50; Start 05/22/16 at 08:15; Stop 05/24/16 at 08:59 ; Status DC Albumin Human 12.5 gm 12.5 gm NOW ONCE IV Last administered on 05/22/16 08:16 ; Start 05/22/16 at 08:15; Stop 05/22/16 at 08:16; Status DC Vasopressin 40 units/Dextrose 100 ml @ 0 mls/hr Q0M IV Last administered on 11:18; Start 05/22/16 at 10:27; Stop 05/24/16 at 08:59; Status DC Sodium Chloride 1,000 ml @ 999 mls/hr BOLUS ONCE IV Last administered on 05/22 11:19; Start 05/22/16 at 10:30; Stop 05/22/16 at 11:30; Status DC Sodium Chloride 1,000 ml @ 999 mls/hr BOLUS ONCE IV Last administered on 05/22 11:19; Start 05/22/16 at 10:30; Stop 05/22/16 at 11:30; Status DC Sodium Chloride (NS 1000 ml Inj) 1,000 ml @ 75 mls/hr [id number] IV Last administered on 05/23/16 16:44; Start 05/22/16 at 10:30; Stop 05/24/16 at 09:01 ; Status DC Potassium Chloride 40 meq 40 meq NOW ONCE PO Last administered on 05/22/16 14 :15; Start 05/22/16 at 14:15; Stop 05/22/16 at 14:16; Status DC Piperacillin Sod/ Tazobactam Sod 50 ml @ 100 mls/hr Q6H IV ; Start 05/22/16 at 21:00; Stop 05/22/16 at 21:00; Status DC Linezolid (Zyvox 600 Mg Premix) 300 ml @ 300 mls/hr Q12H IV Last administered on 05/31/16 05:05; Start 05/22/16 at 17:00 Diltiazem HCl (Cardizem Inj) 20 mg ONCE ONCE IV Last administered on 16:17; Start 05/22/16 at 16:00; Stop 05/22/16 at 16:03; Status DC Vancomycin HCl 250 mg 250 mg QID PO Last administered on 05/31/16 08:13; Start 05/22/16 at 18:00 Metronidazole (Flagyl 500 Mg Inj) 100 ml @ 100 mls/hr Q8H IV Last administered on 05/30/16 09:30; Start 05/22/16 at 18:00; Stop 05/30/16 at 15:23 ; Status DC Hydrocortisone Sodium Succinate (SoluCORTEF INJ) 100 mg Q8H IV Last administered on 05/24/16 00:10; Start 05/22/16 at 17:00; Stop 05/24/16 at 09:05 ; Status DC Metoprolol Tartrate 2.5 mg 2.5 mg ONCE ONCE IV PUSH Last administered on 16:45; Start 05/22/16 at 16:45; Stop 05/22/16 at 16:46; Status DC Diltiazem HCl 125 mg/Sodium Chloride 125 ml @ 0 mls/hr TITRATE IV ; Start at 16:45; Stop 05/22/16 at 18:02; Status DC Potassium Chloride (KCl 40 Meq Premix Inj) 100 ml @ 25 mls/hr BOLUS ONCE IV Last administered on 05/22/16 18:11; Start 05/22/16 at 17:00; Stop 05/22/16 at 20:59; Status DC Heparin Sodium (Porcine) 5000 units 5,000 units Q8H SQ Last administered on 05/31 05:05; Start 05/23/16 at 13:00 Potassium Chloride 100 ml @ 50 mls/hr Q2H PRN IV For Potassium 2.8 - 3.2 mEq/ L Last administered on 05/23/16t 09:23; Start 05/23/16 at 08:45; Stop 05/29/16 at 08:14; Status DC Potassium Chloride 100 ml @ 50 mls/hr Q2H PRN IV For Potassium 2.8 - 3.2 mEq/L ; Start 05/23/16 at 08:45; Stop 05/29/16 at 08:14; Status DC Potassium Chloride 100 ml @ 25 mls/hr UNSCH PRN IV For Potassium 3.3 - 3.5 mEq /L; Start 05/23/16 at 08:45; Stop 05/29/16 at 08:14; Status DC Potassium Chloride 100 ml @ 50 mls/hr Q2H PRN IV For Potassium 3.3 - 3.5 mEq/L ; Start 05/23/16 at 08:45; Stop 05/29/16 at 08:14; Status DC Magnesium Sulfate/ Sodium Chloride (Magnesium Sulfate Inj/NS Inj) 100 ml @ 50 mls/hr UNSCH PRN IV For Magnesium 0.9 - 1.1 mg/dL; Start 05/23/16 at 08:45; Stop 05/29/16 at 08:14; Status DC Magnesium Oxide 800 mg 800 mg UNSCH PRN PO For Magnesium 1.2 - 1.6 mg/dL; Start 05/23/16 at 08:45; Stop 05/29/16 at 08:14; Status DC Magnesium Sulfate/ Sodium Chloride (Magnesium Sulfate Inj/NS Inj) 100 ml @ 50 mls/hr UNSCH PRN IV For Magnesium 1.2 - 1.6 mg/dL; Start 05/23/16 at 08:45; Stop 05/29/16 at 08:14; Status DC Potassium Phosphate 2000 mg 2,000 mg Q4H PRN PO For Phosphorus < 2.5 mg/dL; Start 05/23/16 at 08:45; Stop 05/29/16 at 08:14; Status DC Sodium Phosphate/ Sodium Chloride (Sodium Phosphate Inj/NS 250 ml Inj) 250 ml @ 42 mls/hr UNSCH PRN IV For Phosphorus < 2.5 mg/dL; Start 05/23/16 at 08:45; Stop 05/29/16 at 08:14; Status DC Potassium Phosphate 2000 mg 2,000 mg UNSCH PRN PO/TUBE SEE LABEL COMMENTS; Start 05/23/16 at 08:45; Stop 05/29/16 at 08:14; Status DC Potassium Phosphate/Sodium Chloride (Potassium Phosphate Inj/NS 250 ml Inj) 260 ml @ 42 mls/hr UNSCH PRN IV SEE LABEL COMMENTS; Start 05/23/16 at 08:45; Stop 05/29/16 at 08:14; Status DC Haloperidol Lactate (Haldol Inj) 4 mg Q6H PRN IV agitation Last administered on 05/24/16 23:54; Start 05/23/16 at 08:45; Stop 05/26/16 at 11:15; Status DC Labetalol HCl (Trandate Inj) 20 mg Q4H PRN IV PUSH SYS BP GREATER THAN 170 MMHG Last administered on 05/25/16 12:06; Start 05/23/16 at 17:30 Lorazepam (Ativan Inj) 1 mg Q4H PRN IV PUSH anxiety, agitation Last administered on 05/24/16 03:50; Start 05/23/16 at 17:30; Stop 05/24/16 at 09:05 ; Status DC Ondansetron HCl (Zofran Inj) 4 mg STK-MED ONCE .ROUTE Last administered on 05/24 00:10; Start 05/24/16 at 00:06; Stop 05/24/16 at 00:07; Status DC Ondansetron HCl (Zofran Inj) 4 mg Q4H PRN IV PUSH NAUSEA OR VOMITING Last administered on 05/31/16 08:11; Start 05/24/16 at 00:30 Lorazepam 1 mg 1 mg Q2H PRN IV PUSH anxiety, agitation Last administered on 08:59; Start 05/24/16 at 09:30; Stop 05/26/16 at 11:15; Status DC Levofloxacin/ Dextrose (Levaquin 500 Mg Premix Inj) 100 ml @ 100 mls/hr Q24H IV Last administered on 05/26/16 09:57; Start 05/24/16 at 10:00; Stop at 14:37; Status DC Metoclopramide HCl 10 mg 10 mg Q8HR IV Last administered on 05/28/16 03:19; Start 05/25/16 at 10:00; Stop 05/28/16 at 11:20; Status DC Potassium Chloride/Dextrose (KCl Inj/D5W 1000 ml Inj) 1,020 ml @ 75 mls/hr [id number] IV Last administered on 05/30/16 23:40; Start 05/25/16 at 11:00 Haloperidol Lactate (Haldol Inj) 2 mg Q6H PRN IV agitation Last administered on 05/30/16 23:40; Start 05/26/16 at 14:45 Lorazepam (Ativan Inj) 0.5 mg Q2H PRN IV PUSH anxiety, agitation Last administered on 05/31/16 06:34; Start 05/26/16 at 11:30 Nystatin (Mycostatin Cream) 1 applic Q12HR TOPICAL ; Start 05/28/16 at 10:00; Stop 05/28/16 at 13:48; Status DC Metoclopramide HCl (Reglan Inj) 5 mg Q8HR IV Last administered on 05/31/16 05: 05; Start 05/28/16 at 14:00 Nystatin (Mycostatin Powder) 1 applic BID PRN TOPICAL RASH ON GROIN AREA Last administered on 05/29/16 09:00; Start 05/28/16 at 14:00 Bupropion HCl 75 mg 75 mg Q12HR PO Last administered on 05/31/16 08:13; Start 05/28/16 at 15:00 Potassium Chloride (KCl 20 Meq Premix Inj) 100 ml @ 50 mls/hr Q2H IV Last administered on 05/29/16 14:36; Start 05/29/16 at 13:00; Stop 05/29/16 at 16:59 ; Status DC A/P Assessment and Plan A/P Acute encephalopathy-improving Polydrug overdose Chronic pain -Urine drug screen positive for cocaine, amphetamine, benzodiazepines and opiates -Patient was recently prescribed Wellbutrin and oxycodone -Use when necessary Ativan and Haldol and fentanyl for agitation, overall delirium slowly improving -EEG to moderate encephalopathy, no seizures -Watch for alcohol and drug withdrawal -psych consult appreciated; f/u as outpatient. Acute respiratory failure-resolved Severe metabolic and respiratory acidosis -Extubated 05/23/16, good oxygen saturation . -DuoNeb every 6 hours and when necessary -On Zyvox. PO Vanc and IV Flagyl for C Diff -Hypovolemic and septic shock, resolved -continue D5W for now Transaminitis-improved Small bowel thickening on CT/Enteritis C. difficile colitis-improving Ileus-improving. -Elevated liver enzymes from shock liver -Gastroenterology signed off. -continue Reglan and Protonix -Continue by mouth vancomycin. Flagyl was discontinued. Acute kidney failure-resolved Severe dehydration-improved -hypokalemia-replaced -Monitor renal function closely. Robert catheter. -Renal ultrasound-acute medical renal disease -electrolyte replacement as needed. -Nephrology signed off. Septic shock-resolved MRSA/Enterobacter pneumonia C. difficile colitis-improving. -Continue Zyvox for pneumonia till 06/02/16 -Continue by mouth vancomycin. -Infectious disease follow-up appreciated. PROPH: -Bilateral lower extremity SCDs. Heparin 5000 U sq q8. continue Protonix . continue PT. Discharge Planning dc home early this week if stable. Karan Santillan MD May 31, 2016 10:56
[2016-05-31] MEDS: POTASSIUM CHLORIDE INJ 40 MEQ in DEXTROSE 5% IN WATE 1000ML INJ 1,000 ML IV SCH ×2 (13:55)
[2016-05-31] MEDS: HALOPERIDOL LACTATE 5 MG/ML AMP IV PRN (17:02)
[2016-06-01] MEDS: CHLORHEXIDINE GLUCONATE 2 % 1 PACK (2 CLOTHS) TOP SCH ×2 (00:43→19:37)
[2016-06-01] MEDS: HALOPERIDOL LACTATE 5 MG/ML AMP IV PRN ×3 (00:43→23:34)
[2016-06-01] MEDS: POTASSIUM CHLORIDE INJ 40 MEQ in DEXTROSE 5% IN WATE 1000ML INJ 1,000 ML IV SCH ×4 (00:43→17:30)
[2016-06-01] MEDS: LORazepam 2 MG/ML VIAL IV PUSH PRN ×6 (03:05→23:34)
[2016-06-01 04:00] VITALS: BP 135/81; PULSE 122; RESP 20; TEMP 98.8; O2SAT 95
[2016-06-01] MEDS: HEPARIN SODIUM - SQ 10,000 UNITS/ML VIAL SQ SCH ×3 (04:34→19:36)
[2016-06-01] MEDS: LINEZOLID 600 MG PREMIX 300 ML IV SCH ×2 (04:34→17:27)
[2016-06-01] MEDS: ACETAMINOPHEN 325 MG TAB PO PRN ×2 (04:34→17:36)
[2016-06-01] MEDS: METOCLOPRAMIDE HCL 10 MG/2 ML VIAL IV SCH ×3 (04:35→19:37)
[2016-06-01 08:00] VITALS: BP 109/71; PULSE 112; RESP 19; TEMP 98.5; O2SAT 95
[2016-06-01] MEDS: CHLORHEXIDINE 0.12% (ORAL KIT) 15 ML CUP MT SCH ×2 (08:00→19:36)
[2016-06-01] MEDS: buPROPion HCL 75 MG TAB PO SCH ×2 (08:36→19:36)
[2016-06-01] MEDS: VANCOMYCIN 500 MG VIAL (FOR ORAL USE ONLY) PO SCH ×4 (08:36→19:36)
[2016-06-01] MEDS: PANTOPRAZOLE SOD 40 MG DELAYED RELEASE TAB PO SCH (08:36)
[2016-06-01 12:00] VITALS: BP 121/72; PULSE 115; RESP 19; TEMP 97.7; O2SAT 96
--- NOTE | 2016-06-01 12:11 | HHI.PR ---
Subjective Remarks sitting on the chair with no acute distress. still with diarrhea but she says that it's improving. low grade fever last night but no fever today. Objective Vitals Vital Signs Date Time Temp Pulse Resp B/P Pulse Ox O2 Delivery O2 Flow Rate FiO2 06/01/16 08:00 98.5 112 19 109/71 95 06/01/16 04:00 98.8 122 20 135/81 95 05/31/16 20:09 106 05/31/16 20:09 Room Air 05/31/16 20:00 100.3 119 20 131/86 94 05/31/16 16:00 97.3 119 19 133/76 95 05/31/16 15:45 124 I/O 05/31/16 05/31/16 05/31/16 06/01/16 06/01/16 06/01/16 07:00 15:00 23:00 07:00 15:00 23:00 Intake Total 940 ml 1321 ml 719 ml 1035 ml Output Total 3450 ml 1525 ml 1600 ml 2500 ml Balance -2510 ml -204 ml -881 ml -1465 ml Intake Oral 240 ml 525 ml 240 ml 240 ml IV Total 700 ml 796 ml 479 ml 795 ml Output Urine Total 3450 ml 1525 ml 1600 ml 2500 ml # Bowel Movements 6 6 2 2 Result Diagram: 05/31/16 0525 05/31/16 0525 Imaging Last Impressions Chest X-Ray 05/29/16 0600 Signed Impressions: Service Date/Time: April 01:19 - CONCLUSION: 1. Bilateral effusions and basilar airspace disease similar to May 27. Davis Goldman MD Abdomen X-Ray 05/28/16 0600 Signed Impressions: Service Date/Time: Saturday, May 28, 2016 04:52 - CONCLUSION: 1. Gaseous distention of bowel similar to May 27. Davis Goldman MD Abdomen Ultrasound 05/23/16 0000 Signed Impressions: Service Date/Time: Monday, May 23, 2016 09:14 - CONCLUSION: Trace fluid in the right lower quadrant. This is insufficient volume for percutaneous drainage. Ky German MD Head CT 05/21/16 0833 Signed Impressions: Service Date/Time: Saturday, May 21, 2016 09:02 - CONCLUSION: No acute disease. Torsten Verma MD Renal Ultrasound 05/21/16 0000 Signed Impressions: Service Date/Time: Saturday, May 21, 2016 15:32 - CONCLUSION: 1. Kidney sizes are preserved with increased cortical echogenicity characteristic of acute medical renal disease. 2. Otherwise negative. No hydronephrosis or nephrolithiasis. Ky German MD Abdomen/Pelvis CT 05/21/16 0000 Signed Impressions: Service Date/Time: Saturday, May 21, 2016 18:34 - CONCLUSION: 1. There is slight ascites with haziness of the mesentery nonspecific may be passive congestion or inflammatory in nature with very abnormal looking loops of small bowel which demonstrate thickening of the bowel wall and the exact etiology is not certain. 2. Bibasilar consolidation worse on the left. Caren Andrade MD Objective Remarks GENERAL:in no acute distress- with NG tube in place CARDIOVASCULAR: Regular rate and irregular rhythm without murmurs, gallops, or rubs. RESPIRATORY: mild bilateral wheezing. GASTROINTESTINAL: Abdomen soft, non-tender, less distended. Normal, active bowel sounds MUSCULOSKELETAL: Extremities without clubbing, cyanosis, or edema. NEURO: Alert & Oriented x4 to person, place, time, situation. Moves all ext x4 Procedures endotracheal intubation central line placement Medications and IVs Current Medications Sodium Chloride 2 ml 2 ml UNSCH PRN IVF FLUSH AFTER USING IV ACCESS Last administered on 05/29/16 20:16; Start 05/21/16 at 08:45 Sodium Chloride 1,000 ml @ 1,000 mls/hr Q1H ONCE IV Last administered on 09:41; Start 05/21/16 at 08:33; Stop 05/21/16 at 09:32; Status DC Sodium Chloride 1,000 ml @ 999 mls/hr Q1H1M IV ; Start 05/21/16 at 08:45; Stop 05/21/16 at 09:45; Status DC Sodium Chloride 1,000 ml @ 999 mls/hr Q1H1M IV ; Start 05/21/16 at 09:00; Stop 05/21/16 at 10:00; Status DC Sodium Chloride 1,000 ml @ 999 mls/hr Q1H1M IV Last administered on 05/21/16 10:25; Start 05/21/16 at 09:00; Stop 05/21/16 at 10:00; Status DC Sodium Bicarbonate 100 meq/Dextrose 1,100 ml @ 200 mls/hr Q5H30M IV Last administered on 05/21/16 09:41; Start 05/21/16 at 09:15; Stop 05/21/16 at 13:39 ; Status DC Calcium Gluconate/ Dextrose (Calcium Gluconate Inj/D5W 100 ml Inj) 120 ml @ 120 mls/hr ONCE ONCE IV Last administered on 05/21/16 10:23; Start 05/21/16 at 09:45; Stop 05/21/16 at 10:44; Status DC Albuterol Sulfate (Albuterol Neb) 7.5 mg ONCE ONCE NEB Last administered on 09:47; Start 05/21/16 at 09:45; Stop 05/21/16 at 09:46; Status DC Sodium Bicarbonate (Sodium Bicarbonate 8.4% Inj) 50 meq ONCE ONCE IV PUSH Last administered on 05/21/16 09:45; Start 05/21/16 at 09:45; Stop 05/21/16 at 09:46; Status DC Dextrose (D50w (Vial) Inj) 50 ml ONCE ONCE IV PUSH Last administered on 09:46; Start 05/21/16 at 09:45; Stop 05/21/16 at 09:46; Status DC Insulin Human Regular 10 units 10 units ONCE ONCE IV PUSH Last administered on 05/21/16 09:46; Start 05/21/16 at 09:45; Stop 05/21/16 at 09:46; Status DC Norepinephrine Bitartrate (Levophed-Dextrose Drip) 250 ml @ 0 mls/hr TITRATE IV Last administered on 05/22/16 16:16; Start 05/21/16 at 10:30; Stop 05/23/16 at 08:32; Status DC Terbutaline Sulfate (Brethine Inj) 1 mg UNSCH PRN SQ For Extravasation; Start 05/21/16 at 10:30 Etomidate (Amidate Inj) 20 mg ONCE ONCE IVP ; Start 05/21/16 at 11:00; Stop at 11:01; Status DC Rocuronium Lanse (Zemuron Inj) 100 mg BOLUS ONCE IV ; Start 05/21/16 at 11:00 ; Stop 05/21/16 at 11:01; Status DC Succinylcholine Chloride (Quelicin Inj) 200 mg STK-MED ONCE .ROUTE ; Start 05/21 at 10:58; Stop 05/21/16 at 10:59; Status DC Rocuronium Lanse 50 mg 50 mg STK-MED ONCE .ROUTE ; Start 05/21/16 at 11:00; Stop 05/21/16 at 11:01; Status DC Propofol (Diprivan 1000 Mg/100ml Inj) 100 ml @ 0 mls/hr TITRATE IV Last administered on 05/23/16 05:37; Start 05/21/16 at 11:15; Stop 05/23/16 at 08:33 ; Status DC Acetaminophen (Tylenol) 650 mg Q6H PRN PO PAIN 1-10 AND/OR FEVER >101F Last administered on 06/01/16 04:34; Start 05/21/16 at 12:30 Fentanyl Citrate (fentaNYL INJ) 50 mcg Q1H PRN IV SEE LABEL COMMENTS Last administered on 05/25/16 13:14; Start 05/21/16 at 12:30 Albuterol/ Ipratropium (Duoneb Neb) 1 ampule Q6HR NEB NEB Last administered on 05/26/16 10:16; Start 05/21/16 at 16:00; Stop 05/26/16 at 11:15; Status DC Albuterol/ Ipratropium (Duoneb Neb) 1 ampule Q4HR NEB PRN INH SHORTNESS OF BREATH Last administered on 05/30/16 22:21; Start 05/21/16 at 12:30 Chlorhexidine Gluconate (Peridex 0.12% Liq) 15 ml BID@08,20 MT ; Start 05/21/16 at 20:00; Stop 05/22/16 at 14:09; Status DC Pantoprazole Sodium (Protonix Inj) 40 mg DAILY IV Last administered on 08:14; Start 05/21/16 at 13:00; Stop 05/31/16 at 10:57; Status DC Heparin Sodium (Porcine) (Heparin Inj) 5,000 units Q12H SQ Last administered on 05/23/16 01:06; Start 05/21/16 at 13:00; Stop 05/23/16 at 08:33; Status DC Miscellaneous Information 1 [id number] Last administered on 05/22/16 07:28; Start 05/21/16 at 12:30 Chlorhexidine Gluconate (Chlorhexidine 2% Cloth) Taper DAILY@04 TOP Last administered on 05/27/16 04:00; Start 05/22/16 at 04:00; Stop 05/18/17 at 03:59 Chlorhexidine Gluconate 3 pack 3 pack UNSCH PRN TOP HYGIENIC CARE; Start at 12:30 Sodium Chloride 1,000 ml @ 999 mls/hr BOLUS ONCE IV Last administered on 05/21 17:16; Start 05/21/16 at 13:30; Stop 05/21/16 at 14:30; Status DC Sodium Chloride 1,000 ml @ 999 mls/hr BOLUS ONCE IV Last administered on 05/21 13:30; Start 05/21/16 at 13:30; Stop 05/21/16 at 14:30; Status DC Sodium Bicarbonate/ Sterile Water (Sodium Bicarbonate 8.4% Inj/Sterile Water For Inj) 1,000 ml @ 150 mls/hr Q6H40M IV Last administered on 05/22/16 06:30 ; Start 05/21/16 at 15:00; Stop 05/22/16 at 10:30; Status DC Chlorhexidine Gluconate 15 ml 15 ml BID@08,20 MT Last administered on 08:59; Start 05/21/16 at 20:00 Midazolam HCl (Versed Inj) 100 ml @ 0 mls/hr TITRATE IV ; Start 05/21/16 at 13: 45; Stop 05/23/16 at 08:33; Status DC Sodium Polystyrene Sulfonate 30 gm 30 gm ONCE ONCE PO Last administered on 16:17; Start 05/21/16 at 15:00; Stop 05/21/16 at 15:01; Status DC Calcium Chloride 2 gm/Dextrose 120 ml @ 120 mls/hr ONCE ONCE IV Last administered on 05/21/16 16:28; Start 05/21/16 at 14:30; Stop 05/21/16 at 15:29 ; Status DC Piperacillin Sod/ Tazobactam Sod 50 ml @ 100 mls/hr Q8H IV Last administered on 05/22/16 06:29; Start 05/21/16 at 15:00; Stop 05/22/16 at 16:01; Status DC Vancomycin HCl/ Sodium Chloride (Vancomycin Inj/ NS 250 ml Inj) 250 ml @ 250 mls/hr ONCE ONCE IV Last administered on 05/21/16 16:18; Start 05/21/16 at 15 :00; Stop 05/21/16 at 15:59; Status DC Sodium Bicarbonate 100 meq 100 meq ONCE ONCE IV PUSH Last administered on 05/21 16:19; Start 05/21/16 at 15:45; Stop 05/21/16 at 15:48; Status DC Dexmedetomidine HCl (Precedex Inj) 50 ml @ 0 mls/hr TITRATE IV Last administered on 05/24/16 03:50; Start 05/22/16 at 08:15; Stop 05/24/16 at 08:59 ; Status DC Albumin Human 12.5 gm 12.5 gm NOW ONCE IV Last administered on 05/22/16 08:16 ; Start 05/22/16 at 08:15; Stop 05/22/16 at 08:16; Status DC Vasopressin 40 units/Dextrose 100 ml @ 0 mls/hr Q0M IV Last administered on 11:18; Start 05/22/16 at 10:27; Stop 05/24/16 at 08:59; Status DC Sodium Chloride 1,000 ml @ 999 mls/hr BOLUS ONCE IV Last administered on 05/22 11:19; Start 05/22/16 at 10:30; Stop 05/22/16 at 11:30; Status DC Sodium Chloride 1,000 ml @ 999 mls/hr BOLUS ONCE IV Last administered on 05/22 11:19; Start 05/22/16 at 10:30; Stop 05/22/16 at 11:30; Status DC Sodium Chloride (NS 1000 ml Inj) 1,000 ml @ 75 mls/hr [id number] IV Last administered on 05/23/16 16:44; Start 05/22/16 at 10:30; Stop 05/24/16 at 09:01 ; Status DC Potassium Chloride 40 meq 40 meq NOW ONCE PO Last administered on 05/22/16 14 :15; Start 05/22/16 at 14:15; Stop 05/22/16 at 14:16; Status DC Piperacillin Sod/ Tazobactam Sod 50 ml @ 100 mls/hr Q6H IV ; Start 05/22/16 at 21:00; Stop 05/22/16 at 21:00; Status DC Linezolid (Zyvox 600 Mg Premix) 300 ml @ 300 mls/hr Q12H IV Last administered on 06/01/16 04:34; Start 05/22/16 at 17:00 Diltiazem HCl (Cardizem Inj) 20 mg ONCE ONCE IV Last administered on 16:17; Start 05/22/16 at 16:00; Stop 05/22/16 at 16:03; Status DC Vancomycin HCl 250 mg 250 mg QID PO Last administered on 06/01/16 08:36; Start 05/22/16 at 18:00 Metronidazole (Flagyl 500 Mg Inj) 100 ml @ 100 mls/hr Q8H IV Last administered on 05/30/16 09:30; Start 05/22/16 at 18:00; Stop 05/30/16 at 15:23 ; Status DC Hydrocortisone Sodium Succinate (SoluCORTEF INJ) 100 mg Q8H IV Last administered on 05/24/16 00:10; Start 05/22/16 at 17:00; Stop 05/24/16 at 09:05 ; Status DC Metoprolol Tartrate 2.5 mg 2.5 mg ONCE ONCE IV PUSH Last administered on 16:45; Start 05/22/16 at 16:45; Stop 05/22/16 at 16:46; Status DC Diltiazem HCl 125 mg/Sodium Chloride 125 ml @ 0 mls/hr TITRATE IV ; Start at 16:45; Stop 05/22/16 at 18:02; Status DC Potassium Chloride (KCl 40 Meq Premix Inj) 100 ml @ 25 mls/hr BOLUS ONCE IV Last administered on 05/22/16 18:11; Start 05/22/16 at 17:00; Stop 05/22/16 at 20:59; Status DC Heparin Sodium (Porcine) 5000 units 5,000 units Q8H SQ Last administered on 06/01 04:34; Start 05/23/16 at 13:00 Potassium Chloride 100 ml @ 50 mls/hr Q2H PRN IV For Potassium 2.8 - 3.2 mEq/ L Last administered on 05/23/16t 09:23; Start 05/23/16 at 08:45; Stop 05/29/16 at 08:14; Status DC Potassium Chloride 100 ml @ 50 mls/hr Q2H PRN IV For Potassium 2.8 - 3.2 mEq/L ; Start 05/23/16 at 08:45; Stop 05/29/16 at 08:14; Status DC Potassium Chloride 100 ml @ 25 mls/hr UNSCH PRN IV For Potassium 3.3 - 3.5 mEq /L; Start 05/23/16 at 08:45; Stop 05/29/16 at 08:14; Status DC Potassium Chloride 100 ml @ 50 mls/hr Q2H PRN IV For Potassium 3.3 - 3.5 mEq/L ; Start 05/23/16 at 08:45; Stop 05/29/16 at 08:14; Status DC Magnesium Sulfate/ Sodium Chloride (Magnesium Sulfate Inj/NS Inj) 100 ml @ 50 mls/hr UNSCH PRN IV For Magnesium 0.9 - 1.1 mg/dL; Start 05/23/16 at 08:45; Stop 05/29/16 at 08:14; Status DC Magnesium Oxide 800 mg 800 mg UNSCH PRN PO For Magnesium 1.2 - 1.6 mg/dL; Start 05/23/16 at 08:45; Stop 05/29/16 at 08:14; Status DC Magnesium Sulfate/ Sodium Chloride (Magnesium Sulfate Inj/NS Inj) 100 ml @ 50 mls/hr UNSCH PRN IV For Magnesium 1.2 - 1.6 mg/dL; Start 05/23/16 at 08:45; Stop 05/29/16 at 08:14; Status DC Potassium Phosphate 2000 mg 2,000 mg Q4H PRN PO For Phosphorus < 2.5 mg/dL; Start 05/23/16 at 08:45; Stop 05/29/16 at 08:14; Status DC Sodium Phosphate/ Sodium Chloride (Sodium Phosphate Inj/NS 250 ml Inj) 250 ml @ 42 mls/hr UNSCH PRN IV For Phosphorus < 2.5 mg/dL; Start 05/23/16 at 08:45; Stop 05/29/16 at 08:14; Status DC Potassium Phosphate 2000 mg 2,000 mg UNSCH PRN PO/TUBE SEE LABEL COMMENTS; Start 05/23/16 at 08:45; Stop 05/29/16 at 08:14; Status DC Potassium Phosphate/Sodium Chloride (Potassium Phosphate Inj/NS 250 ml Inj) 260 ml @ 42 mls/hr UNSCH PRN IV SEE LABEL COMMENTS; Start 05/23/16 at 08:45; Stop 05/29/16 at 08:14; Status DC Haloperidol Lactate (Haldol Inj) 4 mg Q6H PRN IV agitation Last administered on 05/24/16 23:54; Start 05/23/16 at 08:45; Stop 05/26/16 at 11:15; Status DC Labetalol HCl (Trandate Inj) 20 mg Q4H PRN IV PUSH SYS BP GREATER THAN 170 MMHG Last administered on 05/25/16 12:06; Start 05/23/16 at 17:30 Lorazepam (Ativan Inj) 1 mg Q4H PRN IV PUSH anxiety, agitation Last administered on 05/24/16 03:50; Start 05/23/16 at 17:30; Stop 05/24/16 at 09:05 ; Status DC Ondansetron HCl (Zofran Inj) 4 mg STK-MED ONCE .ROUTE Last administered on 05/24 00:10; Start 05/24/16 at 00:06; Stop 05/24/16 at 00:07; Status DC Ondansetron HCl (Zofran Inj) 4 mg Q4H PRN IV PUSH NAUSEA OR VOMITING Last administered on 05/31/16 08:11; Start 05/24/16 at 00:30 Lorazepam 1 mg 1 mg Q2H PRN IV PUSH anxiety, agitation Last administered on 08:59; Start 05/24/16 at 09:30; Stop 05/26/16 at 11:15; Status DC Levofloxacin/ Dextrose (Levaquin 500 Mg Premix Inj) 100 ml @ 100 mls/hr Q24H IV Last administered on 05/26/16 09:57; Start 05/24/16 at 10:00; Stop at 14:37; Status DC Metoclopramide HCl 10 mg 10 mg Q8HR IV Last administered on 05/28/16 03:19; Start 05/25/16 at 10:00; Stop 05/28/16 at 11:20; Status DC Potassium Chloride/Dextrose (KCl Inj/D5W 1000 ml Inj) 1,020 ml @ 75 mls/hr [id number] IV Last administered on 06/01/16 00:43; Start 05/25/16 at 11:00 Haloperidol Lactate (Haldol Inj) 2 mg Q6H PRN IV agitation Last administered on 06/01/16 00:43; Start 05/26/16 at 14:45 Lorazepam (Ativan Inj) 0.5 mg Q2H PRN IV PUSH anxiety, agitation Last administered on 06/01/16 11:06; Start 05/26/16 at 11:30 Nystatin (Mycostatin Cream) 1 applic Q12HR TOPICAL ; Start 05/28/16 at 10:00; Stop 05/28/16 at 13:48; Status DC Metoclopramide HCl (Reglan Inj) 5 mg Q8HR IV Last administered on 06/01/16 04: 35; Start 05/28/16 at 14:00 Nystatin (Mycostatin Powder) 1 applic BID PRN TOPICAL RASH ON GROIN AREA Last administered on 05/29/16 09:00; Start 05/28/16 at 14:00 Bupropion HCl 75 mg 75 mg Q12HR PO Last administered on 06/01/16 08:36; Start 05/28/16 at 15:00 Potassium Chloride (KCl 20 Meq Premix Inj) 100 ml @ 50 mls/hr Q2H IV Last administered on 05/29/16 14:36; Start 05/29/16 at 13:00; Stop 05/29/16 at 16:59 ; Status DC Pantoprazole Sodium (Protonix) 40 mg DAILY PO Last administered on 06/01/16 08: 36; Start 06/01/16 at 09:00 A/P Assessment and Plan A/P Acute encephalopathy-improving Polydrug overdose Chronic pain -Urine drug screen positive for cocaine, amphetamine, benzodiazepines and opiates -Patient was recently prescribed Wellbutrin and oxycodone -Use when necessary Ativan and Haldol and fentanyl for agitation, overall delirium slowly improving -EEG to moderate encephalopathy, no seizures -Watch for alcohol and drug withdrawal -psych consult appreciated; f/u as outpatient. Acute respiratory failure-resolved Severe metabolic and respiratory acidosis -Extubated 05/23/16, good oxygen saturation . -DuoNeb every 6 hours and when necessary -On Zyvox. PO Vanc and IV Flagyl for C Diff -Hypovolemic and septic shock, resolved -continue D5W for now Transaminitis-improved Small bowel thickening on CT/Enteritis C. difficile colitis-improving Ileus-improving. -Elevated liver enzymes from shock liver -Gastroenterology signed off. -continue Reglan and Protonix -Continue by mouth vancomycin. Flagyl was discontinued. Acute kidney failure-resolved Severe dehydration-improved -hypokalemia-replaced -Monitor renal function closely. Robert catheter. -Renal ultrasound-acute medical renal disease -electrolyte replacement as needed. -Nephrology signed off. Septic shock-resolved MRSA/Enterobacter pneumonia C. difficile colitis-improving. -Continue Zyvox for pneumonia till 06/02/16 -Continue by mouth vancomycin. -Infectious disease follow-up appreciated. PROPH: -Bilateral lower extremity SCDs. Heparin 5000 U sq q8. continue Protonix . continue PT. Discharge Planning dc home early this week if stable. d/w the patient and she wants to go home with [facility]. Karan Santillan MD Jun 01, 2016 12:10
[2016-06-01 16:00] VITALS: BP 136/85; PULSE 115; RESP 19; TEMP 98.5; O2SAT 96
[2016-06-01 20:00] VITALS: BP 138/81; PULSE 82; RESP 20; TEMP 99.5; O2SAT 96
[2016-06-01 20:30] VITALS: PULSE 106
[2016-06-02] VITALS: BP 141/78; PULSE 76; RESP 20; TEMP 100; O2SAT 95
[2016-06-02] MEDS: LORazepam 2 MG/ML VIAL IV PUSH PRN ×5 (03:27→20:48)
[2016-06-02 04:00] VITALS: BP 138/72; PULSE 72; RESP 20; TEMP 98.8; O2SAT 96
[2016-06-02] MEDS: LINEZOLID 600 MG PREMIX 300 ML IV SCH ×2 (04:54→16:15)
[2016-06-02] MEDS: POTASSIUM CHLORIDE INJ 40 MEQ in DEXTROSE 5% IN WATE 1000ML INJ 1,000 ML IV SCH ×4 (04:55→20:27)
[2016-06-02] MEDS: HEPARIN SODIUM - SQ 10,000 UNITS/ML VIAL SQ SCH ×3 (04:55→20:48)
[2016-06-02] MEDS: METOCLOPRAMIDE HCL 10 MG/2 ML VIAL IV SCH ×3 (04:56→20:48)
[2016-06-02] MEDS: HALOPERIDOL LACTATE 5 MG/ML AMP IV PRN ×2 (05:57→15:10)
[2016-06-02 08:00] VITALS: BP 118/73; PULSE 117; RESP 22; TEMP 100.1; O2SAT 95
[2016-06-02] MEDS: CHLORHEXIDINE 0.12% (ORAL KIT) 15 ML CUP MT SCH ×2 (08:00→20:00)
[2016-06-02] MEDS: PANTOPRAZOLE SOD 40 MG DELAYED RELEASE TAB PO SCH (09:00)
[2016-06-02] MEDS: VANCOMYCIN 500 MG VIAL (FOR ORAL USE ONLY) PO SCH ×4 (09:16→20:48)
[2016-06-02] MEDS: buPROPion HCL 75 MG TAB PO SCH ×2 (09:16→20:49)
[2016-06-02 12:00] VITALS: BP 134/81; PULSE 123; RESP 18; TEMP 99.9; O2SAT 95
--- NOTE | 2016-06-02 13:07 | HHI.PR ---
Subjective Remarks started to have low grade fever again. denies pain. d/w the RN. Objective Vitals Vital Signs Date Time Temp Pulse Resp B/P Pulse Ox O2 Delivery O2 Flow Rate FiO2 06/02/16 08:00 100.1 117 22 118/73 95 06/02/16 04:00 98.8 72 20 138/72 96 06/02/16 00:00 100.0 76 20 141/78 95 06/01/16 21:12 Room Air 06/01/16 20:30 106 06/01/16 20:00 99.5 82 20 138/81 96 06/01/16 16:00 98.5 115 19 136/85 96 I/O 06/01/16 06/01/16 06/01/16 06/02/16 06/02/16 06/02/16 07:00 15:00 23:00 07:00 15:00 23:00 Intake Total 1035 ml 1265 ml 1085 ml 942 ml Output Total 2500 ml 1450 ml 650 ml 480 ml Balance -1465 ml -185 ml 435 ml 462 ml Intake Oral 240 ml 480 ml 480 ml 240 ml IV Total 795 ml 785 ml 605 ml 702 ml Output Urine Total 2500 ml 1450 ml 650 ml 480 ml # Bowel Movements 2 6 0 0 Result Diagram: 05/31/16 0525 05/31/16 0525 Imaging Last Impressions Chest X-Ray 05/29/16 0600 Signed Impressions: Service Date/Time: April 01:19 - CONCLUSION: 1. Bilateral effusions and basilar airspace disease similar to May 27. Davis Goldman MD Abdomen X-Ray 05/28/16 0600 Signed Impressions: Service Date/Time: Saturday, May 28, 2016 04:52 - CONCLUSION: 1. Gaseous distention of bowel similar to May 27. Davis Goldman MD Abdomen Ultrasound 05/23/16 0000 Signed Impressions: Service Date/Time: Monday, May 23, 2016 09:14 - CONCLUSION: Trace fluid in the right lower quadrant. This is insufficient volume for percutaneous drainage. Ky German MD Head CT 05/21/16 0833 Signed Impressions: Service Date/Time: Saturday, May 21, 2016 09:02 - CONCLUSION: No acute disease. Torsten Verma MD Renal Ultrasound 05/21/16 0000 Signed Impressions: Service Date/Time: Saturday, May 21, 2016 15:32 - CONCLUSION: 1. Kidney sizes are preserved with increased cortical echogenicity characteristic of acute medical renal disease. 2. Otherwise negative. No hydronephrosis or nephrolithiasis. Ky German MD Abdomen/Pelvis CT 05/21/16 0000 Signed Impressions: Service Date/Time: Saturday, May 21, 2016 18:34 - CONCLUSION: 1. There is slight ascites with haziness of the mesentery nonspecific may be passive congestion or inflammatory in nature with very abnormal looking loops of small bowel which demonstrate thickening of the bowel wall and the exact etiology is not certain. 2. Bibasilar consolidation worse on the left. Caren Andrade MD Objective Remarks GENERAL:in no acute distress- with NG tube in place CARDIOVASCULAR: Regular rate and irregular rhythm without murmurs, gallops, or rubs. RESPIRATORY: mild bilateral wheezing. GASTROINTESTINAL: Abdomen soft, non-tender, less distended. Normal, active bowel sounds MUSCULOSKELETAL: Extremities without clubbing, cyanosis, or edema. NEURO: Alert & Oriented x4 to person, place, time, situation. Moves all ext x4 Procedures endotracheal intubation central line placement Medications and IVs Current Medications Sodium Chloride 2 ml 2 ml UNSCH PRN IVF FLUSH AFTER USING IV ACCESS Last administered on 05/29/16 20:16; Start 05/21/16 at 08:45 Sodium Chloride 1,000 ml @ 1,000 mls/hr Q1H ONCE IV Last administered on 09:41; Start 05/21/16 at 08:33; Stop 05/21/16 at 09:32; Status DC Sodium Chloride 1,000 ml @ 999 mls/hr Q1H1M IV ; Start 05/21/16 at 08:45; Stop 05/21/16 at 09:45; Status DC Sodium Chloride 1,000 ml @ 999 mls/hr Q1H1M IV ; Start 05/21/16 at 09:00; Stop 05/21/16 at 10:00; Status DC Sodium Chloride 1,000 ml @ 999 mls/hr Q1H1M IV Last administered on 05/21/16 10:25; Start 05/21/16 at 09:00; Stop 05/21/16 at 10:00; Status DC Sodium Bicarbonate 100 meq/Dextrose 1,100 ml @ 200 mls/hr Q5H30M IV Last administered on 05/21/16 09:41; Start 05/21/16 at 09:15; Stop 05/21/16 at 13:39 ; Status DC Calcium Gluconate/ Dextrose (Calcium Gluconate Inj/D5W 100 ml Inj) 120 ml @ 120 mls/hr ONCE ONCE IV Last administered on 05/21/16 10:23; Start 05/21/16 at 09:45; Stop 05/21/16 at 10:44; Status DC Albuterol Sulfate (Albuterol Neb) 7.5 mg ONCE ONCE NEB Last administered on 09:47; Start 05/21/16 at 09:45; Stop 05/21/16 at 09:46; Status DC Sodium Bicarbonate (Sodium Bicarbonate 8.4% Inj) 50 meq ONCE ONCE IV PUSH Last administered on 05/21/16 09:45; Start 05/21/16 at 09:45; Stop 05/21/16 at 09:46; Status DC Dextrose (D50w (Vial) Inj) 50 ml ONCE ONCE IV PUSH Last administered on 09:46; Start 05/21/16 at 09:45; Stop 05/21/16 at 09:46; Status DC Insulin Human Regular 10 units 10 units ONCE ONCE IV PUSH Last administered on 05/21/16 09:46; Start 05/21/16 at 09:45; Stop 05/21/16 at 09:46; Status DC Norepinephrine Bitartrate (Levophed-Dextrose Drip) 250 ml @ 0 mls/hr TITRATE IV Last administered on 05/22/16 16:16; Start 05/21/16 at 10:30; Stop 05/23/16 at 08:32; Status DC Terbutaline Sulfate (Brethine Inj) 1 mg UNSCH PRN SQ For Extravasation; Start 05/21/16 at 10:30 Etomidate (Amidate Inj) 20 mg ONCE ONCE IVP ; Start 05/21/16 at 11:00; Stop at 11:01; Status DC Rocuronium [place] (Zemuron Inj) 100 mg BOLUS ONCE IV ; Start 05/21/16 at 11:00 ; Stop 05/21/16 at 11:01; Status DC Succinylcholine Chloride (Quelicin Inj) 200 mg STK-MED ONCE .ROUTE ; Start 05/21 at 10:58; Stop 05/21/16 at 10:59; Status DC Rocuronium [place] 50 mg 50 mg STK-MED ONCE .ROUTE ; Start 05/21/16 at 11:00; Stop 05/21/16 at 11:01; Status DC Propofol (Diprivan 1000 Mg/100ml Inj) 100 ml @ 0 mls/hr TITRATE IV Last administered on 05/23/16 05:37; Start 05/21/16 at 11:15; Stop 05/23/16 at 08:33 ; Status DC Acetaminophen (Tylenol) 650 mg Q6H PRN PO PAIN 1-10 AND/OR FEVER >101F Last administered on 06/01/16 17:36; Start 05/21/16 at 12:30 Fentanyl Citrate (fentaNYL INJ) 50 mcg Q1H PRN IV SEE LABEL COMMENTS Last administered on 05/25/16 13:14; Start 05/21/16 at 12:30 Albuterol/ Ipratropium (Duoneb Neb) 1 ampule Q6HR NEB NEB Last administered on 05/26/16 10:16; Start 05/21/16 at 16:00; Stop 05/26/16 at 11:15; Status DC Albuterol/ Ipratropium (Duoneb Neb) 1 ampule Q4HR NEB PRN INH SHORTNESS OF BREATH Last administered on 05/30/16 22:21; Start 05/21/16 at 12:30 Chlorhexidine Gluconate (Peridex 0.12% Liq) 15 ml BID@08,20 MT ; Start 05/21/16 at 20:00; Stop 05/22/16 at 14:09; Status DC Pantoprazole Sodium (Protonix Inj) 40 mg DAILY IV Last administered on 08:14; Start 05/21/16 at 13:00; Stop 05/31/16 at 10:57; Status DC Heparin Sodium (Porcine) (Heparin Inj) 5,000 units Q12H SQ Last administered on 05/23/16 01:06; Start 05/21/16 at 13:00; Stop 05/23/16 at 08:33; Status DC Miscellaneous Information 1 [id number] Last administered on 05/22/16 07:28; Start 05/21/16 at 12:30 Chlorhexidine Gluconate (Chlorhexidine 2% Cloth) Taper DAILY@04 TOP Last administered on 05/27/16 04:00; Start 05/22/16 at 04:00; Stop 05/18/17 at 03:59 Chlorhexidine Gluconate 3 pack 3 pack UNSCH PRN TOP HYGIENIC CARE; Start at 12:30 Sodium Chloride 1,000 ml @ 999 mls/hr BOLUS ONCE IV Last administered on 05/21 17:16; Start 05/21/16 at 13:30; Stop 05/21/16 at 14:30; Status DC Sodium Chloride 1,000 ml @ 999 mls/hr BOLUS ONCE IV Last administered on 05/21 13:30; Start 05/21/16 at 13:30; Stop 05/21/16 at 14:30; Status DC Sodium Bicarbonate/ Sterile Water (Sodium Bicarbonate 8.4% Inj/Sterile Water For Inj) 1,000 ml @ 150 mls/hr Q6H40M IV Last administered on 05/22/16 06:30 ; Start 05/21/16 at 15:00; Stop 05/22/16 at 10:30; Status DC Chlorhexidine Gluconate 15 ml 15 ml BID@08,20 MT Last administered on 08:59; Start 05/21/16 at 20:00 Midazolam HCl (Versed Inj) 100 ml @ 0 mls/hr TITRATE IV ; Start 05/21/16 at 13: 45; Stop 05/23/16 at 08:33; Status DC Sodium Polystyrene Sulfonate 30 gm 30 gm ONCE ONCE PO Last administered on 16:17; Start 05/21/16 at 15:00; Stop 05/21/16 at 15:01; Status DC Calcium Chloride 2 gm/Dextrose 120 ml @ 120 mls/hr ONCE ONCE IV Last administered on 05/21/16 16:28; Start 05/21/16 at 14:30; Stop 05/21/16 at 15:29 ; Status DC Piperacillin Sod/ Tazobactam Sod 50 ml @ 100 mls/hr Q8H IV Last administered on 05/22/16 06:29; Start 05/21/16 at 15:00; Stop 05/22/16 at 16:01; Status DC Vancomycin HCl/ Sodium Chloride (Vancomycin Inj/ NS 250 ml Inj) 250 ml @ 250 mls/hr ONCE ONCE IV Last administered on 05/21/16 16:18; Start 05/21/16 at 15 :00; Stop 05/21/16 at 15:59; Status DC Sodium Bicarbonate 100 meq 100 meq ONCE ONCE IV PUSH Last administered on 05/21 16:19; Start 05/21/16 at 15:45; Stop 05/21/16 at 15:48; Status DC Dexmedetomidine HCl (Precedex Inj) 50 ml @ 0 mls/hr TITRATE IV Last administered on 05/24/16 03:50; Start 05/22/16 at 08:15; Stop 05/24/16 at 08:59 ; Status DC Albumin Human 12.5 gm 12.5 gm NOW ONCE IV Last administered on 05/22/16 08:16 ; Start 05/22/16 at 08:15; Stop 05/22/16 at 08:16; Status DC Vasopressin 40 units/Dextrose 100 ml @ 0 mls/hr Q0M IV Last administered on 11:18; Start 05/22/16 at 10:27; Stop 05/24/16 at 08:59; Status DC Sodium Chloride 1,000 ml @ 999 mls/hr BOLUS ONCE IV Last administered on 05/22 11:19; Start 05/22/16 at 10:30; Stop 05/22/16 at 11:30; Status DC Sodium Chloride 1,000 ml @ 999 mls/hr BOLUS ONCE IV Last administered on 05/22 11:19; Start 05/22/16 at 10:30; Stop 05/22/16 at 11:30; Status DC Sodium Chloride (NS 1000 ml Inj) 1,000 ml @ 75 mls/hr [id number] IV Last administered on 05/23/16 16:44; Start 05/22/16 at 10:30; Stop 05/24/16 at 09:01 ; Status DC Potassium Chloride 40 meq 40 meq NOW ONCE PO Last administered on 05/22/16 14 :15; Start 05/22/16 at 14:15; Stop 05/22/16 at 14:16; Status DC Piperacillin Sod/ Tazobactam Sod 50 ml @ 100 mls/hr Q6H IV ; Start 05/22/16 at 21:00; Stop 05/22/16 at 21:00; Status DC Linezolid (Zyvox 600 Mg Premix) 300 ml @ 300 mls/hr Q12H IV Last administered on 06/02/16 04:54; Start 05/22/16 at 17:00 Diltiazem HCl (Cardizem Inj) 20 mg ONCE ONCE IV Last administered on 16:17; Start 05/22/16 at 16:00; Stop 05/22/16 at 16:03; Status DC Vancomycin HCl 250 mg 250 mg QID PO Last administered on 06/02/16 09:16; Start 05/22/16 at 18:00 Metronidazole (Flagyl 500 Mg Inj) 100 ml @ 100 mls/hr Q8H IV Last administered on 05/30/16 09:30; Start 05/22/16 at 18:00; Stop 05/30/16 at 15:23 ; Status DC Hydrocortisone Sodium Succinate (SoluCORTEF INJ) 100 mg Q8H IV Last administered on 05/24/16 00:10; Start 05/22/16 at 17:00; Stop 05/24/16 at 09:05 ; Status DC Metoprolol Tartrate 2.5 mg 2.5 mg ONCE ONCE IV PUSH Last administered on 16:45; Start 05/22/16 at 16:45; Stop 05/22/16 at 16:46; Status DC Diltiazem HCl 125 mg/Sodium Chloride 125 ml @ 0 mls/hr TITRATE IV ; Start at 16:45; Stop 05/22/16 at 18:02; Status DC Potassium Chloride (KCl 40 Meq Premix Inj) 100 ml @ 25 mls/hr BOLUS ONCE IV Last administered on 05/22/16 18:11; Start 05/22/16 at 17:00; Stop 05/22/16 at 20:59; Status DC Heparin Sodium (Porcine) 5000 units 5,000 units Q8H SQ Last administered on 06/02 04:55; Start 05/23/16 at 13:00 Potassium Chloride 100 ml @ 50 mls/hr Q2H PRN IV For Potassium 2.8 - 3.2 mEq/ L Last administered on 05/23/16t 09:23; Start 05/23/16 at 08:45; Stop 05/29/16 at 08:14; Status DC Potassium Chloride 100 ml @ 50 mls/hr Q2H PRN IV For Potassium 2.8 - 3.2 mEq/L ; Start 05/23/16 at 08:45; Stop 05/29/16 at 08:14; Status DC Potassium Chloride 100 ml @ 25 mls/hr UNSCH PRN IV For Potassium 3.3 - 3.5 mEq /L; Start 05/23/16 at 08:45; Stop 05/29/16 at 08:14; Status DC Potassium Chloride 100 ml @ 50 mls/hr Q2H PRN IV For Potassium 3.3 - 3.5 mEq/L ; Start 05/23/16 at 08:45; Stop 05/29/16 at 08:14; Status DC Magnesium Sulfate/ Sodium Chloride (Magnesium Sulfate Inj/NS Inj) 100 ml @ 50 mls/hr UNSCH PRN IV For Magnesium 0.9 - 1.1 mg/dL; Start 05/23/16 at 08:45; Stop 05/29/16 at 08:14; Status DC Magnesium Oxide 800 mg 800 mg UNSCH PRN PO For Magnesium 1.2 - 1.6 mg/dL; Start 05/23/16 at 08:45; Stop 05/29/16 at 08:14; Status DC Magnesium Sulfate/ Sodium Chloride (Magnesium Sulfate Inj/NS Inj) 100 ml @ 50 mls/hr UNSCH PRN IV For Magnesium 1.2 - 1.6 mg/dL; Start 05/23/16 at 08:45; Stop 05/29/16 at 08:14; Status DC Potassium Phosphate 2000 mg 2,000 mg Q4H PRN PO For Phosphorus < 2.5 mg/dL; Start 05/23/16 at 08:45; Stop 05/29/16 at 08:14; Status DC Sodium Phosphate/ Sodium Chloride (Sodium Phosphate Inj/NS 250 ml Inj) 250 ml @ 42 mls/hr UNSCH PRN IV For Phosphorus < 2.5 mg/dL; Start 05/23/16 at 08:45; Stop 05/29/16 at 08:14; Status DC Potassium Phosphate 2000 mg 2,000 mg UNSCH PRN PO/TUBE SEE LABEL COMMENTS; Start 05/23/16 at 08:45; Stop 05/29/16 at 08:14; Status DC Potassium Phosphate/Sodium Chloride (Potassium Phosphate Inj/NS 250 ml Inj) 260 ml @ 42 mls/hr UNSCH PRN IV SEE LABEL COMMENTS; Start 05/23/16 at 08:45; Stop 05/29/16 at 08:14; Status DC Haloperidol Lactate (Haldol Inj) 4 mg Q6H PRN IV agitation Last administered on 05/24/16 23:54; Start 05/23/16 at 08:45; Stop 05/26/16 at 11:15; Status DC Labetalol HCl (Trandate Inj) 20 mg Q4H PRN IV PUSH SYS BP GREATER THAN 170 MMHG Last administered on 05/25/16 12:06; Start 05/23/16 at 17:30 Lorazepam (Ativan Inj) 1 mg Q4H PRN IV PUSH anxiety, agitation Last administered on 05/24/16 03:50; Start 05/23/16 at 17:30; Stop 05/24/16 at 09:05 ; Status DC Ondansetron HCl (Zofran Inj) 4 mg STK-MED ONCE .ROUTE Last administered on 05/24 00:10; Start 05/24/16 at 00:06; Stop 05/24/16 at 00:07; Status DC Ondansetron HCl (Zofran Inj) 4 mg Q4H PRN IV PUSH NAUSEA OR VOMITING Last administered on 05/31/16 08:11; Start 05/24/16 at 00:30 Lorazepam 1 mg 1 mg Q2H PRN IV PUSH anxiety, agitation Last administered on 08:59; Start 05/24/16 at 09:30; Stop 05/26/16 at 11:15; Status DC Levofloxacin/ Dextrose (Levaquin 500 Mg Premix Inj) 100 ml @ 100 mls/hr Q24H IV Last administered on 05/26/16 09:57; Start 05/24/16 at 10:00; Stop at 14:37; Status DC Metoclopramide HCl 10 mg 10 mg Q8HR IV Last administered on 05/28/16 03:19; Start 05/25/16 at 10:00; Stop 05/28/16 at 11:20; Status DC Potassium Chloride/Dextrose (KCl Inj/D5W 1000 ml Inj) 1,020 ml @ 75 mls/hr [id number] IV Last administered on 06/02/16 04:55; Start 05/25/16 at 11:00 Haloperidol Lactate (Haldol Inj) 2 mg Q6H PRN IV agitation Last administered on 06/02/16 05:57; Start 05/26/16 at 14:45 Lorazepam (Ativan Inj) 0.5 mg Q2H PRN IV PUSH anxiety, agitation Last administered on 06/02/16 09:17; Start 05/26/16 at 11:30 Nystatin (Mycostatin Cream) 1 applic Q12HR TOPICAL ; Start 05/28/16 at 10:00; Stop 05/28/16 at 13:48; Status DC Metoclopramide HCl (Reglan Inj) 5 mg Q8HR IV Last administered on 06/02/16 04: 56; Start 05/28/16 at 14:00 Nystatin (Mycostatin Powder) 1 applic BID PRN TOPICAL RASH ON GROIN AREA Last administered on 05/29/16 09:00; Start 05/28/16 at 14:00 Bupropion HCl 75 mg 75 mg Q12HR PO Last administered on 06/02/16 09:16; Start 05/28/16 at 15:00 Potassium Chloride (KCl 20 Meq Premix Inj) 100 ml @ 50 mls/hr Q2H IV Last administered on 05/29/16 14:36; Start 05/29/16 at 13:00; Stop 05/29/16 at 16:59 ; Status DC Pantoprazole Sodium (Protonix) 40 mg DAILY PO Last administered on 06/02/16 09: 00; Start 06/01/16 at 09:00 A/P Assessment and Plan A/P Acute encephalopathy-improving Polydrug overdose Chronic pain -Urine drug screen positive for cocaine, amphetamine, benzodiazepines and opiates -Patient was recently prescribed Wellbutrin and oxycodone -Use when necessary Ativan and Haldol and fentanyl for agitation, overall delirium slowly improving -EEG to moderate encephalopathy, no seizures -psych consult appreciated; f/u as outpatient. Acute respiratory failure-resolved Severe metabolic and respiratory acidosis MRSA pneumonia recurrent fever -Extubated 05/23/16, good oxygen saturation . -continue with neb treatment -On Zyvox ; will finish the course of treatment today per ID. -will reconsult ID -Hypovolemic and septic shock, resolved -continue IV fluid for now. Transaminitis-improved Small bowel thickening on CT/Enteritis C. difficile colitis-improving Ileus-improving. -Elevated liver enzymes from shock liver -Gastroenterology signed off. -continue Reglan and Protonix -Continue by mouth vancomycin. Flagyl was discontinued. Acute kidney failure-resolved Severe dehydration-improved -hypokalemia-replaced -Monitor renal function closely. Robert catheter. -Renal ultrasound-acute medical renal disease -electrolyte replacement as needed. -Nephrology signed off. Septic shock-resolved MRSA/Enterobacter pneumonia C. difficile colitis-improving. -on Zyvox as noted above. -Continue by mouth vancomycin. -reconsult ID PROPH: -Bilateral lower extremity SCDs. Heparin 5000 U sq q8. continue Protonix . continue PT. Discharge Planning with recurrent fever- awaiting ID f/u and recommendations. Karan Santillan MD Jun 02, 2016 13:07
[2016-06-02 16:00] VITALS: BP 124/83; PULSE 119; RESP 24; TEMP 99.4; O2SAT 95
[2016-06-02 17:08] LABS: BACTERIA, URINE RARE /hpf; BLOOD, URINE TRACE (NEG); COMMENT (UR) CULTURE INDICATED; CULTURE IF INDICATED CULTURE INDICATED; GLUCOSE,URINE NEG (NEG); KETONE, URINE NEG (NEG); NITRITE,URINE NEG (NEG); PH, URINE 6.5 (5.0-8.5); SQUAMOUS EPITHELIAL CELL URINE 2 /hpf (0-5); URINE COLOR YELLOW (YELLW/STRAW)
[2016-06-02] MEDS: ACETAMINOPHEN 325 MG TAB PO PRN (18:06)
[2016-06-02 20:00] VITALS: BP 140/72; PULSE 128; PULSE 78; RESP 20; TEMP 100.2; O2SAT 98
--- NOTE | 2016-06-02 20:25 | RADRPT ---
EXAM DATE/TIME: 06/02/2016 20:10 [facility] COMPARISON: No previous studies available for comparison. INDICATIONS : right shoulder pain for the past two days. No prior trauma. MEDICAL HISTORY : None. SURGICAL HISTORY : None. ENCOUNTER: Initial ACUITY: 2 days PAIN SCORE: 10/10 LOCATION: Right shoulder. FINDINGS: No definite fractures, or dislocations are identified. No definite lytic or sclerotic lesion is seen . Small bone island in the glenoid with slight hypertrophic change of the A/C joint. CONCLUSION: Chronic changes and no evidence for acute fracture. Caren Andrade MD on June 02, 2016 at 20:23 Board Certified Radiologist. This report was verified electronically.
[2016-06-03] VITALS: BP 136/78; PULSE 80; RESP 20; TEMP 99; O2SAT 97
[2016-06-03] MEDS: ACETAMINOPHEN 325 MG TAB PO PRN ×2 (00:50→08:04)
[2016-06-03] MEDS: LORazepam 2 MG/ML VIAL IV PUSH PRN ×2 (00:50→05:15)
[2016-06-03] MEDS ORDERED: ENOXAPARIN SODIUM 100 MG/ML SYRINGE SQ SCH (01:45)
[2016-06-03 04:00] VITALS: BP 128/82; PULSE 76; RESP 20; TEMP 98.8; O2SAT 96
[2016-06-03] MEDS: CHLORHEXIDINE GLUCONATE 2 % 1 PACK (2 CLOTHS) TOP SCH (04:00)
[2016-06-03] MEDS: METOCLOPRAMIDE HCL 10 MG/2 ML VIAL IV SCH ×2 (05:15→12:48)
[2016-06-03] MEDS: LINEZOLID 600 MG PREMIX 300 ML IV SCH (05:15)
[2016-06-03 05:36] LABS: AUTOMATED NEUTROPHIL # 2.9 TH/MM3 (1.8-7.7); BASOPHIL % 0.7 % (0.0-2.0); EOSINOPHIL % 0.7 % (0.0-4.0); HEMATOCRIT 30.5 % (35.0-46.0); HEMO FLAGS DIFF FINAL; LYMPH % 18.7 % (9.0-44.0); LYMPHOCYTE # 0.8 TH/MM3 (1.0-4.8); MEAN CELL VOLUME 86.6 FL (80.0-100.0); MEAN CORPUSCULAR HEMOGLOBIN 27.7 PG (27.0-34.0); MEAN CORPUSCULAR HGB CONC 31.9 % (32.0-36.0); MONO % 8.7 % (0.0-8.0); NEUT % 71.2 % (16.0-70.0); PLATELET COUNT 351 TH/MM3 (150-450); RED BLOOD COUNT 3.52 MIL/MM3 (4.00-5.30); RED CELL DISTRIBUTION WIDTH 15.5 % (11.6-17.2); WHITE BLOOD COUNT 4.1 TH/MM3 (4.0-11.0)
[2016-06-03 05:55] LABS: BICARBONATE 23.4 MEQ/L (21.0-32.0); POTASSIUM 3.6 MEQ/L (3.5-5.1)
[2016-06-03] MEDS: CHLORHEXIDINE 0.12% (ORAL KIT) 15 ML CUP MT SCH (07:20)
[2016-06-03 07:58] VITALS: PULSE 120
[2016-06-03] MEDS: POTASSIUM CHLORIDE INJ 40 MEQ in DEXTROSE 5% IN WATE 1000ML INJ 1,000 ML IV SCH ×2 (07:59)
[2016-06-03 08:00] VITALS: BP 131/85; PULSE 122; RESP 17; TEMP 97.8; O2SAT 95
[2016-06-03] MEDS: PANTOPRAZOLE SOD 40 MG DELAYED RELEASE TAB PO SCH (08:00)
[2016-06-03] MEDS: buPROPion HCL 75 MG TAB PO SCH (08:00)
[2016-06-03] MEDS: VANCOMYCIN 500 MG VIAL (FOR ORAL USE ONLY) PO SCH ×2 (08:00→11:41)
--- NOTE | 2016-06-03 11:38 | RADRPT ---
EXAM DATE/TIME: 06/03/2016 10:23 [facility] COMPARISON: No previous studies available for comparison. INDICATIONS : Swelling in right arm. MEDICAL HISTORY : Hypertension. SURGICAL HISTORY : Cholecystectomy. Tubal ligation. ENCOUNTER: Initial ACUITY: 1 day PAIN SCORE: 0/10 LOCATION: Right arm. FINDINGS: There is spontaneous flow documented in the brachial, basilic, cephalic, axillary, and subclavian vei ns. The vessels are compressible and augmentation response is documented. No filling defects are se en. The flow is phasic with respiration. Direction of flow in the jugular vein is caudal. CONCLUSION: 1. No evidence of deep venous thrombosis. Ish Friend MD on June 03, 2016 at 11:36 Board Certified Radiologist. This report was verified electronically.
[2016-06-03 12:00] VITALS: BP 133/76; PULSE 103; RESP 18; TEMP 97.8; O2SAT 95
--- NOTE | 2016-06-03 12:47 | HHI.IDPN ---
Note Infectious Disease Note ID [facility] for Patient treated for MRSA and Gram negative pneumonia. Now being treated for Cdiff. Overnight events reviewed. Several low grade fevers. No rash No diarrhea No cough, CP or shortness of breath. Alert but responses not appropriate at times. Complains of occ abdominal pain and cramping. Unsteady needs assistance. On room air. PAST MEDICAL HISTORY 1. Hypertension, 2. Chronic pain. 3. Cholecystectomy 4. Laminectomy. ALLERGIES NO KNOWN DRUG ALLERGIES. MEDICATIONS 1. Vancomycin p.o. 2. Metronidazole IV 3. Linezolid IV. SOCIAL HISTORY Positive tobacco use. The patient smokes 1/2 pack of cigarettes a day. Social alcohol use. No illicit drugs. OBJECTIVE: Laboratory Tests Test 06/02/16 06/03/16 16:30 05:04 Urine Color YELLOW Urine Turbidity CLEAR Urine pH 6.5 Urine Specific [place] 1.005 Urine Protein NEG mg/dL Urine Glucose (UA) NEG mg/dL Urine Ketones NEG mg/dL Urine Occult Blood TRACE Urine Nitrite NEG Urine Bilirubin NEG Urine Urobilinogen LESS THAN 2.0 MG/DL Urine Leukocyte Esterase LARGE Urine RBC 1 /hpf Urine WBC 30 /hpf Urine Squamous Epithelial 2 /hpf Cells Urine Bacteria RARE /hpf Microscopic Urinalysis Comment CULTURE INDICATED White Blood Count 4.1 TH/MM3 Red Blood Count 3.52 MIL/MM3 Hemoglobin 9.7 GM/DL Hematocrit 30.5 % Mean Corpuscular Volume 86.6 FL Mean Corpuscular Hemoglobin 27.7 PG Mean Corpuscular Hemoglobin 31.9 % Concent Red Cell Distribution Width 15.5 % Platelet Count 351 TH/MM3 Mean Platelet Volume 7.8 FL Neutrophils (%) (Auto) 71.2 % Lymphocytes (%) (Auto) 18.7 % Monocytes (%) (Auto) 8.7 % Eosinophils (%) (Auto) 0.7 % Basophils (%) (Auto) 0.7 % Neutrophils # (Auto) 2.9 TH/MM3 Lymphocytes # (Auto) 0.8 TH/MM3 Monocytes # (Auto) 0.4 TH/MM3 Eosinophils # (Auto) 0.0 TH/MM3 Basophils # (Auto) 0.0 TH/MM3 CBC Comment DIFF FINAL Differential Comment Sodium Level 140 MEQ/L Potassium Level 3.6 MEQ/L Chloride Level 107 MEQ/L Carbon Dioxide Level 23.4 MEQ/L Anion Gap 10 MEQ/L Blood Urea Nitrogen 6 MG/DL Creatinine 0.68 MG/DL Estimat Glomerular Filtration 89 ML/MIN Rate Random Glucose 87 MG/DL Calcium Level 8.3 MG/DL Microbiology Date/Time Procedure Status Source Growth 06/02/16 16:30 Urine Culture Received Urine Clean Catch Pending Microbiology Cdiff PCR positive. IMAGING: Last Impressions Upper Extremity Ultrasound 06/03/16 0000 Signed Impressions: Service Date/Time: Friday, June 03, 2016 10:23 - CONCLUSION: 1. No evidence of deep venous thrombosis. Ish Friend MD Shoulder X-Ray 06/02/16 0000 Signed Impressions: Service Date/Time: Thursday, June 02, 2016 20:10 - CONCLUSION: Chronic changes and no evidence for acute fracture. Caren Andrade MD Chest X-Ray 05/29/16 0600 Signed Impressions: Service Date/Time: April 01:19 - CONCLUSION: 1. Bilateral effusions and basilar airspace disease similar to May 27. Davis Goldman MD Abdomen X-Ray 05/28/16 0600 Signed Impressions: Service Date/Time: Saturday, May 28, 2016 04:52 - CONCLUSION: 1. Gaseous distention of bowel similar to May 27. Davis Goldman MD Abdomen Ultrasound 05/23/16 0000 Signed Impressions: Service Date/Time: Monday, May 23, 2016 09:14 - CONCLUSION: Trace fluid in the right lower quadrant. This is insufficient volume for percutaneous drainage. Ky German MD Head CT 05/21/16 0833 Signed Impressions: Service Date/Time: Saturday, May 21, 2016 09:02 - CONCLUSION: No acute disease. Torsten Verma MD Renal Ultrasound 05/21/16 0000 Signed Impressions: Service Date/Time: Saturday, May 21, 2016 15:32 - CONCLUSION: 1. Kidney sizes are preserved with increased cortical echogenicity characteristic of acute medical renal disease. 2. Otherwise negative. No hydronephrosis or nephrolithiasis. Ky German MD Abdomen/Pelvis CT 05/21/16 0000 Signed Impressions: Service Date/Time: Saturday, May 21, 2016 18:34 - CONCLUSION: 1. There is slight ascites with haziness of the mesentery nonspecific may be passive congestion or inflammatory in nature with very abnormal looking loops of small bowel which demonstrate thickening of the bowel wall and the exact etiology is not certain. 2. Bibasilar consolidation worse on the left. Caren Andrade MD PHYSICAL EXAMINATION GENERAL: No acute distress. Alert and oriented. HEENT: EOMI, PERRLA. NECK: Supple without swelling. LUNGS: Decreased breath sounds. HEART: Regular S1 and S2 without murmurs or rubs or gallops. ABDOMEN: Bowel sounds diminished, soft. No tenderness. EXTREMITIES: No clubbing, cyanosis or edema. SKIN: No rash. NEUROLOGIC: Non focal. PSYCHIATRIC: calm and cooperative. IMPRESSION: 1. Pneumonia MRSA plus Enterobacter pneumonia resolved. 2. Bilateral Pleural effusions. 3. C. difficile diarrhea: Still having loose stools. 4. Acute kidney disease improved. 5. Drug intoxication/Encephalopathy. RECOMMENDATIONS Continue metronidazole Continue oral vancomycin x 6 more days if diarrhea subsides. Continue Contact isolation. Follow urine cultures. Not ready for SD Rosmery Mccarthy MD Jun 03, 2016 12:47
[2016-06-03] MEDS ORDERED: metroNIDAZOLE 500 MG TAB PO SCH (13:00)
[2016-06-03] MEDS ORDERED: VANC500I3 PO (15:02)
[2016-06-03] MEDS ORDERED: METR-1 PO (15:02)
--- NOTE | 2016-06-03 15:10 | HHI.DS ---
Discharge Summary Admission Date May 21, 2016 at 10:37 Discharge Date: Jun 03, 2016 Admitting Diagnosis REnal Failure, AMS (1) Acute respiratory failure ICD Code: J96.00 Diagnosis: Principal (2) Acute encephalopathy ICD Code: G93.40 Diagnosis: Principal (3) Acute drug overdose ICD Code: T50.901A Diagnosis: Principal (4) Acute renal failure ICD Code: N17.9 Diagnosis: Principal (5) Hyperkalemia ICD Code: E87.5 Diagnosis: Principal (6) Shock ICD Code: R57.9 Diagnosis: Principal (7) Metabolic acidosis ICD Code: E87.2 Diagnosis: Principal (8) Rhabdomyolysis ICD Code: M62.82 Diagnosis: Principal (9) Elevated liver enzymes ICD Code: R74.8 Diagnosis: Principal (10) Hypocalcemia ICD Code: E83.51 Diagnosis: Principal (11) Dehydration ICD Code: E86.0 Diagnosis: Principal (12) MRSA, Enterobacter pneumonia Diagnosis: Principal (13) C. difficile colitis ICD Code: A04.7 Diagnosis: Principal (14) Ileus ICD Code: K56.7 Diagnosis: Principal (15) Enteritis ICD Code: K52.9 Diagnosis: Principal Procedures endotracheal intubation central line placement Brief History - From Admission Patient is a 56-year-old female with past medical history significant for hypertension and chronic pain who was brought to the [facility] emergency department by EMS for altered mental status. Per EMS stated that she was recently started on oxycodone, Wellbutrin within the past 2 weeks. According to him patient was getting more confused and lethargic since yesterday. On EMS arrival and there were multiple open bottles on the scene including Wellbutrin oxycodone and alprazolam. Unable to determine what meds and how much she consumed. Patient was hypotensive and received total of 4 L normal saline boluses in [facility] ED. ER workup showed a CT of the head was negative but patient remained unresponsive with jerking movements of bilateral upper and lower extremities. Lab work showed acute renal failure with BUN 184 creatinine of 13, potassium was 7.6. Along with fluid boluses patient received bicarbonate, insulin and D50, albuterol for treatment of hyperkalemia and Bicarbonate drip was also started. Patient's pH was 7.04 which was combined metabolic and respiratory acidemia. Due to worsening mental status severe acidosis patient was endotracheally intubated and placed on mechanical ventilation, also a right IJ central line was placed. Nephrology had been consulted Patient was transferred to the main hospital and I evaluated her in the ICU. On propofol patient continues to have intermittent jerking movements of the extremities. She remains on 6 mcg/m of Levophed. After treatment of hyperkalemia potassium has improved now 5.8. Creatinine has improved to 12 patient had a total output of 500 mL in urine. We will continue bicarbonate infusion. Nephrology consult is pending at this time. UDS positive for opiates , benzo, amphetamine and cocaine. CBC/BMP: 06/03/16 0504 06/03/16 0504 Significant Findings Laboratory Tests Test 06/02/16 06/03/16 16:30 05:04 Urine Occult Blood TRACE (NEG) Urine Leukocyte Esterase LARGE (NEG) Urine WBC 30 /hpf (0-5) Urine Bacteria RARE /hpf (NONE) Red Blood Count 3.52 MIL/MM3 (4.00-5.30) Hemoglobin 9.7 GM/DL (11.6-15.3) Hematocrit 30.5 % (35.0-46.0) Mean Corpuscular Hemoglobin 31.9 % Concent (32.0-36.0) Neutrophils (%) (Auto) 71.2 % (16.0-70.0) Monocytes (%) (Auto) 8.7 % (0.0-8.0) Lymphocytes # (Auto) 0.8 TH/MM3 (1.0-4.8) Blood Urea Nitrogen 6 MG/DL (7-18) Calcium Level 8.3 MG/DL (8.5-10.1) Imaging Last Impressions Upper Extremity Ultrasound 06/03/16 0000 Signed Impressions: Service Date/Time: Friday, June 03, 2016 10:23 - CONCLUSION: 1. No evidence of deep venous thrombosis. Ish Friend MD Shoulder X-Ray 06/02/16 0000 Signed Impressions: Service Date/Time: Thursday, June 02, 2016 20:10 - CONCLUSION: Chronic changes and no evidence for acute fracture. Caren Andrade MD Chest X-Ray 05/29/16 0600 Signed Impressions: Service Date/Time: April 01:19 - CONCLUSION: 1. Bilateral effusions and basilar airspace disease similar to May 27. Davis Goldman MD Abdomen X-Ray 05/28/16 0600 Signed Impressions: Service Date/Time: Saturday, May 28, 2016 04:52 - CONCLUSION: 1. Gaseous distention of bowel similar to May 27. Davis Goldman MD Abdomen Ultrasound 05/23/16 0000 Signed Impressions: Service Date/Time: Monday, May 23, 2016 09:14 - CONCLUSION: Trace fluid in the right lower quadrant. This is insufficient volume for percutaneous drainage. Ky German MD Head CT 05/21/16 0833 Signed Impressions: Service Date/Time: Saturday, May 21, 2016 09:02 - CONCLUSION: No acute disease. Torsten Verma MD Renal Ultrasound 05/21/16 0000 Signed Impressions: Service Date/Time: Saturday, May 21, 2016 15:32 - CONCLUSION: 1. Kidney sizes are preserved with increased cortical echogenicity characteristic of acute medical renal disease. 2. Otherwise negative. No hydronephrosis or nephrolithiasis. Ky German MD Abdomen/Pelvis CT 05/21/16 0000 Signed Impressions: Service Date/Time: Saturday, May 21, 2016 18:34 - CONCLUSION: 1. There is slight ascites with haziness of the mesentery nonspecific may be passive congestion or inflammatory in nature with very abnormal looking loops of small bowel which demonstrate thickening of the bowel wall and the exact etiology is not certain. 2. Bibasilar consolidation worse on the left. Caren Andarde MD PE at Discharge GENERAL:in no acute distress- with NG tube in place CARDIOVASCULAR: Regular rate and irregular rhythm without murmurs, gallops, or rubs. RESPIRATORY: mild bilateral wheezing. GASTROINTESTINAL: Abdomen soft, non-tender, less distended. Normal, active bowel sounds MUSCULOSKELETAL: Extremities without clubbing, cyanosis, or edema. NEURO: Alert & Oriented x4 to person, place, time, situation. Moves all ext x4 Transfer Summary Patient is a 56-year-old female with past medical history significant for hypertension and chronic pain who was brought to the [facility] emergency department by EMS for altered mental status. Per EMS stated that she was recently started on oxycodone, Wellbutrin within the past 2 weeks. According to him patient was getting more confused and lethargic since yesterday. On EMS arrival and there were multiple open bottles on the scene including Wellbutrin oxycodone and alprazolam. Unable to determine what meds and how much she consumed. Patient was hypotensive and received total of 4 L normal saline boluses in [facility] ED. ER workup showed a CT of the head was negative but patient remained unresponsive with jerking movements of bilateral upper and lower extremities. Lab work showed acute renal failure with BUN 184 creatinine of 13, potassium was 7.6. Along with fluid boluses patient received bicarbonate, insulin and D50, albuterol for treatment of hyperkalemia and Bicarbonate drip was also started. Patient's pH was 7.04 which was combined metabolic and respiratory acidemia. Due to worsening mental status severe acidosis patient was endotracheally intubated and placed on mechanical ventilation, also a right IJ central line was placed. Nephrology had been consulted. Patient was transferred to the [facility] and I evaluated her in the ICU. On propofol patient continues to have intermittent jerking movements of the extremities. She remains on 6 mcg/m of Levophed. After treatment of hyperkalemia potassium has improved now 5.8. Creatinine has improved to 12 patient had a total output of 500 mL in urine. We will continue bicarbonate infusion. Nephrology consult is pending at this time. UDS positive for opiates , benzo, amphetamine and cocaine. SUBJ 05/22/16: Patient remains intubated sedated with propofol, on Levophed. Urine output close to 5 L since admission. On sedation lightening intermittently follows commands on the lower extremities and tracks with eyes. 05/23: Remains intubated on Precedex. Currently on Levophed 3 mcg/min. Creat normalized. ID consult pending for MRSA GNR pneumonia and C Diff 05/24: Agitation overnight requiring Precedex. Off all pressors. Patient is some what delirious, follows some commands. 05/25: Remains in restraints due to intermittent agitation but off Precedex. Orientation is slightly improved knows her name and knows that she is in the hospital. Sodium remains high at 154, ephedra restarted. KUB shows ileus placed on Reglan IV. NGT to LIWS 05/26: Overall improving mentation. Patient knows that she is in [facility] and also name. KUB shows ileus patient continues to have bowel movements. Less distended on clinical exam. Pt update on day of discharge as per RN patient still having diarrhea. Patient denies abdominal pain, nausea or vomiting. she states wants to leave AMA. I explained to the patient that if the infection is not treated appropriately then she could end up sicker and packed to the hospital. I also explained to her that risks of not treating the infection appropriately includes . The patient is awake alert oriented 3 , was able to repeat and seemed to have a good understanding of the possible consequences of her decision. The RN taking care of the patient is present during this conversation. I insisted to the patient that she should remain hospitalized until the diarrhea and low-grade fevers subside, however patient insists that she will leave AMA. I instructed the patient to follow-up with her primary as soon as possible and to return to the hospital she should have worsening diarrhea, abdominal pain, fevers. Hospital Course Acute encephalopathy-improving Polydrug overdose Chronic pain -Urine drug screen positive for cocaine, amphetamine, benzodiazepines and opiates -Patient was recently prescribed Wellbutrin and oxycodone -Use when necessary Ativan and Haldol and fentanyl for agitation, overall delirium slowly improving -EEG to moderate encephalopathy, no seizures -psych consult appreciated; f/u as outpatient. Acute respiratory failure-resolved Severe metabolic and respiratory acidosis MRSA pneumonia recurrent fever -Extubated 05/23/16, good oxygen saturation . -continue with neb treatment -On Zyvox ; will finish the course of treatment today per ID. -will reconsult ID -Hypovolemic and septic shock, resolved -continue IV fluid for now. Transaminitis-improved Small bowel thickening on CT/Enteritis C. difficile colitis-improving Ileus-improving. -Elevated liver enzymes from shock liver -Gastroenterology signed off. -continue Reglan and Protonix -Continue by mouth vancomycin. Flagyl was discontinued. Acute kidney failure-resolved Severe dehydration-improved -hypokalemia-replaced -Monitor renal function closely. Robert catheter. -Renal ultrasound-acute medical renal disease -electrolyte replacement as needed. -Nephrology signed off. Septic shock-resolved MRSA/Enterobacter pneumonia C. difficile colitis-improving. - Sp RX with Zyvox as noted above. - Case discussed w Dr Santillan - recommends continuation of oral Flagyl and oral Vancomycin and discontinuation of other antibiotics. - Patient Signed out AMA. PROPH: -Bilateral lower extremity SCDs. Heparin 5000 U sq q8. continue Protonix . continue PT. Pt Condition on Discharge: Guarded Discharge Disposition: Discharge Home Discharge Time: <= 30 minutes Discharge Instructions Speech Therapy-Diet Recommends: Other Follow up Referrals: SNF/[facility]/ with [facility] at Home New Medications: Metronidazole (Flagyl) 500 Mg Tab 500 MG PO Q8H Infection #30 TAB Vancomycin Inj (Vancomycin Inj) 500 Mg Inj 250 MG PO QID Infection #30 INJECTION Additional Information Patient Left AGAINST MEDICAL ADVISE. Jim Cao MD Jun 03, 2016 15:10
== END 2016-06-03 15:38 | disposition left against medical advice (07) | DRG 871 ==
LOC: PHED 08:27 → PHEDA 10:37 → HIMN 12:30 → N07A 05-29 18:56
PROVIDERS: ADMIT Internal Medicine; ATTEND Hospitalist
PROC: 0BH17EZ Insertion of Endotracheal Airway into Trachea, Via Natural or Artificial Opening (ICD-10-PCS; principal; 2016-05-21)
PROC: 03HY32Z Insertion of Monitoring Device into Upper Artery, Percutaneous Approach (ICD-10-PCS; 2016-05-21)
PROC: 5A1945Z Respiratory Ventilation, 24-96 Consecutive Hours (ICD-10-PCS; 2016-05-21)
PROC: 05HM33Z Insertion of Infusion Device into Right Internal Jugular Vein, Percutaneous Approach (ICD-10-PCS; 2016-05-21)
DX: A41.9 Sepsis, unspecified organism (principal); J15.212 Pneumonia due to Methicillin resistant Staphylococcus aureus; N17.0 Acute kidney failure with tubular necrosis; J96.00 Acute respiratory failure, unspecified whether with hypoxia or hypercapnia; K72.00 Acute and subacute hepatic failure without coma; J90 Pleural effusion, not elsewhere classified; R57.1 Hypovolemic shock; R65.21 Severe sepsis with septic shock; G93.41 Metabolic encephalopathy; J15.6 Pneumonia due to other Gram-negative bacteria; A04.7 Enterocolitis due to Clostridium difficile; M62.82 Rhabdomyolysis; E87.0 Hyperosmolality and hypernatremia; E87.4 Mixed disorder of acid-base balance; E87.1 Hypo-osmolality and hyponatremia; K56.7 Ileus, unspecified; T50.901A Poisoning by unspecified drugs, medicaments and biological substances, accidental (unintentional), initial encounter; I48.91 Unspecified atrial fibrillation; E83.51 Hypocalcemia; E86.0 Dehydration; E87.5 Hyperkalemia; E86.1 Hypovolemia; E87.6 Hypokalemia; F14.10 Cocaine abuse, uncomplicated; F11.10 Opioid abuse, uncomplicated; F17.210 Nicotine dependence, cigarettes, uncomplicated; G89.29 Other chronic pain; I10 Essential (primary) hypertension
CPT/HCPCS: 31500; 36556; 36600; 36620; 51702; 70450; 71010; 73030; 74000; 74176; 76705; 76775; 76937; 80048; 80053; 80307; 81001; 82010; 82140; 82550; 82552; 82805; 83540; 83605; 83735; 83930; 84100; 84132; 84155; 84484; 85007; 85025; 85027; 86403; 87040; 87070; 87077; 87086; 87147; 87186; 87205; 87328; 87329; 87493; 87506; 87641; 93005; 93971; 94002; 94003; 94640; 94664; 95819; 96361; 96374; 96375; 96376; C9113; C9399; J0330; J0610; J1630; J1644; J1650; J1720; J1815; J1956; J2020; J2060; J2405; J2543; J2765; J3010; J3370; J3480; J7030; J7050; J7070; J7613; P9045

== ENCOUNTER 2016-08-05 05:15 | Inpatient (IN) | payer OTHER, MEDICARE ==
[~2016-08-05] VITALS: Ht 165.1 cm; Wt 67.3 kg
[2016-08-05] VITALS (7 sets, daily range): BP systolic 136–181; BP diastolic 71–127; PULSE 84–121; RESP 15–20; TEMP 97.5–98.2; O2SAT 94–98
[~2016-08-05 05:15] MED LIST changes: +METR-1 PO; +TIZA4CAP3 PO; +VANC500I3 PO
[2016-08-05] MEDS ORDERED: MSIR15 PO (05:34)
[2016-08-05] MEDS ORDERED: CYMB30CA PO (05:34)
[2016-08-05] MEDS ORDERED: SODIUM CHLOR 0.9% 1000 ML INJ 1,000 ML IV SCH (05:47)
--- NOTE | 2016-08-05 05:59 | PD ---
HPI Chief Complaint: Abdominal Pain Time Seen by Provider: 05:46 Travel History International Travel<30 days: No Contact w/Intl Traveler<30days: No Traveled to known affect area: No History of Present Illness HPI 56-year-old female presents to the emergency department by private transportation the care of her spouse for complaint of abdominal distention and abdominal pain. Patient states that she has had abdominal pain and abdominal distention for the past 3 days. Patient denies fever or chills. Patient has diarrhea and vomiting. Patient is currently being treated with oral vancomycin for C. difficile colitis. Patient has appointment at [facility] on Thursday to undergo evaluation endoscopy and possible fecal transplant with admission. Patient states that she is currently only on Cymbalta and extended release morphine as well as her vancomycin. Patient takes no other medications. Patient has history of respiratory failure with intubation polysubstance ingestion drug overdose encephalopathy renal failure hyperkalemia rhabdomyolysis and elevated liver enzymes MRSA infection injure her back to pneumonia infection C. difficile colitis ileus and enteritis during hospitalization 05/21/16- 06/03/16 when she signed out AMA. Also history of hypertension chronic pain syndrome and anxiety depression. She reports she was encouraged to come to the emergency department by her primary care provider Dr. Barahona. [facility] Past Medical History Narrative Medical Depression, hypertension, C. difficile colitis, chronic pain syndrome; cholecystectomy, tubal ligation, laminectomy; tobacco use; nursing notes reviewed Depression: Yes Cardiovascular Problems: Yes (HTN) Diminished Hearing: No Hypertension: Yes Immunizations Current: Yes Tetanus Vaccination: < 5 Years Influenza Vaccination: No Menopausal: Yes : 1 Tubal Ligation: Yes Past Surgical History Cholecystectomy: Yes Thoracic Surgery: Yes (spinal surgery to lumbar area x3) Other Surgery: Yes (LAMINECTOMY) Social History Alcohol Use: Yes (SOCIALLY) Tobacco Use: Yes (1/2PPD; quit 4 months ago) Substance Use: No Allergies-Medications (Allergen,Severity, Reaction): Coded Allergies: *MDRO Multi-Drug Resistant Organism (Verified Adverse Reaction, Unknown, ) MRSA PCR Screen POSITIVE - 05/21/2016 MRSA (sputum)-05/21/16 Reported Meds & Prescriptions Reported Meds & Active Scripts Active Zofran Odt (Ondansetron Odt) 4 Mg Tab 4 Mg SL Q6HR PRN Reported Cymbalta DR (Duloxetine HCl) 30 Mg Capdr 40 Mg PO DAILY Morphine IR (Morphine Sulfate) 15 Mg Tab 15 Mg PO TID PRN Review of Systems Except as stated in HPI: all other systems reviewed are Neg General / Constitutional: No: Fever, Chills HENT: No: Congestion Cardiovascular: No: Chest Pain or Discomfort Respiratory: Positive: Shortness of Breath Gastrointestinal: Positive: Nausea, Vomiting, Diarrhea, Abdominal Pain Genitourinary: No: Dysuria, Flank Pain Musculoskeletal: No: Myalgias, Arthralgias Skin: No Rash Neurologic: No: Weakness Psychiatric: Positive: Anxiety Hematologic/Lymphatic: No: Lymph Node Enlargement Physical Exam Narrative GENERAL: Well-developed well-nourished female in no acute respiratory distress but intimately crying holding her abdomen and pain.T: 98.2F; BP: 181/121; RR: 16 ; O2sat RA: 94%; HR: 121 SKIN: Warm and dry. HEAD: Normocephalic. EYES: No scleral icterus. No injection or drainage. NECK: Supple, trachea midline. No JVD or lymphadenopathy. CARDIOVASCULAR: Regular rate and rhythm without murmurs, gallops, or rubs. RESPIRATORY: Breath sounds equal bilaterally. No accessory muscle use. GASTROINTESTINAL: Abdomen soft, increased bowel sounds, diffusely tender, distended. MUSCULOSKELETAL: No cyanosis, or edema. BACK: Nontender without obvious deformity. No CVA tenderness. Data Data Last Documented VS Vital Signs Date Time Temp Pulse Resp B/P Pulse Ox O2 Delivery O2 Flow Rate FiO2 08/05/16 07:44 96 15 136/86 96 Room Air 08/05/16 05:20 98.2 Orders Complete Blood Count With Diff (08/05/16 05:47) Comprehensive Metabolic Panel (08/05/16 05:47) Lipase (08/05/16 05:47) Lactic Acid (08/05/16 05:47) Prothrombin Time / Inr (Pt) (08/05/16 05:47) Act Partial Throm Time (Ptt) (08/05/16 05:47) Urinalysis - C+S If Indicated (08/05/16 05:47) Ct Abd/Pel W Iv Contrast(Rout) (08/05/16 05:47) Iv Access Insert/Monitor (08/05/16 05:47) Ecg Monitoring (08/05/16 05:47) Oximetry (08/05/16 05:47) Ondansetron Inj (Zofran Inj) (08/05/16 06:00) Sodium Chlor 0.9% 1000 Ml Inj (Ns 1000 M (08/05/16 05:47) Sodium Chloride 0.9% Flush (Ns Flush) (08/05/16 06:00) Chest, Single Ap (08/05/16 05:47) Morphine Inj (Morphine Inj) (08/05/16 06:00) Iohexol 350 Inj (Omnipaque 350 Inj) (08/05/16 07:43) Labs Laboratory Tests Test 08/05/16 08/05/16 05:58 06:40 White Blood Count 9.8 TH/MM3 Red Blood Count 4.84 MIL/MM3 Hemoglobin 12.5 GM/DL Hematocrit 39.1 % Mean Corpuscular Volume 80.7 FL Mean Corpuscular Hemoglobin 25.9 PG Mean Corpuscular Hemoglobin 32.0 % Concent Red Cell Distribution Width 14.3 % Platelet Count 591 TH/MM3 Mean Platelet Volume 7.1 FL Neutrophils (%) (Auto) 71.2 % Lymphocytes (%) (Auto) 22.1 % Monocytes (%) (Auto) 6.3 % Eosinophils (%) (Auto) 0.1 % Basophils (%) (Auto) 0.3 % Neutrophils # (Auto) 7.0 TH/MM3 Lymphocytes # (Auto) 2.2 TH/MM3 Monocytes # (Auto) 0.6 TH/MM3 Eosinophils # (Auto) 0.0 TH/MM3 Basophils # (Auto) 0.0 TH/MM3 CBC Comment AUTO DIFF Differential Comment AUTO DIFF CONFIRMED Platelet Estimate HIGH Platelet Morphology Comment NORMAL Prothrombin Time 10.0 SEC Prothromb Time International 0.9 RATIO Ratio Activated Partial 26.2 SEC Thromboplast Time Sodium Level 140 MEQ/L Potassium Level 3.2 MEQ/L Chloride Level 99 MEQ/L Carbon Dioxide Level 31.7 MEQ/L Anion Gap 9 MEQ/L Blood Urea Nitrogen 16 MG/DL Creatinine 0.70 MG/DL Estimat Glomerular Filtration 86 ML/MIN Rate Random Glucose 151 MG/DL Lactic Acid Level 1.5 mmol/L Calcium Level 8.7 MG/DL Total Bilirubin 0.3 MG/DL Aspartate Amino Transf 13 U/L (AST/SGOT) Alanine Aminotransferase 17 U/L (ALT/SGPT) Alkaline Phosphatase 126 U/L Total Protein 7.5 GM/DL Albumin 2.7 GM/DL Lipase 63 U/L Urine Collection Type CLEAN CATCH Urine Color YELLOW Urine Turbidity SLIGHT Urine pH 5.0 Urine Specific Wolbach 1.033 Urine Protein NEG mg/dL Urine Glucose (UA) NEG mg/dL Urine Ketones NEG mg/dL Urine Occult Blood NEG Urine Nitrite NEG Urine Bilirubin NEG Urine Leukocyte Esterase NEG Urine WBC 0-2 /hpf Urine Squamous Epithelial > 8 /hpf Cells Urine Amorphous Sediment LARGE Microscopic Urinalysis Comment CULT NOT INDICATED Urine Collection Time 0646 [facility] Medical Decision Making Medical Screen Exam Complete: Yes Emergency Medical Condition: Yes Medical Record Reviewed: Yes Interpretation(s) Vital Signs Date Time Temp Pulse Resp B/P Pulse Ox O2 Delivery O2 Flow Rate FiO2 08/05/16 07:44 96 15 136/86 96 Room Air 08/05/16 06:00 17 08/05/16 05:30 08/05/16 05:20 98.2 121 16 181/127 94 CBC & BMP Diagram 08/05/16 05:58 Vital Signs Date Time Temp Pulse Resp B/P Pulse Ox O2 Delivery O2 Flow Rate FiO2 08/05/16 07:44 96 15 136/86 96 Room Air 08/05/16 06:00 17 08/05/16 05:30 08/05/16 05:20 98.2 121 16 181/127 94 Differential Diagnosis Abdominal pain, gastroenteritis, bowel obstruction, partial bowel obstruction, ileus, C. Diff colitis, diverticulitis, anemia, GI bleed Narrative Course Patient placed on monitor IV access obtained specimens collected and sent for resulting patient ordered Zofran 4 mg IV along with morphine 2 mg IV and maintenance IV fluids. Patient with bedside commode intermittently up out of bed to bedside commode without stool or bowel movement. CT abdomen and pelvis with contrast ordered. Lab values have been found to be grossly normal range except for mild hypokalemia CT has been performed admit she results pending; patient reports that she notes some improvement of her abdominal distention but continues to report some recurrence of mild right lower quadrant pain. @ 8:20 care signed over to Dr Noel for follow up of CT andf disposition Diagnosis Primary Impression: Abdominal pain Qualified Code: R10.84 - Generalized abdominal pain Additional Impressions: C. difficile colitis Hypokalemia Referrals: Turbine Technician 1 day Keep scheduled appointment with communications coordinator at [facility] Patient Instructions: Narcotic given in the ED, General Instructions Additional Instructions: Recommend clear liquid diet for next 12-24 hours advance as tolerated Keep scheduled appointment with [facility] communications coordinator as planned times one day Take as tolerated acetaminophen as needed for fever 100.4F or greater May use Zofran as prescribed as needed for nausea and/or vomiting Return to the emergency department for any concerns or change in condition Med/Other Pt SpecificInfo: Prescription(s) given, No Change to Meds Scripts Ondansetron Odt (Zofran Odt)4 Mg Tab4 Mg SL Q6HR PRN (Nausea/Vomiting) #10 TAB Ref 0 Prov:Lucina Toscano MD 08/05/16 Disposition: 01 DISCHARGE HOME Condition: Stable Lucina Toscano MD Aug 05, 2016 05:59
[2016-08-05] MEDS ORDERED: SODIUM CHLORIDE 0.9% FLUSH 10 ML FLUSH IV FLUSH PRN ×2 (06:00→09:00)
[2016-08-05] MEDS ORDERED: ONDANSETRON HCL 4 MG/2 ML VIAL IVP ONE (06:00)
[2016-08-05] MEDS ORDERED: MORPHINE SULFATE 4 MG/ML INJ IV PUSH ONE (06:00)
[2016-08-05 06:15] LABS: BASOPHIL % 0.3 % (0.0-2.0); EOSINOPHIL % 0.1 % (0.0-4.0); HEMATOCRIT 39.1 % (35.0-46.0); LYMPH % 22.1 % (9.0-44.0); LYMPHOCYTE # 2.2 TH/MM3 (1.0-4.8); MEAN CELL VOLUME 80.7 FL (80.0-100.0); MEAN CORPUSCULAR HEMOGLOBIN 25.9 PG (27.0-34.0); MONO % 6.3 % (0.0-8.0); NEUT % 71.2 % (16.0-70.0); PLATELET COUNT 591 TH/MM3 (150-450); RED BLOOD COUNT 4.84 MIL/MM3 (4.00-5.30); RED CELL DISTRIBUTION WIDTH 14.3 % (11.6-17.2); WHITE BLOOD COUNT 9.8 TH/MM3 (4.0-11.0)
[2016-08-05 06:24] LABS: CHLORIDE 99 MEQ/L (98-107); POTASSIUM 3.2 MEQ/L (3.5-5.1); SODIUM (NA) 140 MEQ/L (136-145)
[2016-08-05 06:28] LABS: ANION GAP 9 MEQ/L (5-15); APTT (PATIENT) 26.2 SEC (24.3-30.1); BICARBONATE 31.7 MEQ/L (21.0-32.0); BLOOD UREA NITROGEN 16 MG/DL (7-18); INTERNATIONAL NORMALIZED RATIO 0.9 RATIO
--- NOTE | 2016-08-05 06:29 | RADHPO ---
EXAM DATE/TIME: 08/05/2016 06:09 [place] COMPARISON: CHEST SINGLE AP, May 29, 2016, 1:19. INDICATIONS : Chest pain. MEDICAL HISTORY : Hypertension. SURGICAL HISTORY : None. ENCOUNTER: Initial ACUITY: 1 day PAIN SCORE: 6/10 LOCATION: Bilateral lower chest FINDINGS: A single view of the chest demonstrates the lungs to be symmetrically aerated without evidence of mas s, infiltrate or effusion. The cardiomediastinal contours are unremarkable. Osseous structures are intact. CONCLUSION: Normal examination. Evan Thompson MD on August 05, 2016 at 6:27 Board Certified Radiologist. This report was verified electronically.
[2016-08-05 06:30] LABS: ALT (GPT) 17 U/L (10-53)
[2016-08-05 06:31] LABS: AST (GOT) 13 U/L (15-37); GLOMERULAR FILTRATION RATE 86 ML/MIN (>89)
[2016-08-05 06:32] LABS: TOTAL BILIRUBIN ADULT 0.3 MG/DL (0.2-1.0)
[2016-08-05 06:33] LABS: ALKALINE PHOSPHATASE 126 U/L (45-117)
[2016-08-05 07:01] LABS: BLOOD, URINE NEG (NEG); GLUCOSE,URINE NEG (NEG); KETONE, URINE NEG (NEG); NITRITE,URINE NEG (NEG)
[2016-08-05 07:04] LABS: METHOD OF COLLECTION CLEAN CATCH; URINE COLOR YELLOW (YELLW/STRAW)
[2016-08-05 07:29] LABS: CULTURE IF INDICATED CULT NOT INDICATED; SQUAMOUS EPITHELIAL CELL URINE > 8 /hpf (0-5); WBC, URINE 0-2 /hpf (0-5)
[2016-08-05 07:30] LABS: COMMENT (UR) CULT NOT INDICATED; COMMENT2 (UR) MUCOUS PRESENT
[2016-08-05 07:39] LABS: HEMO FLAGS AUTO DIFF
[2016-08-05] MEDS ORDERED: IOHEXOL 350 MG/ML 10 ML VIAL (for RAD DIAG) IV ONE (07:43)
[2016-08-05 07:52] LABS: PLATELET ESTIMATE SMEAR HIGH (NORMAL); PLATELET MORPHOLOGY NORMAL (NORMAL); SCAN/DIFF AUTO DIFF CONFIRMED
[2016-08-05] MEDS ORDERED: ZOFR4TAB3 SL (08:00)
--- NOTE | 2016-08-05 08:20 | RADHPO ---
EXAM DATE/TIME: 08/05/2016 07:19 [place] COMPARISON: No previous studies available for comparison. INDICATIONS : Abdominal pain and distention for three days. IV CONTRAST: 90 cc Omnipaque 350 (iohexol) IV ORAL CONTRAST: No oral contrast ingested. RADIATION DOSE: 16.36 CTDIvol (mGy) MEDICAL HISTORY : Hypertension. SURGICAL HISTORY : Cholecystectomy. Tubal ligation. Lumbar laminectomy. ENCOUNTER: Initial ACUITY: 3 days PAIN SCALE: 10/10 LOCATION: Bilateral upper quadrant lower quadrant TECHNIQUE: Volumetric scanning of the abdomen and pelvis was performed. Using automated exposure control and ad justment of the mA and/or kV according to patient size, radiation dose was kept as low as reasonably achievable to obtain optimal diagnostic quality images. FINDINGS: There is dilatation of much of the small and large bowel. There appear to be possible transition poi nts seen as areas of non-distended small bowel with mild small bowel wall thickening in the left uppe r quadrant, left mid abdomen and the right lower quadrant. It appears there is fluid without signifi cant distention of the right side of the colon. The left side of the colon is not distended. There are diverticula seen in the sigmoid region without inflammatory change. There is intra- and extrahepatic biliary duct dilatation. The common bile duct measures up to 1.3 cm. Patient is status post cholecystectomy. This may reflect a reservoir phenomenon following cholecys tectomy. It can be correlated with any clinical and laboratory findings of cholestasis. There is a 1.6 cm fat density seen in the anterior superior aspect of the right lobe of the liver likely related to either a lipoma or an angiomyolipoma. The spleen, pancreas, adrenal glands and right kidney appear normal. There is a 6 cm cyst at the pos terior left mid kidney. No hydronephrosis seen at either kidney. The aorta and IVC are normal in size. There are small retroperitoneal lymph nodes seen. Clearly enl arged adenopathy is not identified. The pelvic structures appear grossly intact. Free fluid is not seen in the peritoneal cavity. A pel rossana mass is not seen. There is degenerative change in the lumbar spine. CONCLUSION: 1. Much of the small bowel is dilated with at least three areas of essential transition seen as area s of non-distended small bowel with some mild thickening of the wall in the left upper quadrant, left mid abdomen and right lower quadrant. Underlying processes such as enteritis such as Crohn's diseas e or other multifocal inflammatory processes. Ischemia could potentially cause these findings althou gh the vascular structures do appear patent and free of significant atherosclerotic calcification. 2. Biliary duct dilatation likely reflecting a reservoir following cholecystectomy. This can be cor related with any clinical or laboratory findings of cholestasis. 3. Sigmoid colon diverticula without inflammatory change. 4. A 1.6 cm fat lesion seen in the right lobe of the liver representing either a typical lipoma or a n angiomyolipoma. Evert Sosa MD on August 05, 2016 at 7:46 Board Certified Radiologist. This report was verified electronically.
[2016-08-05] MEDS: SODIUM CHLORIDE 0.9% FLUSH 10 ML FLUSH IV FLUSH SCH ×2 (09:00→20:29)
[2016-08-05] MEDS ORDERED: MAGNESIUM HYDROXIDE SUSP 30 ML CUP PO PRN (09:00)
[2016-08-05] MEDS: DOCUSATE SODIUM 50 MG/SENNA 8.6 MG TAB PO SCH ×2 (09:00→20:29)
[2016-08-05] MEDS ORDERED: LACTULOSE SYRUP 20 GM/30 ML CUP PO PRN (09:00)
[2016-08-05] MEDS ORDERED: SENNOSIDES 8.6 MG TAB PO PRN (09:00)
[2016-08-05] MEDS ORDERED: NALOXONE HCL 0.4 MG/ML AMP IV PRN (09:00)
[2016-08-05] MEDS ORDERED: BISACODYL 10 MG SUPP RECTAL PRN (09:00)
[2016-08-05] MEDS: SODIUM CHLOR 0.9% 1000 ML INJ 1,000 ML IV SCH ×2 (09:13→12:00)
[2016-08-05] MEDS: metroNIDAZOLE 500 MG INJ 100 ML IV SCH ×3 (10:15→20:28)
--- NOTE | 2016-08-05 12:55 | PD ---
Data Data Last Documented VS Vital Signs Date Time Temp Pulse Resp B/P Pulse Ox O2 Delivery O2 Flow Rate FiO2 08/05/16 07:44 96 15 136/86 96 Room Air 08/05/16 05:20 98.2 Orders Complete Blood Count With Diff (08/05/16 05:47) Comprehensive Metabolic Panel (08/05/16 05:47) Lipase (08/05/16 05:47) Lactic Acid (08/05/16 05:47) Prothrombin Time / Inr (Pt) (08/05/16 05:47) Act Partial Throm Time (Ptt) (08/05/16 05:47) Urinalysis - C+S If Indicated (08/05/16 05:47) Ct Abd/Pel W Iv Contrast(Rout) (08/05/16 05:47) Iv Access Insert/Monitor (08/05/16 05:47) Ecg Monitoring (08/05/16 05:47) Oximetry (08/05/16 05:47) Ondansetron Inj (Zofran Inj) (08/05/16 06:00) Sodium Chlor 0.9% 1000 Ml Inj (Ns 1000 M (08/05/16 05:47) Sodium Chloride 0.9% Flush (Ns Flush) (08/05/16 06:00) Chest, Single Ap (08/05/16 05:47) Morphine Inj (Morphine Inj) (08/05/16 06:00) Iohexol 350 Inj (Omnipaque 350 Inj) (08/05/16 07:43) Admit Order (Ed Use Only) (08/05/16 08:58) Labs Laboratory Tests Test 08/05/16 08/05/16 05:58 06:40 White Blood Count 9.8 TH/MM3 Red Blood Count 4.84 MIL/MM3 Hemoglobin 12.5 GM/DL Hematocrit 39.1 % Mean Corpuscular Volume 80.7 FL Mean Corpuscular Hemoglobin 25.9 PG Mean Corpuscular Hemoglobin 32.0 % Concent Red Cell Distribution Width 14.3 % Platelet Count 591 TH/MM3 Mean Platelet Volume 7.1 FL Neutrophils (%) (Auto) 71.2 % Lymphocytes (%) (Auto) 22.1 % Monocytes (%) (Auto) 6.3 % Eosinophils (%) (Auto) 0.1 % Basophils (%) (Auto) 0.3 % Neutrophils # (Auto) 7.0 TH/MM3 Lymphocytes # (Auto) 2.2 TH/MM3 Monocytes # (Auto) 0.6 TH/MM3 Eosinophils # (Auto) 0.0 TH/MM3 Basophils # (Auto) 0.0 TH/MM3 CBC Comment AUTO DIFF Differential Comment AUTO DIFF CONFIRMED Platelet Estimate HIGH Platelet Morphology Comment NORMAL Prothrombin Time 10.0 SEC Prothromb Time International 0.9 RATIO Ratio Activated Partial 26.2 SEC Thromboplast Time Sodium Level 140 MEQ/L Potassium Level 3.2 MEQ/L Chloride Level 99 MEQ/L Carbon Dioxide Level 31.7 MEQ/L Anion Gap 9 MEQ/L Blood Urea Nitrogen 16 MG/DL Creatinine 0.70 MG/DL Estimat Glomerular Filtration 86 ML/MIN Rate Random Glucose 151 MG/DL Lactic Acid Level 1.5 mmol/L Calcium Level 8.7 MG/DL Total Bilirubin 0.3 MG/DL Aspartate Amino Transf 13 U/L (AST/SGOT) Alanine Aminotransferase 17 U/L (ALT/SGPT) Alkaline Phosphatase 126 U/L Total Protein 7.5 GM/DL Albumin 2.7 GM/DL Lipase 63 U/L Urine Collection Type CLEAN CATCH Urine Color YELLOW Urine Turbidity SLIGHT Urine pH 5.0 Urine Specific [place] 1.033 Urine Protein NEG mg/dL Urine Glucose (UA) NEG mg/dL Urine Ketones NEG mg/dL Urine Occult Blood NEG Urine Nitrite NEG Urine Bilirubin NEG Urine Leukocyte Esterase NEG Urine WBC 0-2 /hpf Urine Squamous Epithelial > 8 /hpf Cells Urine Amorphous Sediment LARGE Microscopic Urinalysis Comment CULT NOT INDICATED Urine Collection Time 0646 [facility] Supervised Visit with [place]: No Narrative Course I took over for this patient from Dr. Toscano pending CT results. CT demonstrates multiple dilated loops of bowel. Patient still complains of some pain and nausea. I think given her CT findings she should be admitted to the hospital for continued antibiotic therapy and GI evaluation. Patient is amenable to stay. Diagnosis Primary Impression: Abdominal pain Qualified Code: R10.84 - Generalized abdominal pain Additional Impressions: C. difficile colitis Hypokalemia Referrals: Shuttle Driver 1 day Keep scheduled appointment with ecommerce marketing manager at [facility] Patient Instructions: General Instructions, Narcotic given in the ED Additional Instruction: Recommend clear liquid diet for next 12-24 hours advance as tolerated Keep scheduled appointment with [facility] ecommerce marketing manager as planned times one day Take as tolerated acetaminophen as needed for fever 100.4F or greater May use Zofran as prescribed as needed for nausea and/or vomiting Return to the emergency department for any concerns or change in condition Scripts Ondansetron Odt (Zofran Odt)4 Mg Tab4 Mg SL Q6HR PRN (Nausea/Vomiting) #10 TAB Ref 0 Prov:Lucina Toscano MD 08/05/16 Disposition: 01 DISCHARGE HOME Condition: Stable Karley Noel MD Aug 05, 2016 12:55
[2016-08-05] MEDS: VANCOMYCIN 500 MG VIAL (FOR ORAL USE ONLY) PO SCH ×3 (15:07→20:28)
--- NOTE | 2016-08-05 15:29 | HHI.HP ---
[facility] Service [place] [facility] Primary Care Physician Duong Barahona MD Admission Diagnosis c diff colitis Diagnoses: Travel History International Travel<30 Days: No Contact w/Intl Traveler <30 Da: No Traveled to Known Affected Are: No History of Present Illness 56-year-old female history of hypertension, chronic pain, who presents for subacute but worsening sharp intermittent right lower quadrant pain, together with nausea, nonbloody vomiting this morning, unable tolerate breakfast. She Is Continued to Have Sharp Intermittent Right Lower Quadrant Abdominal Pain, and Has Been on Treatment for C. difficile with Vancomycin Taper. Today However She Experienced Watery Diarrhea, Nausea and Nonbloody Vomiting, Prompting Her Admission. Patient Says She Has Appointment with Ri Oh Scheduled for 08/06 at 6:30 AM, However Her Has Already Canceled His Appointment. Patient denies any chest pain or shortness of breath. She denies any fevers or chills. She was recently treated [place] for polydrug overdose, with amphetamines, cocaine, narcotics. Creatinine was 13.0, trended down to normal at discharge, as well as C. difficile colitis, which was treated with Flagyl and vancomycin. Patient discharged AMA on 06/03. She also experienced an ileus during the hospitalization, for which GI followed. Review of Systems Performed and negative except for history of present illness and past medical history Past Family Social History Past Medical History Hypertension Chronic pain Drug abuse. History of amphetamine and cocaine positive urine. Depression. Patient denies any SI or HI. C. difficile colitis on last admission. Past Surgical History Lumbar spinal surgery 3 Laminectomy History of cholecystectomy Tubal ligation Reported Medications Reported Meds & Active Scripts Active Zofran Odt (Ondansetron Odt) 4 Mg Tab 4 Mg SL Q6HR PRN Reported Cymbalta DR (Duloxetine HCl) 30 Mg Capdr 40 Mg PO DAILY Morphine IR (Morphine Sulfate) 15 Mg Tab 15 Mg PO TID PRN Allergies: Coded Allergies: *MDRO Multi-Drug Resistant Organism (Verified Adverse Reaction, Unknown, ) MRSA PCR Screen POSITIVE - 05/21/2016 MRSA (sputum)-05/21/16 Family History Family history reviewed and patient, and found to be currently noncontributory Social History Chronic smoker. Patient says she quit 4 months ago. Patient reports she is a social drinker. She denies any drug use, however has been positive for cocaine and amphetamines in the past. Physical Exam Vital Signs Vital Signs Date Time Temp Pulse Resp B/P Pulse Ox O2 Delivery O2 Flow Rate FiO2 08/05/16 14:00 97.5 90 18 148/74 98 Automatic Cuff 08/05/16 12:19 84 15 138/71 97 Room Air 08/05/16 07:44 96 15 136/86 96 Room Air 08/05/16 06:00 17 08/05/16 05:30 08/05/16 05:20 98.2 121 16 181/127 94 Physical Exam GENERAL: Thin 56-year-old female walking in room, sitting up at edge of bed. Appears uncomfortable. Alert and oriented 3. SKIN: No rashes, ecchymoses or lesions. Cool and dry. HEAD: Atraumatic. Normocephalic. No temporal or scalp tenderness. EYES: Pupils equal round and reactive. Extraocular motions intact. No scleral icterus. No injection or drainage. ENT: Nose without bleeding, purulent drainage or septal hematoma. Throat without erythema, tonsillar hypertrophy or exudate. Uvula midline. Airway patent. NECK: Trachea midline. No JVD or lymphadenopathy. Supple, nontender, no meningeal signs. CARDIOVASCULAR: Regular rate and rhythm without murmurs, gallops, or rubs. RESPIRATORY: Clear to auscultation. Breath sounds equal bilaterally. No wheezes , rales, or rhonchi. GASTROINTESTINAL: Abdomen soft. Tender to moderate palpation. No hepato- splenomegaly, or palpable masses. No guarding.no rebound. MUSCULOSKELETAL: Extremities without clubbing, cyanosis, or edema. No joint tenderness, effusion, or edema noted. No calf tenderness. Negative Homans sign bilaterally. NEUROLOGICAL: Awake and alert. Cranial nerves II through XII intact. Motor and sensory grossly within normal limits. Five out of 5 muscle strength in all muscle groups. Normal speech. Laboratory Laboratory Tests Test 08/05/16 08/05/16 05:58 06:40 White Blood Count 9.8 Red Blood Count 4.84 Hemoglobin 12.5 Hematocrit 39.1 Mean Corpuscular Volume 80.7 Mean Corpuscular Hemoglobin 25.9 Mean Corpuscular Hemoglobin 32.0 Concent Red Cell Distribution Width 14.3 Platelet Count 591 Mean Platelet Volume 7.1 Neutrophils (%) (Auto) 71.2 Lymphocytes (%) (Auto) 22.1 Monocytes (%) (Auto) 6.3 Eosinophils (%) (Auto) 0.1 Basophils (%) (Auto) 0.3 Neutrophils # (Auto) 7.0 Lymphocytes # (Auto) 2.2 Monocytes # (Auto) 0.6 Eosinophils # (Auto) 0.0 Basophils # (Auto) 0.0 CBC Comment AUTO DIFF Differential Comment AUTO DIFF CONFIRMED Platelet Estimate HIGH Platelet Morphology Comment NORMAL Prothrombin Time 10.0 Prothromb Time International 0.9 Ratio Activated Partial 26.2 Thromboplast Time Sodium Level 140 Potassium Level 3.2 Chloride Level 99 Carbon Dioxide Level 31.7 Anion Gap 9 Blood Urea Nitrogen 16 Creatinine 0.70 Estimat Glomerular Filtration 86 Rate Random Glucose 151 Lactic Acid Level 1.5 Calcium Level 8.7 Total Bilirubin 0.3 Aspartate Amino Transf 13 (AST/SGOT) Alanine Aminotransferase 17 (ALT/SGPT) Alkaline Phosphatase 126 Total Protein 7.5 Albumin 2.7 Lipase 63 Urine Collection Type CLEAN CATCH Urine Color YELLOW Urine Turbidity SLIGHT Urine pH 5.0 Urine Specific [place] 1.033 Urine Protein NEG Urine Glucose (UA) NEG Urine Ketones NEG Urine Occult Blood NEG Urine Nitrite NEG Urine Bilirubin NEG Urine Leukocyte Esterase NEG Urine WBC 0-2 Urine Squamous Epithelial > 8 Cells Urine Amorphous Sediment LARGE Microscopic Urinalysis Comment CULT NOT INDICATED Urine Collection Time 0646 Result Diagram: 08/05/16 0558 08/05/16 0558 Imaging Last Impressions Chest X-Ray 08/05/16 0547 Signed Impressions: Service Date/Time: Friday, August 05, 2016 06:09 - CONCLUSION: Normal examination. Evan Thompson MD Assessment and Plan Assessment and Plan //Abdominal pain //Nausea and vomiting -CT abdomen with dilated small bowel, transition points. Biliary ductal dilation -Status with gastroenterology. We'll treat for C. difficile colitis As per GI will order CT angiogram //Suspected C. difficile colitis Start vancomycin 500 mg by mouth 4 times daily. Start Flagyl IV -Consulted ID. -C. difficile stool assay pending. -We'll try to avoid narcotics to prevent decreased bowel motility. -Infectious disease following. Appreciate assistance. //Suspected incidental finding of 1.6 and a meter fat lesion in the right lobe of the liver. Need follow-up with primary care as outpatient. //Malnutrition. Patient will be nothing by mouth for now, however plan for supplementation 1 by mouth //Thrombocytosis. Likely reactive secondary infection. //Depression. Chronic. No SI. Continue home medication. //Hypokalemia. Acute. Replaced. Monitor. //Prophylaxis. SCDs. Hold anticoagulation pending possible colonoscopy. Discussed Condition With Patient, nurse, ED physician, hot dip plating supervisor, infectious disease specialist. Physician Certification 2 Midnight Certification Type: Admission for Inpatient Services Order for Inpatient Services The services are ordered in accordance with Medicare regulations or non- Medicare payer requirements, as applicable. In the case of services not specified as inpatient-only, they are appropriately provided as inpatient services in accordance with the 2-midnight benchmark. Estimated LOS (days): 3 days is the estimated time the patient will need to remain in the hospital, assuming treatment plan goals are met and no additional complications. Post-Hospital Plan: Not yet determined Jaswinder Rangel MD Aug 05, 2016 15:29
[2016-08-05] MEDS ORDERED: PROM12.54 PO (16:38)
[2016-08-05] MEDS ORDERED: MELO7.5T4 PO (16:38)
[2016-08-05] MEDS ORDERED: TIZA4CAP3 PO (16:38)
[2016-08-05] MEDS ORDERED: PERC10TA27 PO (16:38)
[2016-08-05] MEDS ORDERED: LISI40TA PO (16:38)
[2016-08-05] MEDS ORDERED: LORA-474 PO (16:38)
[2016-08-05] MEDS: MORPHINE SULFATE 15 MG TAB PO PRN (17:06)
[2016-08-05] MEDS: POTASSIUM CHLORIDE INJ 30 MEQ in DEXT 5%-NACL 0.45% 1000 ML INJ 1,000 ML IV SCH (17:06)
[2016-08-05] MEDS: POTASSIUM CHLOR 10 MEQ PREMIX 100 ML IV SCH ×3 (17:07→20:29)
--- NOTE | 2016-08-05 17:39 | MB ---
cc: GENIA WALKER MD DATE OF CONSULTATION 08/05/[address] Rangel. REASON FOR CONSULTATION Recurrent C-difficile. HISTORY OF PRESENT ILLNESS This is a 56-year-old white female who presents to emergency department on 08/05 with abdominal pain. The patient noted that the abdomen had become more distended and she was having stabbing pains in her abdomen. She states that, however, she has had the pains over the course of a month. She states that she would have sudden bouts of sharp pain in the abdomen and she would breathe in a certain way and eventually it would let it and it would happen several times throughout the course of the day on a daily basis. She states that her abdomen would become distended and then it would decrease and become flat where she would wear the bikini. This occurred ultimately over the course of the past couple of months. The patient was in the hospital at [place] for drug intoxication and at that time she had C-difficile and pneumonia MRSA. She was treated and discharged from the hospital. She notes that she has been continued on p.o. vancomycin which she has been taking to prevent C. Diff recurrence. She notes that she was down to one pill a day up until admission. She notes that her stools were formed over the past couple of months and it started turning diarrheal and today she had six bouts of watery stools. She also reports to me that she was due to go to [facility] for evaluation for fecal transplant. During my interview she suddenly developed acute pain in the abdomen and states that it was similar to what she has been experiencing. This quickly subsided after approximately 30 seconds. She denies dysuria. She states that she had one episode of vomiting 2 days ago. She also states that she gets nausea. She has no fever and no chills. PAST MEDICAL HISTORY 1. Depression. 2. Hypertension. 3. Chronic pain. 4. Cholecystectomy. 5. Laminectomy. 6. Tubal ligation. ALLERGIES NO KNOWN DRUG ALLERGIES. MEDICATIONS 1. Vancomycin p.o. 2. Metronidazole IV. 3. Narcan p.r.n. 4. Griselda-Colace. SOCIAL HISTORY The patient smokes 10 cigarettes a day but she states that she quit smoking four months ago. Denies alcohol use. Denies illicit drugs. FAMILY HISTORY Noncontributory. The patient was adopted. She moved to [place] from [place] 2 years ago. REVIEW OF SYSTEMS GENERAL: No fever or chills. HEAD, EARS, EYES, NOSE, AND THROAT: No visual blurring or diplopia. No nasal bleeding. No difficulty swallowing or soreness of the throat. NECK: No swelling. CARDIOVASCULAR: No palpitation or chest pain. RESPIRATORY: No cough or shortness of breath. GASTROINTESTINAL: Significant for nausea, vomiting, abdominal pain, diarrhea. GENITOURINARY: No urgency, frequency or dysuria. HEMATOPOETIC: No easy bruising or bleeding. ENDOCRINE: No polyuria, polydipsia. INTEGUMENT: No skin rash or itching. NEUROLOGIC: No problems with coordination or abnormal gait. PSYCHIATRIC: Denies depression or mood alteration. PHYSICAL EXAMINATION GENERAL: This is a slender, well-developed female who is in no acute distress. She is awake and alert and oriented. VITAL SIGNS: Include temperature 97.5, BP 148/74, respirations 18, heart rate 90. HEENT: Head atraumatic. Extraocular movements grossly intact, pupils reactive to light. No icterus. Oropharynx no visible lesions. NECK: Supple without adenopathy. No swelling. LUNGS: Clear to auscultation. HEART: Regular rate and rhythm without murmurs, rubs or gallops. ABDOMEN: Distended. Diffusely tender. Tympanic to percussion. No palpable masses. RECTAL: Not performed. EXTREMITIES: No clubbing, cyanosis or edema. SKIN: No rash. NEUROLOGIC: Nonfocal. LABORATORY DATA WBC 9.8, platelets 591, 71% neutrophils, hemoglobin 12.6. Creatinine 0.70, BUN 16, sodium 140. AST 13, ALT 17. Urinalysis unremarkable. IMAGING CT scan of the abdomen showed dilation of the small bowel with areas of nondistended small bowel and some mild thickening of the wall in the left upper quadrant, left mid abdomen and right lower quadrant. Underlying processes such as enteritis, such as Crohn disease or other multifocal inflammatory process. Ischemia could potentially cause these findings, however, the vascular structures do appear patent and free of significant atherosclerotic calcification. Sigmoid colon diverticula without inflammatory change. IMPRESSION 1. Abdominal pain and diarrhea. Possible causes includes recurrent C-difficile colitis versus gastroenteritis versus spasms versus colitis due to inflammatory cause. 2. Recent C-difficile colitis. RECOMMENDATIONS 1. Obtain stool for C-difficile testing. 2. Continue Flagyl. 3. Continue vancomycin p.o. 4. Agree with the gastroenterology consultation. The patient likely will need colonoscopy for further evaluation. 5. Monitor clinical status while awaiting C-difficile testing to be done. Thank you for this consultation. The patient's progress will be monitored and further recommendations will be given on followup if necessary. Genia Walker MD FD/NANO /2:27 PM /5:00 PM MTDTao
[2016-08-05 17:45] LABS: AMPHETAMINE, URINE NEG (NEG)
[2016-08-05 17:46] LABS: BARBITURATES, URINE NEG (NEG); COCAINE, URINE NEG (NEG)
[2016-08-05 18:12] LABS: HEMOGLOBIN A1a 1.9 %; HEMOGLOBIN A1b 0.8 %; HEMOGLOBIN Ao 84.9 %; HEMOGLOBIN F 1.2 %; HEMOGLOBIN LA1C 2.2 %; HEMOGLOBIN P3 3.5 %
--- NOTE | 2016-08-05 18:29 | MB ---
cc: REYNOLD WOODS M.D., HASSAN M.D. DUNCAN, JEFFREY D. MD DATE OF CONSULTATION 08/05/[address] Reynold Woods. REASON FOR CONSULTATION Abdominal pain, diarrhea, recent history of C-difficile colitis. HISTORY OF THE PRESENT ILLNESS Ms. Iverson is a 56-year-old lady who states about 2-3 months she has been having problems with abdominal pain and diarrhea. In April she was admitted to [facility] for similar symptoms. At that time she was diagnosed with C-difficile infection. She has been on a very slow taper off on vancomycin since then. She was scheduled with [facility] tomorrow for possible fecal transfer. Her pain got progressively worse and the diarrhea got progressively worse, so she presented to the hospital. CT scan here shows normal colon but multiple areas in the small bowel are narrowed down raising the possibility of possibly Crohn disease versus enteritis. Currently her major symptoms are diarrhea and abdominal pain. She is reporting upwards of 10 bowel movements daily. There has been no bleeding. REVIEW OF SYSTEMS Abdominal pain which is located in the lower abdomen and diarrhea. PAST MEDICAL HISTORY 1. Hypertension. 2. Chronic pain. 3. History of polysubstance abuse. 4. Depression. 5. C-difficile infection last admission. PAST SURGICAL HISTORY 1. Lumbar surgery. 2. Cholecystectomy. 3. Tubal ligation. 4. Laminectomy. 5. Never has had a colonoscopy. MEDICATIONS On admission: 1. Cymbalta. 2. Morphine. 3. Zofran. FAMILY HISTORY Noncontributory. SOCIAL HISTORY The patient is a smoker and admits drinking social alcohol. History of cocaine and amphetamine use in the past. PHYSICAL EXAMINATION GENERAL: Physical examination reveals a well-nourished lady, does not appear to be in acute distress. VITAL SIGNS: Are stable. HEAD AND NECK: Examination, anicteric sclerae. CHEST: Bilateral air entry with rales. ABDOMEN: Soft, distended. Tenderness in the abdomen diffusely with no guarding or rigidity. CENTRAL NERVOUS SYSTEM: Exam is nonfocal. RECTAL: Exam deferred at this time. LABORATORY DATA Reveal a white cell count of 9.8, hemoglobin is 12.5. Creatinine 0.7. Liver function tests are normal. IMAGING CT scan of the abdomen and pelvis shows much of the small bowel is dilated with three areas of essential transition seen as areas of nondistended small bowel was some mild thickening of the wall in the left upper quadrant, left mid abdomen and right lower quadrant. This is consistent with enteritis, possibly Crohn disease. In addition there is biliary ductal dilatation which may be secondary to her cholecystectomy. Colon diverticula are present without any evidence of diverticulitis. There is also a 1.6 cm lipoma in the liver. IMPRESSION Enteritis. RECOMMENDATIONS Stool studies have been ordered for C-difficile, these are pending. Continue vancomycin and Flagyl at this time. CT enterography is requested. If stool studies are unremarkable for C-difficile, an EGD colonoscopy is also planned. We will follow with you. This has been discussed with Dr. Rangel. Thank you for this referral. Dung Lyle MD HZ/KK /4:06 PM /5:58 PM
[2016-08-05] MEDS: MORPHINE SULFATE 4 MG/ML INJ IV PUSH PRN (20:28)
[2016-08-05 21:44] LABS: C. DIFF EPI 027 PRESUMPTIVE NEGATIVE (NEGATIVE); C. DIFF TOXIN PCR NEGATIVE (NEGATIVE)
[2016-08-06] VITALS: BP 155/98; PULSE 100; RESP 18; TEMP 98.8; O2SAT 98
[2016-08-06] MEDS: MORPHINE SULFATE 15 MG TAB PO PRN ×3 (01:21→18:00)
[2016-08-06] MEDS: MORPHINE SULFATE 4 MG/ML INJ IV PUSH PRN ×3 (02:31→15:49)
[2016-08-06] MEDS: POTASSIUM CHLORIDE INJ 30 MEQ in DEXT 5%-NACL 0.45% 1000 ML INJ 1,000 ML IV SCH ×3 (02:32→21:57)
[2016-08-06] MEDS: metroNIDAZOLE 500 MG INJ 100 ML IV SCH ×4 (04:57→21:02)
[2016-08-06 05:51] LABS: AUTOMATED NEUTROPHIL # 2.2 TH/MM3 (1.8-7.7); BASOPHIL % 0.3 % (0.0-2.0); EOSINOPHIL # 0.1 TH/MM3 (0-0.4); EOSINOPHIL % 1.3 % (0.0-4.0); HEMATOCRIT 31.5 % (35.0-46.0); HEMO FLAGS DIFF FINAL; LYMPH % 34.8 % (9.0-44.0); LYMPHOCYTE # 1.6 TH/MM3 (1.0-4.8); MEAN CELL VOLUME 81.3 FL (80.0-100.0); MEAN CORPUSCULAR HEMOGLOBIN 25.8 PG (27.0-34.0); MEAN CORPUSCULAR HGB CONC 31.8 % (32.0-36.0); MONO % 13.4 % (0.0-8.0); NEUT % 50.2 % (16.0-70.0); PLATELET COUNT 391 TH/MM3 (150-450); RED BLOOD COUNT 3.87 MIL/MM3 (4.00-5.30); RED CELL DISTRIBUTION WIDTH 14.7 % (11.6-17.2); WHITE BLOOD COUNT 4.5 TH/MM3 (4.0-11.0)
[2016-08-06 06:52] LABS: ALKALINE PHOSPHATASE 101 U/L (45-117); ALT (GPT) 14 U/L (10-53); ANION GAP 6 MEQ/L (5-15); AST (GOT) 21 U/L (15-37); BLOOD UREA NITROGEN 8 MG/DL (7-18); CHLORIDE 107 MEQ/L (98-107); GLOMERULAR FILTRATION RATE 116 ML/MIN (>89); POTASSIUM 3.4 MEQ/L (3.5-5.1); SODIUM (NA) 143 MEQ/L (136-145); TOTAL BILIRUBIN ADULT 0.3 MG/DL (0.2-1.0)
[2016-08-06 08:00] VITALS: BP 152/100; PULSE 88; RESP 20; TEMP 98.6; O2SAT 98
[2016-08-06] MEDS: SODIUM CHLORIDE 0.9% FLUSH 10 ML FLUSH IV FLUSH SCH ×2 (09:00→20:29)
[2016-08-06] MEDS: DOCUSATE SODIUM 50 MG/SENNA 8.6 MG TAB PO SCH ×2 (09:00→20:29)
[2016-08-06] MEDS ORDERED: IOHEXOL 350 MG/ML 10 ML VIAL (for RAD DIAG) IV ONE (09:49)
--- NOTE | 2016-08-06 10:32 | RADHPO ---
EXAM DATE/TIME: 08/06/2016 09:31 [facility] COMPARISON: No previous studies available for comparison. INDICATIONS : Lower abdominal pain and distention. IV CONTRAST: 100 cc Omnipaque 350 (iohexol) IV ORAL CONTRAST: Prescribed oral contrast ingested. RADIATION DOSE: 9.41 CTDIvol (mGy) MEDICAL HISTORY : Hypertension. SURGICAL HISTORY : Cholecystectomy. Tubal ligation. Lumbar laminectomy. ENCOUNTER: Initial ACUITY: 1 month PAIN SCALE: 10/10 LOCATION: Bilateral lower quadrant TECHNIQUE: Prior to image acquisition, an oral contrast regimen consisting of neutral oral contrast material was consumed by the patient. Small bowel paralysis was achieved with slow intravenous administration of 1mg glucagon. Helical scanning of the entire abdomen and pelvis was then performed using a multi-dete ctor CT scanner. Coronal thin-section reconstruction was also performed. Using automated exposure con trol and adjustment of the mA and/or kV according to patient size, radiation dose was kept as low as reasonably achievable to obtain optimal diagnostic quality images. FINDINGS: CT enterography was performed with negative small bowel contrast. There are inflammatory changes involving the distal 10 cm of the ileum that would be consistent with terminal ileitis. Crohn's ileitis. There is no evidence for colonic involvement. There is minimal bowel wall thickening in the third portion of the duodenum that may merely be physiologic since there are no inflammatory changes evident. There is mild intrahepatic biliary ductal dilatation. Small fat containing mass is seen in the dome of the liver. Right and left kidneys are unremarkable. CONCLUSION: Abnormal distal small bowel involving at least the last 10 cm of terminal ileum that looks transmural consistent with an inflammatory bowel disease. Duke Neves MD FACR on August 06, 2016 at 9:56 Board Certified Radiologist. This report was verified electronically.
[2016-08-06] MEDS: VANCOMYCIN 500 MG VIAL (FOR ORAL USE ONLY) PO SCH ×4 (10:35→20:35)
[2016-08-06 11:58] VITALS: BP 173/133; PULSE 99; RESP 20; TEMP 97.9; O2SAT 99
[2016-08-06] MEDS: POTASSIUM CHLOR 10 MEQ PREMIX 100 ML IV SCH ×3 (12:44→14:12)
--- NOTE | 2016-08-06 12:51 | HHI.PR ---
Subjective Remarks Patient reports abdominal pain much worse after drinking contrast for CT. She says she feels like she does have a bowel movement but can't. Abdomen much more distended. Objective Vital Signs Date Time Temp Pulse Resp B/P Pulse Ox O2 Delivery O2 Flow Rate FiO2 08/06/16 11:58 97.9 99 20 173/133 99 08/06/16 09:09 20 08/06/16 08:00 98.6 88 20 152/100 98 08/06/16 00:00 98.8 100 18 155/98 98 08/05/16 20:00 97.8 108 20 149/108 97 08/05/16 18:06 17 08/05/16 17:01 89 16 142/78 98 08/05/16 15:57 97.9 90 18 139/80 97 08/05/16 14:00 97.5 90 18 148/74 98 Automatic Cuff I/O 08/05/16 08/05/16 08/05/16 08/06/16 08/06/16 08/06/16 07:00 15:00 23:00 07:00 15:00 23:00 Intake Total 960 ml 1180 ml Output Total 275 ml Balance -275 ml 960 ml 1180 ml Intake Oral 960 ml 480 ml IV Total 700 ml Output Stool Total 275 ml # Voids 4 2 # Bowel Movements 6 1 0 Result Diagram: 08/06/16 0445 08/06/16444 Objective Remarks GENERAL: Patient lying in bed. Appears uncomfortable. She is alert and oriented. SKIN: Warm and dry. HEAD: Normocephalic. EYES: No scleral icterus. No injection or drainage. NECK: Supple, trachea midline. No JVD. CARDIOVASCULAR: Regular rate and rhythm without murmurs, gallops, or rubs. RESPIRATORY: Breath sounds equal bilaterally. No accessory muscle use. GASTROINTESTINAL: Abdomen distended. Hypoactive bowel sounds. No rebound or guarding. MUSCULOSKELETAL: No cyanosis, or edema. BACK: Nontender without obvious deformity. No CVA tenderness. A/P Assessment and Plan =====08/06/16 //Ileus. Levels on CT clinical social worker. Possibly worsened by narcotics. Avoid any additional narcotics. expect to improve with NG tube. Place NG tube to low intermittent suction. //Hypokalemia. Potassium 3.4. Mild. Replaced. //Colitis. Gastroenterology and infectious disease following. Continue antibiotics as per infectious disease. Appreciate assistance. //Abdominal pain //Nausea and vomiting -CT abdomen with dilated small bowel, transition points. Biliary ductal dilation -Status with gastroenterology. We'll treat for C. difficile colitis As per GI will order CT angiogram //Suspected C. difficile colitis Start vancomycin 500 mg by mouth 4 times daily. Start Flagyl IV -Consulted ID. -C. difficile stool assay pending. -We'll try to avoid narcotics to prevent decreased bowel motility. -Infectious disease following. Appreciate assistance. //Suspected incidental finding of 1.6 and a meter fat lesion in the right lobe of the liver. Need follow-up with primary care as outpatient. //Malnutrition. Patient will be nothing by mouth for now. -Continue D5 half normal saline. //Thrombocytosis. Likely reactive secondary infection. //Depression. Chronic. No SI. Continue home medication. //Hypokalemia. Acute. Replaced. Monitor. //Prophylaxis. SCDs. Hold anticoagulation pending possible colonoscopy. Jaswinder Rangel MD Aug 06, 2016 12:51
--- NOTE | 2016-08-06 14:36 | RADHPO ---
EXAM DATE/TIME: 08/06/2016 09:31 [facility] COMPARISON: CT ABDOMEN & PELVIS W CONTRAST, August 05, 2016, 7:19. INDICATIONS : Thrombosis. Evaluate for mesenteric ischemia. Lower abdominal pain and distention. IV CONTRAST: 0 Omnipaque 300 (iohexol). Reformatted off of enterography. See that dose report. ORAL CONTRAST: No oral contrast ingested. RADIATION DOSE: ; Reconstructed from previous dataset MEDICAL HISTORY : Hypertension. SURGICAL HISTORY : Cholecystectomy. Tubal ligation. ENCOUNTER: Initial ACUITY: 1 day PAIN SCALE: 9/10 LOCATION: Bilateral lower quadrant TECHNIQUE: Volumetric scanning was performed using a multi-row detector CT scanner. The data was post processed with a variety of visualization algorithms including full volume maximum intensity projection, multi -planar sliding thin slab reformation, curved planar reformation, and surface rendering techniques. Using automated exposure control and adjustment of the mA and/or kV according to patient size, radiat ion dose was kept as low as reasonably achievable to obtain optimal diagnostic quality images. FINDINGS: AORTA/INFLOW: The aorta and inflow are widely patent. No dissection flap or aneurysm. The celiac, SMA, ELSY, and leigh ann al arteries are all widely patent. OTHER STRUCTURES: See the CT enterography for discussion of the bowel structures. Mild intrahepatic and extrahepatic bi liary dilatation is stable. No obstructing mass or lesion. The gallbladder is surgically absent. A fa t containing lesion is seen within the right lobe of the liver and stable. This measures approximatel y 1 cm. The remaining visceral structures are unremarkable. CONCLUSION: 1. See the CT enterography reported separately. 2. Patent mesenteric vessels. 3. Stable intrahepatic and extrahepatic biliary dilatation. No obstructing mass or stone observed. Th is likely is a capacitance affect from prior cholecystectomy. 4. Probable lipoma or angiomyolipoma involving the right lobe of the liver. Elgin Diaz Jr., MD on August 06, 2016 at 14:08 Board Certified Radiologist. This report was verified electronically.
[2016-08-06] MEDS: DULoxetine HCl DR 20 MG CAP PO SCH (15:44)
[2016-08-06 16:00] VITALS: BP 162/108; PULSE 95; RESP 20; TEMP 98.5; O2SAT 95
--- NOTE | 2016-08-06 16:18 | HHI.IDPN ---
Note Infectious Disease Note Patient says she feels better. at bedside. Not having much abdominal pain. [place] better after CT scan. Afebrile. No diarrhea. Stool c. difficile toxin is negative. Presented to emergency department on 08/05/16 with abdominal pain. The patient noted that the abdomen had become more distended and she was having stabbing pains in her abdomen. PAST MEDICAL HISTORY 1. Depression. 2. Hypertension. 3. Chronic pain. 4. Cholecystectomy. 5. Laminectomy. 6. Tubal ligation. ALLERGIES NO KNOWN DRUG ALLERGIES. ANTIBIOTICS: 1. Vancomycin p.o. 2. Metronidazole IV. SOCIAL HISTORY The patient smokes 10 cigarettes a day but she states that she quit smoking four months ago. Denies alcohol use. Denies illicit drugs. OBJECTIVE: Vital Signs Date Time Temp Pulse Resp B/P Pulse Ox O2 Delivery O2 Flow Rate FiO2 08/06/16 11:58 97.9 99 20 173/133 99 08/06/16 11:34 20 08/06/16 09:09 20 08/06/16 08:00 98.6 88 20 152/100 98 08/06/16 00:00 98.8 100 18 155/98 98 08/05/16 20:00 97.8 108 20 149/108 97 08/05/16 17:01 89 16 142/78 98 08/05/16 08/05/16 08/06/16 15:00 23:00 07:00 Intake Total 960 ml 1180 ml Balance 960 ml 1180 ml Intake Oral 960 ml 480 ml IV Total 700 ml # Voids 4 2 # Bowel Movements 1 0 Laboratory Tests Test 08/05/16 08/06/16 05:58 04:45 White Blood Count 9.8 TH/MM3 4.5 TH/MM3 Red Blood Count 4.84 MIL/MM3 3.87 MIL/MM3 Hemoglobin 12.5 GM/DL 10.0 GM/DL Hematocrit 39.1 % 31.5 % Mean Corpuscular Volume 80.7 FL 81.3 FL Mean Corpuscular Hemoglobin 25.9 PG 25.8 PG Mean Corpuscular Hemoglobin 32.0 % 31.8 % Concent Red Cell Distribution Width 14.3 % 14.7 % Platelet Count 591 TH/MM3 391 TH/MM3 Mean Platelet Volume 7.1 FL 6.9 FL Neutrophils (%) (Auto) 71.2 % 50.2 % Lymphocytes (%) (Auto) 22.1 % 34.8 % Monocytes (%) (Auto) 6.3 % 13.4 % Eosinophils (%) (Auto) 0.1 % 1.3 % Basophils (%) (Auto) 0.3 % 0.3 % Neutrophils # (Auto) 7.0 TH/MM3 2.2 TH/MM3 Lymphocytes # (Auto) 2.2 TH/MM3 1.6 TH/MM3 Monocytes # (Auto) 0.6 TH/MM3 0.6 TH/MM3 Eosinophils # (Auto) 0.0 TH/MM3 0.1 TH/MM3 Basophils # (Auto) 0.0 TH/MM3 0.0 TH/MM3 CBC Comment AUTO DIFF DIFF FINAL Differential Comment AUTO DIFF CONFIRMED Platelet Estimate HIGH Platelet Morphology Comment NORMAL Laboratory Tests Test 08/05/16 08/06/16 05:58 04:45 Sodium Level 140 MEQ/L 143 MEQ/L Potassium Level 3.2 MEQ/L 3.4 MEQ/L Chloride Level 99 MEQ/L 107 MEQ/L Carbon Dioxide Level 31.7 MEQ/L 30.0 MEQ/L Anion Gap 9 MEQ/L 6 MEQ/L Blood Urea Nitrogen 16 MG/DL 8 MG/DL Creatinine 0.70 MG/DL 0.54 MG/DL Estimat Glomerular Filtration 86 ML/MIN 116 ML/MIN Rate Random Glucose 151 MG/DL 83 MG/DL Hemoglobin A1c 5.2 % Lactic Acid Level 1.5 mmol/L Calcium Level 8.7 MG/DL 7.6 MG/DL Total Bilirubin 0.3 MG/DL 0.3 MG/DL Aspartate Amino Transf 13 U/L 21 U/L (AST/SGOT) Alanine Aminotransferase 17 U/L 14 U/L (ALT/SGPT) Alkaline Phosphatase 126 U/L 101 U/L Total Protein 7.5 GM/DL 5.9 GM/DL Albumin 2.7 GM/DL 2.2 GM/DL Lipase 63 U/L IMAGING: Abdomen/Pelvis CT 08/06/16 0000 Signed Impressions: Service Date/Time: Saturday, August 06, 2016 09:31 - CONCLUSION: 1. See the CT enterography reported separately. 2. Patent mesenteric vessels. 3. Stable intrahepatic and extrahepatic biliary dilatation. No obstructing mass or stone observed. This likely is a capacitance affect from prior cholecystectomy. 4. Probable lipoma or angiomyolipoma involving the right lobe of the liver. Elgin Diaz Jr., MD Chest X-Ray 08/05/16 0547 Signed Impressions: Service Date/Time: Friday, August 05, 2016 06:09 - CONCLUSION: Normal examination. Evan Thompson MD PHYSICAL EXAMINATION GENERAL: No acute distress. She is awake and alert and oriented. HEENT: Head atraumatic. Extraocular movements grossly intact, pupils reactive to light. No icterus. Oropharynx no visible lesions. NECK: Supple, no adenopathy. No swelling. LUNGS: Clear to auscultation. HEART: Regular rate and rhythm without murmurs, rubs or gallops. ABDOMEN: Distended. Diffusely tender. Tympanic to percussion. No palpable masses. EXTREMITIES: No clubbing, cyanosis or edema. SKIN: No rash. NEUROLOGIC: Nonfocal. IMAGING CT scan of the abdomen showed dilation of the small bowel with areas of nondistended small bowel and some mild thickening of the wall in the left upper quadrant, left mid abdomen and right lower quadrant. Underlying processes such as enteritis, such as Crohn disease or other multifocal inflammatory process. Ischemia could potentially cause these findings, however, the vascular structures do appear patent and free of significant atherosclerotic calcification. Sigmoid colon diverticula without inflammatory change. IMPRESSION 1. Abdominal pain and diarrhea. Suspect Inflammatory bowel disease. 2. Recent C-difficile colitis. RECOMMENDATIONS 1. Continue Flagyl. 2. Continue vancomycin p.o. 3. Plan for colonoscopy per GI. 4. Would stop above antibiotics if colonoscopy shows IBD. Antony Hamilton MD Aug 06, 2016 16:18
--- NOTE | 2016-08-06 16:24 | HHI.GIFU ---
GI Follow-up Note Consult Follow-up Subjective: Patient laying in bed comfortably, no new complaints except abdominal distension. Objective: PHYSICAL EXAMINATION: Vitals signs stable No fever HEENT: Pupils round and reactive to light; normocephalic; atraumatic; no jaundice. Throat is clear. NECK: Neck is supple, no JVD, no lymphadenopathy. CHEST: Chest is clear to auscultation and percussion. CARDIAC: Regular rate and rhythm with no murmur gallop or rubs. ABDOMEN: Soft, nondistended, nontender; no hepatosplenomegaly; bowel sounds are present in all four quadrants. EXTREMITIES: No clubbing, cyanosis, or edema. SKIN: Normal; no rash; no jaundice. INSPECTOR GENERAL: No focal deficits; alert and oriented times three. Available Data (labs, X- Rays, Procedues) : Last Impressions Abdomen/Pelvis CT 08/06/16 0000 Signed Impressions: Service Date/Time: Saturday, August 06, 2016 09:31 - CONCLUSION: 1. See the CT enterography reported separately. 2. Patent mesenteric vessels. 3. Stable intrahepatic and extrahepatic biliary dilatation. No obstructing mass or stone observed. This likely is a capacitance affect from prior cholecystectomy. 4. Probable lipoma or angiomyolipoma involving the right lobe of the liver. Elgin Diaz Jr., MD Chest X-Ray 08/05/16 0547 Signed Impressions: Service Date/Time: Friday, August 05, 2016 06:09 - CONCLUSION: Normal examination. Evan Thompson MD Laboratory Tests Test 08/05/16 08/05/16 08/05/16 08/06/16 05:58 06:40 17:00 04:45 White Blood Count 9.8 TH/MM3 4.5 TH/MM3 Red Blood Count 4.84 MIL/MM3 3.87 MIL/MM3 Hemoglobin 12.5 GM/DL 10.0 GM/DL Hematocrit 39.1 % 31.5 % Mean Corpuscular Volume 80.7 FL 81.3 FL Mean Corpuscular Hemoglobin 25.9 PG 25.8 PG Mean Corpuscular Hemoglobin 32.0 % 31.8 % Concent Red Cell Distribution Width 14.3 % 14.7 % Platelet Count 591 TH/MM3 391 TH/MM3 Mean Platelet Volume 7.1 FL 6.9 FL Neutrophils (%) (Auto) 71.2 % 50.2 % Lymphocytes (%) (Auto) 22.1 % 34.8 % Monocytes (%) (Auto) 6.3 % 13.4 % Eosinophils (%) (Auto) 0.1 % 1.3 % Basophils (%) (Auto) 0.3 % 0.3 % Neutrophils # (Auto) 7.0 TH/MM3 2.2 TH/MM3 Lymphocytes # (Auto) 2.2 TH/MM3 1.6 TH/MM3 Monocytes # (Auto) 0.6 TH/MM3 0.6 TH/MM3 Eosinophils # (Auto) 0.0 TH/MM3 0.1 TH/MM3 Basophils # (Auto) 0.0 TH/MM3 0.0 TH/MM3 CBC Comment AUTO DIFF DIFF FINAL Differential Comment AUTO DIFF CONFIRMED Platelet Estimate HIGH Platelet Morphology Comment NORMAL Prothrombin Time 10.0 SEC Prothromb Time International 0.9 RATIO Ratio Activated Partial 26.2 SEC Thromboplast Time Sodium Level 140 MEQ/L 143 MEQ/L Potassium Level 3.2 MEQ/L 3.4 MEQ/L Chloride Level 99 MEQ/L 107 MEQ/L Carbon Dioxide Level 31.7 MEQ/L 30.0 MEQ/L Anion Gap 9 MEQ/L 6 MEQ/L Blood Urea Nitrogen 16 MG/DL 8 MG/DL Creatinine 0.70 MG/DL 0.54 MG/DL Estimat Glomerular Filtration 86 ML/MIN 116 ML/MIN Rate Random Glucose 151 MG/DL 83 MG/DL Hemoglobin A1c 5.2 % Lactic Acid Level 1.5 mmol/L Calcium Level 8.7 MG/DL 7.6 MG/DL Total Bilirubin 0.3 MG/DL 0.3 MG/DL Aspartate Amino Transf 13 U/L 21 U/L (AST/SGOT) Alanine Aminotransferase 17 U/L 14 U/L (ALT/SGPT) Alkaline Phosphatase 126 U/L 101 U/L Total Protein 7.5 GM/DL 5.9 GM/DL Albumin 2.7 GM/DL 2.2 GM/DL Lipase 63 U/L Urine Collection Type CLEAN CATCH Urine Color YELLOW Urine Turbidity SLIGHT Urine pH 5.0 Urine Specific [place] 1.033 Urine Protein NEG mg/dL Urine Glucose (UA) NEG mg/dL Urine Ketones NEG mg/dL Urine Occult Blood NEG Urine Nitrite NEG Urine Bilirubin NEG Urine Leukocyte Esterase NEG Urine WBC 0-2 /hpf Urine Squamous Epithelial > 8 /hpf Cells Urine Amorphous Sediment LARGE Microscopic Urinalysis Comment CULT NOT INDICATED Urine Collection Time 0646 Stool C. difficile Toxin (PCR) NEGATIVE Stl C. difficile Toxin PRESUMPTIVE Epiderm 027 NEGATIVE Urine Opiates Screen POS Urine Barbiturates Screen NEG Urine Amphetamines Screen NEG Urine Benzodiazepines Screen POS Urine Cocaine Screen NEG Urine Cannabinoids Screen NEG Test 08/06/16 14:15 C-Reactive Protein 2.40 MG/DL Allergies Coded Allergies Type Severity Reaction Last Updated Verified *MDRO Multi-Drug Resistant Organism Adverse Reaction Unknown 08/05/16 Yes Active Scripts Medications Dose Route/Sig Days Date Category Meloxicam 7.5 Mg Tab 7.5 Mg PO HS 08/05/16 Reported Tizanidine (Tizanidine HCl) 4 Mg Cap 4 Mg PO TID PRN 08/05/16 Reported Promethazine (Promethazine HCl) 12.5 Mg Tab 12.5 Mg PO Q6H PRN 08/05/16 Reported Percocet (Oxycodone-Acetaminophen) 10-325 mg Tab 1 Tab PO Q4H PRN 08/05/16 Reported Ativan (Lorazepam) 1 Mg Tab 1 Mg PO BID PRN 08/05/16 Reported Lisinopril 40 Mg Tab 40 Mg PO DAILY 08/05/16 Reported Zofran Odt (Ondansetron Odt) 4 Mg Tab 4 Mg SL Q6HR PRN 08/05/[address] (Duloxetine HCl) 30 Mg Capdr 40 Mg PO DAILY 08/05/16 Reported Morphine IR (Morphine Sulfate) 15 Mg Tab 15 Mg PO TID PRN 08/05/16 Reported ASSESSMENT/PLAN: Seen and examined, doing ok. Still with diarrhea and abdominal pain. Ct enterography suggestive of crohns disease. Angiogram -ve for ischemia.Wants to wait on colonoscopy till thursday. Continue antibiotics and liquid diet. It was a pleasure seeing Tootie Iverson. Thank you for this consult. Entered by: Dung Sloan MD Aug 06, 2016 16:23
[2016-08-06 20:00] VITALS: BP 155/103; PULSE 90; RESP 16; TEMP 97; O2SAT 97
[2016-08-06] MEDS ORDERED: TEMAZEPAM 7.5 MG CAP PO ONE (22:15)
[2016-08-06] MEDS: LISINOPRIL 20 MG TAB PO SCH (22:24)
[2016-08-07] VITALS: BP 141/94; PULSE 88; RESP 16; TEMP 97.3; O2SAT 96
[2016-08-07] MEDS: metroNIDAZOLE 500 MG INJ 100 ML IV SCH ×4 (03:54→21:18)
[2016-08-07 04:00] VITALS: BP 125/85; PULSE 79; RESP 16; TEMP 97.6; O2SAT 95
[2016-08-07 05:42] LABS: BASOPHIL # 0.1 TH/MM3 (0-0.2); BASOPHIL % 1.5 % (0.0-2.0); EOSINOPHIL # 0.1 TH/MM3 (0-0.4); EOSINOPHIL % 2.5 % (0.0-4.0); HEMATOCRIT 32.2 % (35.0-46.0); HEMO FLAGS DIFF FINAL; LYMPH % 33.9 % (9.0-44.0); LYMPHOCYTE # 1.4 TH/MM3 (1.0-4.8); MEAN CELL VOLUME 80.3 FL (80.0-100.0); MEAN CORPUSCULAR HEMOGLOBIN 25.4 PG (27.0-34.0); MEAN CORPUSCULAR HGB CONC 31.7 % (32.0-36.0); MONO % 13.5 % (0.0-8.0); NEUT % 48.6 % (16.0-70.0); PLATELET COUNT 421 TH/MM3 (150-450); RED BLOOD COUNT 4.01 MIL/MM3 (4.00-5.30); RED CELL DISTRIBUTION WIDTH 14.3 % (11.6-17.2); WHITE BLOOD COUNT 4.1 TH/MM3 (4.0-11.0)
[2016-08-07 05:51] LABS: POTASSIUM 3.7 MEQ/L (3.5-5.1)
[2016-08-07 05:56] LABS: BICARBONATE 27.1 MEQ/L (21.0-32.0); MAGNESIUM 2.1 MG/DL (1.5-2.5)
[2016-08-07] MEDS: POTASSIUM CHLORIDE INJ 30 MEQ in DEXT 5%-NACL 0.45% 1000 ML INJ 1,000 ML IV SCH ×2 (06:10→21:28)
[2016-08-07 08:00] VITALS: BP 144/103; PULSE 88; RESP 20; TEMP 97.3; O2SAT 99
[2016-08-07] MEDS ORDERED: TEMAZEPAM 7.5 MG CAP PO PRN (08:15)
[2016-08-07] MEDS: LISINOPRIL 20 MG TAB PO SCH (08:23)
[2016-08-07] MEDS: DOCUSATE SODIUM 50 MG/SENNA 8.6 MG TAB PO SCH ×2 (08:23→21:00)
[2016-08-07] MEDS: DULoxetine HCl DR 20 MG CAP PO SCH (08:24)
[2016-08-07] MEDS: VANCOMYCIN 500 MG VIAL (FOR ORAL USE ONLY) PO SCH ×4 (08:24→21:19)
[2016-08-07] MEDS: SODIUM CHLORIDE 0.9% FLUSH 10 ML FLUSH IV FLUSH SCH ×2 (08:27→21:19)
[2016-08-07 12:00] VITALS: BP 169/109; PULSE 107; RESP 20; TEMP 97.5; O2SAT 97
[2016-08-07] MEDS: MORPHINE SULFATE 15 MG TAB PO PRN (14:16)
--- NOTE | 2016-08-07 14:21 | HHI.PR ---
Subjective Remarks Patient seen this morning around 9:30 AM. Walking around. Says she is feeling better. Denies any chest pain or shortness of breath. Reports abdominal pain improving. Objective Vital Signs Date Time Temp Pulse Resp B/P Pulse Ox O2 Delivery O2 Flow Rate FiO2 08/07/16 12:00 97.5 107 20 169/109 97 08/07/16 08:00 97.3 88 20 144/103 99 08/07/16 04:00 97.6 79 16 125/85 95 08/07/16 00:00 97.3 88 16 141/94 96 08/06/16 20:00 97.0 90 16 155/103 97 08/06/16 16:00 98.5 95 20 162/108 95 08/06/16 15:54 20 I/O 08/06/16 08/06/16 08/06/16 08/07/16 08/07/16 08/07/16 07:00 15:00 23:00 07:00 15:00 23:00 Intake Total 1180 ml 800 ml 1540 ml 1460 ml Output Total 2000 ml Balance 1180 ml 800 ml 1540 ml -540 ml Intake Oral 480 ml 740 ml 660 ml IV Total 700 ml 800 ml 800 ml 800 ml Output Urine Total 2000 ml # Voids 2 3 9 8 # Bowel Movements 0 4 5 3 Result Diagram: 08/07/16 0435 08/07/16 0435 Imaging Last Impressions Abdomen/Pelvis CT 08/06/16 0000 Signed Impressions: Service Date/Time: Saturday, August 06, 2016 09:31 - CONCLUSION: 1. See the CT enterography reported separately. 2. Patent mesenteric vessels. 3. Stable intrahepatic and extrahepatic biliary dilatation. No obstructing mass or stone observed. This likely is a capacitance affect from prior cholecystectomy. 4. Probable lipoma or angiomyolipoma involving the right lobe of the liver. Elgin Diaz Jr., MD Chest X-Ray 08/05/16 0547 Signed Impressions: Service Date/Time: Friday, August 05, 2016 06:09 - CONCLUSION: Normal examination. Evan Thompson MD Objective Remarks GENERAL: Patient lying in bed. Appears uncomfortable. She is alert and oriented. SKIN: Warm and dry. HEAD: Normocephalic. EYES: No scleral icterus. No injection or drainage. NECK: Supple, trachea midline. No JVD. CARDIOVASCULAR: Regular rate and rhythm without murmurs, gallops, or rubs. RESPIRATORY: Breath sounds equal bilaterally. No accessory muscle use. GASTROINTESTINAL: Abdomen distended. Hypoactive bowel sounds. No rebound or guarding. mild tenderness to palpation. Improved from yesterday. MUSCULOSKELETAL: No cyanosis, or edema. BACK: Nontender without obvious deformity. No CVA tenderness. A/P Assessment and Plan =====08/07/16 //Colitis. Imaging reviewed above with patent mesenteric vessels. Abdominal pain improved with multiple bowel movements. Per calcitonin reviewed and elevated. Infectious disease assistance appreciated. Scheduled for colonoscopy tomorrow per GI. //Hypertension. Systolic blood pressure in the 170s last night. -Lisinopril daily added. //Hypokalemia. Potassium 3.7. Improved. Monitor. //Insomnia. Sleep medication ordered. //Abdominal pain //Nausea and vomiting -CT abdomen with dilated small bowel, transition points. Biliary ductal dilation -Status with gastroenterology. We'll treat for C. difficile colitis Plan for colonoscopy 08/08. //Suspected C. difficile colitis He is on antibiotics as per infectious disease. Negative C. difficile assay of stool -Consulted ID. -C. difficile stool assay pending. -We'll try to avoid narcotics to prevent decreased bowel motility. -Infectious disease following. Appreciate assistance. //Suspected incidental finding of 1.6cm fat lesion in the right lobe of the liver. Need follow-up with primary care as outpatient. //Malnutrition. -Diet as per GI. -Continue D5 half normal saline. //Thrombocytosis. Likely reactive secondary infection. //Depression. Chronic. No SI. Continue home medication. //Hypokalemia. Acute. Replaced. Monitor. //Prophylaxis. SCDs. Patient is ambulatory. Hold anticoagulation pending possible colonoscopy. Discharge Planning Pending GI and ID clearance. Jaswinder Rangel MD Aug 07, 2016 14:21
[2016-08-07 16:00] VITALS: BP 158/105; PULSE 97; RESP 20; TEMP 98.6; O2SAT 97
--- NOTE | 2016-08-07 17:31 | HHI.GIFU ---
GI Follow-up Note Consult Follow-up Subjective: Patient laying in bed comfortably, no new complaints except diarrhea. Feeling a lot better Objective: PHYSICAL EXAMINATION: Vitals signs stable No fever HEENT: Pupils round and reactive to light; normocephalic; atraumatic; no jaundice. Throat is clear. NECK: Neck is supple, no JVD, no lymphadenopathy. CHEST: Chest is clear to auscultation and percussion. CARDIAC: Regular rate and rhythm with no murmur gallop or rubs. ABDOMEN: Soft, nondistended, nontender; no hepatosplenomegaly; bowel sounds are present in all four quadrants. EXTREMITIES: No clubbing, cyanosis, or edema. SKIN: Normal; no rash; no jaundice. QUARTER BACKER: No focal deficits; alert and oriented times three. Available Data (labs, X- Rays, Procedues) : Last Impressions Abdomen/Pelvis CT 08/06/16 0000 Signed Impressions: Service Date/Time: Saturday, August 06, 2016 09:31 - CONCLUSION: 1. See the CT enterography reported separately. 2. Patent mesenteric vessels. 3. Stable intrahepatic and extrahepatic biliary dilatation. No obstructing mass or stone observed. This likely is a capacitance affect from prior cholecystectomy. 4. Probable lipoma or angiomyolipoma involving the right lobe of the liver. Elgin Diaz Jr., MD Chest X-Ray 08/05/16 0547 Signed Impressions: Service Date/Time: Friday, August 05, 2016 06:09 - CONCLUSION: Normal examination. Evan Thompson MD Laboratory Tests Test 08/06/16 08/06/16 08/07/16 04:45 14:15 04:35 White Blood Count 4.5 TH/MM3 4.1 TH/MM3 Red Blood Count 3.87 MIL/MM3 4.01 MIL/MM3 Hemoglobin 10.0 GM/DL 10.2 GM/DL Hematocrit 31.5 % 32.2 % Mean Corpuscular Volume 81.3 FL 80.3 FL Mean Corpuscular Hemoglobin 25.8 PG 25.4 PG Mean Corpuscular Hemoglobin 31.8 % 31.7 % Concent Red Cell Distribution Width 14.7 % 14.3 % Platelet Count 391 TH/MM3 421 TH/MM3 Mean Platelet Volume 6.9 FL 6.9 FL Neutrophils (%) (Auto) 50.2 % 48.6 % Lymphocytes (%) (Auto) 34.8 % 33.9 % Monocytes (%) (Auto) 13.4 % 13.5 % Eosinophils (%) (Auto) 1.3 % 2.5 % Basophils (%) (Auto) 0.3 % 1.5 % Neutrophils # (Auto) 2.2 TH/MM3 2.0 TH/MM3 Lymphocytes # (Auto) 1.6 TH/MM3 1.4 TH/MM3 Monocytes # (Auto) 0.6 TH/MM3 0.5 TH/MM3 Eosinophils # (Auto) 0.1 TH/MM3 0.1 TH/MM3 Basophils # (Auto) 0.0 TH/MM3 0.1 TH/MM3 CBC Comment DIFF FINAL DIFF FINAL Differential Comment Sodium Level 143 MEQ/L 142 MEQ/L Potassium Level 3.4 MEQ/L 3.7 MEQ/L Chloride Level 107 MEQ/L 108 MEQ/L Carbon Dioxide Level 30.0 MEQ/L 27.1 MEQ/L Anion Gap 6 MEQ/L 7 MEQ/L Blood Urea Nitrogen 8 MG/DL 2 MG/DL Creatinine 0.54 MG/DL 0.41 MG/DL Estimat Glomerular Filtration 116 ML/MIN 160 ML/MIN Rate Random Glucose 83 MG/DL 92 MG/DL Calcium Level 7.6 MG/DL 7.8 MG/DL Total Bilirubin 0.3 MG/DL Aspartate Amino Transf 21 U/L (AST/SGOT) Alanine Aminotransferase 14 U/L (ALT/SGPT) Alkaline Phosphatase 101 U/L Total Protein 5.9 GM/DL Albumin 2.2 GM/DL 2.1 GM/DL C-Reactive Protein 2.40 MG/DL Procalcitonin 16.38 ng/mL Phosphorus Level 3.1 MG/DL Magnesium Level 2.1 MG/DL Allergies Coded Allergies Type Severity Reaction Last Updated Verified *MDRO Multi-Drug Resistant Organism Adverse Reaction Unknown 08/05/16 Yes Active Scripts Medications Dose Route/Sig Days Date Category Meloxicam 7.5 Mg Tab 7.5 Mg PO HS 08/05/16 Reported Tizanidine (Tizanidine HCl) 4 Mg Cap 4 Mg PO TID PRN 08/05/16 Reported Promethazine (Promethazine HCl) 12.5 Mg Tab 12.5 Mg PO Q6H PRN 08/05/16 Reported Percocet (Oxycodone-Acetaminophen) 10-325 mg Tab 1 Tab PO Q4H PRN 08/05/16 Reported Ativan (Lorazepam) 1 Mg Tab 1 Mg PO BID PRN 08/05/16 Reported Lisinopril 40 Mg Tab 40 Mg PO DAILY 08/05/16 Reported Zofran Odt (Ondansetron Odt) 4 Mg Tab 4 Mg SL Q6HR PRN 08/05/[address] (Duloxetine HCl) 30 Mg Capdr 40 Mg PO DAILY 08/05/16 Reported Morphine IR (Morphine Sulfate) 15 Mg Tab 15 Mg PO TID PRN 08/05/16 Reported ASSESSMENT/PLAN: Seen and examined, doing much better today. No bleeing, less abdominal pain. Colonoscopy planned for tomorrow. It was a pleasure seeing Tootie Iverson. Thank you for this consult. Entered by: Dung Sloan MD Aug 07, 2016 17:31
[2016-08-07] MEDS ORDERED: PEG (High)/E-LYTE SOLN 4000 ML BTL PO ONE (18:00)
[2016-08-07 20:00] VITALS: BP 161/111; PULSE 102; RESP 18; TEMP 96.8; O2SAT 98
[2016-08-07] MEDS ORDERED: ONDANSETRON HCL 4 MG/2 ML VIAL IV PUSH PRN (20:00)
[2016-08-07] MEDS: MORPHINE SULFATE 4 MG/ML INJ IV PUSH PRN (21:19)
[2016-08-08] VITALS: BP 155/108; PULSE 92; RESP 16; TEMP 98.3; O2SAT 96
[2016-08-08] MEDS: metroNIDAZOLE 500 MG INJ 100 ML IV SCH ×2 (04:19→07:56)
[2016-08-08 07:09] LABS: AUTOMATED NEUTROPHIL # 2.1 TH/MM3 (1.8-7.7); BASOPHIL % 0.5 % (0.0-2.0); EOSINOPHIL # 0.1 TH/MM3 (0-0.4); HEMO FLAGS DIFF FINAL; LYMPH % 45.6 % (9.0-44.0); LYMPHOCYTE # 2.3 TH/MM3 (1.0-4.8); MEAN CELL VOLUME 80.6 FL (80.0-100.0); MEAN CORPUSCULAR HGB CONC 32.3 % (32.0-36.0); MONO % 8.3 % (0.0-8.0); NEUT % 43.6 % (16.0-70.0); PLATELET COUNT 481 TH/MM3 (150-450); RED BLOOD COUNT 4.22 MIL/MM3 (4.00-5.30); RED CELL DISTRIBUTION WIDTH 14.5 % (11.6-17.2); WHITE BLOOD COUNT 4.9 TH/MM3 (4.0-11.0)
[2016-08-08 07:14] LABS: POTASSIUM 3.4 MEQ/L (3.5-5.1)
[2016-08-08 07:23] LABS: BICARBONATE 28.3 MEQ/L (21.0-32.0); MAGNESIUM 1.8 MG/DL (1.5-2.5)
[2016-08-08] MEDS: SODIUM CHLORIDE 0.9% FLUSH 10 ML FLUSH IV FLUSH SCH (07:23)
[2016-08-08] MEDS: LISINOPRIL 20 MG TAB PO SCH (07:55)
[2016-08-08] MEDS: DOCUSATE SODIUM 50 MG/SENNA 8.6 MG TAB PO SCH (07:56)
[2016-08-08] MEDS: VANCOMYCIN 500 MG VIAL (FOR ORAL USE ONLY) PO SCH ×2 (07:56→13:00)
[2016-08-08] MEDS: DULoxetine HCl DR 20 MG CAP PO SCH (07:56)
[2016-08-08] MEDS: POTASSIUM CHLORIDE INJ 30 MEQ in DEXT 5%-NACL 0.45% 1000 ML INJ 1,000 ML IV SCH (07:57)
[2016-08-08 08:00] VITALS: BP 162/107; PULSE 80; RESP 18; TEMP 98.4; O2SAT 96
[2016-08-08] MEDS ORDERED: NIFEdipine 30 MG SUSTAINED RELEASE TAB PO SCH (09:19)
[2016-08-08] MEDS ORDERED: POTASSIUM CHLOR 10 MEQ PREMIX 100 ML IV SCH (10:00)
[2016-08-08 12:00] VITALS: BP 152/106; PULSE 94; RESP 19; TEMP 97.5; O2SAT 98
[2016-08-08 12:49] VITALS: BP 145/101; PULSE 83; RESP 16; TEMP 97.7; O2SAT 97
[2016-08-08] MEDS ORDERED: KETAMINE HCL 500 MG/10 ML VIAL ONE (13:39)
--- NOTE | 2016-08-08 13:50 | HHI.PR ---
Subjective Remarks Patient seen this morning around 10 AM. Awaiting colonoscopy. Says she's feeling well. Reports abdominal pain much improved. Denies any nausea or vomiting. Says she feels like going home after colonoscopy. Objective Vital Signs Date Time Temp Pulse Resp B/P Pulse Ox O2 Delivery O2 Flow Rate FiO2 08/08/16 12:49 97.7 83 16 145/101 97 08/08/16 12:00 97.5 94 19 152/106 98 08/08/16 08:00 98.4 80 18 162/107 96 08/08/16 00:00 98.3 92 16 155/108 96 08/07/16 20:00 96.8 102 18 161/111 98 08/07/16 16:00 98.6 97 20 158/105 97 I/O 08/07/16 08/07/16 08/07/16 08/08/16 08/08/16 08/08/16 06:59 14:59 22:59 06:59 14:59 22:59 Intake Total 1460 ml 320 ml 2560 ml Output Total 2000 ml Balance -540 ml 320 ml 2560 ml Intake Oral 660 ml 320 ml 1000 ml IV Total 800 ml 1560 ml Output Urine Total 2000 ml # Voids 8 5 9 # Bowel Movements 3 4 6 Result Diagram: 08/08/1617 08/08/16616 Imaging Last Impressions Abdomen/Pelvis CT 08/06/16 0000 Signed Impressions: Service Date/Time: Saturday, August 06, 2016 09:31 - CONCLUSION: 1. See the CT enterography reported separately. 2. Patent mesenteric vessels. 3. Stable intrahepatic and extrahepatic biliary dilatation. No obstructing mass or stone observed. This likely is a capacitance affect from prior cholecystectomy. 4. Probable lipoma or angiomyolipoma involving the right lobe of the liver. Elgin Diaz Jr., MD Chest X-Ray 08/05/16 0547 Signed Impressions: Service Date/Time: Friday, August 05, 2016 06:09 - CONCLUSION: Normal examination. Evan Thompson MD Objective Remarks GENERAL: Patient lying in bed. Appears uncomfortable. She is alert and oriented x 3 SKIN: Warm and dry. HEAD: Normocephalic. EYES: No scleral icterus. No injection or drainage. NECK: Supple, trachea midline. No JVD. CARDIOVASCULAR: Regular rate and rhythm without murmurs, gallops, or rubs. RESPIRATORY: Breath sounds equal bilaterally. No accessory muscle use. GASTROINTESTINAL: Abdomen soft. Nontender, nondistended. No rebound or guarding. Positive bowel sounds. MUSCULOSKELETAL: No cyanosis, or edema. BACK: Nontender without obvious deformity. No CVA tenderness. A/P Assessment and Plan =====08/08/16 //Colitis. Of distal ileum. Negative C. difficile. Discontinue vancomycin and metronidazole. Likely Crohn's disease. Pending colonoscopy today. //Hypertension. Pressure reviewed systolics in the 140s, and acceptable. Improved on daily lisinopril. //Hypokalemia. Potassium 3.4. Replaced again. //Abdominal pain //Nausea and vomiting -CT abdomen with dilated small bowel, transition points. Biliary ductal dilation -Status with gastroenterology. We'll treat for C. difficile colitis Plan for colonoscopy today. //Suspected C. difficile colitis He is on antibiotics as per infectious disease. Negative C. difficile assay of stool -Consulted ID. -C. difficile stool assay pending. -We'll try to avoid narcotics to prevent decreased bowel motility. -Infectious disease following. Appreciate assistance. //Suspected incidental finding of 1.6cm fat lesion in the right lobe of the liver. Need follow-up with primary care as outpatient. //Malnutrition. -Diet as per GI. -Continue D5 half normal saline. //Thrombocytosis. Likely reactive secondary infection. //Depression. Chronic. No SI. Continue home medication. //Hypokalemia. Acute. Replaced. Monitor. //Prophylaxis. SCDs. Patient is ambulatory. Discharge Planning possibly home today after colonoscopy Pending GI and ID clearance. Jaswinder Rangel MD Aug 08, 2016 13:50
[2016-08-08] MEDS ORDERED: PROPOFOL 200 MG/20 ML AMP IV ONE (13:52)
--- NOTE | 2016-08-08 14:09 | GIPROC ---
[address], [address] COLONOSCOPY PROCEDURE REPORT EXAM DATE: 08/08/2016 PATIENT NAME: Tootie Iverson MR #: [id number] BIRTHDATE: 1960 ENDOSCOPIST: Dung Lyle MD ORDER #: [id number] DIGITAL MEDIA MANAGER: Jurgen Murillo and Luigi Castañeda STATUS: inpatient INDICATIONS: The patient is a 56 yr old female here for a colonoscopy due to abdominal pain, an abnormal imaging results, and chronic diarrhea PROCEDURE PERFORMED: Colonoscopy with biopsy MEDICATIONS: None and Per Anesthesia. PREP QUALITY: The Milo Bowel Prep Score was Right colon 2, Mid colon 3, and Left colon 3. Total = 8. PREP TYPE:GoLytely ESTIMATED BLOOD LOSS: None CONSENT: The patient understands the risks and benefits of the procedure and understands that these risks include, but are not limited to: sedation, allergic reaction, infection, perforation and/or bleeding. Alternative means of evaluation and treatment include, among others: physical exam, x-rays, and/or surgical intervention. The patient elects to proceed with this endoscopic procedure. medical equipment was checked for proper function. Hand hygiene and appropriate measures for infection prevention was taken. After the risks, benefits and alternatives of the procedure were thoroughly explained, Informed consent was verified, confirmed and timeout was successfully executed by the treatment team. A digital exam revealed external hemorrhoids The Pentax [id number] and [id number] endoscope was introduced through the anus and advanced to the cecum, which was identified by both the appendix and ileocecal valve. The instrument was then slowly withdrawn as the colon was fully examined. COLON FINDINGS: A small patch of colitis was found at the ileocecal valve. The mucosa was congested and erythematous. This is consistent with Crohn's disease. A biopsy was performed using cold forceps. A polypoid shaped sessile polyp ranging between 3-5mm in size was found in the rectum. A biopsy was performed using cold forceps. The colonic mucosa appeared normal. Multiple random biopsies of the area were performed using cold forceps. Multiple attempts at intubating the illeum not successful. Retroflexed views revealed internal hemorrhoids and Retroflexed views revealed medium internal hemorrhoids The scope was then completely withdrawn from the patient and the procedure terminated. PROCEDURE WITHDRAWAL TIME:8minutes ADVERSE EVENTS: There were no complications. IMPRESSIONS: 1. Small colitis was found at the ileocecal valve; The mucosa was congested and erythematous; This is consistent with Crohn's disease.; biopsy was performed using cold forceps 2. A sessile polyp ranging between 3-5mm in size was found in the rectum; biopsy was performed using cold forceps 3. The colonic mucosa appeared normal; multiple random biopsies of the area were performed using cold forceps 4. Multiple attempts at intubating the illeum not successful 5. Retroflexed views revealed internal hemorrhoids 6. Retroflexed views revealed medium internal hemorrhoids 7. Revealed external hemorrhoids RECOMMENDATIONS: 1. Await biopsy results. Biopsy results will not be ready for 7-10 days. If you don't hear from us in two weeks, call our office for results. 2. Yearly hemoccult 3. No seeds, nuts and popcorn in diet 4. High fiber diet 5. Asacol 800mg 1 po tid. Prednisone 20mg daily RECALL: Return 1 year Colonoscopy, pending biopsy results Dung Lyle MD eSigned: Dung yLle MD 08/08/2016 2:09 PM cc: DOCUMENT ADDENDUM eSigned: Dung Lyle MD 08/08/2016 2:12 PM Reason for addendum: [ ] Correction of inaccurate information [ ] Recently acquired lab/pathology results [x] Additional information Comments: Also had moderate left sided un complicated diverticulosis. PATIENT NAME: Tootie Iverson MR#: [id number]
[2016-08-08] MEDS ORDERED: MESALAMINE HD 800 MG DELAYED RELEASE TAB PO SCH (15:00)
[2016-08-08] MEDS ORDERED: predniSONE 20 MG TAB PO SCH (15:00)
[2016-08-08] MEDS ORDERED: PRED20 PO (15:10)
[2016-08-08] MEDS ORDERED: NIFE30TA8 PO (15:10)
[2016-08-08] MEDS ORDERED: MESA1TAB2 PO (15:10)
--- NOTE | 2016-08-08 15:22 | HHI.DS ---
Discharge Summary Admission Date Aug 05, 2016 at 08:59 Discharge Date: Aug 08, 2016 Admitting Diagnosis c diff colitis (1) Abdominal pain ICD Code: R10.9 (2) Enteritis ICD Code: K52.9 Procedures Colonoscopy 08/08/16. Please see report. Biopsies pending. Brief History - From Admission 56-year-old female history of hypertension, chronic pain, who presents for subacute but worsening sharp intermittent right lower quadrant pain, together with nausea, nonbloody vomiting this morning, unable tolerate breakfast. She Is Continued to Have Sharp Intermittent Right Lower Quadrant Abdominal Pain, and Has Been on Treatment for C. difficile with Vancomycin Taper. Today However She Experienced Watery Diarrhea, Nausea and Nonbloody Vomiting, Prompting Her Admission. Patient Says She Has Appointment with [facility] Scheduled for 08/06 at 6:30 AM, However Her Has Already Canceled His Appointment. Patient denies any chest pain or shortness of breath. She denies any fevers or chills. She was recently treated [facility] for polydrug overdose, with amphetamines, cocaine, narcotics. Creatinine was 13.0, trended down to normal at discharge, as well as C. difficile colitis, which was treated with Flagyl and vancomycin. Patient discharged AMA on 06/03. She also experienced an ileus during the hospitalization, for which GI followed. CBC/BMP: 08/08/16 0617 08/08/16 0617 Significant Findings Laboratory Tests Test 08/05/16 08/06/16 08/06/16 08/07/16 17:00 04:45 14:15 04:35 Urine Opiates Screen POS (NEG) Urine Benzodiazepines Screen POS (NEG) Red Blood Count 3.87 MIL/MM3 (4.00-5.30) Hemoglobin 10.0 GM/DL 10.2 GM/DL (11.6-15.3) (11.6-15.3) Hematocrit 31.5 % 32.2 % (35.0-46.0) (35.0-46.0) Mean Corpuscular Hemoglobin 25.8 PG 25.4 PG (27.0-34.0) (27.0-34.0) Mean Corpuscular Hemoglobin 31.8 % 31.7 % Concent (32.0-36.0) (32.0-36.0) Mean Platelet Volume 6.9 FL 6.9 FL (7.0-11.0) (7.0-11.0) Monocytes (%) (Auto) 13.4 % 13.5 % (0.0-8.0) (0.0-8.0) Potassium Level 3.4 MEQ/L (3.5-5.1) Calcium Level 7.6 MG/DL 7.8 MG/DL (8.5-10.1) (8.5-10.1) Total Protein 5.9 GM/DL (6.4-8.2) Albumin 2.2 GM/DL 2.1 GM/DL (3.4-5.0) (3.4-5.0) C-Reactive Protein 2.40 MG/DL (0.00-0.30) Procalcitonin 16.38 ng/mL (0.00-0.50) Chloride Level 108 MEQ/L (98-107) Blood Urea Nitrogen 2 MG/DL (7-18) Creatinine 0.41 MG/DL (0.50-1.00) Test 08/08/16 06:17 Hemoglobin 11.0 GM/DL (11.6-15.3) Hematocrit 34.0 % (35.0-46.0) Mean Corpuscular Hemoglobin 26.0 PG (27.0-34.0) Platelet Count 481 TH/MM3 (150-450) Mean Platelet Volume 6.7 FL (7.0-11.0) Lymphocytes (%) (Auto) 45.6 % (9.0-44.0) Monocytes (%) (Auto) 8.3 % (0.0-8.0) Potassium Level 3.4 MEQ/L (3.5-5.1) Blood Urea Nitrogen 1 MG/DL (7-18) Calcium Level 7.8 MG/DL (8.5-10.1) Albumin 2.3 GM/DL (3.4-5.0) Imaging Last Impressions Abdomen/Pelvis CT 08/06/16 0000 Signed Impressions: Service Date/Time: Saturday, August 06, 2016 09:31 - CONCLUSION: 1. See the CT enterography reported separately. 2. Patent mesenteric vessels. 3. Stable intrahepatic and extrahepatic biliary dilatation. No obstructing mass or stone observed. This likely is a capacitance affect from prior cholecystectomy. 4. Probable lipoma or angiomyolipoma involving the right lobe of the liver. Elgin Diaz Jr., MD Chest X-Ray 08/05/16 0547 Signed Impressions: Service Date/Time: Friday, August 05, 2016 06:09 - CONCLUSION: Normal examination. Evan Thompson MD Hospital Course Patient with inflammation of the distal ileum on CT as above. Patient was treated for suspected C. difficile colitis with metronidazole and vancomycin, however C. difficile assay of stool returned negative. Patient's abdominal pain improved. Gastroenterology was consulted, performed colonoscopy, which tentatively suspected to be Crohn's, however biopsies pending. Patient will be discharged home on prednisone, Asacol, with follow-up GI in 1 week. Blood pressure was also found to be elevated with systolics in the 170s, and patient was started on nifedipine which she will continue discharge. She is to follow-up with primary care as outpatient. Incidental finding of 1.6 m fat lesion in the right lobe of the liver. Follow-up with GI and primary care. =====08/08/16 //Colitis. Of distal ileum. Negative C. difficile. Discontinue vancomycin and metronidazole. Likely Crohn's disease. Pending colonoscopy today. //Hypertension. Pressure reviewed systolics in the 140s, and acceptable. Improved on daily lisinopril. //Hypokalemia. Potassium 3.4. Replaced again. //Abdominal pain //Nausea and vomiting -CT abdomen with dilated small bowel, transition points. Biliary ductal dilation -Status with gastroenterology. We'll treat for C. difficile colitis Plan for colonoscopy today. //Suspected C. difficile colitis He is on antibiotics as per infectious disease. Negative C. difficile assay of stool -Consulted ID. -C. difficile stool assay pending. -We'll try to avoid narcotics to prevent decreased bowel motility. -Infectious disease following. Appreciate assistance. //Suspected incidental finding of 1.6cm fat lesion in the right lobe of the liver. Need follow-up with primary care as outpatient. //Malnutrition. -Diet as per GI. -Continue D5 half normal saline. //Thrombocytosis. Likely reactive secondary infection. //Depression. Chronic. No SI. Continue home medication. //Hypokalemia. Acute. Replaced. Monitor. //Prophylaxis. SCDs. Patient is ambulatory. Discharge Planning possibly home today after colonoscopy Pending GI and ID clearance. Pt Condition on Discharge: Good Discharge Disposition: Discharge Home Discharge Time: > 30 minutes Discharge Instructions DIET: Follow Instructions for: As Tolerated, No Restrictions Activities you can perform: Regular-No Restrictions Follow up Referrals: Gastroenterology - 1 Week with Kar Rosario MD PCP Follow-up - 1 Week with Duong Barahona MD New Medications: Mesalamine DR (Mesalamine DR) 800 Mg Tab 1600 MG PO Q8HR colitis Days 30 TAB Nifedipine ER 24 HR (Nifedipine ER 24 HR) 30 Mg Tab 30 MG PO DAILY blood pressure Days 30 TAB Prednisone (Prednisone) 20 Mg Tab 20 MG PO DAILY inflammatory bowel disease Days 30 TAB Continued Medications: Duloxetine DR (Cymbalta DR) 30 Mg Capdr 40 MG PO DAILY #30 Ref 0 CAP Lisinopril (Lisinopril) 40 Mg Tab 40 MG PO DAILY Blood Pressure Management #30 Ref 0 TAB Lorazepam (Ativan) 1 Mg Tab 1 MG PO BID PRN ANXIETY AND/OR AGITATION Ref 0 TAB Morphine IR (Morphine IR) 15 Mg Tab 15 MG PO TID PRN PAIN Ref 0 TAB Ondansetron Odt (Zofran Odt) 4 Mg Tab 4 MG SL Q6HR PRN Nausea/Vomiting #10 Ref 0 TAB Oxycodone-Acetaminophen (Percocet) 10-325 mg Tab 1 TAB PO Q4H PRN PAIN Ref 0 TAB Promethazine (Promethazine) 12.5 Mg Tab 12.5 MG PO Q6H PRN NAUSEA OR VOMITING Ref 0 TAB Discontinued Medications: Meloxicam (Meloxicam) 7.5 Mg Tab 7.5 MG PO HS Arthritis Pain Ref 0 TAB Tizanidine (Tizanidine) 4 Mg Cap 4 MG PO TID PRN MUSCLE SPASM Ref 0 CAP Jaswinder Rangel MD Aug 08, 2016 15:22
[2016-08-08] MEDS: MORPHINE SULFATE 15 MG TAB PO PRN (15:57)
[2016-08-08 16:00] VITALS: BP_SYST 163; BP_SYST 175; BP_DIAS 105; BP_DIAS 113; PULSE 115; RESP 20; TEMP 98.5; O2SAT 94
[2016-08-08] MEDS ORDERED: cloNIDine HCL 0.1 MG TAB PO ONE (16:00)
[2016-08-08 17:16] VITALS: BP 152/98
== END 2016-08-08 16:30 | disposition home or self-care (01) | DRG 392 ==
LOC: PHED 05:15 → PHEDA 08:59 → PH3A 13:54
PROVIDERS: ADMIT Internal Medicine; ATTEND Internal Medicine
PROC: 0DBP8ZX Excision of Rectum, Via Natural or Artificial Opening Endoscopic, Diagnostic (ICD-10-PCS; 2016-08-08)
PROC: 0DBL8ZX Excision of Transverse Colon, Via Natural or Artificial Opening Endoscopic, Diagnostic (ICD-10-PCS; 2016-08-08)
PROC: 0DBN8ZX Excision of Sigmoid Colon, Via Natural or Artificial Opening Endoscopic, Diagnostic (ICD-10-PCS; 2016-08-08)
PROC: 0DBC8ZX Excision of Ileocecal Valve, Via Natural or Artificial Opening Endoscopic, Diagnostic (ICD-10-PCS; principal; 2016-08-08 12:58)
DX: K52.9 Noninfective gastroenteritis and colitis, unspecified (principal); E46 Unspecified protein-calorie malnutrition; K56.7 Ileus, unspecified; F32.9 Major depressive disorder, single episode, unspecified; Z68.24 Body mass index [BMI] 24.0-24.9, adult; D75.89 Other specified diseases of blood and blood-forming organs; E87.6 Hypokalemia; K64.4 Residual hemorrhoidal skin tags; K64.8 Other hemorrhoids; I10 Essential (primary) hypertension; Z87.891 Personal history of nicotine dependence
CPT/HCPCS: 71010; 74174; 74177; 76937; 80053; 80069; 80307; 81001; 83036; 83605; 83690; 83735; 84145; 85025; 85610; 85730; 86140; 87493; 88305; 96361; 96374; 96375; J2270; J2405; J3480; J7030; J7512; Q9967

== ENCOUNTER 2016-12-05 11:12 | Inpatient (IN) | payer OTHER, MEDICARE ==
[2016-12-05] VITALS (7 sets, daily range): BP systolic 74–133; BP diastolic 40–78; PULSE 58–99; RESP 16–18; TEMP 97.6–98.4; O2SAT 95–98
[~2016-12-05] VITALS: Ht 165.1 cm; Wt 60.0 kg
[~2016-12-05 11:12] MED LIST changes: +CYMB30CA PO; -DULO20 PO; +MESA1TAB2 PO; -METR-1 PO; -MOBI7.5T PO; -MORP15TA3 PO; -MORP20SO PO; +MSIR15 PO; +NIFE30TA8 PO; +PRED20 PO; +PROM12.54 PO; -PROM25SU8 PO; -TIZA4CAP3 PO; -VANC500I3 PO; +ZOFR4TAB3 SL
[2016-12-05] MEDS ORDERED: SODIUM CHLOR 0.9% 1000 ML INJ 1,000 ML IV SCH (11:58)
[2016-12-05] MEDS ORDERED: SODIUM CHLORIDE 0.9% FLUSH 10 ML FLUSH IV FLUSH PRN (12:00)
[2016-12-05] MEDS ORDERED: ONDANSETRON HCL 4 MG/2 ML VIAL IVP ONE (12:00)
[2016-12-05] MEDS ORDERED: HYDROmorphone HCL PF 2 MG/ML VIAL IVS ONE (12:00)
--- NOTE | 2016-12-05 12:03 | PD ---
HPI Chief Complaint: Abdominal Pain Time Seen by Provider: 11:32 Travel History International Travel<30 days: No Contact w/Intl Traveler<30days: No Traveled to known affect area: No History of Present Illness HPI This 56-year-old female is complaining of abdominal pain. She is having left- sided abdominal pain which she says is quite severe. She goes to pain management for her back and is on morphine 15 mg 3 times a day. This is not helping the pain. She sees Dr. SINGLETON apparently had endoscopy done ago and was found to have an ulcer on her intestines she says. He is currently on Protonix budesonide. She had a CAT scan in July which showed abnormality of the distal small bowel suspicious for inflammatory bowel disease she has Crohn' s disease. She says the pain is quite severe. It is aggravated by eating. She is also on APRESA. PFSH Past Medical History Depression: Yes Cardiovascular Problems: Yes (HTN) Diminished Hearing: No GERD: Yes Hypertension: Yes Medical other: Yes (crohns/ulcer on intestine) Immunizations Current: Yes Influenza Vaccination: Yes Menopausal: Yes : 1 Tubal Ligation: Yes Past Surgical History Cholecystectomy: Yes Thoracic Surgery: Yes (spinal surgery to lumbar area x3) Other Surgery: Yes (LAMINECTOMY l3/l/l5/s1) Social History Alcohol Use: No (quit) Tobacco Use: No (former) Substance Use: No Allergies-Medications (Allergen,Severity, Reaction): Coded Allergies: *MDRO Multi-Drug Resistant Organism (Verified Adverse Reaction, Unknown, ) MRSA PCR Screen POSITIVE - 05/21/2016 MRSA (sputum)-05/21/16 Reported Meds & Prescriptions Reported Meds & Active Scripts Active Reported Apriso (Mesalamine) 0.375 Gm Caper 1.5 Gm PO DAILY Protonix (Pantoprazole Sodium) 40 Mg Tab 40 Mg PO DAILY Budesonide DR (Budesonide) 3 Mg Capdr 9 Mg PO DAILY Tizanidine (Tizanidine HCl) 4 Mg Cap 4 Mg PO TID Dicyclomine (Dicyclomine HCl) 20 Mg Tab 20 Mg PO TID Promethazine (Promethazine HCl) 12.5 Mg Tab 12.5 Mg PO Q6H PRN Cymbalta DR (Duloxetine HCl) 30 Mg Capdr 60 Mg PO HS Morphine IR (Morphine Sulfate) 15 Mg Tab 15 Mg PO TID PRN Review of Systems General / Constitutional: No: Fever, Chills Eyes: No: Diploplia, Blurred Vision HENT: No: Headaches, Vertigo Cardiovascular: No: Chest Pain or Discomfort, Palpitations Respiratory: No: Cough, Shortness of Breath Gastrointestinal: Positive: Nausea, Abdominal Pain, No: Vomiting, Diarrhea Genitourinary: No: Urgency, Frequency Musculoskeletal: No: Myalgias Skin: No Rash Endocrine: No: Heat Intolerance, Cold Intolerance Hematologic/Lymphatic: No: Easy Bruising Physical Exam Narrative GENERAL: Well-developed female SKIN: Focused skin assessment warm/dry. HEAD: Atraumatic. Normocephalic. EYES: Pupils equal and round. No scleral icterus. No injection or drainage. ENT: No nasal bleeding or discharge. Mucous membranes pink and moist. NECK: Trachea midline. No JVD. CARDIOVASCULAR: Regular rate and rhythm. No murmur appreciated. RESPIRATORY: No accessory muscle use. Clear to auscultation. Breath sounds equal bilaterally. GASTROINTESTINAL: Abdomen soft, there is left-sided abdominal tenderness mild distention. Hepatic and splenic margins not palpable. MUSCULOSKELETAL: No obvious deformities. No clubbing. No cyanosis. No edema. NEUROLOGICAL: Awake and alert. No obvious cranial nerve deficits. Motor grossly within normal limits. Normal speech. PSYCHIATRIC: Appropriate mood and affect; insight and judgment normal. Data Data Last Documented VS Vital Signs Date Time Temp Pulse Resp B/P (MAP) Pulse Ox O2 Delivery O2 Flow Rate FiO2 12/05/16 11:54 16 12/05/16 11:18 98.4 99 133/78 (96) 98 Orders Orders Complete Blood Count With Diff (12/05/16 11:58) Comprehensive Metabolic Panel (12/05/16 11:58) Prothrombin Time / Inr (Pt) (12/05/16 11:58) Act Partial Throm Time (Ptt) (12/05/16 11:58) Urinalysis - C+S If Indicated (12/05/16 11:58) Ct Abd/Pel W Iv Contrast(Rout) (12/05/16 11:58) Iv Access Insert/Monitor (12/05/16 11:58) Ecg Monitoring (12/05/16 11:58) Oximetry (12/05/16 11:58) Hydromorphone Pf Inj (Dilaudid Pf Inj) (12/05/16 12:00) Ondansetron Inj (Zofran Inj) (12/05/16 12:00) Sodium Chlor 0.9% 1000 Ml Inj (Ns 1000 M (12/05/16 11:58) Sodium Chloride 0.9% Flush (Ns Flush) (12/05/16 12:00) Lipase (12/05/16 11:50) Iohexol 350 Inj (Omnipaque 350 Inj) (12/05/16 13:10) Admit Order (Ed Use Only) (12/05/16 14:14) Labs Laboratory Tests Test 12/05/16 11:50 12/05/16 13:50 White Blood Count 5.4 TH/MM3 Red Blood Count 3.79 MIL/MM3 Hemoglobin 9.6 GM/DL Hematocrit 29.7 % Mean Corpuscular Volume 78.3 FL Mean Corpuscular Hemoglobin 25.2 PG Mean Corpuscular Hemoglobin Concent 32.2 % Red Cell Distribution Width 16.5 % Platelet Count 556 TH/MM3 Mean Platelet Volume 6.7 FL Neutrophils (%) (Auto) 62.5 % Lymphocytes (%) (Auto) 28.2 % Monocytes (%) (Auto) 8.6 % Eosinophils (%) (Auto) 0.5 % Basophils (%) (Auto) 0.2 % Neutrophils # (Auto) 3.4 TH/MM3 Lymphocytes # (Auto) 1.5 TH/MM3 Monocytes # (Auto) 0.5 TH/MM3 Eosinophils # (Auto) 0.0 TH/MM3 Basophils # (Auto) 0.0 TH/MM3 CBC Comment DIFF FINAL Differential Comment Prothrombin Time 9.7 SEC Prothromb Time International Ratio 0.9 RATIO Activated Partial Thromboplast Time 25.4 SEC Blood Urea Nitrogen 21 MG/DL Creatinine 0.64 MG/DL Random Glucose 92 MG/DL Total Protein 6.2 GM/DL Albumin 2.0 GM/DL Calcium Level 8.0 MG/DL Alkaline Phosphatase 110 U/L Aspartate Amino Transf (AST/SGOT) 14 U/L Alanine Aminotransferase (ALT/SGPT) 13 U/L Total Bilirubin 0.2 MG/DL Sodium Level 137 MEQ/L Potassium Level 3.2 MEQ/L Chloride Level 102 MEQ/L Carbon Dioxide Level 25.6 MEQ/L Anion Gap 9 MEQ/L Estimat Glomerular Filtration Rate 96 ML/MIN Lipase 130 U/L Urine Collection Type CLEAN CATCH Urine Color YELLOW Urine Turbidity CLEAR Urine pH 5.5 Urine Specific [place] 1.020 Urine Protein NEG mg/dL Urine Glucose (UA) NEG mg/dL Urine Ketones NEG mg/dL Urine Occult Blood NEG Urine Nitrite NEG Urine Bilirubin NEG Urine Leukocyte Esterase NEG Urine WBC 0-2 /hpf Urine Squamous Epithelial Cells > 8 /hpf Urine Bacteria RARE /hpf Microscopic Urinalysis Comment CULT NOT INDICATED Urine Collection Time 13:50 MDM Medical Decision Making Medical Screen Exam Complete: Yes Emergency Medical Condition: Yes Medical Record Reviewed: Yes Differential Diagnosis Differential includes Crohn's disease, obstruction, perforation Narrative Course CT scan was obtained. The distal ileum is markedly dilated up to 6 cm with transition point 30 cm from the terminal ileum and second proximal focal transition point in the left lower quadrant likely in the proximal to mid ileum. Findings are consistent with history of Crohn's ileitis and small bowel obstruction. There is no perforation or abscess at this time. Case was discussed with Dr. edouard gibbs recommends admission to the main hospital. Diagnosis Primary Impression: Crohns disease Additional Impression: Small bowel obstruction Toni Tyson MD Dec 05, 2016 12:03
[2016-12-05] MEDS ORDERED: APRI0.372 PO (12:07)
[2016-12-05] MEDS ORDERED: TIZA4CAP3 PO (12:07)
[2016-12-05] MEDS ORDERED: PROT40TA PO (12:07)
[2016-12-05] MEDS ORDERED: BUDE3CAP PO (12:07)
[2016-12-05] MEDS ORDERED: DICY20TA10 PO (12:07)
[2016-12-05 12:15] LABS: AUTOMATED NEUTROPHIL # 3.4 TH/MM3 (1.8-7.7); BASOPHIL % 0.2 % (0.0-2.0); EOSINOPHIL % 0.5 % (0.0-4.0); HEMATOCRIT 29.7 % (35.0-46.0); HEMO FLAGS DIFF FINAL; LYMPH % 28.2 % (9.0-44.0); LYMPHOCYTE # 1.5 TH/MM3 (1.0-4.8); MEAN CELL VOLUME 78.3 FL (80.0-100.0); MEAN CORPUSCULAR HEMOGLOBIN 25.2 PG (27.0-34.0); MEAN CORPUSCULAR HGB CONC 32.2 % (32.0-36.0); MONO % 8.6 % (0.0-8.0); NEUT % 62.5 % (16.0-70.0); PLATELET COUNT 556 TH/MM3 (150-450); RED BLOOD COUNT 3.79 MIL/MM3 (4.00-5.30); RED CELL DISTRIBUTION WIDTH 16.5 % (11.6-17.2); WHITE BLOOD COUNT 5.4 TH/MM3 (4.0-11.0)
[2016-12-05 12:32] LABS: CHLORIDE 102 MEQ/L (98-107); POTASSIUM 3.2 MEQ/L (3.5-5.1); SODIUM (NA) 137 MEQ/L (136-145)
[2016-12-05 12:36] LABS: ANION GAP 9 MEQ/L (5-15); BICARBONATE 25.6 MEQ/L (21.0-32.0); BLOOD UREA NITROGEN 21 MG/DL (7-18)
[2016-12-05 12:37] LABS: APTT (PATIENT) 25.4 SEC (24.3-30.1); INTERNATIONAL NORMALIZED RATIO 0.9 RATIO; PROTHROMBIN TIME - PATIENT 9.7 SEC (9.8-11.6)
[2016-12-05 12:39] LABS: ALT (GPT) 13 U/L (10-53); AST (GOT) 14 U/L (15-37); GLOMERULAR FILTRATION RATE 96 ML/MIN (>89)
[2016-12-05 12:41] LABS: TOTAL BILIRUBIN ADULT 0.2 MG/DL (0.2-1.0)
[2016-12-05 12:42] LABS: ALKALINE PHOSPHATASE 110 U/L (45-117)
[2016-12-05] MEDS ORDERED: IOHEXOL 350 MG/ML 10 ML VIAL (for RAD DIAG) IVCONTRAST ONE (13:10)
--- NOTE | 2016-12-05 13:44 | RADRPT ---
EXAM DATE/TIME: 12/05/2016 12:57 [facility] COMPARISON: CT ABDOMEN & PELVIS W CONTRAST, August 05, 2016, 7:19. INDICATIONS : Abdominal pain, diffuse. IV CONTRAST: 96 cc Omnipaque 350 (iohexol) IV ORAL CONTRAST: No oral contrast ingested. RADIATION DOSE: 7.39 CTDIvol (mGy) MEDICAL HISTORY : Hypertension. Crohns, ulcer SURGICAL HISTORY : Lamiectomy. ENCOUNTER: Initial ACUITY: 4 - 6 days PAIN SCALE: 8/10 LOCATION: Bilateral abdominal. TECHNIQUE: Volumetric scanning of the abdomen and pelvis was performed. Using automated exposure control and ad justment of the mA and/or kV according to patient size, radiation dose was kept as low as reasonably achievable to obtain optimal diagnostic quality images. DICOM format image data is available electro nically for review and comparison. FINDINGS: LOWER LUNGS: The visualized lower lungs are clear. LIVER: Redemonstration of prominent intra-and extra hepatic ductal dilatation extending to the ampulla with common bile duct measuring up to 13 mm. Overall, this is unchanged in this patient with history of pr ior cholecystectomy. Stable small fat density lesion in the anterior dome of the liver. SPLEEN: Normal size without lesion. PANCREAS: Within normal limits. KIDNEYS: Subcentimeter hypodense lesions in the mid left kidney which are too small to fully characterize. Kid neys otherwise demonstrate symmetric enhancement without evidence of hydronephrosis or radiopaque leigh ann al calculi. ADRENAL GLANDS: casanova VASCULAR: There is no aortic aneurysm. BOWEL/MESENTERY: The very distal ileum is markedly dilated measuring up to 6 cm with fecalization. There is a focal tr ansition point in the right lower quadrant approximately 30 cm from the terminal ileum and a second f ocal transition point in the left lower quadrant in the proximal to mid ileum. More proximally, jejun al loops are nearly adherent but normal in caliber. Duodenum and stomach are also decompressed. There is bowel wall thickening involving the terminal ileum and cecum. Remainder of the colon is unremarka ble. No evidence for pneumatosis or free air. No abnormal focal triple fluid collections. ABDOMINAL WALL: Within normal limits. RETROPERITONEUM: There is no lymphadenopathy. BLADDER: No wall thickening or mass. REPRODUCTIVE: Within normal limits. INGUINAL: There is no lymphadenopathy or hernia. MUSCULOSKELETAL: Within normal limits for patient age. CONCLUSION: 1. Markedly dilated distal ileum measuring up to 6 cm with transition point approximately 30 cm from the terminal ileum and a second proximal focal transition point in the left lower quadrant, likely in the proximal to mid ileum. More proximally, jejunal loops appear adherent but otherwise normal in ca liber with decompressed duodenum and stomach. There is apparent bowel wall thickening involving the t erminal ileum and cecum with remainder of the colon grossly unremarkable. Findings are consistent wit h patient's history of Crohn's ileitis and associated small bowel obstruction. No perforation or absc ess at this time. 2. Redemonstration of stable but prominent intra-and extra hepatic ductal dilatation which may reflec t reservoir affect following cholecystotomy. 3. Stable ancillary findings, as above. Hill Green MD on December 05, 2016 at 13:27 Board Certified Radiologist. This report was verified electronically.
[2016-12-05 14:00] LABS: BLOOD, URINE NEG (NEG); GLUCOSE,URINE NEG (NEG); KETONE, URINE NEG (NEG); NITRITE,URINE NEG (NEG); PH, URINE 5.5 (5.0-8.5)
[2016-12-05 14:05] LABS: METHOD OF COLLECTION CLEAN CATCH; URINE COLOR YELLOW (YELLW/STRAW)
[2016-12-05 14:07] LABS: BACTERIA, URINE RARE /hpf; COMMENT (UR) CULT NOT INDICATED; CULTURE IF INDICATED CULT NOT INDICATED; SQUAMOUS EPITHELIAL CELL URINE > 8 /hpf (0-5); WBC, URINE 0-2 /hpf (0-5)
[2016-12-05] MEDS ORDERED: HYDROmorphone HCL PF 1 MG/ML VIAL IV PUSH ONE (14:30)
[2016-12-05] MEDS ORDERED: ONDANSETRON HCL 4 MG/2 ML VIAL IV PUSH ONE (14:30)
[2016-12-05] MEDS: SODIUM CHLOR 0.9% 1000 ML INJ 1,000 ML IV SCH (14:53)
[2016-12-05] MEDS ORDERED: NALOXONE HCL 0.4 MG/ML AMP IV PUSH PRN (15:00)
[2016-12-05] MEDS ORDERED: HYDROmorphone HCL PF 2 MG/ML VIAL IVS PRN (17:30)
[2016-12-05] MEDS ORDERED: POTASSIUM PHOSPHATE INJ 30 MMOL in SODIUM CHLOR 0.9% 250 ML INJ 250 ML IV ONE ×2 (17:45→21:00)
--- NOTE | 2016-12-05 18:36 | HHI.HP ---
[facility] Service [facility] Primary Care Physician Non-Staff Admission Diagnosis CHROHNS DISEASE, SMALL BOWEL OBSTRUCTION Diagnoses: Chief Complaint: Abdominal pain Travel History International Travel<30 Days: No Contact w/Intl Traveler <30 Da: No Traveled to Known Affected Are: No History of Present Illness Patient's 56-year-old female with a recent diagnosis of Crohn's in July 2016. 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 She had an endoscopy done about a week ago and since that time has had increased abdominal discomfort and distention. Over the last 2 days it has gotten worse. She has been unable to eat with nausea and vomiting. She does take morphine for chronic joint pain but noted that the morphine had become ineffective. She has been passing gas was been very minimal. She has been having subjective chills. She ran out of her Phenergan and came to the emergency room. She was trying to follow-up as outpatient as noted that the pain became so severe. She has gotten relief with IV Dilaudid in the emergency room. Images do show worrisome findings for obstruction and the patient's been admitted to the hospital for the same Review of Systems Constitutional: DENIES: Diaphoretic episodes, Fatigue, Fever, Weight gain, Weight loss, Chills, Dizziness, Change in appetite, Night Sweats Endocrine: DENIES: Abnorml menstrual pattern, Heat/cold intolerance, Polydipsia , Polyuria, Polyphagia Eyes: DENIES: Blurred vision, Diplopia, Eye inflammation, Eye pain, Vision loss , Photosensitivity, Double Vision Ears, nose, mouth, throat: DENIES: Tinnitus, Hearing loss, Vertigo, Nasal discharge, Oral lesions, Throat pain, Hoarseness, Ear Pain, Running Nose, Epistaxis, Sinus Pain, Toothache, Odynophagia Respiratory: DENIES: Apneas, Cough, Snoring, Wheezing, Hemoptysis, Sputum production, Shortness of breath Gastrointestinal: COMPLAINS OF: Abdominal pain, Nausea, Vomiting, DENIES: Diarrhea Genitourinary: DENIES: Abnormal vaginal bleeding, Dysmenorrhea, Dyspareunia, Sexual dysfunction, Urinary frequency, Urinary incontinence, Urgency, Hematuria , Dysuria, Nocturia, Vaginal discharge Musculoskeletal: DENIES: Joint pain, Muscle aches, Stiffness, Joint Swelling, Back pain, Neck pain Integumentary: DENIES: Abnormal pigmentation, Pruritus, Rash, Nail changes, Breast masses, Breast skin changes, Nipple discharge Hematologic/lymphatic: DENIES: Bruising, Lymphadenopathy Immunologic/allergic: DENIES: Eczema, Urticaria Neurologic: DENIES: Abnormal gait, Headache, Localized weakness, Paresthesias, Seizures, Speech Problems, Tremor, Poor Balance Psychiatric: DENIES: Anxiety, Confusion, Mood changes, Depression, Hallucinations, Agitation, Suicidal Ideation, Homicidal Ideation, Delusions Except as stated in HPI: all other systems reviewed are Neg Past Family Social History Past Medical History Back pain History of Crohn's Past Surgical History Tubal ligation Cholecystectomy Laminectomy Reported Medications Reviewed in the EMR Allergies: Coded Allergies: *MDRO Multi-Drug Resistant Organism (Verified Adverse Reaction, Unknown, ) MRSA PCR Screen POSITIVE - 05/21/2016 MRSA (sputum)-05/21/16 Active Ordered Medications Reviewed in the EMR Family History Adopted Social History Quit tobacco in July 2016 but smoked over 20 years pack a day, no alcohol, lives with her Physical Exam Vital Signs Vital Signs Date Time Temp Pulse Resp B/P (MAP) Pulse Ox O2 Delivery O2 Flow Rate FiO2 12/05/16 17:22 78 16 109/76 (87) 95 Room Air 12/05/16 15:52 16 97 12/05/16 15:30 92 16 109/65 (80) 97 Room Air 12/05/16 13:00 16 12/05/16 11:54 16 12/05/16 11:18 98.4 99 18 133/78 (96) 98 Physical Exam GENERAL: This is a well-nourished, well-developed patient, in no apparent distress. SKIN: No rashes, ecchymoses or lesions. Cool and dry. HEAD: Atraumatic. Normocephalic. No temporal or scalp tenderness. EYES: Pupils equal round and reactive. Extraocular motions intact. No scleral icterus. No injection or drainage. ENT: Nose without bleeding, purulent drainage or septal hematoma. Throat without erythema, tonsillar hypertrophy or exudate. Uvula midline. Airway patent. NECK: Trachea midline. No JVD or lymphadenopathy. Supple, nontender, no meningeal signs. CARDIOVASCULAR: Regular rate and rhythm without murmurs, gallops, or rubs. RESPIRATORY: Clear to auscultation. Breath sounds equal bilaterally. No wheezes , rales, or rhonchi. GASTROINTESTINAL: Abdomen soft, mildly distended, tender. Hypoactive, No hepato -splenomegaly, or palpable masses. No guarding. MUSCULOSKELETAL: Extremities without clubbing, cyanosis, or edema. No joint tenderness, effusion, or edema noted. No calf tenderness. Negative Homans sign bilaterally. NEUROLOGICAL: Awake and alert. Cranial nerves II through XII intact. Motor and sensory grossly within normal limits. Five out of 5 muscle strength in all muscle groups. Normal speech. Laboratory Laboratory Tests Test 12/05/16 11:50 12/05/16 13:50 White Blood Count 5.4 Red Blood Count 3.79 Hemoglobin 9.6 Hematocrit 29.7 Mean Corpuscular Volume 78.3 Mean Corpuscular Hemoglobin 25.2 Mean Corpuscular Hemoglobin Concent 32.2 Red Cell Distribution Width 16.5 Platelet Count 556 Mean Platelet Volume 6.7 Neutrophils (%) (Auto) 62.5 Lymphocytes (%) (Auto) 28.2 Monocytes (%) (Auto) 8.6 Eosinophils (%) (Auto) 0.5 Basophils (%) (Auto) 0.2 Neutrophils # (Auto) 3.4 Lymphocytes # (Auto) 1.5 Monocytes # (Auto) 0.5 Eosinophils # (Auto) 0.0 Basophils # (Auto) 0.0 CBC Comment DIFF FINAL Differential Comment Prothrombin Time 9.7 Prothromb Time International Ratio 0.9 Activated Partial Thromboplast Time 25.4 Blood Urea Nitrogen 21 Creatinine 0.64 Random Glucose 92 Total Protein 6.2 Albumin 2.0 Calcium Level 8.0 Alkaline Phosphatase 110 Aspartate Amino Transf (AST/SGOT) 14 Alanine Aminotransferase (ALT/SGPT) 13 Total Bilirubin 0.2 Sodium Level 137 Potassium Level 3.2 Chloride Level 102 Carbon Dioxide Level 25.6 Anion Gap 9 Estimat Glomerular Filtration Rate 96 Lipase 130 Urine Collection Type CLEAN CATCH Urine Color YELLOW Urine Turbidity CLEAR Urine pH 5.5 Urine Specific [place] 1.020 Urine Protein NEG Urine Glucose (UA) NEG Urine Ketones NEG Urine Occult Blood NEG Urine Nitrite NEG Urine Bilirubin NEG Urine Leukocyte Esterase NEG Urine WBC 0-2 Urine Squamous Epithelial Cells > 8 Urine Bacteria RARE Microscopic Urinalysis Comment CULT NOT INDICATED Urine Collection Time 13:50 Result Diagram: 12/05/16 1150 12/05/16 1150 Imaging Last Impressions Abdomen/Pelvis CT 12/05/16 1158 Signed Impressions: Service Date/Time: Monday, December 05, 2016 12:57 - CONCLUSION: 1. Markedly dilated distal ileum measuring up to 6 cm with transition point approximately 30 cm from the terminal ileum and a second proximal focal transition point in the left lower quadrant, likely in the proximal to mid ileum. More proximally, jejunal loops appear adherent but otherwise normal in caliber with decompressed duodenum and stomach. There is apparent bowel wall thickening involving the terminal ileum and cecum with remainder of the colon grossly unremarkable. Findings are consistent with patient's history of Crohn' s ileitis and associated small bowel obstruction. No perforation or abscess at this time. 2. Redemonstration of stable but prominent intra-and extra hepatic ductal dilatation which may reflect reservoir affect following cholecystotomy. 3. Stable ancillary findings, as above. Hill Green MD Caprini VTE Risk Assessment Caprini VTE Risk Assessment: Mod/High Risk (score >= 2) Caprini Risk Assessment Model Point Value = 1 Point Value = 2 Point Value = 3 Point Value = 5 Age 41-60 Minor surgery BMI > 25 kg/m2 Swollen legs Varicose veins or History of unexplained or recurrent spontaneous Oral contraceptives or hormone replacement Sepsis (< 1 month) Serious lung disease, including pneumonia (< 1 month) Abnormal pulmonary function Acute myocardial infarction Congestive heart failure (< 1 month) History of inflammatory bowel disease Medical patient at bed rest Age 61-74 Arthroscopic surgery Major open surgery (> 45 min) Laparoscopic surgery (> 45 min) Malignancy Confined to bed (> 72 hours) Immobilizing plaster cast Central venous access Age >= 75 History of VTE Family history of VTE Factor V Leiden Prothrombin [id number] Lupus anticoagulant Anticardiolipin antibodies Elevated serum homocysteine Heparin-induced thrombocytopenia Other congenital or acquired thrombophilia Stroke (< 1 month) Elective arthroplasty Hip, pelvis, or leg fracture Acute spinal cord injury (< 1 month) Prophylaxis Regimen Total Risk Factor Score Risk Level Prophylaxis Regimen 0-1 Low Early ambulation 2 Moderate Order ONE of the following: *Sequential Compression Device (SCD) *Heparin 5000 units SQ BID 3-4 Higher Order ONE of the following medications: *Heparin 5000 units SQ TID *Enoxaparin/Lovenox 40 mg SQ daily (WT < 150 kg, CrCl > 30 mL/min) *Enoxaparin/Lovenox 30 mg SQ daily (WT < 150 kg, CrCl > 10-29 mL/min) *Enoxaparin/Lovenox 30 mg SQ BID (WT < 150 kg, CrCl > 30 mL/min) AND/OR *Sequential Compression Device (SCD) 5 or more Highest Order ONE of the following medications: *Heparin 5000 units SQ TID (Preferred with Epidurals) *Enoxaparin/Lovenox 40 mg SQ daily (WT < 150 kg, CrCl > 30 mL/min) *Enoxaparin/Lovenox 30 mg SQ daily (WT < 150 kg, CrCl > 10-29 mL/min) *Enoxaparin/Lovenox 30 mg SQ BID (WT < 150 kg, CrCl > 30 mL/min) AND *Sequential Compression Device (SCD) Assessment and Plan Problem List: (1) Abdominal pain ICD Code: R10.9 - Unspecified abdominal pain Status: Acute Plan: Secondary to obstruction with a history of inflammatory bowel disease General surgery consult with GI Continue nothing by mouth status with IV fluids Continue IV narcotic pain medication and empiric antibiotics check stool for C. difficile (2) Crohns disease ICD Code: K50.90 - Crohn's disease, unspecified, without complications Status: Acute Plan: recently diagnosed in July Recent endoscopy We'll discuss with GI for further management given this patient's acute changes Physician Certification 2 Midnight Certification Type: Admission for Inpatient Services Order for Inpatient Services The services are ordered in accordance with Medicare regulations or non- Medicare payer requirements, as applicable. In the case of services not specified as inpatient-only, they are appropriately provided as inpatient services in accordance with the 2-midnight benchmark. Estimated LOS (days): 4 4 days is the estimated time the patient will need to remain in the hospital, assuming treatment plan goals are met and no additional complications. Post-Hospital Plan: Charlette Wise MD Dec 05, 2016 18:36
[2016-12-05] MEDS: ONDANSETRON HCL 4 MG/2 ML VIAL IVP PRN (19:40)
[2016-12-05] MEDS: PIPERACIL-TAZO 4.5 GM PREMIX 100 ML IV SCH (20:49)
[2016-12-05] MEDS: SODIUM CHLORIDE 0.9% FLUSH 10 ML FLUSH IV FLUSH SCH (20:51)
[2016-12-05] MEDS: HEPARIN SODIUM - SQ 10,000 UNITS/ML VIAL SQ SCH (20:51)
[2016-12-05] MEDS ORDERED: SODIUM CHLOR 0.9% 1000 ML INJ 1,000 ML IV ONE ×2 (21:45→23:00)
[2016-12-06] VITALS (11 sets, daily range): BP systolic 74–167; BP diastolic 47–96; PULSE 64–96; RESP 1–20; TEMP 97.7–99; O2SAT 95–99
[2016-12-06] MEDS ORDERED: methylPREDNISolone SOD SUCC 125 MG/2 ML VIAL IV PUSH ONE (00:15)
[2016-12-06] MEDS ORDERED: SODIUM CHLOR 0.9% 1000 ML INJ 1,000 ML IV ONE (00:15)
[2016-12-06] MEDS: SODIUM CHLOR 0.9% 1000 ML INJ 1,000 ML IV SCH ×3 (00:26→21:43)
[2016-12-06 01:34] LABS: BASOPHIL % 0.2 % (0.0-2.0); EOSINOPHIL # 0.1 TH/MM3 (0-0.4); EOSINOPHIL % 1.5 % (0.0-4.0); HEMATOCRIT 24.2 % (35.0-46.0); HEMO FLAGS DIFF FINAL; LYMPH % 45.4 % (9.0-44.0); MEAN CELL VOLUME 79.2 FL (80.0-100.0); MEAN CORPUSCULAR HGB CONC 31.6 % (32.0-36.0); MONO % 8.8 % (0.0-8.0); NEUT % 44.1 % (16.0-70.0); PLATELET COUNT 333 TH/MM3 (150-450); RED BLOOD COUNT 3.06 MIL/MM3 (4.00-5.30); RED CELL DISTRIBUTION WIDTH 16.8 % (11.6-17.2); WHITE BLOOD COUNT 4.5 TH/MM3 (4.0-11.0)
[2016-12-06] MEDS: PIPERACIL-TAZO 4.5 GM PREMIX 100 ML IV SCH ×2 (02:12→09:55)
[2016-12-06] MEDS ORDERED: HYDROmorphone HCL PF 1 MG/ML VIAL IV PUSH ONE ×2 (03:00→05:15)
[2016-12-06] MEDS ORDERED: SODIUM CHLOR 0.9% 250 ML INJ 250 ML IV ONE ×2 (03:00→16:00)
--- NOTE | 2016-12-06 05:03 | EKG ---
Date Performed: 12/05/2016 Time Performed: 21:36:17 PTAGE: 56 years EKG: Sinus rhythm NORMAL ECG INTERPRETATION BASED ON A DEFAULT AGE OF 40 YEARS PREVIOUS TRACING : 05/22/2016 16.41 DOCTOR: Da Giang Interpretating Date/Time 12/06/2016 05:02:27
[2016-12-06] MEDS: HEPARIN SODIUM - SQ 10,000 UNITS/ML VIAL SQ SCH ×3 (05:29→21:37)
[2016-12-06] MEDS: ONDANSETRON HCL 4 MG/2 ML VIAL IVP PRN ×3 (05:49→19:32)
[2016-12-06] MEDS ORDERED: methylPREDNISolone SOD SUCC 40 MG/1 ML VIAL IV PUSH SCH (09:00)
[2016-12-06] MEDS: SODIUM CHLORIDE 0.9% FLUSH 10 ML FLUSH IV FLUSH SCH ×2 (09:50→21:38)
[2016-12-06] MEDS ORDERED: INFLUENZA VIRUS VACCINE (QUADRIVALENT) 0.5 ML SYR IM ONE (10:00)
[2016-12-06] MEDS: MORPHINE SULFATE 15 MG TAB PO PRN ×2 (11:23→19:32)
[2016-12-06 11:39] LABS: C. DIFF EPI 027 PRESUMPTIVE NEGATIVE (NEGATIVE)
--- NOTE | 2016-12-06 12:07 | PD.CONS ---
HPI History of Present Illness This is a 56 year old lady with recent dx Crohn's, DDD who presented with c/o of abd pain. She has been having abdominal discomfort and bloating since July. The pain is diffuse and relieved by flatus and/or BM. She takes morphine for back pain but denies constipation; says she has regular formed BMs and takes stool softeners. She had a formed BM this morning. Has n/v maybe once weekly, none today. Had oatmeal yesterday and did not vomit. She was recently diagnosed with Crohn's via colonoscopy 08/08/[address] Lyle, finding small colitis ileocecal valve; path w/o significant histopathological abnormality. She had EGD 1 week ago and says an ulcer was found. On protonix. She has been on Apriso for her Crohn's, also takes dicyclomine, budesonide. She was seen here in april and treated for an ileus. Has lost 40lbs in 7 months. Denies blood in stool, tarry stool, hematemesis. Says today her stomach is less bloated. (Mary Ann Concepcion) PFSH Past Medical History Back pain History of Crohn's Past Surgical History Tubal ligation Cholecystectomy Laminectomy (Mary Ann Concepcion) Coded Allergies: *MDRO Multi-Drug Resistant Organism (Verified Adverse Reaction, Unknown, ) MRSA PCR Screen POSITIVE - 05/21/2016 MRSA (sputum)-05/21/16 Family History Adopted Social History Quit tobacco in July 2016 but smoked over 20 years pack a day, no alcohol, lives with her (Mary Ann Concepcion) Review of Systems Constitutional: COMPLAINS OF: Weight loss, DENIES: Fever Eyes: DENIES: Blurred vision Ears, nose, mouth, throat: DENIES: Hearing loss Respiratory: DENIES: Hemoptysis Cardiovascular: DENIES: Chest pain Gastrointestinal: COMPLAINS OF: Abdominal pain, Swelling of Abdomen, DENIES: Black stools, Bloody stools, Constipation, Diarrhea, Nausea, Vomiting Genitourinary: DENIES: Hematuria Musculoskeletal: DENIES: Joint Swelling Integumentary: DENIES: Abnormal pigmentation Hematologic/lymphatic: DENIES: Bruising Neurologic: DENIES: Abnormal gait Psychiatric: DENIES: Confusion (Mary Ann Concepcion) GI Exam Vitals I&O Vital Signs Date Time Temp Pulse Resp B/P (MAP) Pulse Ox O2 Delivery O2 Flow Rate FiO2 12/06/16 09:55 98.7 89 17 148/86 95 12/06/16 09:36 99.0 84 18 150/96 96 12/06/16 08:00 97.8 84 18 144/81 (102) 95 12/06/16 06:39 98.2 82 12 127/74 95 12/06/16 06:17 98.7 79 12 130/73 97 12/06/16 04:00 98.3 77 16 116/72 (87) 96 12/06/16 01:46 71 16 110/60 (77) 98 12/06/16 00:00 65 1 74/47 (56) 98 12/06/16 00:00 98.0 64 20 121/75 (90) 99 12/05/16 22:58 98.1 58 16 74/43 (53) 98 76/40 (52) 12/05/16 21:28 96 21 12/05/16 21:28 76/40 (52) 12/05/16 20:00 97.6 58 16 82/43 (56) 96 12/05/16 18:45 12/05/16 18:17 16 12/05/16 17:22 78 16 109/76 (87) 95 Room Air 12/05/16 15:52 16 97 12/05/16 15:30 92 16 109/65 (80) 97 Room Air 12/05/16 13:00 16 12/05/16 11:54 16 I/O 12/05/16 12/05/16 12/05/16 12/06/16 12/06/16 12/06/16 06:59 14:59 22:59 06:59 14:59 22:59 Intake Total 1650 ml 2199 ml 650 ml Balance 1650 ml 2199 ml 650 ml Intake IV Total 1650 ml 2099 ml 250 ml Packed Cells 400 ml Blood Product IV Normal Saline Flush 100 ml # Voids 3 3 Imaging Last Impressions Abdomen/Pelvis CT 12/05/16 1158 Signed Impressions: Service Date/Time: Monday, December 05, 2016 12:57 - CONCLUSION: 1. Markedly dilated distal ileum measuring up to 6 cm with transition point approximately 30 cm from the terminal ileum and a second proximal focal transition point in the left lower quadrant, likely in the proximal to mid ileum. More proximally, jejunal loops appear adherent but otherwise normal in caliber with decompressed duodenum and stomach. There is apparent bowel wall thickening involving the terminal ileum and cecum with remainder of the colon grossly unremarkable. Findings are consistent with patient's history of Crohn' s ileitis and associated small bowel obstruction. No perforation or abscess at this time. 2. Redemonstration of stable but prominent intra-and extra hepatic ductal dilatation which may reflect reservoir affect following cholecystotomy. 3. Stable ancillary findings, as above. Hill Green MD Laboratory Test 12/05/16 11:50 12/05/16 13:50 12/06/16 00:43 12/06/16 06:00 White Blood Count 5.4 TH/MM3 4.5 TH/MM3 Red Blood Count 3.79 MIL/MM3 3.06 MIL/MM3 Hemoglobin 9.6 GM/DL 7.6 GM/DL Hematocrit 29.7 % 24.2 % Mean Corpuscular Volume 78.3 FL 79.2 FL Mean Corpuscular Hemoglobin 25.2 PG 25.0 PG Mean Corpuscular Hemoglobin Concent 32.2 % 31.6 % Red Cell Distribution Width 16.5 % 16.8 % Platelet Count 556 TH/MM3 333 TH/MM3 Mean Platelet Volume 6.7 FL 6.6 FL Neutrophils (%) (Auto) 62.5 % 44.1 % Lymphocytes (%) (Auto) 28.2 % 45.4 % Monocytes (%) (Auto) 8.6 % 8.8 % Eosinophils (%) (Auto) 0.5 % 1.5 % Basophils (%) (Auto) 0.2 % 0.2 % Neutrophils # (Auto) 3.4 TH/MM3 2.0 TH/MM3 Lymphocytes # (Auto) 1.5 TH/MM3 2.0 TH/MM3 Monocytes # (Auto) 0.5 TH/MM3 0.4 TH/MM3 Eosinophils # (Auto) 0.0 TH/MM3 0.1 TH/MM3 Basophils # (Auto) 0.0 TH/MM3 0.0 TH/MM3 CBC Comment DIFF FINAL DIFF FINAL Differential Comment Prothrombin Time 9.7 SEC Prothromb Time International Ratio 0.9 RATIO Activated Partial Thromboplast Time 25.4 SEC Blood Urea Nitrogen 21 MG/DL Creatinine 0.64 MG/DL Random Glucose 92 MG/DL Total Protein 6.2 GM/DL Albumin 2.0 GM/DL Calcium Level 8.0 MG/DL Alkaline Phosphatase 110 U/L Aspartate Amino Transf (AST/SGOT) 14 U/L Alanine Aminotransferase (ALT/SGPT) 13 U/L Total Bilirubin 0.2 MG/DL Sodium Level 137 MEQ/L Potassium Level 3.2 MEQ/L Chloride Level 102 MEQ/L Carbon Dioxide Level 25.6 MEQ/L Anion Gap 9 MEQ/L Estimat Glomerular Filtration Rate 96 ML/MIN Lipase 130 U/L Urine Collection Type CLEAN CATCH Urine Color YELLOW Urine Turbidity CLEAR Urine pH 5.5 Urine Specific [place] 1.020 Urine Protein NEG mg/dL Urine Glucose (UA) NEG mg/dL Urine Ketones NEG mg/dL Urine Occult Blood NEG Urine Nitrite NEG Urine Bilirubin NEG Urine Leukocyte Esterase NEG Urine WBC 0-2 /hpf Urine Squamous Epithelial Cells > 8 /hpf Urine Bacteria RARE /hpf Microscopic Urinalysis Comment CULT NOT INDICATED Urine Collection Time 13:50 Physical Examination HEENT: PERRL; normocephalic; atraumatic; no jaundice. CHEST: CTA CARDIAC: RRR ABDOMEN: Soft, distended, mild diffuse TTP; no hepatosplenomegaly; bowel sounds are present in all four quadrants. EXTREMITIES: No clubbing, cyanosis, or edema. SKIN: Normal; no rash; no jaundice. COLLAR TACKER: No focal deficits; alert and oriented times three. (Mary Ann Concepcion [facility]) Assessment and Plan Plan ASSESSMENT - abd pain, distention- has been having pain and distention since July. Hx Crohn 's on apriso. Cscope 08/08/16 c/w crohn's, EGD last week found ulcer. +formed BM today. CT 12/05/16 findings c/w crohn's ileitis and associated small bowel obstruction. going for KUB no n/v at this time, can try some clears. pos c diff tox GS consult pending PLAN - await KUB - clears ok, NPO if vomiting - d/c zosyn - iv flagyl 500mg q8h - can switch to PO flagyl if tolerates clears - await GS consult - supportive care - further recs to follow - this pt seen by myself and Dr Adams and this note is written on her behalf (Mary Ann Concepcion) Physician Comments seen, examined agree with above if n.v , increased abdominal distension we will keep npo and insert ngt c diff positive flagyl iv surgery planned for Thursday (Khushboo Adams MD) Mary Ann Concepcion Dec 06, 2016 12:07 Khushboo Adams MD Dec 06, 2016 16:28
--- NOTE | 2016-12-06 12:29 | RADRPT ---
EXAM DATE/TIME: 12/06/2016 11:46 [place] COMPARISON: CT ABDOMEN & PELVIS W CONTRAST, December 05, 2016, 12:57. CHEST SINGLE AP, August 05, 2016, 6:09. INDICATIONS : Abdominal pain and distention. MEDICAL HISTORY : None. SURGICAL HISTORY : None. ENCOUNTER: Initial ACUITY: 1 month PAIN SCORE: 6/10 LOCATION: Abdomen FINDINGS: The examination demonstrates multiple moderately dilated loops of small bowel. There is still some de gree of gas and stool in the colon. Exam does demonstrate air-fluid levels on the upright examination suggesting at least partial bowel obstruction. There is no free air. There degenerative changes within the spine. CONCLUSION: 1. Multiple loops of distended small bowel with air-fluid levels suggesting some degree of partial raudel wel obstruction. Giancarlo Neves MD on December 06, 2016 at 12:25 Board Certified Radiologist. This report was verified electronically.
[2016-12-06] MEDS: metroNIDAZOLE 500 MG INJ 100 ML IV SCH ×2 (14:12→21:36)
--- NOTE | 2016-12-06 15:36 | MB ---
cc: JOIE LIVINGSTON M.D. DATE OF CONSULTATION: 12/06/2016. REASON FOR CONSULTATION: Crohn's enteritis with small bowel obstruction and increasing pain. HISTORY OF PRESENT ILLNESS: The patient is a 56-year-old female with a diagnosis of Crohn's disease made in April of this year who presented with abdominal pain and discomfort with bloating that has been progressively worse since July of this year. The patient was on some chronic pain medicine for chronic back pain. The patient had colonoscopy in July of this year by Dr. Lyle with small amount of colitis at the ileocecal valve. She had an ulcer seen one week ago on EGD. She has been on Protonix. She has also been on Apriso for her Crohn's disease, dicyclomine and Budesonide. The patient has lost 40 pounds over the last seven months. She reports that the last time she vomited was about 72 hours ago. Her abdomen remains distended and uncomfortable. PAST MEDICAL HISTORY: Her past medical history is significant for: 1. Back pain. 2. Crohn's disease. PAST SURGICAL HISTORY: Past surgeries include: 1. Tubal ligation. 2. Laparoscopic cholecystectomy. 3. Laminectomy. 4. Liposuction. SOCIAL HISTORY: The patient has a 20 pack/year smoking history and quit in July of 2016. She does not drink alcohol. REVIEW OF SYSTEMS: Her review of systems is significant for a GI history of abdominal pain and swelling. She denies hematemesis, melenic stools, hematochezia. She denies problems with constipation. PHYSICAL EXAMINATION: GENERAL: The physical exam reveals a female who is mildly uncomfortable. VITAL SIGNS: Blood pressure 158/90, pulse 96, respirations 18, temperature 98.3. HEAD, EYES, EARS, NOSE, THROAT: The sclerae are nonicteric. Pupils are reactive. CHEST: Clear to auscultation. CARDIAC: Regular rate and rhythm. ABDOMEN: Soft, tender and distended. There are no peritoneal signs. There are no hernias noted. PULSES: Intact. NEUROLOGICAL EXAMINATION: Nonfocal. LABORATORY VALUES: WBCs are 4.5, platelets 333,000, hemoglobin 7.6 down from 9.6 yesterday. Chemistries demonstrate liver function tests essentially within normal limits or a low normal. Her C. difficile toxin is presumptive negative with the PCR positive. Urinalysis is negative. RECENT IMAGING STUDIES: CT scan with markedly dilated distal ileum up to 6 cm with fecalization. There is a focal transition point in the right lower quadrant 30 cm from the terminal ileum and a second focal point in the left lower quadrant in the proximal to mid ileum. There is no abscess or free air. ASSESSMENT: Crohn's ileitis with bowel obstruction with gradually worsening symptoms. PLAN: I have discussed with the patient that she will require operative intervention with resection of small bowel. I have discussed risks of surgery including but not limited to bleeding, infection, adhesion formation with bowel obstruction from that versus Crohn's disease, recurrence of her Crohn's disease, hernia formation, and anastomotic leak requiring re-operation. I have discussed remedies, consequences, alternatives and convalescence; and she vocalizes understanding and agrees to proceed. MD SHAMIKA Perdomo/BURT /3:12 PM /3:18 PM
--- NOTE | 2016-12-06 18:23 | HHI.PR ---
Subjective Remarks Late entry: pt seen around 3:30pm Pt was walking out of bathroom when I came to see her. She told me that she has agreed to proceed w sx and it is scheduled for thursday. She is very nervous but wants to get her "quality of life"back. Admits to nausea but no vomiting. Had loose stools but non bloody Objective Vitals Vital Signs Date Time Temp Pulse Resp B/P (MAP) Pulse Ox O2 Delivery O2 Flow Rate FiO2 12/06/16 16:00 97.7 87 18 162/90 (114) 98 12/06/16 12:00 98.3 96 18 158/90 (112) 98 12/06/16 09:55 98.7 89 17 148/86 95 12/06/16 09:36 99.0 84 18 150/96 96 12/06/16 08:00 97.8 84 18 144/81 (102) 95 12/06/16 06:39 98.2 82 12 127/74 95 12/06/16 06:17 98.7 79 12 130/73 97 12/06/16 04:00 98.3 77 16 116/72 (87) 96 12/06/16 01:46 71 16 110/60 (77) 98 12/06/16 00:00 65 1 74/47 (56) 98 12/06/16 00:00 98.0 64 20 121/75 (90) 99 12/05/16 22:58 98.1 58 16 74/43 (53) 98 76/40 (52) 12/05/16 21:28 96 21 12/05/16 21:28 76/40 (52) 12/05/16 20:00 97.6 58 16 82/43 (56) 96 12/05/16 18:45 12/05/16 18:17 16 I/O 12/05/16 12/05/16 12/05/16 12/06/16 12/06/16 12/06/16 07:00 15:00 23:00 07:00 15:00 23:00 Intake Total 1650 ml 2199 ml 1426 ml 100 ml Balance 1650 ml 2199 ml 1426 ml 100 ml Intake Oral 240 ml IV Total 1650 ml 2099 ml 386 ml 100 ml Packed Cells 800 ml Blood Product IV Normal Saline Flush 100 ml # Voids 3 3 3 # Bowel Movements 0 Result Diagram: 12/06/16 0043 12/05/16 1150 Imaging Last Impressions Abdomen X-Ray 12/06/16 0600 Signed Impressions: Service Date/Time: Tuesday, December 06, 2016 11:46 - CONCLUSION: 1. Multiple loops of distended small bowel with air-fluid levels suggesting some degree of partial bowel obstruction. Giancarlo Neves MD Abdomen/Pelvis CT 12/05/16 1158 Signed Impressions: Service Date/Time: Monday, December 05, 2016 12:57 - CONCLUSION: 1. Markedly dilated distal ileum measuring up to 6 cm with transition point approximately 30 cm from the terminal ileum and a second proximal focal transition point in the left lower quadrant, likely in the proximal to mid ileum. More proximally, jejunal loops appear adherent but otherwise normal in caliber with decompressed duodenum and stomach. There is apparent bowel wall thickening involving the terminal ileum and cecum with remainder of the colon grossly unremarkable. Findings are consistent with patient's history of Crohn' s ileitis and associated small bowel obstruction. No perforation or abscess at this time. 2. Redemonstration of stable but prominent intra-and extra hepatic ductal dilatation which may reflect reservoir affect following cholecystotomy. 3. Stable ancillary findings, as above. Hill rGeen MD Objective Remarks GENERAL: anxious female, a bit tearful NECK: Trachea midline. CARDIOVASCULAR: Regular rate and rhythm without murmurs RESPIRATORY: Clear to auscultation. Breath sounds equal bilaterally. No wheezes GASTROINTESTINAL: Abdomen soft, distended, tender. Hypoactive MUSCULOSKELETAL: Extremities without edema. ambulating w no difficulty NEUROLOGICAL: Awake and alert. Cranial nerves II through XII intact. Motor and sensory grossly within normal limits. Normal speech. A/P Problem List: (1) Abdominal pain ICD Code: R10.9 - Unspecified abdominal pain Status: Acute (2) Crohns disease ICD Code: K50.90 - Crohn's disease, unspecified, without complications Status: Acute Assessment and Plan (1) Abdominal pain Secondary to obstruction with a history of inflammatory bowel disease General surgery evaluated the pt and will proceed w sx on Thursday per patient. GI also following and recommends NGT placement and keep NPO Continue IV fluids Continue IV narcotic pain medication. C. difficile pos, on flagyl encourage ambulation (2) Crohns disease recently diagnosed in July Recent endoscopy GI following. (3) chronic pain continue po pain meds and add prn IV dilaudid for breakthrough. Yesy Olivera MD Dec 06, 2016 18:23
[2016-12-06 18:25] LABS: BASOPHIL % 0.1 % (0.0-2.0); HEMO FLAGS DIFF FINAL; LYMPH % 32.5 % (9.0-44.0); LYMPHOCYTE # 1.6 TH/MM3 (1.0-4.8); MEAN CELL VOLUME 77.6 FL (80.0-100.0); MEAN CORPUSCULAR HEMOGLOBIN 25.1 PG (27.0-34.0); MEAN CORPUSCULAR HGB CONC 32.4 % (32.0-36.0); MONO % 5.6 % (0.0-8.0); NEUT % 61.8 % (16.0-70.0); PLATELET COUNT 549 TH/MM3 (150-450); RED BLOOD COUNT 4.64 MIL/MM3 (4.00-5.30); RED CELL DISTRIBUTION WIDTH 17.6 % (11.6-17.2); WHITE BLOOD COUNT 4.8 TH/MM3 (4.0-11.0)
[2016-12-06 18:52] LABS: BICARBONATE 20.7 MEQ/L (21.0-32.0); POTASSIUM 3.5 MEQ/L (3.5-5.1)
[2016-12-06] MEDS: methylPREDNISolone SOD SUCC 40 MG/1 ML VIAL IV PUSH SCH (21:38)
[2016-12-06] MEDS: DULoxetine HCl DR 30 MG CAP PO SCH (21:39)
[2016-12-06] MEDS: ZOLPIDEM TARTRATE 5 MG TAB PO PRN (23:22)
[2016-12-06] MEDS: HYDROmorphone HCL PF 1 MG/ML VIAL IV PUSH PRN (23:23)
[2016-12-07] VITALS (7 sets, daily range): BP systolic 108–162; BP diastolic 58–85; PULSE 56–91; RESP 18–20; TEMP 97.5–98.4; O2SAT 95–99
[2016-12-07] MEDS: MORPHINE SULFATE 15 MG TAB PO PRN ×2 (03:37→03:40)
[2016-12-07] MEDS: SODIUM CHLOR 0.9% 1000 ML INJ 1,000 ML IV SCH ×2 (03:37→17:45)
[2016-12-07] MEDS: ONDANSETRON HCL 4 MG/2 ML VIAL IVP PRN (03:37)
[2016-12-07] MEDS: HEPARIN SODIUM - SQ 10,000 UNITS/ML VIAL SQ SCH ×2 (05:42→14:09)
[2016-12-07] MEDS: metroNIDAZOLE 500 MG INJ 100 ML IV SCH ×3 (05:43→20:37)
[2016-12-07] MEDS: HYDROmorphone HCL PF 1 MG/ML VIAL IV PUSH PRN ×2 (07:21→23:00)
[2016-12-07 09:51] LABS: AUTOMATED NEUTROPHIL # 1.8 TH/MM3 (1.8-7.7); BASOPHIL % 0.1 % (0.0-2.0); EOSINOPHIL % 0.1 % (0.0-4.0); HEMATOCRIT 38.2 % (35.0-46.0); LYMPH % 53.4 % (9.0-44.0); LYMPHOCYTE # 2.7 TH/MM3 (1.0-4.8); MEAN CELL VOLUME 77.8 FL (80.0-100.0); MEAN CORPUSCULAR HEMOGLOBIN 24.6 PG (27.0-34.0); MEAN CORPUSCULAR HGB CONC 31.6 % (32.0-36.0); MONO % 11.1 % (0.0-8.0); NEUT % 35.3 % (16.0-70.0); PLATELET COUNT 621 TH/MM3 (150-450); RED BLOOD COUNT 4.91 MIL/MM3 (4.00-5.30); RED CELL DISTRIBUTION WIDTH 17.7 % (11.6-17.2)
[2016-12-07 09:56] LABS: HEMO FLAGS AUTO DIFF
[2016-12-07] MEDS: methylPREDNISolone SOD SUCC 40 MG/1 ML VIAL IV PUSH SCH ×2 (10:07→20:36)
[2016-12-07] MEDS: SODIUM CHLORIDE 0.9% FLUSH 10 ML FLUSH IV FLUSH SCH ×2 (10:07→20:35)
[2016-12-07 10:13] LABS: BICARBONATE 23.6 MEQ/L (21.0-32.0); POTASSIUM 3.3 MEQ/L (3.5-5.1)
--- NOTE | 2016-12-07 10:27 | HHI.PR ---
Subjective Remarks Pt feels much better today. She feels less distended, states her abdomen is softer. had 5 loose stools yesterday until 9pm then didn't have any. denies any nausea or vomiting at this time but tells me that the morphine immediate release makes her very nauseous and because of that at home she takes the morphine extended release 30mg in AM and 15 mg in pm. pain much improved. nervous about sx tomorrow. Objective Vitals Vital Signs Date Time Temp Pulse Resp B/P (MAP) Pulse Ox O2 Delivery O2 Flow Rate FiO2 12/07/16 08:00 97.6 91 18 95 12/07/16 04:00 Room Air 12/07/16 04:00 87 20 158/85 (109) 96 12/07/16 00:00 98.4 88 20 162/82 (108) 98 12/07/16 00:00 Room Air 12/07/16 00:00 97.8 82 20 162/82 (108) 95 12/06/16 20:00 Room Air 12/06/16 20:00 98.4 88 20 167/94 (118) 98 12/06/16 16:00 97.7 87 18 162/90 (114) 98 12/06/16 12:00 98.3 96 18 158/90 (112) 98 I/O 12/06/16 12/06/16 12/06/16 12/07/16 12/07/16 12/07/16 07:00 15:00 23:00 07:00 15:00 23:00 Intake Total 2199 ml 1426 ml 700 ml 700 ml Balance 2199 ml 1426 ml 700 ml 700 ml Intake Oral 240 ml IV Total 2099 ml 386 ml 700 ml 700 ml Packed Cells 800 ml Blood Product IV Normal Saline Flush 100 ml # Voids 3 3 2 # Bowel Movements 0 Result Diagram: 12/07/1630 12/07/16829 Imaging Last Impressions Abdomen X-Ray 12/06/16 06 Signed Impressions: Service Date/Time: Tuesday, December 06, 2016 11:46 - CONCLUSION: 1. Multiple loops of distended small bowel with air-fluid levels suggesting some degree of partial bowel obstruction. Giancarlo Neves MD Abdomen/Pelvis CT 12/05/16 1158 Signed Impressions: Service Date/Time: Monday, December 05, 2016 12:57 - CONCLUSION: 1. Markedly dilated distal ileum measuring up to 6 cm with transition point approximately 30 cm from the terminal ileum and a second proximal focal transition point in the left lower quadrant, likely in the proximal to mid ileum. More proximally, jejunal loops appear adherent but otherwise normal in caliber with decompressed duodenum and stomach. There is apparent bowel wall thickening involving the terminal ileum and cecum with remainder of the colon grossly unremarkable. Findings are consistent with patient's history of Crohn' s ileitis and associated small bowel obstruction. No perforation or abscess at this time. 2. Redemonstration of stable but prominent intra-and extra hepatic ductal dilatation which may reflect reservoir affect following cholecystotomy. 3. Stable ancillary findings, as above. Hill Green MD Objective Remarks GENERAL: anxious female however less anxious NECK: Trachea midline. CARDIOVASCULAR: Regular rate and rhythm without murmurs RESPIRATORY: Clear to auscultation. Breath sounds equal bilaterally. No wheezes GASTROINTESTINAL: Abdomen soft, much less distended, non tender. MUSCULOSKELETAL: Extremities with1+ edema. ambulating w no difficulty NEUROLOGICAL: Awake and alert. Cranial nerves II through XII intact. Motor and sensory grossly within normal limits. Normal speech. A/P Problem List: (1) Abdominal pain ICD Code: R10.9 - Unspecified abdominal pain Status: Acute (2) Crohns disease ICD Code: K50.90 - Crohn's disease, unspecified, without complications Status: Acute Assessment and Plan (1) Abdominal pain Secondary to obstruction with a history of inflammatory bowel disease General surgery evaluated the pt and will proceed w sx on Thursday per patient. Pt was started on solu-medrol IV by sx GI also following as well. currently on clear liquid diet. Continue IV fluids I have adjusted pt's pain meds to reflect what she takes at home and has dilaudid IV for breakthrough pain. C. difficile pos, on flagyl encourage ambulation (2) Crohns disease recently diagnosed in July Recent endoscopy GI following. (3) chronic pain continue po pain meds and add prn IV dilaudid for breakthrough. Discharge Planning scheduled for sx tomorrow Yesy Olivera MD Dec 07, 2016 10:27
[2016-12-07 10:41] LABS: SCAN/DIFF AUTO DIFF CONFIRMED
[2016-12-07 10:42] LABS: PLATELET ESTIMATE SMEAR HIGH (NORMAL); PLATELET MORPHOLOGY NORMAL (NORMAL)
[2016-12-07] MEDS ORDERED: ceFAZolin 2 GM PREMIX 50 ML IV PRN (13:15)
[2016-12-07] MEDS ORDERED: metroNIDAZOLE 500 MG INJ 100 ML IV PRN (13:15)
--- NOTE | 2016-12-07 14:35 | HHI.PR ---
Subjective Subjective Notes feels better today, pain 03/11 Objective Vitals/I&O Vital Signs Date Time Temp Pulse Resp B/P (MAP) Pulse Ox O2 Delivery O2 Flow Rate FiO2 12/07/16 12:33 97.9 64 18 152/80 (104) 97 12/07/16 08:00 Room Air 12/05/16 21:28 21 Labs Laboratory Tests Test 12/06/16 17:40 12/07/16 08:30 White Blood Count 4.8 5.0 Red Blood Count 4.64 4.91 Hemoglobin 11.6 12.1 Hematocrit 36.0 38.2 Mean Corpuscular Volume 77.6 77.8 Mean Corpuscular Hemoglobin 25.1 24.6 Mean Corpuscular Hemoglobin Concent 32.4 31.6 Red Cell Distribution Width 17.6 17.7 Platelet Count 549 621 Mean Platelet Volume 6.6 6.4 Neutrophils (%) (Auto) 61.8 35.3 Lymphocytes (%) (Auto) 32.5 53.4 Monocytes (%) (Auto) 5.6 11.1 Eosinophils (%) (Auto) 0.0 0.1 Basophils (%) (Auto) 0.1 0.1 Neutrophils # (Auto) 3.0 1.8 Lymphocytes # (Auto) 1.6 2.7 Monocytes # (Auto) 0.3 0.6 Eosinophils # (Auto) 0.0 0.0 Basophils # (Auto) 0.0 0.0 CBC Comment DIFF FINAL AUTO DIFF Differential Comment AUTO DIFF CONFIRMED Blood Urea Nitrogen 14 7 Creatinine 0.60 0.55 Random Glucose 85 90 Calcium Level 8.0 8.5 Sodium Level 141 141 Potassium Level 3.5 3.3 Chloride Level 111 109 Carbon Dioxide Level 20.7 23.6 Anion Gap 9 8 Estimat Glomerular Filtration Rate 103 114 Platelet Estimate HIGH Platelet Morphology Comment NORMAL Abdomen: Non-distended, Non-tender Extremities: Other (mild edema) A/P Assessment and Plan Crohn's ileitis. Plan ex lap SB resection vs strictureplasty tomorrow with Dr Choudhury. Preop orders entered and consent obtained. Ish Odonnell MD Dec 07, 2016 14:35
[2016-12-07] MEDS ORDERED: ALVIMOPAN 12 MG CAPSULE PO ONE (14:45)
[2016-12-07] MEDS ORDERED: ALVIMOPAN 12 MG CAPSULE PO SCH (15:15)
[2016-12-07] MEDS: MORPHINE SULFATE 15 MG CONTROLLED RELEASE TAB PO SCH (20:36)
[2016-12-07] MEDS: ZOLPIDEM TARTRATE 5 MG TAB PO PRN (20:36)
[2016-12-07] MEDS: DULoxetine HCl DR 30 MG CAP PO SCH (20:38)
[2016-12-07] MEDS: SODIUM CHLORIDE 0.9% FLUSH 10 ML FLUSH IV FLUSH PRN (23:01)
[2016-12-08] VITALS: BP 152/90; PULSE 62; RESP 16; TEMP 98; O2SAT 98
[2016-12-08] MEDS ORDERED: LACTATED RINGER'S 1000 ML IV PRN (00:30)
[2016-12-08] MEDS ORDERED: METOPROLOL TARTRATE 25 MG TAB PO PRN (00:30)
[2016-12-08] MEDS ORDERED: INSULIN HUMAN REGULAR 1,000 UNITS/10 ML VIAL SQ PRN (00:30)
[2016-12-08] MEDS ORDERED: POVIDONE IODINE 5% (ANTISEPSIS KIT) 4 APPLICATIONS EACH NARE PRN (00:30)
[2016-12-08] MEDS ORDERED: CHLORHEXIDINE GLUCONATE 2 % 1 PACK (2 CLOTHS) TOPICAL PRN (00:30)
[2016-12-08] MEDS ORDERED: SODIUM CHLORID 0.9% 500 ML IV PRN (00:30)
[2016-12-08 04:00] VITALS: BP 164/87; PULSE 76; RESP 20; TEMP 97.2; O2SAT 96
[2016-12-08] MEDS: metroNIDAZOLE 500 MG INJ 100 ML IV SCH ×4 (04:47→19:41)
[2016-12-08] MEDS ORDERED: HYDROCORTISONE SOD SUCCINATE 100 MG VIAL ONE (07:13)
[2016-12-08] MEDS ORDERED: FAMOTIDINE 20 MG/2 ML VIAL ONE (07:13)
[2016-12-08] MEDS ORDERED: ACETAMINOPHEN 1000 MG/100 ML 100 ML IV ONE (07:13)
[2016-12-08] MEDS: methylPREDNISolone SOD SUCC 40 MG/1 ML VIAL IV PUSH SCH (09:00)
[2016-12-08] MEDS: SODIUM CHLORIDE 0.9% FLUSH 10 ML FLUSH IV FLUSH SCH ×2 (09:00→21:00)
[2016-12-08] MEDS ORDERED: BUPIVACAINE/EPINEPHRINE 0.25% 50 ML VIAL ONE (09:25)
[2016-12-08] MEDS ORDERED: DO NOT ADM ANY ANTICOAGULANT DRUGS PRN (09:52)
[2016-12-08] MEDS ORDERED: *morphine SULFATE 8 MG/ML PERIprocedure ONLY ONE ×2 (09:55→10:08)
[2016-12-08] MEDS ORDERED: *ONDANSETRON 4 MG VIAL PERIprocedural Use ONLY ONE (09:59)
[2016-12-08] MEDS ORDERED: LORazepam 2 MG/ML VIAL ONE (10:08)
--- NOTE | 2016-12-08 10:12 | HHI.PR ---
cc: Harley Choudhury MD Immediate Post Op Note Procedure Date: Dec 08, 2016 Pre Op Diagnosis: Small bowel obstruction with pain secondary to Crohn's Disease Post Op Diagnosis: Same Surgeon: Harley Choudhury [facility] Supervisor(s): Bernard Olivera CFA Procedure: Exploratory laparotomy, ileocecal resection Complications: None Specimen(s) removed: distal ileum and cecum to pathology Estimated blood loss: 50 ml Anesthesia: General Drains: None IVF (1500 ml) Patient to: PACU Patient Condition: Good Date/Time of Procedure: SEE SURGICAL CARE RECORD Harley Choudhury MD Dec 08, 2016 10:12
[2016-12-08] MEDS ORDERED: LORazepam 2 MG/ML VIAL IV PUSH PRN (10:15)
[2016-12-08] MEDS ORDERED: *PROMETHAZINE 25 MG/ML VIAL PERIprocedural use ONLY ONE (10:25)
[2016-12-08] MEDS ORDERED: LABETALOL HCL 100 MG/20 ML VIAL ONE (10:25)
[2016-12-08] MEDS ORDERED: *HYDROmorphone PF 1 MG VIAL PERIprocedural Use ONLY ONE ×3 (10:33→13:37)
[2016-12-08] MEDS ORDERED: *ENALAPRILAT 1.25 MG/ML VIAL PERIprocedural Use ONLY ONE ×2 (10:46→11:13)
--- NOTE | 2016-12-08 10:46 | MP ---
cc: JOIE LIVINGSTON M.D. DATE OF PROCEDURE 12/08/2016 PROCEDURE Exploratory laparotomy with ileocecal resection. PREOPERATIVE DIAGNOSIS Crohn's disease with small bowel obstruction, persistent, with increasing abdominal pain. POSTOPERATIVE DIAGNOSIS Crohn's disease with small bowel obstruction, persistent, with increasing abdominal pain. ANESTHESIA General endotracheal, SURGEON MD Kei [employer] Amanda Juarez, MILL W[employer]ER ESTIMATED BLOOD LOSS 50 mL. FLUIDS 1500 mL crystalloid. COMPLICATIONS None. DRAINS None. SPECIMEN Distal ileum and cecum to pathology. FINDINGS Active Crohn's ileitis with two areas of some stricture. No evidence of disease in the colon and no obvious evidence of active disease in the more proximal small bowel. PROCEDURE IN DETAIL The patient was taken to the operating room and placed on the operating table in a supine position. After an adequate level of general endotracheal anesthesia was achieved the abdomen was prepped and draped in the usual fashion. Time-out was taken confirming the correct patient site and procedure to be performed. The skin was incised from the symphysis pubis to the umbilicus. Dissection was carried down to the peritoneum which was entered uneventfully. Retraction and exploration revealed two areas of stenosis in distal small bowel. The largest area of inflammatory process was in the distal ileum approximately 15-20 cm from the ileocecal valve. There appeared to be mild disease between this area and the ileocecal valve proximal to the first area of stenosis. There did not appear to be any other active disease. At this point the appendix and cecum were mobilized laterally and brought into the wound. The small bowel was divided with a GARY stapler proximal to the active disease. With the white line of Toldt mobilized, the cecum was then divided with a GARY stapler. The mesentery between the two staple points was successively clamped, ligated and divided. An additional small margin of colon was taken as this was questionably viable. The remaining colon and small bowel appeared to be viable and staple lines were intact. After successive clamping and ligation, the distal ileum and cecum were passed off the table. It was elected to remove the ileocecal valve and cecum as the patient would likely have further disease in the remaining segment of distal ileum. There was concern that she would require surgery sooner and thus to provide her with the longest period of remission the ileocecal valve was taken as well. The ileum and a ascending colon were then placed [id number]. An ileotomy and colotomy were made and a stapler fired down the antimesenteric border. The toe of the staple line was reinforced with a silk suture and the staple lines were examined on the interior. There was no bleeding noted in the staple line. The ileocolostomy was then closed with a DX60 type stapler. The entire staple line was seen to be intact. The mesenteric defect was closed with 3-0 silk suture ligature. When this was completed the bowel was allowed to drop back into the abdominal cavity. Gloves were changed, the abdomen was irrigated with saline and with hemostasis assured the omentum was placed back down into the pelvis and the abdomen closed with #1 PDS looped suture. The skin was closed in two layers with interrupted 3-0 Vicryl suture and 5-0 PDS in a running subcuticular fashion. The wound was dressed with Steri-Strips and an abdominal binder applied. The patient was extubated and taken back to the recovery room in stable condition. She tolerated the procedure well. MD SHAMIKA Perdomo/SSB /10:13 AM /10:34 AM MTDD
[2016-12-08] MEDS ORDERED: methylPREDNISolone SOD SUCC 40 MG/1 ML VIAL ONE (10:47)
[2016-12-08] MEDS ORDERED: POTASSIUM CHLOR 20 MEQ PREMIX 100 ML IV ONE (11:00)
[2016-12-08] MEDS: SODIUM CHLOR 0.9% 1000 ML INJ 1,000 ML IV SCH (11:01)
[2016-12-08] MEDS ORDERED: hydrALAZINE HCL 20 MG/ML VIAL ONE (11:53)
[2016-12-08] MEDS ORDERED: ONDANSETRON HCL 4 MG/2 ML VIAL IV PUSH ONE (12:00)
[2016-12-08] MEDS ORDERED: ROCURONIUM INJ 50 MG/5 ML SYRINGE IV PUSH ONE (12:00)
[2016-12-08] MEDS ORDERED: DEXAMETHASONE SOD PHOS 4 MG/ML VIAL IV ONE (12:00)
[2016-12-08] MEDS ORDERED: GLYCOPYRROLATE 1 MG/5 ML SYRINGE IV PUSH ONE (12:00)
[2016-12-08] MEDS ORDERED: LABETALOL HCL 100 MG/20 ML VIAL IV ONE (12:00)
[2016-12-08] MEDS ORDERED: NEOSTIGMINE 3 MG/3 ML SYR IV ONE (12:00)
[2016-12-08] MEDS ORDERED: LACTATED RINGER'S 1000 ML INJ 2,000 ML IV ONE (12:00)
[2016-12-08] MEDS ORDERED: LIDOCAINE HCL 1% PF 5 ML AMPULE OTHER ONE (12:00)
[2016-12-08] MEDS ORDERED: PROPOFOL 200 MG/20 ML AMP IV ONE (12:00)
[2016-12-08] MEDS ORDERED: hydrALAZINE HCL 20 MG/ML VIAL IV PUSH ONE (12:30)
[2016-12-08] MEDS: MORPHINE SULFATE 30 MG CONTROLLED RELEASE TAB PO SCH (14:00)
[2016-12-08] MEDS: ONDANSETRON HCL 4 MG/2 ML VIAL IVP PRN (15:30)
[2016-12-08] MEDS: HYDROmorphone HCL PF 1 MG/ML VIAL IV PUSH PRN ×2 (15:31→19:39)
[2016-12-08 16:00] VITALS: BP_SYST 183; BP_SYST 200; BP_DIAS 76; BP_DIAS 91; PULSE 78; RESP 17; TEMP 95.6; O2SAT 96
--- NOTE | 2016-12-08 16:44 | HHI.PR ---
Subjective Remarks Pt just got back from OR. Currently pain is 4/10. Happy to see the results. No nausea or vomiting ask about her belongings. RN notified Had large BM per RN post sx Objective Vitals Vital Signs Date Time Temp Pulse Resp B/P (MAP) Pulse Ox O2 Delivery O2 Flow Rate FiO2 12/08/16 14:00 97.7 92 18 169/88 (115) 99 Nasal Cannula 2 12/08/16 13:00 85 18 156/85 (108) 99 Nasal Cannula 2 12/08/16 12:17 79 18 155/89 (111) 99 Nasal Cannula 3 12/08/16 11:55 183/100 (127) Nasal Cannula 3 12/08/16 11:30 169/93 (118) Nasal Cannula 3 12/08/16 10:30 70 15 192/114 (140) 100 Nasal Cannula 3 12/08/16 10:15 71 15 187/87 (120) 100 Nasal Cannula 3 12/08/16 10:00 63 14 174/92 (119) 98 Nasal Cannula 3 12/08/16 09:53 98.2 68 14 187/104 (131) 100 Nasal Cannula 3 12/08/16 04:00 Room Air 12/08/16 04:00 97.2 76 20 164/87 (112) 96 12/08/16 00:00 98.0 62 16 152/90 (110) 98 12/08/16 00:00 Room Air 12/07/16 23:00 56 158/84 (108) 12/07/16 20:00 97.7 59 18 111/58 (75) 99 12/07/16 20:00 Room Air I/O 12/07/16 12/07/16 12/07/16 12/08/16 12/08/16 12/08/16 07:00 15:00 23:00 07:00 15:00 23:00 Intake Total 700 ml 1480 ml 200 ml 100 ml 1800 ml Output Total 2125 ml Balance 700 ml 1480 ml 200 ml 100 ml -325 ml Intake Oral 480 ml 0 ml IV Total 700 ml 1000 ml 200 ml 100 ml 300 ml Other 1500 ml Output Urine Total 2075 ml Estimated Blood Loss 50 ml # Voids 2 3 10 # Bowel Movements 1 7 Result Diagram: 12/07/1682912/07/16829 Imaging Last Impressions Abdomen X-Ray 10/7/17 0600 Signed Impressions: Service Date/Time: Tuesday, December 06, 2016 11:46 - CONCLUSION: 1. Multiple loops of distended small bowel with air-fluid levels suggesting some degree of partial bowel obstruction. Giancarlo Neves MD Abdomen/Pelvis CT 12/05/16 1158 Signed Impressions: Service Date/Time: Monday, December 05, 2016 12:57 - CONCLUSION: 1. Markedly dilated distal ileum measuring up to 6 cm with transition point approximately 30 cm from the terminal ileum and a second proximal focal transition point in the left lower quadrant, likely in the proximal to mid ileum. More proximally, jejunal loops appear adherent but otherwise normal in caliber with decompressed duodenum and stomach. There is apparent bowel wall thickening involving the terminal ileum and cecum with remainder of the colon grossly unremarkable. Findings are consistent with patient's history of Crohn' s ileitis and associated small bowel obstruction. No perforation or abscess at this time. 2. Redemonstration of stable but prominent intra-and extra hepatic ductal dilatation which may reflect reservoir affect following cholecystotomy. 3. Stable ancillary findings, as above. Hill Green MD Objective Remarks GENERAL: anxious female NECK: Trachea midline. CARDIOVASCULAR: Regular rate and rhythm without murmurs RESPIRATORY: Clear to auscultation. Breath sounds equal bilaterally. No wheezes GASTROINTESTINAL: Abdomen soft, not distended, appropriated tender, lower vertical incision noted w steris d/c/o MUSCULOSKELETAL: moves extremities. NEUROLOGICAL: Awake and alert. Cranial nerves II through XII intact. Normal speech. A/P Problem List: (1) Abdominal pain ICD Code: R10.9 - Unspecified abdominal pain Status: Acute (2) Crohns disease ICD Code: K50.90 - Crohn's disease, unspecified, without complications Status: Acute Assessment and Plan (1) Abdominal pain Secondary to obstruction with a history of inflammatory bowel disease General surgery took pt to OR today, she pod 0 s/p exp lap w ileocecal resection on solu-medrol IV by sx GI also following as well. currently on clear liquid diet. had a very large BM post op Continue IV fluids C. difficile pos, on flagyl encourage ambulation (2) Crohns disease recently diagnosed in July Recent endoscopy GI following. (3) chronic pain pain management per gen sx DVT proph: SCDs and per Gen sx Discharge Planning on clears f/u recs from gen sx Yesy Olivera MD Dec 08, 2016 16:44
[2016-12-08] MEDS: DULoxetine HCl DR 30 MG CAP PO SCH (19:40)
[2016-12-08 20:24] VITALS: BP 162/86; PULSE 80; RESP 18; TEMP 97.1; O2SAT 96
[2016-12-08] MEDS: MORPHINE SULFATE 15 MG CONTROLLED RELEASE TAB PO SCH (21:43)
[2016-12-09] VITALS (7 sets, daily range): BP systolic 98–138; BP diastolic 55–87; PULSE 58–78; RESP 16–20; TEMP 96–97.6; O2SAT 93–98
[2016-12-09] MEDS: HYDROmorphone HCL PF 1 MG/ML VIAL IV PUSH PRN ×6 (00:09→20:43)
[2016-12-09] MEDS: ONDANSETRON HCL 4 MG/2 ML VIAL IVP PRN (04:07)
[2016-12-09] MEDS: metroNIDAZOLE 500 MG INJ 100 ML IV SCH ×3 (04:11→20:46)
[2016-12-09 07:38] LABS: HEMATOCRIT 32.4 % (35.0-46.0); REVIEW FLAG FINAL
[2016-12-09 08:00] LABS: BICARBONATE 29.1 MEQ/L (21.0-32.0); POTASSIUM 3.1 MEQ/L (3.5-5.1)
[2016-12-09] MEDS: SODIUM CHLORIDE 0.9% FLUSH 10 ML FLUSH IV FLUSH SCH ×2 (08:02→20:46)
[2016-12-09] MEDS ORDERED: methylPREDNISolone SOD SUCC 40 MG/1 ML VIAL IV PUSH SCH (09:00)
[2016-12-09] MEDS: MORPHINE SULFATE 30 MG CONTROLLED RELEASE TAB PO SCH (09:03)
[2016-12-09] MEDS: SODIUM CHLOR 0.9% 1000 ML INJ 1,000 ML IV SCH (10:02)
--- NOTE | 2016-12-09 10:47 | HHI.PR ---
Subjective Subjective Notes Resting in bed No issues Tolerated clear liquids with no issues Objective Vitals/I&O Vital Signs Date Time Temp Pulse Resp B/P (MAP) Pulse Ox O2 Delivery O2 Flow Rate FiO2 12/09/16 08:30 18 12/09/16 08:00 97.6 71 129/81 (97) 94 12/08/16 19:04 Room Air 12/08/16 14:00 2 12/05/16 21:28 21 Labs Laboratory Tests Test 12/09/16 06:18 Hemoglobin 10.4 Hematocrit 32.4 Blood Urea Nitrogen 3 Creatinine 0.48 Random Glucose 88 Calcium Level 8.2 Sodium Level 140 Potassium Level 3.1 Chloride Level 104 Carbon Dioxide Level 29.1 Anion Gap 7 Estimat Glomerular Filtration Rate 133 Cardiovascular: Regular Lungs: Clear Abdomen: Other (small midline incision with steri strips in place; minimally abdominal pain ) Extremities: No edema A/P Assessment and Plan 56 year old female POD1 ex lap; ileocecal resection -Advance to full liquids -OOB and mobilize -Zofran PRN for nausea Attending Note - Dr. Choudhury Remarkably little pain wound clean; steristrips intact Advance diet The exam, history, and the medical decision-making described in the above note were completed with the assistance of the mid-level provider. I reviewed and agree with the findings presented. I attest that I had a [id number] encounter with the patient on the same day, and personally performed and documented my assessment and findings in the medical record. Lisa Dougherty Dec 09, 2016 10:47 Harley Choudhury MD Dec 09, 2016 19:51
--- NOTE | 2016-12-09 11:42 | HHI.GIFU ---
Subjective Remarks Resting in bed. States she is feeling much better. No n/v, although took some antiemetics. Abdominal tenderness. Had large bowel movement today. Tolerating clears. Does not want to go back on Apriso because of cost. (Katia Tay) Objective Vitals I&O Vital Signs Date Time Temp Pulse Resp B/P (MAP) Pulse Ox O2 Delivery O2 Flow Rate FiO2 12/09/16 08:30 18 12/09/16 08:00 97.6 71 18 129/81 (97) 94 12/09/16 04:53 97.6 68 17 138/87 (104) 96 12/09/16 00:27 96.7 58 17 98/55 (69) 95 12/08/16 22:43 18 12/08/16 20:24 97.1 80 18 162/86 (111) 96 12/08/16 19:04 Room Air 12/08/16 16:00 95.6 78 17 200/76 (117) 96 183/91 (121) 12/08/16 14:00 97.7 92 18 169/88 (115) 99 Nasal Cannula 2 12/08/16 13:00 85 18 156/85 (108) 99 Nasal Cannula 2 12/08/16 12:17 79 18 155/89 (111) 99 Nasal Cannula 3 12/08/16 11:55 183/100 (127) Nasal Cannula 3 12/08/16 11:30 169/93 (118) Nasal Cannula 3 I/O 12/08/16 12/08/16 12/08/16 12/09/16 12/09/16 12/09/16 07:00 15:00 23:00 07:00 15:00 23:00 Intake Total 100 ml 1800 ml 560 ml 480 ml Output Total 2125 ml 1600 ml 1800 ml Balance 100 ml -325 ml -1040 ml -1320 ml Intake Oral 0 ml 560 ml 480 ml IV Total 100 ml 300 ml Other 1500 ml Output Urine Total 2075 ml 1600 ml 1800 ml Estimated Blood Loss 50 ml # Voids 10 # Bowel Movements 7 1 Laboratory Laboratory Tests Test 12/09/16 06:18 Hemoglobin 10.4 Hematocrit 32.4 Blood Urea Nitrogen 3 Creatinine 0.48 Random Glucose 88 Calcium Level 8.2 Sodium Level 140 Potassium Level 3.1 Chloride Level 104 Carbon Dioxide Level 29.1 Anion Gap 7 Estimat Glomerular Filtration Rate 133 Imaging Last Impressions Abdomen X-Ray 12/06/16 0600 Signed Impressions: Service Date/Time: Tuesday, December 06, 2016 11:46 - CONCLUSION: 1. Multiple loops of distended small bowel with air-fluid levels suggesting some degree of partial bowel obstruction. Giancarlo Neves MD Abdomen/Pelvis CT 12/05/16 1158 Signed Impressions: Service Date/Time: Monday, December 05, 2016 12:57 - CONCLUSION: 1. Markedly dilated distal ileum measuring up to 6 cm with transition point approximately 30 cm from the terminal ileum and a second proximal focal transition point in the left lower quadrant, likely in the proximal to mid ileum. More proximally, jejunal loops appear adherent but otherwise normal in caliber with decompressed duodenum and stomach. There is apparent bowel wall thickening involving the terminal ileum and cecum with remainder of the colon grossly unremarkable. Findings are consistent with patient's history of Crohn' s ileitis and associated small bowel obstruction. No perforation or abscess at this time. 2. Redemonstration of stable but prominent intra-and extra hepatic ductal dilatation which may reflect reservoir affect following cholecystotomy. 3. Stable ancillary findings, as above. Hill Green MD Physical Exam HEENT: Normocephalic; atraumatic; no jaundice. CHEST: CTA CARDIAC: RRR ABDOMEN: Soft, mildly distended, mild to moderate diffuse tenderness, midline incision line well approximated without redness/drainage/swelling; no hepatosplenomegaly; bowel sounds hypoactive EXTREMITIES: No clubbing, cyanosis, or edema. SKIN: Normal; no rash; no jaundice. 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 (Katia Tay [facility]) Assessment and Plan Plan ASSESSMENT: - SBO r/t Crohns. CT (12/05/16)---> Markedly dilated distal ileum measuring up to 6 cm with transition point approximately 30 cm from the terminal ileum and a second proximal focal transition point in the left lower quadrant. likely in the proximal to mid ileum. More proximally jejunal loops appear adherent but otherwise normal in caliber with decompressed duodenum and stomach. There is apparent bowel wall thickening involving the terminal ileum and cecum with remainder of the colon grossly unremarkable. Findsing are consistent with patient's hx of Croyhns ileitis and associated sbo. S/P Exp. Lap with ileoceal resection. Of note recent colonoscopy with finding small colitis ileocecal valve. Solumedrol. - Crohns Dz. Recent On Apriso/budesonide as outpatient, but does not wish to continue the apriso this secondary to cost. Solumedrol. Will start sulfasalazine 500mg TID and folic acid. - Anemia. 10.4/32.4. - CDiff. Epid 027 (-). Flagyl PLAN - Full liquid - Add fLagyl - Sulfasalazine 500mg po TID - Folic acid 1mg daily - Cont. Steroids - Cont. flagyl 500mg po TID - Would d/c on Prednisone 20mg taper at discharge - Supportive care - Pt seen and examined by Dr. Lyle and myself and this note is written on his behalf (Katia Tay) Physician Comments Seen and examined with Anthony, s/p surgery for obstruction secondary to crohns. Not able to afford aprisio and Monoclonal antibodies as outpt. Started on sulfasalazine and prednisone. Advance diet as recommended by surgery. GI fu upon dc in 1 week. GI will sign off, reconsult as needed. Thankyou (Dung Lyle MD) Katia Tay Dec 09, 2016 11:42 Dung Lyle MD Dec 09, 2016 16:22
--- NOTE | 2016-12-09 11:47 | HHI.PR ---
Subjective Remarks feeling well. pain controlled. no nausea or vomiting. tolerating her diet thus far Objective Vitals Vital Signs Date Time Temp Pulse Resp B/P (MAP) Pulse Ox O2 Delivery O2 Flow Rate FiO2 12/09/16 08:30 18 12/09/16 08:00 97.6 71 18 129/81 (97) 94 12/09/16 04:53 97.6 68 17 138/87 (104) 96 12/09/16 00:27 96.7 58 17 98/55 (69) 95 12/08/16 22:43 18 12/08/16 20:24 97.1 80 18 162/86 (111) 96 12/08/16 19:04 Room Air 12/08/16 16:00 95.6 78 17 200/76 (117) 96 183/91 (121) 12/08/16 14:00 97.7 92 18 169/88 (115) 99 Nasal Cannula 2 12/08/16 13:00 85 18 156/85 (108) 99 Nasal Cannula 2 12/08/16 12:17 79 18 155/89 (111) 99 Nasal Cannula 3 12/08/16 11:55 183/100 (127) Nasal Cannula 3 I/O 12/08/16 12/08/16 12/08/16 12/09/16 12/09/16 12/09/16 07:00 15:00 23:00 07:00 15:00 23:00 Intake Total 100 ml 1800 ml 560 ml 480 ml Output Total 2125 ml 1600 ml 1800 ml Balance 100 ml -325 ml -1040 ml -1320 ml Intake Oral 0 ml 560 ml 480 ml IV Total 100 ml 300 ml Other 1500 ml Output Urine Total 2075 ml 1600 ml 1800 ml Estimated Blood Loss 50 ml # Voids 10 # Bowel Movements 7 1 Result Diagram: 12/09/1618 12/09/16617 Imaging Last Impressions Abdomen X-Ray 12/06/16 06 Signed Impressions: Service Date/Time: Tuesday, December 06, 2016 11:46 - CONCLUSION: 1. Multiple loops of distended small bowel with air-fluid levels suggesting some degree of partial bowel obstruction. Giancarlo Neves MD Abdomen/Pelvis CT 12/05/16 1158 Signed Impressions: Service Date/Time: Monday, December 05, 2016 12:57 - CONCLUSION: 1. Markedly dilated distal ileum measuring up to 6 cm with transition point approximately 30 cm from the terminal ileum and a second proximal focal transition point in the left lower quadrant, likely in the proximal to mid ileum. More proximally, jejunal loops appear adherent but otherwise normal in caliber with decompressed duodenum and stomach. There is apparent bowel wall thickening involving the terminal ileum and cecum with remainder of the colon grossly unremarkable. Findings are consistent with patient's history of Crohn' s ileitis and associated small bowel obstruction. No perforation or abscess at this time. 2. Redemonstration of stable but prominent intra-and extra hepatic ductal dilatation which may reflect reservoir affect following cholecystotomy. 3. Stable ancillary findings, as above. Hill Green MD Objective Remarks GENERAL: anxious female NECK: Trachea midline. CARDIOVASCULAR: Regular rate and rhythm without murmurs RESPIRATORY: Clear to auscultation. Breath sounds equal bilaterally. No wheezes GASTROINTESTINAL: Abdomen soft, not distended, appropriated tender, lower vertical incision noted w steris d/c/o MUSCULOSKELETAL: moves extremities. NEUROLOGICAL: Awake and alert. Cranial nerves II through XII intact. Normal speech. A/P Problem List: (1) Abdominal pain ICD Code: R10.9 - Unspecified abdominal pain Status: Acute (2) Crohns disease ICD Code: K50.90 - Crohn's disease, unspecified, without complications Status: Acute Assessment and Plan (1) Abdominal pain Secondary to obstruction with a history of inflammatory bowel disease General surgery following, she pod 1 s/p exp lap w ileocecal resection on solu-medrol IV by sx GI also following as well. diet advanced to full liquid diet. added sulfasalazine Continue IV fluids C. difficile pos, on flagyl encourage ambulation (2) Crohns disease recently diagnosed in July Recent endoscopy GI following. (3) chronic pain pain management per gen sx DVT proph: SCDs and per Gen sx Discharge Planning on full liquid diet f/u recs from gen sx/GI Yesy Olivera MD Dec 09, 2016 11:47
[2016-12-09] MEDS: FOLIC ACID 1 MG TAB PO SCH (12:02)
[2016-12-09] MEDS: sulfaSALAzine 500 MG TAB PO SCH ×2 (13:39→20:42)
[2016-12-09] MEDS: DULoxetine HCl DR 30 MG CAP PO SCH (20:44)
[2016-12-09] MEDS: MORPHINE SULFATE 15 MG CONTROLLED RELEASE TAB PO SCH (21:51)
[2016-12-09] MEDS: ZOLPIDEM TARTRATE 5 MG TAB PO PRN (21:52)
[2016-12-10] VITALS: BP 139/81; PULSE 69; RESP 18; TEMP 98.3; O2SAT 97
[2016-12-10] MEDS: HYDROmorphone HCL PF 1 MG/ML VIAL IV PUSH PRN ×4 (01:28→13:41)
[2016-12-10] MEDS: sulfaSALAzine 500 MG TAB PO SCH ×3 (05:24→20:49)
[2016-12-10] MEDS: metroNIDAZOLE 500 MG INJ 100 ML IV SCH ×2 (05:24→12:48)
[2016-12-10] MEDS: ONDANSETRON HCL 4 MG/2 ML VIAL IVP PRN (05:25)
[2016-12-10] MEDS: predniSONE 5 MG TAB PO SCH (07:50)
[2016-12-10] MEDS: SODIUM CHLORIDE 0.9% FLUSH 10 ML FLUSH IV FLUSH SCH ×2 (07:50→20:50)
[2016-12-10] MEDS: MORPHINE SULFATE 30 MG CONTROLLED RELEASE TAB PO SCH (07:50)
[2016-12-10] MEDS: FOLIC ACID 1 MG TAB PO SCH (07:50)
[2016-12-10 08:00] VITALS: BP 189/108; PULSE 85; RESP 17; TEMP 97.9; O2SAT 96
[2016-12-10] MEDS: SODIUM CHLORIDE 0.9% FLUSH 10 ML FLUSH IV FLUSH PRN (09:28)
[2016-12-10 09:45] VITALS: O2SAT 96
--- NOTE | 2016-12-10 10:16 | HHI.PR ---
Subjective Subjective Notes Resting in bed No issues Some abdominal pain this AM Objective Vitals/I&O Vital Signs Date Time Temp Pulse Resp B/P (MAP) Pulse Ox O2 Delivery O2 Flow Rate FiO2 12/10/16 09:45 96 12/10/16 08:00 97.9 85 17 189/108 (135) 12/09/16 22:01 21 12/09/16 08:10 Room Air 12/08/16 14:00 2 Cardiovascular: Regular Lungs: Clear Abdomen: Other (minimally distended; tender to palpation; small midline incision with Steri Strips in place ) Extremities: No edema A/P Assessment and Plan 56 year old female POD2 ex lap; ileocecal resection -Heart healthy diet today -Transition off IV pain medications -OOB and mobilize -Zofran PRN for nausea Attending Note - Dr. Choudhury Abdomen benign Wound clean and dry Ambulating in gonzalez, but used IV dilaudid at 1:45 PM. Home tomorrow if no further need for IV pain meds overnight Plan prednisone 5 mg qday; wean per GI service The exam, history, and the medical decision-making described in the above note were completed with the assistance of the mid-level provider. I reviewed and agree with the findings presented. I attest that I had a [id number] encounter with the patient on the same day, and personally performed and documented my assessment and findings in the medical record. Lisa Dougherty Dec 10, 2016 10:16 Harley Choudhury MD Dec 10, 2016 18:43
[2016-12-10 12:00] VITALS: BP 101/66; PULSE 82; RESP 18; TEMP 96.5; O2SAT 97
[2016-12-10 16:00] VITALS: BP 97/59; PULSE 78; RESP 17; TEMP 97.3; O2SAT 96
--- NOTE | 2016-12-10 17:58 | HHI.PR ---
Subjective Remarks Written by Liane Rhodes, acting as scribe for Dr. Early on 12/10/16 at 17:41. Follow up on patient with Crohn's disease status post ileocecal resection. Patient seen and examined. Patient states she feels well. She is looking forward to possibly being discharged tomorrow. In the process of weaning off of IV Dilaudid. She denies any fever or chills. Denies any chest pain or shortness of breath. Denies any vomiting. Reports nausea with pain medication. Discussed with Evert GARIBAY, no acute issues noted. Objective Vitals Vital Signs Date Time Temp Pulse Resp B/P (MAP) Pulse Ox O2 Delivery O2 Flow Rate FiO2 12/10/16 16:00 97.3 78 17 97/59 (72) 96 12/10/16 14:11 18 12/10/16 12:00 96.5 82 18 101/66 (78) 97 12/10/16 09:45 96 12/10/16 08:50 18 12/10/16 08:30 96 Room Air 12/10/16 08:00 97.9 85 17 189/108 (135) 96 12/10/16 00:00 98.3 69 18 139/81 (100) 97 12/09/16 22:51 18 12/09/16 22:01 97 21 12/09/16 20:00 97.6 65 20 109/62 (78) 97 I/O 12/09/16 12/09/16 12/09/16 12/10/16 12/10/16 12/10/16 06:59 14:59 22:59 06:59 14:59 22:59 Intake Total 480 ml 1200 ml Output Total 1800 ml 750 ml Balance -1320 ml 450 ml Intake Oral 480 ml 1200 ml Output Urine Total 1800 ml 750 ml # Voids 1 # Bowel Movements 0 Result Diagram: 12/09/1618 12/09/16617 Imaging Last Impressions Abdomen X-Ray 12/06/16 06 Signed Impressions: Service Date/Time: Tuesday, December 06, 2016 11:46 - CONCLUSION: 1. Multiple loops of distended small bowel with air-fluid levels suggesting some degree of partial bowel obstruction. Giancarlo Neves MD Abdomen/Pelvis CT 12/05/16 1154 Signed Impressions: Service Date/Time: Monday, December 05, 2016 12:57 - CONCLUSION: 1. Markedly dilated distal ileum measuring up to 6 cm with transition point approximately 30 cm from the terminal ileum and a second proximal focal transition point in the left lower quadrant, likely in the proximal to mid ileum. More proximally, jejunal loops appear adherent but otherwise normal in caliber with decompressed duodenum and stomach. There is apparent bowel wall thickening involving the terminal ileum and cecum with remainder of the colon grossly unremarkable. Findings are consistent with patient's history of Crohn' s ileitis and associated small bowel obstruction. No perforation or abscess at this time. 2. Redemonstration of stable but prominent intra-and extra hepatic ductal dilatation which may reflect reservoir affect following cholecystotomy. 3. Stable ancillary findings, as above. Hill Green MD Objective Remarks GENERAL: Well-nourished, well-developed patient in NAD. Awake and alert lying in hospital bed. SKIN: Warm and dry. HEAD: Normocephalic. Atraumatic. EYES: EOMI. No scleral icterus. No injection or drainage. ENT: No nasal bleeding or discharge. Mucous membranes pink and moist. NECK: Supple. Trachea midline. CARDIOVASCULAR: Regular rate and rhythm. S1, S2 noted. No murmur appreciated. RESPIRATORY: No accessory muscle use. Clear to auscultation. Breath sounds equal bilaterally. GASTROINTESTINAL: Postop abdomen, mildly distended, tender to palpation. Midline incision with Steri-Strips in place appears to be healing well. MUSCULOSKELETAL: No obvious deformities. Extremities without clubbing or cyanosis. 2+ bilateral lower extremity pitting edema noted. NEUROLOGICAL: Awake and alert. Able to move all extremities. Nonfocal. Normal speech. Medications and IVs Current Medications Medications (Trade) Dose Ordered Sig/Brooke Route Start Time Stop Time Status Last Admin (NS Flush) 2 ml UNSCH PRN IV FLUSH 12/05/16 15:00 12/10/16 09:28 (NS Flush) 2 ml BID IV FLUSH 12/05/16 21:00 12/10/16 07:50 (Zofran Inj) 4 mg Q6H PRN IVP 12/05/16 15:00 12/10/16 05:25 (Narcan Inj) 0.4 mg UNSCH PRN IV PUSH 12/05/16 15:00 (Dilaudid Pf Inj) 2 mg Q4H PRN IVS 12/05/16 17:30 Future Hold 12/05/16 17:40 (Heparin Inj) 5,000 units Q8HR SQ 12/05/16 22:00 Future Hold 12/07/16 14:09 Metronidazole 100 ml @ 100 mls/hr Q8H IV 12/06/16 13:00 12/16/16 12:59 12/10/16 12:48 (Ambien) 5 mg HS PRN PO 12/06/16 21:00 12/09/16 21:52 (Dilaudid Pf Inj) 0.5 mg Q4H PRN IV PUSH 12/06/16 18:30 12/10/16 13:41 (Cymbalta Dr) 60 mg HS PO 12/06/16 21:00 12/09/16 20:44 (Zanaflex) 4 mg TID PO 12/07/16 09:00 12/10/16 12:48 (Oramorph Sr) 30 mg DAILY PO 12/08/16 09:00 12/10/16 07:50 (Oramorph Sr) 15 mg HS PO 12/07/16 21:00 12/09/16 21:51 (Lopressor) 25 mg INDUSTRIAL ENGINEERING TECHNICIAN PRN PO 12/08/16 00:30 12/11/16 00:29 (Betadine 5% Antisepsis Kit) 1 applic INDUSTRIAL ENGINEERING TECHNICIAN PRN EACH NARE 12/08/16 00:30 12/11/16 00:29 (Chlorhexidine 2% Cloth) 3 pack INDUSTRIAL ENGINEERING TECHNICIAN PRN TOPICAL 12/08/16 00:30 12/11/16 00:29 (NovoLIN R INJ) See Protocol Table ... INDUSTRIAL ENGINEERING TECHNICIAN PRN SQ 12/08/16 00:30 12/11/16 00:29 (Ativan Inj) 1 mg Q6H PRN IV PUSH 12/08/16 10:15 12/08/16 10:20 (Azulfidine) 500 mg Q8HR PO 12/09/16 14:00 12/10/16 13:41 (Folate) 1 mg DAILY PO 12/09/16 11:15 12/10/16 07:50 (Deltasone) 5 mg DAILY PO 12/10/16 09:00 12/10/16 07:50 A/P Problem List: (1) Abdominal pain ICD Code: R10.9 - Unspecified abdominal pain Status: Acute (2) Crohns disease ICD Code: K50.90 - Crohn's disease, unspecified, without complications Status: Acute Assessment and Plan Abdominal pain Secondary to obstruction with a history of inflammatory bowel disease General surgery following, pod 2 s/p exp lap w ileocecal resection. Diet upgraded to heart healthy. Transition off IV pain medication. Continue by mouth Oramorph. C. difficile pos, on flagyl 500 mg by mouth 3 times a day encourage ambulation (2) Crohns disease recently diagnosed in July Recent endoscopy Previously on solu-medrol IV by sx, transitioned to taper now on prednisone 5 mg by mouth Folic acid 1 mg daily Sulfasalazine 500 mg by mouth 3 times a day GI following. Plan as above. GI has signed off. Follow-up in their clinic in 1 week. (3) chronic pain with history of DDD Continue pain management per general surgery Continue home dose of tizanidine 4mg po TID DVT proph: SCDs and per Gen sx This note was transcribed by ton Rhodes. I, Dr. Christiano Early personally performed the history, physical exam, and medical decision making; and confirmed the accuracy of the information in the transcribed note. Authenticated by Dr. Christiano Early on 12/10/16 at 18:25. Discharge Planning Plan for discharge home tomorrow if cleared by general surgery. Liane Rhodes Dec 10, 2016 17:58 Christiano Early MD Dec 10, 2016 18:25
[2016-12-10] MEDS: metroNIDAZOLE 500 MG TAB PO SCH (20:49)
[2016-12-10] MEDS: DULoxetine HCl DR 30 MG CAP PO SCH (20:49)
[2016-12-10] MEDS: MORPHINE SULFATE 15 MG CONTROLLED RELEASE TAB PO SCH (20:50)
[2016-12-11] VITALS: BP 155/87; PULSE 71; RESP 18; TEMP 98; O2SAT 94
[2016-12-11] MEDS: MORPHINE SULFATE 30 MG CONTROLLED RELEASE TAB PO SCH (02:22)
[2016-12-11 04:17] VITALS: BP 173/98; PULSE 73; RESP 18; TEMP 98; O2SAT 96
[2016-12-11] MEDS: sulfaSALAzine 500 MG TAB PO SCH ×2 (05:49→13:27)
[2016-12-11] MEDS: ONDANSETRON HCL 4 MG/2 ML VIAL IVP PRN (05:49)
[2016-12-11] MEDS: metroNIDAZOLE 500 MG TAB PO SCH ×2 (05:49→13:27)
[2016-12-11 07:26] LABS: AUTOMATED NEUTROPHIL # 10.8 TH/MM3 (1.8-7.7); BASOPHIL # 0.1 TH/MM3 (0-0.2); BASOPHIL % 0.5 % (0.0-2.0); EOSINOPHIL # 0.2 TH/MM3 (0-0.4); EOSINOPHIL % 1.5 % (0.0-4.0); HEMATOCRIT 38.7 % (35.0-46.0); HEMO FLAGS DIFF FINAL; LYMPH % 21.7 % (9.0-44.0); LYMPHOCYTE # 3.3 TH/MM3 (1.0-4.8); MEAN CORPUSCULAR HGB CONC 31.7 % (32.0-36.0); MONO % 5.4 % (0.0-8.0); NEUT % 70.9 % (16.0-70.0); PLATELET COUNT 556 TH/MM3 (150-450); RED CELL DISTRIBUTION WIDTH 17.9 % (11.6-17.2); WHITE BLOOD COUNT 15.2 TH/MM3 (4.0-11.0)
[2016-12-11 07:33] LABS: POTASSIUM 3.7 MEQ/L (3.5-5.1)
[2016-12-11 08:00] VITALS: BP 181/105; PULSE 94; RESP 19; TEMP 97; O2SAT 95
[2016-12-11] MEDS: SODIUM CHLORIDE 0.9% FLUSH 10 ML FLUSH IV FLUSH SCH (08:24)
[2016-12-11] MEDS: FOLIC ACID 1 MG TAB PO SCH (08:25)
[2016-12-11] MEDS: HYDROmorphone HCL PF 1 MG/ML VIAL IV PUSH PRN (08:25)
[2016-12-11] MEDS: predniSONE 5 MG TAB PO SCH (08:25)
[2016-12-11] MEDS ORDERED: ZOFR4TAB PO (09:42)
--- NOTE | 2016-12-11 10:10 | HHI.PR ---
Subjective Remarks Follow up on patient with Crohn's disease, partial SBO, C diff colitis status post ileocecal resection. Patient seen and examined. Patient states she began having increasing abdominal pain around 1:00 this morning. She received her Oramorph 30 mg early 2:22. She continued to have significant pain with elevation in blood pressure 181/105 and tachycardia. Discussed with RN who administered IV Dilaudid. Patient is feeling much better now. She reports some nausea with the Dilaudid but is controlled with Zofran. She reports small hard stools this morning. She denies any other complaints. Denies any fever or chills. Denies any chest pain or shortness of breath. Denies any urinary complaints. Objective Vitals Vital Signs Date Time Temp Pulse Resp B/P (MAP) Pulse Ox O2 Delivery O2 Flow Rate FiO2 12/11/16 08:00 97.0 94 19 181/105 (130) 95 12/11/16 04:17 98.0 73 18 173/98 (123) 96 12/11/16 03:20 16 12/11/16 00:00 98.0 71 18 155/87 (109) 94 12/10/16 21:50 18 12/10/16 16:00 97.3 78 17 97/59 (72) 96 12/10/16 14:11 18 12/10/16 12:00 96.5 82 18 101/66 (78) 97 I/O 12/10/16 12/10/16 12/10/16 12/11/16 12/11/16 12/11/16 07:00 15:00 23:00 07:00 15:00 23:00 Intake Total 1120 ml Balance 1120 ml Intake Oral 1120 ml # Voids 5 # Bowel Movements 2 Result Diagram: 12/11/16 0531 12/11/16 0531 Imaging Last Impressions Abdomen X-Ray 12/06/16 0600 Signed Impressions: Service Date/Time: Tuesday, December 06, 2016 11:46 - CONCLUSION: 1. Multiple loops of distended small bowel with air-fluid levels suggesting some degree of partial bowel obstruction. Giancarlo Neves MD Abdomen/Pelvis CT 12/05/16 1157 Signed Impressions: Service Date/Time: Monday, December 05, 2016 12:57 - CONCLUSION: 1. Markedly dilated distal ileum measuring up to 6 cm with transition point approximately 30 cm from the terminal ileum and a second proximal focal transition point in the left lower quadrant, likely in the proximal to mid ileum. More proximally, jejunal loops appear adherent but otherwise normal in caliber with decompressed duodenum and stomach. There is apparent bowel wall thickening involving the terminal ileum and cecum with remainder of the colon grossly unremarkable. Findings are consistent with patient's history of Crohn' s ileitis and associated small bowel obstruction. No perforation or abscess at this time. 2. Redemonstration of stable but prominent intra-and extra hepatic ductal dilatation which may reflect reservoir affect following cholecystotomy. 3. Stable ancillary findings, as above. Hill Green MD Objective Remarks GENERAL: Well-nourished, well-developed patient in NAD. Awake and alert. Appears comfortable at present. SKIN: Warm and dry. HEAD: Normocephalic. Atraumatic. EYES: EOMI. No scleral icterus. No injection or drainage. ENT: No nasal bleeding or discharge. Mucous membranes pink and moist. NECK: Supple. Trachea midline. CARDIOVASCULAR: Tachycardic. S1, S2 noted. No murmur appreciated. RESPIRATORY: No accessory muscle use. Clear to auscultation. Breath sounds equal bilaterally. GASTROINTESTINAL: Postop abdomen, mildly distended, tender to palpation diffusely. Midline incision with Steri-Strips in place appears to be healing well. MUSCULOSKELETAL: No obvious deformities. Extremities without clubbing or cyanosis. 2+ bilateral lower extremity pitting edema noted. NEUROLOGICAL: Awake and alert. Able to move all extremities. Nonfocal. Normal speech. Medications and IVs Current Medications Medications (Trade) Dose Ordered Sig/Brooke Route Start Time Stop Time Status Last Admin (NS Flush) 2 ml UNSCH PRN IV FLUSH 12/05/16 15:00 12/10/16 09:28 (NS Flush) 2 ml BID IV FLUSH 12/05/16 21:00 12/11/16 08:24 (Zofran Inj) 4 mg Q6H PRN IVP 12/05/16 15:00 12/11/16 05:49 (Narcan Inj) 0.4 mg UNSCH PRN IV PUSH 12/05/16 15:00 (Dilaudid Pf Inj) 2 mg Q4H PRN IVS 12/05/16 17:30 Future Hold 12/05/16 17:40 (Heparin Inj) 5,000 units Q8HR SQ 12/05/16 22:00 Future Hold 12/07/16 14:09 (Ambien) 5 mg HS PRN PO 12/06/16 21:00 12/09/16 21:52 (Dilaudid Pf Inj) 0.5 mg Q4H PRN IV PUSH 12/06/16 18:30 12/11/16 08:25 (Cymbalta Dr) 60 mg HS PO 12/06/16 21:00 12/10/16 20:49 (Zanaflex) 4 mg TID PO 12/07/16 09:00 12/11/16 08:25 (Oramorph Sr) 30 mg DAILY PO 12/08/16 09:00 12/11/16 02:22 (Oramorph Sr) 15 mg HS PO 12/07/16 21:00 12/10/16 20:50 (Ativan Inj) 1 mg Q6H PRN IV PUSH 12/08/16 10:15 12/08/16 10:20 (Azulfidine) 500 mg Q8HR PO 12/09/16 14:00 12/11/16 05:49 (Folate) 1 mg DAILY PO 12/09/16 11:15 12/11/16 08:25 (Deltasone) 5 mg DAILY PO 12/10/16 09:00 12/11/16 08:25 (Flagyl) 500 mg Q8HR PO 12/10/16 22:00 12/16/16 21:59 12/11/16 05:49 A/P Problem List: (1) Abdominal pain ICD Code: R10.9 - Unspecified abdominal pain Status: Acute (2) Crohns disease ICD Code: K50.90 - Crohn's disease, unspecified, without complications Status: Acute Assessment and Plan Abdominal pain secondary to obstruction with a history of inflammatory bowel disease General surgery following, pod 2 s/p exp lap w ileocecal resection. Diet upgraded to heart healthy. Increased abdominal pain early this morning requiring IV Dilaudid. Discussed with Dino MCINTYRE. Will see if patient's pain is able to remain controlled off of IV narcotics. Continue to encourage ambulation C. difficile pos Continue on flagyl 500 mg by mouth 3 times a day No recurrence of diarrhea Crohns disease recently diagnosed in July Recent endoscopy Previously on solu-medrol IV by sx, transitioned to taper now on prednisone 5 mg by mouth. Discussed with Lars MCINTYRE who recommends continuing prednisone 5 mg daily for the next 20 days at time of discharge Folic acid 1 mg daily Sulfasalazine 500 mg by mouth 3 times a day GI following. Plan as above. GI has signed off. Follow-up in their clinic in 1 week. Leukocytosis Suspect due to steroid reaction Patient is afebrile Monitor as indicated Hypokalemia Resolved status post repletion Mag level 2.0 Constipation Patient reports 2 small hard stools this morning GS to begin bowel regimen Monitor for BM Chronic pain with history of DDD Continue pain management per general surgery Continue home dose of tizanidine 4mg po TID DVT proph: SCDs and per Gen sx Discussed with patient, RN, Dr. Early, Dino MCINTYRE and Liane Moore Dec 11, 2016 10:10
[2016-12-11] MEDS ORDERED: DOCUSATE SODIUM 100 MG CAP PO SCH (10:15)
[2016-12-11 12:00] VITALS: BP 135/75; PULSE 84; RESP 19; TEMP 97.4; O2SAT 96
[2016-12-11 16:00] VITALS: BP 119/75; PULSE 69; RESP 19; TEMP 97.6; O2SAT 97
--- NOTE | 2016-12-11 16:03 | HHI.PR ---
Subjective Subjective Notes Resting in bed Pain better this afternoon Objective Vitals/I&O Vital Signs Date Time Temp Pulse Resp B/P (MAP) Pulse Ox O2 Delivery O2 Flow Rate FiO2 12/11/16 12:00 97.4 84 19 135/75 (95) 96 12/10/16 08:30 Room Air 12/09/16 22:01 21 12/08/16 14:00 2 Labs Laboratory Tests Test 12/11/16 05:31 White Blood Count 15.2 Red Blood Count 4.90 Hemoglobin 12.3 Hematocrit 38.7 Mean Corpuscular Volume 79.0 Mean Corpuscular Hemoglobin 25.0 Mean Corpuscular Hemoglobin Concent 31.7 Red Cell Distribution Width 17.9 Platelet Count 556 Mean Platelet Volume 7.0 Neutrophils (%) (Auto) 70.9 Lymphocytes (%) (Auto) 21.7 Monocytes (%) (Auto) 5.4 Eosinophils (%) (Auto) 1.5 Basophils (%) (Auto) 0.5 Neutrophils # (Auto) 10.8 Lymphocytes # (Auto) 3.3 Monocytes # (Auto) 0.8 Eosinophils # (Auto) 0.2 Basophils # (Auto) 0.1 CBC Comment DIFF FINAL Differential Comment Blood Urea Nitrogen 5 Creatinine 0.54 Random Glucose 79 Calcium Level 8.5 Magnesium Level 2.0 Sodium Level 138 Potassium Level 3.7 Chloride Level 102 Carbon Dioxide Level 30.0 Anion Gap 6 Estimat Glomerular Filtration Rate 116 Cardiovascular: Regular Lungs: Clear Abdomen: Other (small midline incision with steri strips in place; non tender non distended ) Extremities: No edema A/P Assessment and Plan 56 year old female POD3 ex lap; ileocecal resection -Tolerating heart healthy diet -PO pain medications -OOB and mobilize -Zofran PRN for nausea -GS clear for DC -Patient to follow up with Dr. Choudhury next Attending Note - Dr. Choudhury Minimal discomfort Wound clean and dry Stable for discharge The exam, history, and the medical decision-making described in the above note were completed with the assistance of the mid-level provider. I reviewed and agree with the findings presented. I attest that I had a [id number] encounter with the patient on the same day, and personally performed and documented my assessment and findings in the medical record. Lisa Dougherty Dec 11, 2016 16:03 Harley Choudhury MD Dec 11, 2016 16:44
[2016-12-11] MEDS ORDERED: SULF500 PO (16:12)
[2016-12-11] MEDS ORDERED: PRED5TAB PO (16:12)
--- NOTE | 2016-12-11 16:26 | HHI.DS ---
Discharge Summary Admission Date Dec 06, 2016 at 09:31 Discharge Date: Dec 11, 2016 Admitting Diagnosis CHROHNS DISEASE, SMALL BOWEL OBSTRUCTION (1) Small bowel obstruction ICD Code: K56.609 - Unspecified intestinal obstruction, unspecified as to partial versus complete obstruction Status: Acute (2) C. difficile colitis ICD Code: A04.7 - Enterocolitis due to Clostridium difficile Status: Acute (3) Abdominal pain ICD Code: R10.9 - Unspecified abdominal pain Status: Acute (4) Ileus ICD Code: K56.7 - Ileus, unspecified Status: Acute (5) Crohns disease ICD Code: K50.90 - Crohn's disease, unspecified, without complications Status: Acute (6) Hypokalemia ICD Code: E87.6 - Hypokalemia Status: Acute Procedures DATE OF PROCEDURE 12/08/2016 PROCEDURE Exploratory laparotomy with ileocecal resection performed by Dr. Choudhury Brief History - From Admission Patient's 56-year-old female with a recent diagnosis of Crohn's in July 2016. 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 She had an endoscopy done about a week ago and since that time has had increased abdominal discomfort and distention. Over the last 2 days it has gotten worse. She has been unable to eat with nausea and vomiting. She does take morphine for chronic joint pain but noted that the morphine had become ineffective. She has been passing gas was been very minimal. She has been having subjective chills. She ran out of her Phenergan and came to the emergency room. She was trying to follow-up as outpatient as noted that the pain became so severe. She has gotten relief with IV Dilaudid in the emergency room. Images do show worrisome findings for obstruction and the patient's been admitted to the hospital for the same CBC/BMP: 12/11/16 0531 12/11/16 0531 Significant Findings Laboratory Tests Test 12/09/16 06:18 12/11/16 05:31 Hemoglobin 10.4 GM/DL (11.6-15.3) Hematocrit 32.4 % (35.0-46.0) Blood Urea Nitrogen 3 MG/DL (7-18) 5 MG/DL (7-18) Creatinine 0.48 MG/DL (0.50-1.00) Calcium Level 8.2 MG/DL (8.5-10.1) Potassium Level 3.1 MEQ/L (3.5-5.1) White Blood Count 15.2 TH/MM3 (4.0-11.0) Mean Corpuscular Volume 79.0 FL (80.0-100.0) Mean Corpuscular Hemoglobin 25.0 PG (27.0-34.0) Mean Corpuscular Hemoglobin Concent 31.7 % (32.0-36.0) Red Cell Distribution Width 17.9 % (11.6-17.2) Platelet Count 556 TH/MM3 (150-450) Neutrophils (%) (Auto) 70.9 % (16.0-70.0) Neutrophils # (Auto) 10.8 TH/MM3 (1.8-7.7) Imaging Last Impressions Abdomen X-Ray 12/06/16 0600 Signed Impressions: Service Date/Time: Tuesday, December 06, 2016 11:46 - CONCLUSION: 1. Multiple loops of distended small bowel with air-fluid levels suggesting some degree of partial bowel obstruction. Giancarlo Neves MD Abdomen/Pelvis CT 12/05/16 1158 Signed Impressions: Service Date/Time: Monday, December 05, 2016 12:57 - CONCLUSION: 1. Markedly dilated distal ileum measuring up to 6 cm with transition point approximately 30 cm from the terminal ileum and a second proximal focal transition point in the left lower quadrant, likely in the proximal to mid ileum. More proximally, jejunal loops appear adherent but otherwise normal in caliber with decompressed duodenum and stomach. There is apparent bowel wall thickening involving the terminal ileum and cecum with remainder of the colon grossly unremarkable. Findings are consistent with patient's history of Crohn' s ileitis and associated small bowel obstruction. No perforation or abscess at this time. 2. Redemonstration of stable but prominent intra-and extra hepatic ductal dilatation which may reflect reservoir affect following cholecystotomy. 3. Stable ancillary findings, as above. Hill Green MD PE at Discharge GENERAL: Well-nourished, well-developed patient in NAD. Awake and alert. Appears comfortable at present. SKIN: Warm and dry. HEAD: Normocephalic. Atraumatic. EYES: EOMI. No scleral icterus. No injection or drainage. ENT: No nasal bleeding or discharge. Mucous membranes pink and moist. NECK: Supple. Trachea midline. CARDIOVASCULAR: Tachycardic. S1, S2 noted. No murmur appreciated. RESPIRATORY: No accessory muscle use. Clear to auscultation. Breath sounds equal bilaterally. GASTROINTESTINAL: Postop abdomen, mildly distended, tender to palpation diffusely. Midline incision with Steri-Strips in place appears to be healing well. MUSCULOSKELETAL: No obvious deformities. Extremities without clubbing or cyanosis. 2+ bilateral lower extremity pitting edema noted. NEUROLOGICAL: Awake and alert. Able to move all extremities. Nonfocal. Normal speech. Pt update on day of discharge She was seen and examined. Feeling much better. Has not required any IV narcotics since early this morning. Tolerating diet well. Discussed with nursing staff, no acute issues. Patient cleared for discharge from GS standpoint. Patient to follow-up with Dr. Choudhury next . Hospital Course Patient admitted with abdominal pain and distention secondary to Crohn's ileitis and associated small bowel obstruction. General surgery and gastroenterology consulted. Patient placed nothing by mouth with IV fluids. Stool sent for C. difficile which was positive. Patient started on IV Flagyl 500 mg every 8. Patient was also started on IV Solu-Medrol. 12/08/16 patient underwent exploratory laparotomy with ileocecal resection performed by Dr. Choudhury. She was changed from IV Solu-Medrol to prednisone 5 mg daily which GI recommended continuing for the next 20 days. Patient no longer wanting to take Apriso due to cost. GI added sulfasalazine 500 mg by mouth 3 times a day and folic acid 1 mg daily. GI signed off and requested patient follow-up in their clinic in 1 week. Patient's diet advanced to a heart healthy with good tolerance. She was able to be weaned off of IV narcotic medication. Patient was ambulating well and having bowel movements. Patient was cleared for discharge from a general surgery standpoint. Patient to follow-up with Dr. Choudhury in 1 week. Pt Condition on Discharge: Stable Discharge Disposition: Discharge Home Discharge Time: > 30 minutes Discharge Instructions DIET: Follow Instructions for: Heart Healthy Diet Activities you can perform: Regular-No Restrictions Activities to Avoid: Lifting/Bending, Strenuous Activity Follow up Referrals: Gastroenterology - 1 Week with Dung Lyle MD PCP Follow-up - 1 Week Surgical - 12/18/16 with Harley Choudhury MD New Medications: Ondansetron (Zofran) 4 Mg Tab 4 MG PO Q6HR PRN for NAUSEA OR VOMITING, #10 TAB 2 Refills Folic Acid (Folic Acid) 1 Mg Tablet 1 MG PO DAILY for CROHNS DISEASE for 30 Days, #30 TAB Metronidazole (Flagyl) 500 Mg Tab 500 MG PO Q8HR for C DIFF COLITIS for 5 Days, #15 TAB Prednisone (Prednisone) 5 Mg Tab 5 MG PO DAILY for CROHNS DISEASE for 20 Days, #20 TAB Sulfasalazine (Azulfidine) 500 Mg Tab 500 MG PO Q8HR for CROHNS DISEASE for 30 Days, #90 TAB Continued Medications: Budesonide DR (Budesonide DR) 3 Mg Capdr 9 MG PO DAILY, #90 CAP 0 Refills Dicyclomine (Dicyclomine) 20 Mg Tab 20 MG PO TID for Bowel Management, #90 TAB [address] (Cymbalta DR) 30 Mg Capdr 60 MG PO HS, #30 CAP 0 Refills Morphine IR (Morphine IR) 15 Mg Tab 15 MG PO TID PRN for PAIN, TAB 0 Refills Pantoprazole (Protonix) 40 Mg Tab 40 MG PO DAILY for Ulcer Prevention, #30 TAB 0 Refills Tizanidine (Tizanidine) 4 Mg Cap 4 MG PO TID for Muscle Spasm, CAP 0 Refills Discontinued Medications: Mesalamine ER 24 HR (Apriso) 0.375 Gm Caper 1.5 GM PO DAILY for Ulcerative colitis, CAP 0 Refills Promethazine (Promethazine) 12.5 Mg Tab 12.5 MG PO Q6H PRN for NAUSEA OR VOMITING, TAB 0 Refills Liane Rhodes Dec 11, 2016 16:26
[2016-12-11] MEDS ORDERED: FOLI1TAB6 PO (16:27)
[2016-12-11] MEDS ORDERED: METR-1 PO (16:29)
--- NOTE | 2016-12-11 16:40 | HHI.DCPOC ---
Discharge Care Plan Diagnosis: (1) Ileus (2) Crohns disease (3) Hypokalemia (4) Small bowel obstruction (5) Abdominal pain (6) C. difficile colitis (7) Enteritis Goals to Promote Your Health * To prevent worsening of your condition and complications * To maintain your health at the optimal level Directions to Meet Your Goals Take your medications as prescribed Follow your dietary instruction Follow activity as directed Keep your appointments as scheduled Take your immunizations and boosters as scheduled If your symptoms worsen call your PCP, if no PCP go to Urgent Care Center or Emergency Room Smoking is Dangerous to Your Health. Avoid second hand smoke Call the 24-hour hour crisis hotline for domestic abuse at Liane Rhodes Dec 11, 2016 16:40
== END 2016-12-11 17:18 | disposition home or self-care (01) | DRG 330 ==
LOC: PHED 11:12 → PHEDA 14:15 → INTOOBSV 14:15 → N04B 18:58 → OBSVTOIN 12-06 09:31 → N07B 12-08 10:09
PROVIDERS: ADMIT Family Medicine; ATTEND Family Medicine
PROC: 30233N1 Transfusion of Nonautologous Red Blood Cells into Peripheral Vein, Percutaneous Approach (ICD-10-PCS; 2016-12-06)
PROC: 0DTH0ZZ Resection of Cecum, Open Approach (ICD-10-PCS; 2016-12-08)
PROC: 0DBB0ZZ Excision of Ileum, Open Approach (ICD-10-PCS; principal; 2016-12-08 07:38)
DX: K50.012 Crohn's disease of small intestine with intestinal obstruction (principal); A04.72 Enterocolitis due to Clostridium difficile, not specified as recurrent; D64.9 Anemia, unspecified; E87.6 Hypokalemia; G89.29 Other chronic pain; M25.50 Pain in unspecified joint; Z79.891 Long term (current) use of opiate analgesic; I10 Essential (primary) hypertension; K59.00 Constipation, unspecified; Z87.891 Personal history of nicotine dependence
CPT/HCPCS: 36430; 74020; 74177; 80048; 80053; 81001; 82948; 83690; 83735; 85014; 85018; 85025; 85610; 85730; 86850; 86900; 86901; 86920; 87493; 88307; 93005; 96361; 96374; 96375; 96376; J0131; J0360; J0690; J1100; J1170; J1644; J1720; J2060; J2270; J2405; J2543; J2550; J2710; J2920; J2930; J3010; J3480; J7030; J7050; J7120; J7512; P9016; Q9967